=== PATIENT | female | born 1985 | race Caucasian/White ===

== ENCOUNTER 2019-12-07 08:32 | Inpatient (IN) | payer OTHER, SELFPAY ==
--- NOTE | ~2019-12-07 | CT_ITS ---
EXAMINATION: CT abdomen pelvis w con DATE: 12/07/2019 10:20 INDICATION: Low abdominal pain, blood in stool. Nausea, vomiting, diarrhea TECHNIQUE: Computed tomography (CT) of the abdomen and pelvis was performed with 100 cc Omnipaque 350 intravenous contrast. Automated exposure control and iterative reconstruction technique were employe d. Exam dose: 665.89 mGy-cm total exam DLP. COMPARISON: 07/23/2017 CT abdomen pelvis 12/04/2014 CT abdomen pelvis FINDINGS: Normal heart size. No pericardial or pleural effusion. The lung bases are clear of infiltra te or consolidation. Status post cholecystectomy. No bile duct or pancreatic duct dilatation. No hepatic, splenic, pancrea tic, adrenal or renal space-occupying mass lesion. No urinary tract calculus or hydroureteronephrosis . Normal caliber of the abdominal aorta. No intraperitoneal or retroperitoneal or pelvic mass lesion or adenopathy or ascites. There is extensive wall thickening of the colon, including cecum, ascending colon, distal transverse colon, splenic flexure and descending and sigmoid: As well as rectum. Findings suggest inflammatory b owel disease, particularly possibility of ulcerative colitis. Infectious colitis is another considera tion. There is no evidence of vascular stenosis to suggest ischemic colitis. Normal caliber of the abdominal aorta. There are shotty periaortic and aortocaval lymph nodes, likely reactive. The uterus, adnexal areas and urinary bladder are unremarkable. Included skeletal structures are unremarkable. No evidence of sacroiliitis. IMPRESSION: Extensive colitis; consider inflammatory bowel disease, particularly ulcerative colitis, as well as infectious colitis Reviewed, dictated and finalized at [facility]. Reviewed, dictated and finalized at location [facility]. ISH MELTER IMPRESSION: Extensive colitis; consider inflammatory bowel disease, particular ly ulcerative colitis, as well as infectious colitis
--- NOTE | ~2019-12-07 | XR_ITS ---
EXAMINATION: XR abdomen/kub 1V DATE: 12/08/2019 05:47 INDICATION: Blood in stool. TECHNIQUE: A supine view of the abdomen was obtained. COMPARISON: CT abdomen and pelvis 12/07/2019 FINDINGS: There are no dilated loops of bowel. There are phleboliths in the pelvis. Surgical clips in the right upper quadrant are likely from cholecystectomy. IMPRESSION: 1. Nonobstructive bowel gas pattern. Reviewed, dictated and finalized at location [facility]. R BUILDER
--- NOTE | ~2019-12-07 | XR_ITS ---
EXAMINATION: XR abdomen/kub 1V DATE: 12/10/2019 05:38 INDICATION: Ulcerative colitis. TECHNIQUE: A supine view of the abdomen was obtained. COMPARISON: Abdomen radiograph 12/08/2019, CT abdomen and pelvis 12/07/2019 FINDINGS: There are no dilated loops of bowel. There is a paucity of stool in the colon. There are ph leboliths in the pelvis. Surgical clips in the right upper quadrant are likely from cholecystectomy. IMPRESSION: 1. Normal bowel gas pattern. Reviewed, dictated and finalized at location [facility]. R COAT SPRAYER
[2019-12-07 08:42] VITALS: BP 126/81; PULSE 101; RESP 18; TEMP 36.9; O2SAT 99
[2019-12-07] MEDS: ONDANSETRON INJ 4 MG/2 ML VIAL IV PUSH (08:59)
[2019-12-07] MEDS: methylPREDNISolone SOD SUCC 125 MG VIAL IV PUSH (08:59)
[2019-12-07] MEDS: LACTATED RINGERS 1,000 ML 999 ML IV CONT ×3 (08:59→11:57)
[2019-12-07] MEDS: FAMOTIDINE 20 MG/2 ML VIAL IV PUSH ×2 (09:00→21:47)
[2019-12-07 09:10] LABS: Basophils Absolute Auto 0.1 K/mm3 (0.0-0.1); Basophils Percent Auto 0.4 % (0.2-1.2); Eosinophils Absolute Auto 0.1 K/mm3 (0-0.3); Eosinophils Percent Auto 0.4 % (0-4.4); Hematocrit 41.7 % (37.0-47.0); Hemoglobin 14.1 g/dL (12.0-15.0); Immature Granulocyte Absolute 0.09 K/mm3 (0.00-0.031); Immature Granulocyte Percent A 0.5 % (0-0.5); Lymphocytes Absolute Auto 2.03 K/mm3 (0.9-3.2); Lymphocytes Percent Auto 12.3 % (18.3-44.2); Mean Corpuscular HGB Conc 33.8 g/dl (32-36); Mean Corpuscular Hemoglobin 30.2 pg (26-34); Mean Corpuscular Volume 89.3 fl (80-100); Mean Platelet Volume 9.7 fl (7.4-10.4); Monocytes Absolute Auto 1.1 K/mm3 (0.1-0.6); Monocytes Percent Auto 6.7 % (2.6-8.5); Neutrophils Absolute Auto 13.2 K/mm3 (1.3-6.7); Neutrophils Percent Auto 79.7 % (45.5-73.1); Platelet Count Result 383 k/mm3 (150-375); Red Blood Count 4.67 M/mm3 (4.2-5.4); Red Cell Distribution Width 13.4 % (11.5-14.5); White Blood Count 16.5 K/mm3 (4.5-10.0)
--- NOTE | 2019-12-07 09:11 | ED.ABDPAIN ---
HPI - Abdominal Pain General Chief Complaint: Abdominal Pain <SHAYY Roberson Last Filed: 12/07/19 12:44> Stated Complaint: abd pain/vomiting <SHAYY Roberson Last Filed: 12/07/19 12:44> Time Seen by Provider: 12/07/19 08:40 <SHAYY Roberson Last Filed: 12/07/19 12:44> Source: patient and old records reviewed <SHAYY Roberson Last Filed: 12/07/19 12:44> Mode of arrival: ambulatory <SHAYY Roberson Last Filed: 12/07/19 12:44> Limitations: no limitations <SHAYY Roberson Last Filed: 12/07/19 12:44> History of Present Illness HPI narrative: Patient is a 34-year-old female who continues to have abdominal pain with rectal bleeding and diarrhea has been having a flare for the last 2 months of her ulcerative colitis followed by specialty services at [facility] (Dr. Mike) patient is currently on prednisone was on 40 mg daily and has been for 7 days they increase the dose to 60 mg in the last day patient notes she has now began to have nausea and vomiting with inability to tolerate p.o. intake or medications beginning last night patient notes diffuse pain throughout the abdomen that is moderate in nature this is the patient's third visit to the emergency department for this issue. Last visit was 11/29/2019 patient also notes decreased appetite secondary to abdominal discomfort patient notes numerous loose stools up to 12/day primarily consisting of blood. <SHAYY Roberson Last Filed: 12/07/19 12:44> Related Data Home Medications: Home Medications Medication Instructions Recorded Confirmed adalimumab [Humira(CF) Pen] mg SUBCUT 11/27/19 budesonide PO 11/27/19 fluoxetine mg 11/27/19 norethindrone-e.estradiol-iron tablet 11/27/19 [11/22 (28)] tizanidine mg 11/27/19 <SHAYY Roberson Last Filed: 12/07/19 12:44> Allergies/Adverse Reactions: Allergies Allergy/AdvReac Type Severity Reaction Status Date / Time infliximab Allergy Unknown Joint Pain Verified 11/29/19 10:06 mesalamine Allergy Unknown Joint Pain Verified 11/29/19 10:06 <Sven Gutiérrez PA-C - Last Filed: 12/07/19 12:44> Review of Systems Review of Systems: Narrative: CONSTITUTIONAL: Denies fever, positive for chills, fatigue and sweats. EYES: Denies redness, or discharge. ENT: Denies rhinorrhea, congestion, sore throat, or otalgia. CARDIOVASCULAR: Denies chest pain RESPIRATORY: Denies cough or dyspnea. GENITOURINARY: Denies dysuria or hematuria. SKIN: Denies rash or itching. MUSCULOSKELETAL: Denies back pain, joint pain, or myalgia. NEUROLOGIC: Denies headache. Positive for dizziness <Sven Gutiérrez PA-C - Last Filed: 12/07/19 12:44> [facility] Past Medical History Medical History: Medical History Anxiety Depression GI bleed IBS (irritable bowel syndrome) Shingles Ulcerative colitis <Sven Gutiérrez PA-C - Last Filed: 12/07/19 12:44> Surgical History Surgical History: Surgical History History of cholecystectomy History of dilation and curettage History of hernia repair <Sven Gutiérrez PA-C - Last Filed: 12/07/19 12:44> Family History Family History: Family History (Updated 03/04/19 @ 08:13 by DOCTOR UNKNOWN) Mother Family history of thyroid disease Grandparent Family history of lung cancer Family history of renal cell carcinoma Other Cerebrovascular accident Diabetes mellitus Family history of allergic disorder Family history of kidney disease Hypertension <Sven Gutiérrez PA-C - Last Filed: 12/07/19 12:44> Social History Social History: Social History Smoking status: Never smoker Alcohol intake: current Gender identity (if verbalized by the patient): Female <Sven Gutiérrez
[2019-12-07 09:22] LABS: Alanine Aminotransferase 22 U/L (4-35); Albumin Level 4.2 g/dL (3.5-5.1); Alkaline Phosphatase 75 U/L (38-126); Aspartate Amino Transferase 19 U/L (14-36); Bilirubin,Total 0.3 mg/dL (0.2-1.3); Blood Urea Nitrogen 10 mg/dL (7-17); CRP 7.2 mg/dL (<1.0); Calcium 9.1 mg/dL (8.4-10.2); Carbon Dioxide 26 mmol/L (22-30); Chloride 96 mmol/L (98-107); Estimated Glomerular Filt Rate > 60; Glucose 107 mg/dL (65-105); Potassium 3.1 mmol/L (3.4-5.0); Sodium 134 mmol/L (137-145)
[2019-12-07 09:24] LABS: Prothrombin Time 12.7 Seconds (11.1-14.7)
[2019-12-07 09:25] LABS: Partial Thromboplastin Time 24.1 SECONDS (22.3-36.8)
[2019-12-07 09:42] LABS: Lactic Acid Reflex 2.6 mmol/L (0.7-2.1)
[2019-12-07] MEDS: MORPHINE SULFATE 2 MG/ML INJ IV PUSH (10:05)
[2019-12-07 10:27] LABS: Add Urine Microscopic? YES; Appearance Urine Clear (Clear); Bacteria Urine Trace /hpf; Bilirubin Urine Negative (Negative); Blood Urine 2+ (Negative); Color Urine Yellow (Yellow); Glucose Urine UA Negative (Negative); Ketones Urine Negative (Negative); Leukocyte Esterase Ur Negative LEU/UL (Negative); Mucus Urine Few /lpf; Nitrate Urine Negative (Negative); Protein Urine Negative (Negative); RBC Urine 0-2 /hpf (0-2); Specific Grav Ur 1.012 (1.001-1.035); Squamous Epithelial Cell Urine Occasional /hpf (Few); Urobilinogen Urine Negative mg/dL (<2.0); WBC Urine 0-3 /hpf
[2019-12-07] MEDS: MORPHINE SULFATE 4 MG/ML INJ IV PUSH (11:56)
[2019-12-07 11:57] VITALS: BP 127/81; PULSE 88; RESP 16; TEMP 36.8; O2SAT 97
[2019-12-07 12:27] LABS: Reflex Lactic Acid Yes or No Add Lactic
[2019-12-07 12:56] LABS: Lactic Acid 2.7 mmol/L (0.7-2.1)
[2019-12-07 13:46] VITALS: BP 127/81; PULSE 83; RESP 16; O2SAT 95
[2019-12-07 14:10] VITALS: BP 127/70; PULSE 79; RESP 16; TEMP 36.3; O2SAT 96
[2019-12-07 14:23] VITALS: PULSE 88; RESP 16; O2SAT 97; BMI 29.0
--- NOTE | 2019-12-07 14:41 | ADMGEN ---
This patient, Elizabeth Tanner, was admitted to [facility] Surg Room 304-01. Patient/family oriented to hospital policies and general routines including ID bracelet, bed and alarms, visiting hours, pain management, procedures, bathroom and other care routines, personal items, smoking policy, room service/diet, and visiting hours. Valuables list has been completed. Information on how to activate the Rapid Response Team has been discussed. Patient/Family are encouraged to report perceived risks to care and to ask questions if they do not understand what they are told or what they should do.
[2019-12-07] MEDS: LACTATED RINGERS 1,000 ML 125 ML IV CONT ×2 (14:45→23:01)
--- NOTE | 2019-12-07 16:56 | PM.IMHP ---
H&P: HPI History of Present Illness Chief complaint: Ulcerative colitis with bleeding/sepsis Narrative: Elizabeth Tanner is a 34 year old female who has a history of having also to have colitis. The patient stated that she has been dealing with symptoms since September. She is having several watery blood tinged diarrhea stools. The patient was started on p.o. prednisone but has not been able to tolerate p.o. medications. She has been having nausea and vomiting aqnd inability to tolerate p.o. intake her medications being last night. She sees a GI specialist at [facility] and the ER provider did notify her GI specialist who is aware that she has an elevated white count and bloody stools. Her GI specialist recommended that the patient take 20 mg of IV Solu-Medrol every 8 hours. No antibiotics was recommended at this time. Patient was started on IV fluids and IV morphine. The patient was able to tolerated clear liquid diet tonight. She stated that she is feeling much better. Patient stated she was is having difficulty keeping up with her fluids at home due to the vomiting and diarrhea stools. She has had decreased appetite and increased abdominal discomfort. She has had up to 12 stools a day. She was started on IV Solu-Medrol here. Her potassium was noted to be 3.1 and she had supplemental potassium. Her lactic was 2.7 however most likely due to her dehydration. The CT of of the abdomen was read by radiologist as extensive colitis, consider inflammatory bowel disease, particularly also diff colitis, as well as infectious colitis. However her GI specialist did not feel that she is requiring antibiotics at this time. Date of service is 12/07/2019 Review of Systems Review of Systems: All systems reviewed & are unremarkable except as noted in HPI and below Constitutional: Constitutional: Reports as per HPI, Reports no additional constitutional complaints, Reports anorexia, Reports chills, Reports difficulty sleeping (Up during the night having loose stools), Reports fatigue, Reports lethargy, Reports malaise, Reports night sweats, Reports poor appetite and Reports weakness Eyes: Eyes: Reports as per HPI and Reports no additional eye complaints ENT: Reports system reviewed and no additional complaints, except as documented and Reports Normal hearing present Cardiovascular: Cardiovascular: Reports no additional cardiovascular complaints Respiratory: Respiratory: Reports no additional respiratory complaints and Reports no additional respiratory complaints Gastrointestinal: Gastrointestinal: Reports as per HPI, Reports no additional gastrointestinal complaints, Reports abdominal pain, Reports bloating, Reports hematochezia, Reports GI cramping, Reports loose stools and Reports nausea Musculoskeletal: Musculoskeletal: Reports no additional musculoskeletal complaints Integumentary/Breasts: Skin/Breast: Reports system reviewed and no additional complaints, except as docu and Reports as per HPI Neurologic: Reports system reviewed and no additional complaints, except as documented, Reports as per HPI and Reports Normal hearing present Psychiatric: Psychiatric: Reports no additional psychiatric complaints and Reports as per HPI Endocrine: Endocrine: Reports no additional endocrine complaints Hematologic/Lymphatic: Hematologic/Lymphatic: Reports no additional hematologic/lymphatic complaints Allergic/Immunologic: Allergic/Immunologic: Reports no additional allergic/immunologic complaints PMFSH Past Medical History Medical History (Updated 12/07/19 @ 17:09 by Marilyn Mchugh NP) Anxiety Depression GI bleed Shingles Ulcerative colitis Surgical History Surgical History History of cholecystectomy History of dilation and curettage History of hernia repair Family History Family History Mother Family history
[2019-12-07] MEDS: methylPREDNISolone SOD SUCC 125 MG VIAL 60 MG IV PUSH (18:41)
[2019-12-07 18:46] LABS: Hematocrit 37.6 % (37.0-47.0); Hemoglobin 12.3 g/dL (12.0-15.0); Mean Corpuscular HGB Conc 32.7 g/dl (32-36); Mean Corpuscular Hemoglobin 29.8 pg (26-34); Mean Platelet Volume 9.6 fl (7.4-10.4); Platelet Count Result 372 k/mm3 (150-375); Red Blood Count 4.13 M/mm3 (4.2-5.4); Red Cell Distribution Width 13.5 % (11.5-14.5); White Blood Count 15.5 K/mm3 (4.5-10.0)
[2019-12-07 18:57] LABS: INR 1.1; Prothrombin Time 13.4 Seconds (11.1-14.7)
[2019-12-07 18:58] LABS: Lactic Acid 2.8 mmol/L (0.7-2.1)
[2019-12-07 19:18] LABS: Alanine Aminotransferase 22 U/L (4-35); Albumin Level 3.6 g/dL (3.5-5.1); Alkaline Phosphatase 61 U/L (38-126); Aspartate Amino Transferase 18 U/L (14-36); Bilirubin,Total 0.2 mg/dL (0.2-1.3); CRP 7.3 mg/dL (<1.0); Magnesium 1.9 mg/dL (1.6-2.3); Phosphorus 3.7 mg/dL (2.5-4.5)
[2019-12-07 19:19] LABS: Iron 22 ug/dL (37-170)
[2019-12-07 19:34] LABS: Percent Iron Saturation 7 % (20-50)
[2019-12-07 19:48] LABS: Thyroid Stimulating Hormone 0.597 uIU/mL (0.465-4.680)
[2019-12-07 19:59] LABS: Hepatitis B Surface Anti Res Positive
[2019-12-07 20:23] LABS: Folic Acid 9.2 ng/mL (2.76->20)
[2019-12-07 22:00] VITALS: BP 113/64; PULSE 79; RESP 14; TEMP 36.3; O2SAT 98
[2019-12-07] MEDS: TIZANIDINE HCL 4 MG TABLET PO (22:49)
[2019-12-08] MEDS: methylPREDNISolone SOD SUCC 125 MG VIAL 60 MG IV PUSH ×4 (02:03→21:52)
[2019-12-08 04:00] VITALS: BP 120/68; PULSE 85; RESP 18; TEMP 36.5; O2SAT 98
[2019-12-08] MEDS: MORPHINE SULFATE 4 MG/ML INJ IV PUSH ×3 (05:05→21:11)
[2019-12-08] MEDS: LACTATED RINGERS 1,000 ML 125 ML IV CONT (05:06)
[2019-12-08 06:33] LABS: Basophils Absolute Auto 0.1 K/mm3 (0.0-0.1); Basophils Percent Auto 0.4 % (0.2-1.2); Hematocrit 38.4 % (37.0-47.0); Hemoglobin 12.6 g/dL (12.0-15.0); Immature Granulocyte Absolute 0.11 K/mm3 (0.00-0.031); Immature Granulocyte Percent A 0.8 % (0-0.5); Lymphocytes Absolute Auto 1.06 K/mm3 (0.9-3.2); Lymphocytes Percent Auto 7.3 % (18.3-44.2); Mean Corpuscular HGB Conc 32.8 g/dl (32-36); Mean Corpuscular Hemoglobin 29.8 pg (26-34); Mean Corpuscular Volume 90.8 fl (80-100); Mean Platelet Volume 10.1 fl (7.4-10.4); Monocytes Absolute Auto 0.6 K/mm3 (0.1-0.6); Monocytes Percent Auto 4.3 % (2.6-8.5); Neutrophils Absolute Auto 12.6 K/mm3 (1.3-6.7); Neutrophils Percent Auto 87.2 % (45.5-73.1); Platelet Count Result 351 k/mm3 (150-375); Red Blood Count 4.23 M/mm3 (4.2-5.4); Red Cell Distribution Width 13.3 % (11.5-14.5); White Blood Count 14.5 K/mm3 (4.5-10.0)
[2019-12-08 06:53] LABS: Blood Urea Nitrogen 7 mg/dL (7-17); Calcium 9.2 mg/dL (8.4-10.2); Carbon Dioxide 26 mmol/L (22-30); Chloride 97 mmol/L (98-107); Estimated CRCL calculation 139 ml/min; Estimated Glomerular Filt Rate > 60; Glucose 121 mg/dL (65-105); Potassium 3.9 mmol/L (3.4-5.0); Sodium 135 mmol/L (137-145)
[2019-12-08] MEDS: FAMOTIDINE 20 MG/2 ML VIAL IV PUSH ×2 (08:22→21:49)
[2019-12-08] MEDS: FLUOXETINE HCL 10 MG CAPSULE PO (08:22)
--- NOTE | 2019-12-08 09:59 | PM.IMPN ---
Progress Note: A&P Assessment and Plan (1) Ulcerative colitis with rectal bleeding: Code(s): K51.911 - Ulcerative colitis, unspecified with rectal bleeding Status: Acute Assessment and Plan: -----acute exacerbation now on IV steroids with some improvement so far. So far today she has had less diarrhea. The ER doctor talked to from [facility] who did not recommend antibiotics at this time. She did reportedly have stool cultures about a month ago which were negative. These have been reordered. She has not had any fevers. She has had a leukocytosis but could be due to steroids and inflammation. CRP is 7.3 and we will redraw this tomorrow. Her kidney function is normal and she is eating and drinking well so I will stop the IV fluids at this time. She was dehydrated at admission so we will watch closely to see if these need to be restarted. She has been having to utilize pain medications for the intense pain in these were adjusted since she is now able to take oral. Dr. Otero has been consulted and will wait for further recommendations. I spoke to the nurse about offering Bentyl as well to see if that might help with her cramping pain. I believe the patient plans to start Humira (2) Depression: Code(s): F32.9 - Major depressive disorder, single episode, unspecified Status: Chronic Assessment and Plan: -----mild and controlled. Continue fluoxetine (3) Anxiety: Code(s): F41.9 - Anxiety disorder, unspecified Status: Chronic Assessment and Plan: -----mild and controlled. Continue with fluoxetine. (4) Vitamin D deficiency: Code(s): E55.9 - Vitamin D deficiency, unspecified Status: Acute Assessment and Plan: -----will start vitamin-D replacement (5) Sepsis: Code(s): A41.9 - Sepsis, unspecified organism Status: Acute Assessment and Plan: -----seen on admission due to elevated lactic acid as well as leukocytosis. Source as stated above. Lactic acid is back to normal and the patient appears euvolemic. White blood cell count still elevated but she is also on steroids so I suspect this will remain elevated. Will monitor CRP and symptoms. Time Spent With Patient Time with patient: 25 - 35 minutes Subjective Date/time seen: 12/08/19 09:59 Interval history: Pt is a 34-year-old female here for UC exacerbation. Patient was seen today and states that she feels a little better and her pain is more controlled compared to yesterday before admission. She has had about 4 bowel movements since midnight which is a little less than her usual since her exacerbation started. She still has generalized cramping in her abdomen in most quadrants but worse in the right lower quadrant. This pain radiates to her back. She has been eating and drinking okay without issue there. She gets nauseated when she feels like she has diarrhea but overall is doing okay. She has been having to utilize pain medication due to the intense cramping. She has a past history of vitamin-D deficiency. She reports no chest pain or shortness of breath today. She thinks she has made improvement with the higher dose steroids. She sees a doctor at [facility] and was supposed to start Humira soon and I believe it is being delivered to her house. She said she had her stools tested about a month ago with no reported issue. Review of Systems Review of Systems: All systems reviewed & are unremarkable except as noted in HPI and below Exam Narrative: Exam Narrative: General: Well developed well nourished patient resting comfortably in bed in NAD HEENT: normocephalic Neck: supple Neuro: Alert and oriented x4 CV:RRR Resp:CTA Abd: Soft, non distended. Pain to palpation to all areas of the abdomen, worsened in the right lower quadrant. Positive bowel sounds Extremities: No swelling, erythema, or pain to palpation. Objective Data Vital
[2019-12-08] MEDS: DICYCLOMINE HCL 10 MG CAPSULE 20 MG PO (10:18)
[2019-12-08] MEDS: ONDANSETRON INJ 4 MG/2 ML VIAL IV PUSH ×3 (10:18→21:13)
--- NOTE | 2019-12-08 11:21 | WPDGICN ---
GI Consult Note Consult date/time: 12/08/19 11:21 HPI: Elizabeth Tanner is a 34 year old female seen in consultation at the request of the hospitalist in with the patient's permission. Impression: Ulcerative colitis with flare. GI bleeding secondary to above. Depression. Anxiety. History shingles. Increased T4 levels. History of drug-induced lupus. Recommendation: Will continue IV Solu-Medrol q.8 hours. Flexible sigmoidoscopy in a.m. to evaluate for underlying CMV colitis. Recheck laboratory studies. Humira when available. Check stool studies. Further recommendations will be forthcoming. This very pleasant lady has a long-term history of ulcerative colitis for 12 years. The patient has been treated with multiple medications. The patient's prior flare was approximately 6 years ago. At that time she was treated with steroids. She was subsequently switched to Asacol and Remicade. Unfortunately, she developed drug-induced lupus. The Remicade and the eschar discontinued. She was placed on 6 MP. 6- MP worked well for approximately 6 years of remission. Sometime last year the patient developed a flare. She was taking a fair amount of NSAIDs at the time. Since that time she has had a constant flare up. She was recently been on oral prednisone at home as well as budesonide. She began having increased rectal bleeding and diarrhea. She was also having episodes of nausea and vomiting. This persisted emergency room visit. CT imaging did reveal evidence of a thickened colon compatible with colitis. 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 Patient had a negative C diff 2 weeks ago as an outpatient. She has lost approximately 10 lb. She denies any fever or mouth sores, but has night sweats and chills. Patient's last colonoscopy was a year ago. Review of Systems Review of Systems: All systems reviewed & are unremarkable except as noted in HPI and below PMFSH Past Medical History Medical History (Updated 12/08/19 @ 11:32 by Ashok Otero DO) Anxiety Depression Drug-induced lupus erythematosus GI bleed Shingles Ulcerative colitis Vitamin D deficiency Surgical History Surgical History H/O colonoscopy History of cholecystectomy History of dilation and curettage History of hernia repair Family History Family History Mother Family history of thyroid disease Grandparent Family history of lung cancer Family history of renal cell carcinoma Other Cerebrovascular accident Diabetes mellitus Family history of allergic disorder Family history of kidney disease Hypertension Social History Social History Social History: The patient is to Brigitte who is her durable power ip technology transactions attorney for healthcare. She desires to be a full code. She has 2 children. 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 She is a lifelong nonsmoker and drinks socially. Smoking status: Never smoker Alcohol intake: current Substance use: never Living arrangements: with family Occupation/Education: occupation Gender identity (if verbalized by the patient): Female Meds Home Medications and Allergies Home Medications Medication Instructions Recorded Confirmed Type adalimumab [Humira(CF) Pen] mg SUBCUT 11/27/19 History budesonide 9 mg PO DAILY 11/27/19 12/07/19 History fluoxetine 10 mg PO DAILY 11/27/19 12/07/19 History norethindrone-e.estradiol-iron 1 tablet PO DAILY 11/27/19 12/07/19 History [June FE 11/22 (28)] tizanidine 4 mg PO PRN PRN 11/27/19 12/07/19 History dicyclomine 20 mg PO QID PRN #20 tablet 11/29/19 12/07/19 Rx ondansetron 4 mg PO Q6H PRN #20 tablet 11/29/19 12/07/19 Rx prednisone 60 mg PO DAILY 12/07/19 12/07/19 History Allergies Allergy/AdvReac Type Severity Reaction Status Date / Time infl
[2019-12-08] MEDS: ACETAMINOPHEN 325 MG TABLET 650 MG PO (12:02)
[2019-12-08] MEDS: ERGOCALCIFEROL 50,000 UNIT CAPSULE 50000 UNITS PO (12:02)
[2019-12-08 12:29] VITALS: BMI 29.0
[2019-12-08 14:11] VITALS: BP 127/66; PULSE 75; RESP 18; TEMP 36.4; O2SAT 98
[2019-12-08] MEDS: MELATONIN 5 MG TABLET PO (21:49)
[2019-12-08 22:00] VITALS: BP 125/73; PULSE 60; RESP 18; TEMP 37.1; O2SAT 97
[2019-12-09] VITALS (8 sets, daily range): BP systolic 97–126; BP diastolic 62–88; PULSE 62–76; RESP 16–18; TEMP 36.6–36.9; O2SAT 96–99
[2019-12-09] MEDS: methylPREDNISolone SOD SUCC 125 MG VIAL 60 MG IV PUSH ×3 (06:29→21:30)
[2019-12-09] MEDS: DICYCLOMINE HCL 10 MG CAPSULE 20 MG PO ×2 (06:51→19:23)
[2019-12-09 07:08] LABS: Hematocrit 40.3 % (37.0-47.0); Hemoglobin 13.3 g/dL (12.0-15.0); Mean Corpuscular Hemoglobin 29.6 pg (26-34); Mean Corpuscular Volume 89.6 fl (80-100); Mean Platelet Volume 10.1 fl (7.4-10.4); Platelet Count Result 417 k/mm3 (150-375); Red Cell Distribution Width 13.3 % (11.5-14.5); White Blood Count 11.3 K/mm3 (4.5-10.0)
[2019-12-09 07:18] LABS: Blood Urea Nitrogen 15 mg/dL (7-17); CRP 4.1 mg/dL (<1.0); Calcium 9.2 mg/dL (8.4-10.2); Carbon Dioxide 21 mmol/L (22-30); Chloride 97 mmol/L (98-107); Estimated CRCL calculation 118 ml/min; Estimated Glomerular Filt Rate > 60; Glucose 133 mg/dL (65-105); Magnesium 2.1 mg/dL (1.6-2.3); Potassium 3.4 mmol/L (3.4-5.0); Sodium 135 mmol/L (137-145)
[2019-12-09] MEDS: FAMOTIDINE 20 MG/2 ML VIAL IV PUSH ×2 (08:45→21:30)
[2019-12-09] MEDS: LACTATED RINGERS 1,000 ML 150 ML IV CONT (10:05)
--- NOTE | 2019-12-09 10:13 | WPDHPUPDATE1 ---
History and Physical Update Update Date/Time: 12/09/19 10:13 History and Physical has been reviewed, including an updated exam of the patient. There are NO changes in the patient's condition. Risks, benefits, and alternatives have been discussed and questions answered. Patient agrees to proceed with procedure. Plan: 1. Flex Sig today
--- NOTE | 2019-12-09 10:17 | WPDANESEPPF ---
Anes - Initial Pre Proc Eval Procedure: Operation Date: 12/09/19 10:00 Proposed Procedures p Flexible Sigmoidoscopy - Ashok Sullivan Branden Date/Time: 12/09/19 10:17 Surgeon: Caroline Posada PA-C Pre Op Diagnosis: Ulcerative colitis with bleeding/sepsis Patient Data Age: 34 Gender: F Height: 5 ft 5 in Weight: 79.3 kg Last Vital Signs Temp 36.9 C 12/09/19 10:06 Pulse 68 12/09/19 10:06 Resp 16 12/09/19 10:06 BP 103/88 12/09/19 10:06 Pulse Ox 97 12/09/19 10:06 Allergies Allergy/AdvReac Type Severity Reaction Status Date / Time infliximab Allergy Unknown Joint Pain Verified 12/09/19 09:50 mesalamine Allergy Unknown Joint Pain Verified 12/09/19 09:50 Home Medications Medication Instructions Recorded Confirmed Type adalimumab [Humira(CF) Pen] mg SUBCUT 11/27/19 History budesonide 9 mg PO DAILY 11/27/19 12/07/19 History fluoxetine 10 mg PO DAILY 11/27/19 12/07/19 History norethindrone-e.estradiol-iron 1 tablet PO DAILY 11/27/19 12/07/19 History [11/22 ()] tizanidine 4 mg PO PRN PRN 11/27/19 12/07/19 History dicyclomine 20 mg PO QID PRN #20 tablet 11/29/19 12/07/19 Rx ondansetron 4 mg PO Q6H PRN #20 tablet 11/29/19 12/07/19 Rx prednisone 60 mg PO DAILY 12/07/19 12/07/19 History Laboratory Tests 12/09/19 12/09/19 12/09/19 06:29 06:29 06:29 WBC 11.3 K/mm3 H K/mm3 (4.5-10.0) RBC 4.50 M/mm3 M/mm3 (4.2-5.4) Hgb 13.3 g/dL g/dL (12.0-15.0) Hct 40.3 % % (37.0-47.0) MCV 89.6 fl fl (80-100) MCH 29.6 pg pg (26-34) MCHC 33.0 g/dl g/dl (32-36) RDW 13.3 % % (11.5-14.5) Plt Count 417 k/mm3 H k/mm3 (150-375) MPV 10.1 fl fl (7.4-10.4) Sodium 135 mmol/L L mmol/L (137-145) Potassium 3.4 mmol/L mmol/L (3.4-5.0) Chloride 97 mmol/L L mmol/L (98-107) Carbon Dioxide 21 mmol/L L mmol/L (22-30) BUN 15 mg/dL D mg/dL (7-17) Creatinine 0.60 mg/dL L mg/dL (0.7-1.0) Estim Creat Clear Calc 118 ml/min ml/min Estimated GFR > 60 (59 - ) Glucose 133 mg/dL H mg/dL (65-105) Calcium 9.2 mg/dL mg/dL (8.4-10.2) Magnesium 2.1 mg/dL mg/dL (1.6-2.3) C-Reactive Protein 4.1 mg/dL H mg/dL (<1.0) Free T4 1.40 ng/mL ng/mL (0.78-2.19) Patient hx anesthesia problems: none Family hx anesthesia problems: none PMFSH Past Medical History Medical History (Updated 12/08/19 @ 11:32 by Ashok Otero DO) Anxiety Depression Drug-induced lupus erythematosus GI bleed Shingles Ulcerative colitis Vitamin D deficiency Surgical History Surgical History H/O colonoscopy History of cholecystectomy History of dilation and curettage History of hernia repair Family History Family History Mother Family history of thyroid disease Grandparent Family history of lung cancer Family history of renal cell carcinoma Other Cerebrovascular accident Diabetes mellitus Family history of allergic disorder Family history of kidney disease Hypertension Social History Social History Social History: The patient is to Brigitte who is her durable power family law attorney for healthcare. She desires to be a full code. She has 2 children. 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 Smoking status: Never smoker Alcohol intake: current Substance use: never Living arrangements: with family Occupation/Education: occupation Gender identity (if verbalized by the patient): Female Spiritual care concerns: No Anes - Eval Final PreProcedure Day of Procedure 12/09/19 10:17 Patient weight: overweight Heart:
[2019-12-09] MEDS: FLUOXETINE HCL 10 MG CAPSULE PO (12:58)
--- NOTE | 2019-12-09 13:02 | PM.IMPN ---
Progress Note: A&P Assessment and Plan (1) Ulcerative colitis with rectal bleeding: Code(s): K51.911 - Ulcerative colitis, unspecified with rectal bleeding Status: Acute Assessment and Plan: -----acute exacerbation now on IV steroids with some improvement so far. flex sig today showed significant irritation and ulcers. Will continue current treatment. CMV stain has been sent. Ecoli and ciff is negative and other stool studies still pending. WBC and CRP has improved. So far today she has had less diarrhea. The ER doctor talked to from [facility] who did not recommend antibiotics at this time. She did reportedly have stool cultures about a month ago which were negative. These have been reordered. She has not had any fevers. Her kidney function is normal and she is eating and drinking well. She has been having to utilize pain medications and doing well on the benytl. Plan discussed with Dr. Otero. I believe the patient plans to start Humira (2) Depression: Code(s): F32.9 - Major depressive disorder, single episode, unspecified Status: Chronic Assessment and Plan: -----mild and controlled. Continue fluoxetine (3) Anxiety: Code(s): F41.9 - Anxiety disorder, unspecified Status: Chronic Assessment and Plan: -----mild and controlled. Continue with fluoxetine. (4) Vitamin D deficiency: Code(s): E55.9 - Vitamin D deficiency, unspecified Status: Acute Assessment and Plan: -----continue vitamin-D replacement (5) Sepsis: Code(s): A41.9 - Sepsis, unspecified organism Status: Acute Assessment and Plan: -----seen on admission due to elevated lactic acid as well as leukocytosis. Source as stated above. Lactic acid is back to normal and the patient appears euvolemic. White blood cell count still elevated but she is also on steroids so I suspect this will remain elevated. Will monitor CRP and symptoms. Subjective Date/time seen: 12/09/19 13:02 Interval history: Pt is a 34-year-old female here for UC exacerbation. Patient was seen today and states that she feels better than she has the past few days. She now averages about 6-7 diarrhea episodes a day which is about half of what is has been. She slept better last night with the melatonin. She has been eating and drinking without issue. She denies SOB, fevers, CP, or leg swelling. She does still have significant cramping with her diarrhea. Exam Narrative: Exam Narrative: General: Well developed well nourished patient resting comfortably in bed in NAD HEENT: normocephalic Neck: supple Neuro: Alert and oriented x4 CV:RRR Resp:CTA Abd: Soft, non distended. Pain to palpation to the lower quadrants today. Positive bowel sounds Extremities: No swelling, erythema, or pain to palpation. Objective Data Vital Signs Vital Signs: Vital Signs - 24 hr 12/08/19 14:11 12/08/19 22:00 12/09/19 06:00 Temperature 97.5 F L 98.7 F 97.9 F Pulse Rate 75 60 76 Respiratory Rate 18 18 18 Blood Pressure 127/66 125/73 110/68 Pulse Oximetry 98 97 98 12/09/19 08:37 12/09/19 10:06 12/09/19 10:58 Temperature 98.5 F Pulse Rate 69 68 72 Respiratory Rate 18 16 18 Blood Pressure 115/75 103/88 97/63 L Pulse Oximetry 97 97 99 12/09/19 11:08 12/09/19 11:18 Temperature Pulse Rate 66 68 Respiratory Rate 18 18 Blood Pressure 107/69 112/68 Pulse Oximetry 99 99 Intake/Output Intake/Output: Intake & Output 12/06/19 12/07/19 12/08/19 12/09/19 23:59 23:59 23:59 23:59 Intake Total 4580 4130 250 Output Total 2700 700 Balance 4580 1430 -450 Meds/Results Medications: Active Medications Generic Name Dose Route Start Last Admin Trade Name Freq PRN Reason Stop Dose Admin Acetaminophen 650 mg 12/08/19 09:56 12/08/19 12:02 Tylenol Tablet PO 650 mg Q4H PRN Administration Mild Pain (1-3) or Fever Dicyclomine HCl 20 mg 02/0
[2019-12-09] MEDS: POTASSIUM CHLORIDE 20 MEQ TABLET 40 MEQ PO (13:04)
--- NOTE | 2019-12-09 14:24 | PCDIET ---
Nutrition Follow-Up Complete: Altered GI function as related to Ulcerative colitis as related to weight loss of 10 lbs in the past 3 months and poor po intake reported. Adequate Intake of at least 75% of meals. Goal:Goal met. Continue with current goal. Pt current nutrition is Regular/Gluten Free. Nutrition recommendation: Agree Last recorded weight is 79.3 kg. Bowel Motility: 6+ stools per day (improved) Labs Reviewed:Vit D of 20, T4 of 12.90. TSH .597, C Reactive 4.1 Meds Noted: Solumedrol, Ergocalciferol Additional Notes: Pt suffering from UC for 12 years. Can no longer take remicade. Plans for Humira. Pt found out she has celiac and tries to maintain gluten free diet. Iron and % Saturation low at 22 and 7, most likely due to bleeding. Vitamin D low at at 20 most likely due to gut inflammation and reduce nutrient absorption. Agree with ergocalciferol. Pt most likely has other nutrition deficiencies due to malabsorption. A good quality MTV would be appropriate at this time. Pt would benefit from an anti-inflammatory/gluten free elimination diet/oral challenge to pinpoint foods that exacerbate UC and to promote gut healing after d/c. We will continue to monitor BMs, labs, and PO intake every every 5 days.
[2019-12-09] MEDS: ONDANSETRON HCL ODT 4 MG TABLET PO (19:23)
[2019-12-09] MEDS: MELATONIN 5 MG TABLET PO (21:31)
[2019-12-10] MEDS: DICYCLOMINE HCL 10 MG CAPSULE 20 MG PO ×2 (03:30→09:36)
[2019-12-10] MEDS: ACETAMINOPHEN 325 MG TABLET 650 MG PO ×2 (03:31→09:36)
[2019-12-10] MEDS: methylPREDNISolone SOD SUCC 125 MG VIAL 60 MG IV PUSH (05:29)
[2019-12-10 06:00] VITALS: BP 118/68; PULSE 68; RESP 16; TEMP 36.6; O2SAT 94
[2019-12-10 06:32] LABS: Basophils Percent Auto 0.3 % (0.2-1.2); Hematocrit 41.3 % (37.0-47.0); Hemoglobin 13.7 g/dL (12.0-15.0); Immature Granulocyte Absolute 0.27 K/mm3 (0.00-0.031); Lymphocytes Absolute Auto 1.68 K/mm3 (0.9-3.2); Lymphocytes Percent Auto 12.6 % (18.3-44.2); Mean Corpuscular HGB Conc 33.2 g/dl (32-36); Mean Corpuscular Hemoglobin 29.5 pg (26-34); Mean Platelet Volume 9.7 fl (7.4-10.4); Monocytes Absolute Auto 1.3 K/mm3 (0.1-0.6); Monocytes Percent Auto 9.7 % (2.6-8.5); Neutrophils Percent Auto 75.4 % (45.5-73.1); Platelet Count Result 467 k/mm3 (150-375); Red Blood Count 4.64 M/mm3 (4.2-5.4); Red Cell Distribution Width 13.2 % (11.5-14.5); White Blood Count 13.3 K/mm3 (4.5-10.0)
[2019-12-10 06:45] LABS: Blood Urea Nitrogen 18 mg/dL (7-17); Calcium 9.1 mg/dL (8.4-10.2); Carbon Dioxide 26 mmol/L (22-30); Chloride 98 mmol/L (98-107); Estimated CRCL calculation 118 ml/min; Estimated Glomerular Filt Rate > 60; Glucose 120 mg/dL (65-105); Magnesium 2.4 mg/dL (1.6-2.3); Phosphorus 4.6 mg/dL (2.5-4.5); Sodium 137 mmol/L (137-145)
[2019-12-10] MEDS: FAMOTIDINE 20 MG/2 ML VIAL IV PUSH (09:35)
[2019-12-10] MEDS: ONDANSETRON HCL ODT 4 MG TABLET PO (09:35)
[2019-12-10] MEDS: FLUOXETINE HCL 10 MG CAPSULE PO (09:36)
--- NOTE | 2019-12-10 12:07 | WPDGIPROGNO ---
Subjective Date/time seen: 12/10/19 12:07 This very pleasant lady's feeling better. Bleeding has seemed to stop. No nausea, vomiting or pain. Heart rate rhythm regular. Lungs CTA. Abdomen is soft with active bowel sounds. Extremities without edema. Impression: Ulcerative colitis with flare. GI bleeding secondary to above. Depression. Anxiety. History shingles. Increased T4 levels. History of drug-induced lupus. Recommendation: Prednisone 40 mg q.a.m. on an taper. Follow-up with her primary top frame fitter for continuing tapering of prednisone. Continue with Humira as previously ordered. Pneumovax. Patient will need bone density. This is due to high risk medications. Await hepatitis a antibody total. If negative will require hepatitis a vaccine. Await CMV stains and histology. Objective Data Vital Signs Vital Signs: Vital Signs - 24 hr 12/09/19 14:00 12/09/19 22:00 12/10/19 06:00 Temperature 36.8 C 36.6 C 36.6 C Pulse Rate 71 62 68 Respiratory Rate 16 16 16 Blood Pressure 126/74 113/62 118/68 Pulse Oximetry 99 96 94 Intake/Output Intake/Output: Intake & Output 12/07/19 12/08/19 12/09/19 12/10/19 23:59 23:59 23:59 23:59 Intake Total 4580 4130 730 390 Output Total 2700 700 300 Balance 4580 1430 30 90 Meds/Results Medications: Active Medications Generic Name Dose Route Start Last Admin Trade Name Freq PRN Reason Stop Dose Admin Acetaminophen 650 mg 12/08/19 09:56 12/10/19 09:36 Tylenol Tablet PO 650 mg Q4H PRN Administration Mild Pain (1-3) or Fever Dicyclomine HCl 20 mg 12/07/19 17:15 12/10/19 09:36 Bentyl Capsule PO 20 mg QID PRN Administration Abdominal Discomfort Ergocalciferol 50,000 unit 12/08/19 10:00 12/08/19 12:02 Drisdol PO 50,000 unit We@[id number] LORENE Administration Famotidine 20 mg 12/07/19 21:00 12/10/19 09:35 Pepcid Iv IV PUSH 20 mg Q12HR LORENE Administration Fluoxetine HCl 10 mg 12/08/19 09:00 12/10/19 09:36 Prozac PO 10 mg DAILY LORENE Administration Melatonin 5 mg 12/08/19 21:00 12/09/19 21:31 Melatonin PO 5 mg HS LORENE Administration Methylprednisolone Sodium Succinate 60 mg 12/08/19 14:00 12/10/19 05:29 Solu-Medrol IV PUSH 60 mg Q8HR LORENE Administration Morphine Sulfate 4 mg 12/08/19 09:58 12/08/19 21:11 Morphine Sulfate Inj IV PUSH 4 mg Q2H PRN Administration Breakthrough Pain Non-Formulary Medication 40 mg 12/11/19 09:00 Predinisone BY MOUTH 01/10/20 09:01 DAILY LORENE Ondansetron HCl 4 mg 12/09/19 10:48 12/10/19 09:35 Zofran Odt PO 4 mg Q6H PRN Administration nausea and vomiting Tizanidine HCl 4 mg 12/07/19 17:15 Zanaflex PO HS PRN MUSCLE SPASMS Radiology Results: ITS Impressions Abdomen/Pelvis CT 12/07/19 10:25 IMPRESSION: Extensive colitis; consider inflammatory bowel disease, particularly ulcerative colitis, as well as infectious colitis Abdomen X-Ray 12/10/19 06:33 IMPRESSION: 1. Normal bowel gas pattern. Labs Labs: Laboratory Results - last 24 hr 12/10/19 12/10/19 05:55 05:55 WBC 13.3 H RBC 4.64 Hgb 13.7 Hct 41.3 MCV 89.0 MCH 29.5 MCHC 33.2 RDW 13.2 Plt Count 467 H MPV 9.7 Immature Gran % (Auto) 2.0 H Neut % (Auto) 75.4 H Lymph % (Auto) 12.6 L Calhoun % (Auto) 9.7 H Eos % (Auto) 0.0 Baso % (Auto) 0.3 Lymph # (Auto) 1.68 Calhoun # (Auto) 1.3 H Eos # (Auto) 0.0 Baso # (Auto) 0.0 Abs Immat Gran (auto) 0.27 H Absolute Neuts (auto) 10.0 H Absolute Nucleated RBC 0.0 Nucleated RBC % 0.0 Sodium 137 Potassium 4.0 Chloride 98 Carbon Dioxide 26 BUN 18 H Creatinine 0.60 L Estim Creat Clear Calc 118 Estimated GFR > 60 Glucose 120 H Calcium 9.1 Phosphorus 4.6 H Magnesium 2.4 H
--- NOTE | 2019-12-10 12:26 | PM.DS ---
DS: Diagnosis Admitting Diagnosis Admitting Diagnosis: Ulcerative colitis, unspecified with rectal bleeding Discharge Diagnosis (1) Ulcerative colitis with rectal bleeding: Code(s): K51.911 - Ulcerative colitis, unspecified with rectal bleeding Status: Acute Assessment and Plan: -----acute exacerbation improved with IV steroids. Flex sig showed significant irritation and ulcers. CMV stain has been sent. Stool cultures negative. WBC and CRP has improved. The ER doctor talked to from [facility] who did not recommend antibiotics at this time. She did reportedly have stool cultures about a month ago which were negative. Her kidney function is normal and she is eating and drinking well. She was started on Humira as this was being done outpatient before this exacerbation. She was also sent home on a long steroid taper and received the pneumonia vaccine. She is going to follow up with her GI doctor (2) Depression: Code(s): F32.9 - Major depressive disorder, single episode, unspecified Status: Chronic Assessment and Plan: -----mild and controlled. Continue fluoxetine (3) Anxiety: Code(s): F41.9 - Anxiety disorder, unspecified Status: Chronic Assessment and Plan: -----mild and controlled. Continue with fluoxetine. (4) Vitamin D deficiency: Code(s): E55.9 - Vitamin D deficiency, unspecified Status: Acute Assessment and Plan: -----continue vitamin-D replacement (5) Sepsis: Code(s): A41.9 - Sepsis, unspecified organism Status: Acute Assessment and Plan: -----seen on admission due to elevated lactic acid as well as leukocytosis. Source as stated above. Lactic acid is back to normal and the patient appears euvolemic. White blood cell count still elevated but she is also on steroids so I suspect this will remain elevated. DS: Summary Hospital Course Reason for hospitalization: Ulcerative colitis exacerbation Hospital Course: 34-year-old female who presented emergency room for abdominal pain and rectal bleeding that has been going on for the last 2 months. She usually sees Dr. Mike at [facility] for this and had been on oral prednisone but was having significant nausea and vomiting and worsening abdominal pain. Vitals in the ER were temperature 36.9?, pulse 101, respiratory rate 18, blood pressure 126/81, pulse ox 99 on room air. Initial white blood cell count 16.5, hemoglobin 14.1, hematocrit 41.7, platelets 383. Sodium 134, potassium 3.1, chloride 96, carbon dioxide 26, BUN 10, creatinine 0.6, glucose 107. CT of the abdomen and pelvis showed extensive colitis and the patient was admitted to the hospitalist service. Her GI doctor was contacted and did not recommend antibiotics. She saw Dr. Otero, our ingredient specialist, who started her on IV steroids and Bentyl. This improved the patient's condition significantly. She did underwent a flex-sig which showed crypt abscesses and ulcerations on pathology consistent with ulcerative colitis. The patient required IV steroids for a few days and gradually improved. The day of discharge she was having about half as much diarrhea than she was when she came in and did have some bowel movements without blood. Her pain was well controlled. She felt well enough to go home and was able to keep food and water down so she could take oral prednisone. She is going to follow up with her GI doctor outpatient. Patient was educated about the worrisome signs and symptoms come back to emergency room for was discharged stable condition. Status at Discharge Functional status at discharge: independent ambulation Overall status at discharge: patient is progressing back to baseline Time Spent with Patient Time attestation: Total time spent providing and/or coordinating discharge services:34 min Time spent: Greater than 30 minutes Exam Narrative: Exam Narrative: Genera
[2019-12-10] MEDS: predniSONE 20 MG TABLET 40 MG PO (13:13)
[2019-12-13 04:31] LABS: Hepatitis A Antibody Total Nonreactive (Nonreactive); Hepatitis B Core Ab Total Nonreactive (Nonreactive)
--- NOTE | 2019-12-17 14:10 | PC.NURSE ---
Stool WBC- many seen. Campylobacter is negative. Hep B core. Blood cx is negative
== END 2019-12-10 13:45 | disposition home or self-care (01) | DRG 872 ==
LOC: ANHED 12:56 → ANH3MEDSUR 13:35
PROVIDERS: Emergency Medicine Emergency Medical Services; Internal Medicine Gastroenterology; Nurse Practitioner; Physician Assistant; Admitting Provider Family Medicine; Emergency Provider Emergency Medicine; PCP Physician Assistant; Visit Provider Family Medicine
PROC: 0DJD8ZZ Inspection of Lower Intestinal Tract, Via Natural or Artificial Opening Endoscopic (ICD-10-PCS; CPT 45330; principal; 2019-12-09 10:00)
DX: A41.9 Sepsis, unspecified organism (principal); K51.311 Ulcerative (chronic) rectosigmoiditis with rectal bleeding; E55.9 Vitamin D deficiency, unspecified; F41.8 Other specified anxiety disorders; K58.9 Irritable bowel syndrome, unspecified; M32.0 Drug-induced systemic lupus erythematosus; Z90.49 Acquired absence of other specified parts of digestive tract; Z23 Encounter for immunization
CPT/HCPCS: 36415; 74018; 74177; 80048; 80053; 80076; 81001; 81025; 82306; 82607; 82728; 82746; 83540; 83550; 83605; 83735; 84100; 84436; 84439; 84443; 85025; 85027; 85610; 85730; 86140; 86480; 86704; 86706; 86708; 87040; 87045; 87046; 87324; 87427; 88305; 89055; 90732; 96361; 96374; 96375; 96376; 99285; A9270; G0378; J0131; J2270; J2405; J2704; J2930; J3480; J7120; J7512; Q9967

== ENCOUNTER 2020-06-25 14:43 | Inpatient (IN) | payer OTHER, SELFPAY ==
--- NOTE | ~2020-06-25 | CT_ITS ---
EXAMINATION: CT abdomen pelvis w con DATE: 06/25/2020 16:16 INDICATION: Upper abdominal pain TECHNIQUE: Computed tomography (CT) of the abdomen and pelvis was performed with 100 mL Omnipaque-350 intravenous contrast. Automated exposure control and iterative reconstruction technique were employe d. The dose-length product was 562.84 mGy-cm. COMPARISON: 12/07/2019 FINDINGS: Mild dependent atelectasis in the bilateral lower lobes. Heart size is normal. No pericardial or pleu ral effusion. Focal hepatic steatosis at the ligamentum teres. Cholecystectomy clips at the gallbladd er fossa. Pancreas, bilateral adrenal glands and kidneys are normal. There is a new 2.4 cm hypoenhanc ing lesion at the posterior periphery of the spleen with tubular hypoenhancing region extending centr ally towards the hilum of which are new since the prior study. The appearance suggests splenic infarc t with a thrombosed vessel with differential including infection or less likely neoplasm. There is di ffuse mild wall thickening of the colon which is decreased since the prior study consistent with impr oving colitis, reportedly ulcerative colitis. Small bowel and appendix are normal. Bladder, anteverte d uterus and left ovary are normal. 3.3 cm right adnexal cyst. Trace amount of free fluid in the pelv is. No free intraperitoneal gas. No pathologically enlarged abdominal or pelvic lymphadenopathy. Min imal scattered degenerative skeletal changes. IMPRESSION: 1. New 2.4 cm hypoenhancing lesion at the posterior periphery of the spleen suspicious for infarct in the presence of what appears to be a thrombosed vessel extending centrally towards the splenic hilum . Differential includes infection or less likely neoplasm. 2. Decrease in degree of now mild diffuse colonic wall thickening consistent with improving ulcerativ e colitis. Reviewed, dictated and finalized at location A. IMPRESSION: 1. New 2.4 cm hypoenhancing lesion at the posterior periphery of the spleen keaton picious for infarct in the presence of what appears to be a thrombosed vessel e xtending centrally towards the splenic hilum. Differential includes infection o r less likely neoplasm. 2. Decrease in degree of now mild diffuse colonic wall thickening consistent wi th improving ulcerative colitis.
[2020-06-25 14:52] VITALS: BP 90/60; PULSE 98; RESP 17; TEMP 36.6; O2SAT 100
[2020-06-25] MEDS: SODIUM CHLORIDE 0.9% IV 1,000 ML 999 ML IV CONT (15:02)
[2020-06-25] MEDS: FAMOTIDINE 20 MG/2 ML VIAL IV PUSH (15:15)
[2020-06-25] MEDS: ONDANSETRON INJ 4 MG/2 ML VIAL IV PUSH ×2 (15:15→19:58)
[2020-06-25] MEDS: MORPHINE SULFATE 4 MG/ML INJ IV PUSH ×3 (15:16→22:42)
[2020-06-25 15:17] LABS: Basophils Percent Auto 0.2 % (0.2-1.2); Eosinophils Absolute Auto 0.3 K/mm3 (0-0.3); Eosinophils Percent Auto 1.6 % (0-4.4); Hematocrit 37.8 % (37.0-47.0); Hemoglobin 12.1 g/dL (12.0-15.0); Immature Granulocyte Absolute 0.09 K/mm3 (0.00-0.031); Immature Granulocyte Percent A 0.5 % (0-0.5); Lymphocytes Absolute Auto 2.74 K/mm3 (0.9-3.2); Lymphocytes Percent Auto 16.1 % (18.3-44.2); Mean Corpuscular Hemoglobin 28.1 pg (26-34); Mean Corpuscular Volume 87.7 fl (80-100); Monocytes Percent Auto 5.9 % (2.6-8.5); Neutrophils Absolute Auto 12.9 K/mm3 (1.3-6.7); Neutrophils Percent Auto 75.7 % (45.5-73.1); Platelet Count Result 308 k/mm3 (150-375); Red Blood Count 4.31 M/mm3 (4.2-5.4); Red Cell Distribution Width 13.8 % (11.5-14.5); White Blood Count 17.1 K/mm3 (4.5-10.0)
[2020-06-25 15:20] LABS: Add Urine Microscopic? YES; Appearance Urine Clear (Clear); Bacteria Urine Trace /hpf; Bilirubin Urine Negative (Negative); Blood Urine 3+ (Negative); Color Urine Yellow (Yellow); Glucose Urine UA Negative (Negative); Ketones Urine Negative (Negative); Leukocyte Esterase Ur Negative LEU/UL (Negative); Mucus Urine Rare /lpf; Nitrate Urine Negative (Negative); Protein Urine Negative (Negative); Specific Grav Ur 1.027 (1.001-1.035); Squamous Epithelial Cell Urine Many /hpf (Few); Urobilinogen Urine Negative mg/dL (<2.0)
[2020-06-25 15:26] LABS: Lactic Acid Reflex 1.1 mmol/L (0.7-2.1)
--- NOTE | 2020-06-25 15:27 | ED.ABDPAIN ---
HPI - Abdominal Pain General Chief Complaint: Abdominal Pain Stated Complaint: abd pain Time Seen by Provider: 06/25/20 14:47 Source: patient and old records reviewed Mode of arrival: ambulatory Limitations: no limitations History of Present Illness HPI narrative: Patient is a 34-year-old female who presents to emergency department with history of Crohn's presents with acute onset of left upper flank pain and abdominal pain that began today as a sharp stabbing moderate to severe pain. Patient denies similar occurrence in the past but notes she has had multiple flares of her colitis which is followed by specialist at [facility]. Patient took ibuprofen and Tylenol with minimal improvement. Patient denies fever vomiting change in bowel habits urinary symptoms or vaginal complaints or any URI symptoms. Related Data Home Medications Medication Instructions Recorded Confirmed fluoxetine 10 mg PO DAILY 11/27/19 12/07/19 tizanidine 4 mg PO PRN PRN 11/27/19 12/07/19 melatonin [Melatin] 3 mg PO HS PRN 06/25/20 06/25/20 ondansetron 10 mg PO Q6H PRN 06/25/20 pantoprazole [Protonix] 40 mg PO QAM 06/25/20 prednisone 40 mg PO DAILY 06/25/20 Allergies Allergy/AdvReac Type Severity Reaction Status Date / Time infliximab Allergy Unknown Joint Pain Verified 06/25/20 15:09 mesalamine Allergy Unknown Joint Pain Verified 06/25/20 15:09 Review of Systems Review of Systems: All systems reviewed & are unremarkable except as noted in HPI and below PMFSH Past Medical History Medical History (Updated 06/25/20 @ 18:29 by Sven Gutiérrez PA-C) Anxiety Depression 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 Gastroesophageal reflux disease Shingles Ulcerative colitis Vitamin D deficiency Surgical History Surgical History (Updated 06/25/20 @ 18:05 by Yeni Kitchen PA-C) History of cholecystectomy History of colonoscopy History of dilation and curettage History of ventral hernia repair Family History Family History Mother Family history of thyroid disease Grandparent Family history of lung cancer Family history of renal cell carcinoma Other Cerebrovascular accident Diabetes mellitus Family history of allergic disorder Family history of kidney disease Hypertension Social History Social History Social History: The patient is to Brigitte who is her durable power senior attorney for healthcare. She desires to be a full code. She has 2 children. 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 She is a lifelong nonsmoker and drinks socially. Smoking status: Never smoker Alcohol intake: current Substance use: never Gender identity (if verbalized by the patient): Female Spiritual care concerns: No Exam Narrative: Exam Narrative: GENERAL: Illl-appearing, well-nourished, and in no acute distress. HEAD: Normocephalic, atraumatic. EYES: PERRLA and EOMI. ENT: Nares clear, no rhinorrhea or epistaxis. Mucous membranes moist. CHEST: Clear to auscultation. No respiratory distress. No wheezes rales or rhonchi HEART: Regular rate and rhythm. No murmur heard. Normal peripheral pulses. ABDOMEN: Soft, tenderness throughout the abdomen worse in the left upper quadrant, nondistended EXTREMITIES: Normal range of motion. No edema. SKIN: Warm, dry, no rash. NEURO: No focal deficits. Alert and oriented x3. PSYCH: Normal mood and affect. Course Course Emergency Course: Patient in the room at this time resting comfortably was initiated on heparin in the emergency department given the thrombus found patient will be placed in hospital to the hospitalist service with heme-onc involved patient aware of discussions with her UC . Consultations Consultation #1: Discussions were made with hospitalist patient's irritable bowel disease physician as well as
[2020-06-25 16:00] LABS: Alanine Aminotransferase 17 U/L (4-35); Albumin Level 3.1 g/dL (3.5-5.1); Alkaline Phosphatase 64 U/L (38-126); Anion Gap 5 mmol/L (8-16); Aspartate Amino Transferase 19 U/L (14-36); Bilirubin,Total < 0.1 mg/dL (0.2-1.3); Blood Urea Nitrogen 15 mg/dL (7-17); Calcium 7.3 mg/dL (8.4-10.2); Carbon Dioxide 25 mmol/L (22-30); Chloride 107 mmol/L (98-107); Estimated CRCL calculation 141 ml/min; Estimated Glomerular Filt Rate > 60; Glucose 131 mg/dL (65-105); Lipase 27 U/L (23-300); Potassium 3.3 mmol/L (3.4-5.0); Sodium 137 mmol/L (137-145)
--- NOTE | 2020-06-25 16:53 | PC.NURSE ---
Called lab to add pt inr ptt
[2020-06-25 16:57] VITALS: BP 117/79; PULSE 98; RESP 16; O2SAT 100
[2020-06-25 17:05] LABS: Prothrombin Time 12.6 Seconds (11.1-14.7)
[2020-06-25 17:06] LABS: Partial Thromboplastin Time 29.4 SECONDS (22.3-36.8)
--- NOTE | 2020-06-25 18:00 | PM.IMHP ---
H&P: HPI History of Present Illness Date/Time: 06/25/20 18:00. The patient was seen and evaluated in the emergency department. Chief complaint: Abdominal pain. Narrative: Elizabeth Tanner is a pleasant 34-year-old female with ulcerative colitis who presented to the emergency department earlier today from home for evaluation of abdominal pain. She is known to the hospitalist service from an admission in December 2019 in which she was treated for an ulcerative colitis flare. Since that time, she has had ongoing problems with her ulcerative colitis, and has been off and on steroids since discharge. More recently, she was started on prednisone and has been on that daily for approximately the last 6 weeks. Her symptoms have improved and she has maybe 4 to 5 loose stools a day without significant blood or mucus. She has mild symptoms with regards to the steroids including hot flashes and some anxiety but is tolerating it pretty well. In any event, she was wakened from sleep at 06:00 with a sharp stabbing pain in her left upper quadrant. She took 1 of her muscle relaxers, which allowed her to fall back asleep however when she woke again at 09:00 the pain was still there, although had eased up and was described more as an ache. Not long after eating lunch, she once again began having sharp, stabbing pain in the left upper quadrant and came to the emergency department for evaluation. 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 With her last she was treated with Lovenox and has had no issues since that time. Her pain has improved with morphine. She has not had fever, chills, vomiting, dysuria, or hematuria. Review of Systems Review of Systems: Narrative: Twelve systems were reviewed with pertinent positives and negatives as per HPI. No fever chills. She has some hot flashes that she attributes to the prednisone. No recent cold or flu symptoms. More recently she was diagnosed with right sided iritis and was placed on steroid drops. No chest pain, pleuritic pain, or shortness of breath however she did tell me that when the pain 1st started it took her breath away. No cough. No lower extremity edema or history of DVT. She suffers from GERD and takes Protonix daily. Except as documented, all other systems were reviewed and are negative. 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 Gastroesophageal reflux disease Iritis of right eye (~06/2020) Shingles Ulcerative colitis She has been on several different biologics without success, and is being referred to a GI specialist at [facility]. Vitamin D deficiency Surgical History Surgical History (Updated 06/25/20 @ 18:05 by Yeni Kitchen PA-C) History of cholecystectomy History of colonoscopy History of dilation and curettage History of ventral hernia repair Family History Family History Mother Family history of thyroid disease Grandparent Family history of lung cancer Family history of renal cell carcinoma Other Cerebrovascular accident Diabetes mellitus Family history of allergic disorder Family history of kidney disease Hypertension Social History Social History (Updated 06/25/20 @ 20:43 by Yeni Kitchen PA-C) Social History: Elizabeth lives in [place] with her and 2 children. 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 No illicit drug use. She designates her Brigitte as her surrogate decision maker and she wishes to be a full
[2020-06-25] MEDS: MORPHINE SULFATE 4 MG/ML INJ (18:10)
[2020-06-25 18:38] LABS: CRP 3.7 mg/dL (<1.0)
[2020-06-25 18:49] LABS: Basophils Percent Auto 0.2 % (0.2-1.2); Eosinophils Absolute Auto 0.1 K/mm3 (0-0.3); Eosinophils Percent Auto 0.8 % (0-4.4); Hematocrit 36.3 % (37.0-47.0); Hemoglobin 11.6 g/dL (12.0-15.0); Immature Granulocyte Absolute 0.07 K/mm3 (0.00-0.031); Immature Granulocyte Percent A 0.5 % (0-0.5); Lymphocytes Absolute Auto 0.96 K/mm3 (0.9-3.2); Lymphocytes Percent Auto 6.7 % (18.3-44.2); Mean Corpuscular Hemoglobin 27.9 pg (26-34); Mean Corpuscular Volume 87.3 fl (80-100); Mean Platelet Volume 9.7 fl (7.4-10.4); Monocytes Absolute Auto 0.3 K/mm3 (0.1-0.6); Monocytes Percent Auto 1.9 % (2.6-8.5); Neutrophils Absolute Auto 12.9 K/mm3 (1.3-6.7); Neutrophils Percent Auto 89.9 % (45.5-73.1); Platelet Count Result 281 k/mm3 (150-375); Red Blood Count 4.16 M/mm3 (4.2-5.4); Red Cell Distribution Width 13.9 % (11.5-14.5); White Blood Count 14.4 K/mm3 (4.5-10.0)
[2020-06-25 18:56] VITALS: BP 135/89; PULSE 89; RESP 14; O2SAT 98
[2020-06-25] MEDS: HEPARIN SOD/D5W 100 UNITS/ML 25,000 UNITS/250 ML BAG 12 UNITS IV CONT (18:58)
[2020-06-25 19:00] LABS: INR 1.2; Prothrombin Time 14.7 Seconds (11.1-14.7)
[2020-06-25 19:20] VITALS: BP 113/72; PULSE 80; RESP 18; TEMP 36.4; O2SAT 99; BMI 29.3
--- NOTE | 2020-06-25 19:23 | PC.NURSE ---
This patient, Elizabeth Tanner, was admitted to [address] [place] [address] Room 300-01. Patient/family oriented to hospital policies and general routines including ID bracelet, bed and alarms, visiting hours, pain management, procedures, bathroom and other care routines, personal items, smoking policy, room service/diet, and visiting hours. Valuables list has been completed. Information on how to activate the Rapid Response Team has been discussed. Patient/Family are encouraged to report perceived risks to care and to ask questions if they do not understand what they are told or what they should do.
[2020-06-25 19:24] LABS: Partial Thromboplastin Time > 200.0 SECONDS (22.3-36.8)
[2020-06-25] MEDS: LACTATED RINGERS 1,000 ML 125 ML IV CONT (19:46)
--- NOTE | 2020-06-25 20:07 | PC.NURSE ---
er called at 1940 stating they received a critical APTT, and they would notify . this rn called dg and confirmed she was aware of critical lab value. i will follow the heparin protocol and stop heparin for 1 hour and restart at 2ml/hr less than the original rate.
[2020-06-25] MEDS: MELATONIN 5 MG TABLET 10 MG PO (21:30)
[2020-06-25] MEDS: POTASSIUM CHLORIDE 20 MEQ TABLET PO (21:30)
[2020-06-25 22:00] VITALS: BP 112/67; PULSE 69; RESP 18; TEMP 36.2; O2SAT 98
[2020-06-26] MEDS: MORPHINE SULFATE 4 MG/ML INJ IV PUSH (00:59)
[2020-06-26] MEDS: ONDANSETRON INJ 4 MG/2 ML VIAL IV PUSH ×4 (01:00→17:18)
[2020-06-26 01:59] LABS: Partial Thromboplastin Time 48.5 SECONDS (22.3-36.8)
[2020-06-26 02:00] VITALS: BP 125/80; PULSE 94; RESP 18; TEMP 36.7; O2SAT 98
[2020-06-26] MEDS: HEPARIN SODIUM 5,000 UNITS/ML VIAL 5500 UNITS IV PUSH (02:40)
[2020-06-26 06:27] VITALS: BP 95/56; PULSE 69; RESP 18; TEMP 36.6; O2SAT 100
[2020-06-26 06:47] LABS: Basophils Percent Auto 0.1 % (0.2-1.2); Eosinophils Absolute Auto 0.1 K/mm3 (0-0.3); Eosinophils Percent Auto 0.8 % (0-4.4); Hematocrit 34.3 % (37.0-47.0); Immature Granulocyte Percent A 0.7 % (0-0.5); Lymphocytes Absolute Auto 2.25 K/mm3 (0.9-3.2); Lymphocytes Percent Auto 16.5 % (18.3-44.2); Mean Corpuscular HGB Conc 32.1 g/dl (32-36); Mean Corpuscular Hemoglobin 28.1 pg (26-34); Mean Corpuscular Volume 87.5 fl (80-100); Mean Platelet Volume 9.7 fl (7.4-10.4); Monocytes Absolute Auto 0.7 K/mm3 (0.1-0.6); Monocytes Percent Auto 5.2 % (2.6-8.5); Neutrophils Absolute Auto 10.5 K/mm3 (1.3-6.7); Neutrophils Percent Auto 76.7 % (45.5-73.1); Platelet Count Result 309 k/mm3 (150-375); Red Blood Count 3.92 M/mm3 (4.2-5.4); Red Cell Distribution Width 13.6 % (11.5-14.5); White Blood Count 13.6 K/mm3 (4.5-10.0)
[2020-06-26 07:00] LABS: Alanine Aminotransferase 18 U/L (4-35); Albumin Level 3.5 g/dL (3.5-5.1); Alkaline Phosphatase 85 U/L (38-126); Anion Gap 7 mmol/L (8-16); Aspartate Amino Transferase 21 U/L (14-36); Bilirubin,Total < 0.1 mg/dL (0.2-1.3); Blood Urea Nitrogen 10 mg/dL (7-17); Calcium 8.4 mg/dL (8.4-10.2); Carbon Dioxide 24 mmol/L (22-30); Chloride 104 mmol/L (98-107); Estimated CRCL calculation 139 ml/min; Estimated Glomerular Filt Rate > 60; Glucose 96 mg/dL (65-105); Magnesium 2.3 mg/dL (1.6-2.3); Sodium 135 mmol/L (137-145)
[2020-06-26 08:00] VITALS: PULSE 69; RESP 18; O2SAT 100
[2020-06-26 08:52] LABS: Partial Thromboplastin Time 108.3 SECONDS (22.3-36.8)
[2020-06-26] MEDS: DICYCLOMINE HCL 10 MG CAPSULE 20 MG PO (09:08)
[2020-06-26] MEDS: predniSONE 20 MG TABLET PO (10:30)
[2020-06-26] MEDS: PANTOPRAZOLE 40 MG TABLET PO (10:31)
[2020-06-26 13:40] VITALS: BP 111/78; PULSE 77; RESP 18; TEMP 36.3; O2SAT 100
[2020-06-26] MEDS: HEPARIN SOD/D5W 100 UNITS/ML 25,000 UNITS/250 ML BAG 12 UNITS IV CONT (14:56)
--- NOTE | 2020-06-26 15:32 | PM.IMPN ---
Progress Note: A&P Assessment and Plan (1) Splenic infarct: Code(s): D73.5 - Infarction of spleen Status: Acute Assessment and Plan: -----CT shows an area suspicious for infarct with what appears to be a thrombus in the vein. I went down and spoke with Dr. Cobos who states the infacrt could be causing the spot on the spleen or vise versa. Infx and neoplasm also in the differential but seems less likely. He does not recommend any additional imaging as this would not definitively make a diagnosis. I reviewed this with Elizabeth who is going to speak with her specialist in 3 weeks and get another CT scan. At that time, if the lesion is still present out to just getting a biopsy. Our interventional radiologist does not feel comfortable biopsying it here at this hospital. Although section is less likely, she is on immunosuppressants and I am going to start Zosyn ask Dr. gallardo for his input. She is on prednisone which could be causing her leukocytosis. She has been afebrile. I will continue heparin until discharge we will transition to Lovenox. Of note, the patient has history of MTHFR mutation. (2) Ulcerative colitis: Code(s): K51.90 - Ulcerative colitis, unspecified, without complications Status: Acute Assessment and Plan: -----She has been on daily prednisone for about the last 6 weeks, and has had intermittent flares since December 2019. Her GI specialist has referred her to [facility], as she continues to have exacerbations despite trying several immunomodulators and biologics. She plans to see them in 3 weeks (3) Hypokalemia: Code(s): E87.6 - Hypokalemia Status: Acute Assessment and Plan: -----resolved. (4) Gastroesophageal reflux disease: Code(s): K21.9 - Gastro-esophageal reflux disease without esophagitis Status: Acute Assessment and Plan: -----continue Protonix Time Spent With Patient Time with patient: 25 - 35 minutes Subjective Date/time seen: 06/26/20 15:32 Interval history: Pt is a 34-year-old female with a history of ulcerative colitis who presented emergency room for left abdominal/flank pain. Patient was seen today and states she is still having pain in the left upper quadrant. She was able to drink some coffee and ate some eggs today. We discussed the plan of care so far. She has an appointment at [facility] in 3 weeks to see a specalist. I have recommended she get a repeat CT at that time and if the lesion is still there, she may consider a biopsy that that time. She denies CP, SOB, fevers, chills, vomiting, leg swelling, or cough. Review of Systems Review of Systems: All systems reviewed & are unremarkable except as noted in HPI and below Exam Narrative: Exam Narrative: General: Well developed well nourished patient resting in bed in NAD HEENT: normocephalic Neck: supple Neuro: Alert and oriented x4 CV:RRR Resp:CTA Abd: Soft, non distended. pain to palpation to the LUQ and flank. Positive bowel sounds Extremities: No swelling, erythema, or pain to palpation. Objective Data Vital Signs Vital Signs: Vital Signs - 24 hr 06/25/20 16:57 06/25/20 18:56 06/25/20 19:20 Temperature 97.6 F Pulse Rate 98 89 80 Respiratory Rate 16 14 18 Blood Pressure 117/79 135/89 113/72 Pulse Oximetry 100 98 99 06/25/20 22:00 06/26/20 02:00 06/26/20 06:27 Temperature 97.1 F L 98.0 F 97.8 F Pulse Rate 69 94 69 Respiratory Rate 18 18 18 Blood Pressure 112/67 125/80 95/56 L Pulse Oximetry 98 98 100 06/26/20 08:00 06/26/20 13:40 Temperature 97.3 F L Pulse Rate 69 77 Respiratory Rate 18 18 Blood Pressure 111/78 Pulse Oximetry 100 100 Intake/Output Intake/Output: Intake & Output 06/23/20 06/24/20 06/25/20 06/26/20 23:59 23:59 23:59 23:59 Intake Total 1000 2540 Output Total 2100 Balance 1000 440 Meds/Results Medications: Active Medications Generic Name Dose Route Start La
[2020-06-26 16:41] LABS: Partial Thromboplastin Time 59.5 SECONDS (22.3-36.8)
--- NOTE | 2020-06-26 17:27 | PDONCCN ---
HPI - Date of Consult Date/Time: 06/26/20 17:27 Requesting Physician: Caroline Posada PA-C Primary Care Provider: Bennie Cabrales, SHAYY - Consult Narrative Reason for consult: Hypercoagulable state. Narrative: Elizabeth Tanner is a 34 year old female This is a pleasant 34-year-old female with history of ulcerative colitis and currently on Stelara with prednisone 40 mg daily. She dull of sudden onset of left lower quadrant pain. She denies any previous history of thromboembolic events. She has a history of miscarriages x2 and hypercoagulable testing was done that showed MTHFR mutation. She has been dealing with frequent flare-up of her ulcerative colitis. She has intermittent abdominal cramping associated with diarrhea and bleeding. CT scan of abdomen was performed in the ER that showed intraluminal filling defect in the branch of the splenic vein consistent with thrombosis. New was 2.4 cm hypoenhancing lesion in the periphery of the spleen suspicious for infarction. Differential diagnoses also include neoplasm and infection. She denies any night sweats hot flashes and significant weight loss. She is currently on heparin drip. Her pain has improved somewhat. 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 Gastroesophageal reflux disease Iritis of right eye Onset Date: ~06/2020 Shingles Ulcerative colitis She has been on several different biologics without success, and is being referred to a GI specialist at [facility]. Vitamin D deficiency Surgical History: Surgical History (Last Reviewed 06/26/20 @ 07:05 by Rosa Phillips RN) History of cholecystectomy History of colonoscopy History of dilation and curettage History of ventral hernia repair Family History: Family History (Last Reviewed 06/26/20 @ 07:05 by Rosa Phillips RN) Mother Family history of thyroid disease Grandparent Family history of lung cancer Family history of renal cell carcinoma Other Cerebrovascular accident Diabetes mellitus Family history of allergic disorder Family history of kidney disease Hypertension - Social History Social History: Social History (Last Updated 06/26/20 @ 07:06 by Rosa Phillips RN) Gender Identity: Gender identity (if verbalized by the patient): Female Alcohol Use: Alcohol intake: never Others: Spiritual care concerns: No Living Arrangements: Living arrangements: with family Oppucation/Education: Occupation/Education: occupation Smoking Status: Smoking status: Never smoker Meds Home Medications Medication Instructions Recorded Confirmed Type fluoxetine 10 mg PO DAILY 11/27/19 06/25/20 History tizanidine 4 mg PO PRN PRN 11/27/19 06/25/20 History dicyclomine 20 mg PO QID PRN #20 tablet 12/10/19 06/25/20 Rx melatonin 10 mg PO HS PRN 06/25/20 06/25/20 History ondansetron 10 mg PO Q6H PRN 06/25/20 06/25/20 History pantoprazole [Protonix] 40 mg PO QAM 06/25/20 06/25/20 History prednisone 20 mg PO DAILY 06/25/20 06/25/20 History Allergies Allergy/AdvReac Type Severity Reaction Status Date / Time infliximab Allergy Unknown Joint Pain Verified 06/25/20 15:09 mesalamine Allergy Unknown Joint Pain Verified 06/25/20 15:09 Results - Labs CBC & Chem 7: 06/26/20 05:54 06/26/20 05:54 Labs: Short CBC 06/25/20 06/26/20 Range/Units 18:42 05:54 WBC 14.4 H 13.6 H (4.5-10.0) K/mm3 Hgb 11.6 L 11.0 L (12.0-15.0) g/dL Hct 36.3 L 34.3 L (37.0-47.0) % Plt Count 281 309 (150-375) k/mm3 [facility] 06/26/20 05:54 Sodium 135 L Potassium 4.0 Chloride 104 Carbon Dioxide 24 BUN 10 D Creatinine 0.50 L Glucose 96 Calcium 8.4 Liver Function 06/26/20 Range/Unit
[2020-06-26] MEDS: HEPARIN SODIUM 5,000 UNITS/ML VIAL 2500 UNITS IV PUSH (19:35)
[2020-06-26 20:00] VITALS: BP 102/69; PULSE 61; RESP 18; TEMP 35.7; O2SAT 99
[2020-06-26] MEDS: FLUoxetine HCL 10 MG CAPSULE PO (20:59)
[2020-06-26] MEDS: TIZANIDINE HCL 4 MG TABLET PO (20:59)
[2020-06-26] MEDS: MELATONIN 5 MG TABLET 10 MG PO (20:59)
[2020-06-26] MEDS: ACETAMINOPHEN 325 MG TABLET 650 MG PO (21:02)
[2020-06-26 23:59] VITALS: BP 110/60; PULSE 57; RESP 18; TEMP 36.1; O2SAT 99
[2020-06-27] MEDS: ONDANSETRON INJ 4 MG/2 ML VIAL IV PUSH ×2 (01:41→07:01)
[2020-06-27 01:59] LABS: Partial Thromboplastin Time 90.7 SECONDS (22.3-36.8)
--- NOTE | 2020-06-27 02:18 | PC.NURSE ---
0130 PTT results back no bolus, no change in rate PTT = 90.7, redraw @ 6130.
[2020-06-27 04:00] VITALS: BP 104/55; PULSE 55; RESP 18; TEMP 36.6; O2SAT 99
[2020-06-27 08:00] VITALS: BP 127/84; PULSE 83; RESP 16; TEMP 36.6; O2SAT 99
[2020-06-27 08:03] LABS: Hematocrit 36.9 % (37.0-47.0); Hemoglobin 11.7 g/dL (12.0-15.0); Mean Corpuscular HGB Conc 31.7 g/dl (32-36); Mean Corpuscular Hemoglobin 28.5 pg (26-34); Mean Corpuscular Volume 89.8 fl (80-100); Platelet Count Result 209 k/mm3 (150-375); Red Blood Count 4.11 M/mm3 (4.2-5.4); Red Cell Distribution Width 13.7 % (11.5-14.5); White Blood Count 13.6 K/mm3 (4.5-10.0)
[2020-06-27 08:09] LABS: Partial Thromboplastin Time 69.9 SECONDS (22.3-36.8)
[2020-06-27 08:18] LABS: Alanine Aminotransferase 21 U/L (4-35); Albumin Level 3.8 g/dL (3.5-5.1); Alkaline Phosphatase 68 U/L (38-126); Anion Gap 8 mmol/L (8-16); Aspartate Amino Transferase 19 U/L (14-36); Bilirubin,Total 0.1 mg/dL (0.2-1.3); Blood Urea Nitrogen 12 mg/dL (7-17); Carbon Dioxide 27 mmol/L (22-30); Chloride 102 mmol/L (98-107); Estimated CRCL calculation 118 ml/min; Estimated Glomerular Filt Rate > 60; Glucose 88 mg/dL (65-105); Potassium 3.7 mmol/L (3.4-5.0); Sodium 137 mmol/L (137-145)
[2020-06-27] MEDS: HEPARIN SODIUM 5,000 UNITS/ML VIAL 2500 UNITS IV PUSH (08:21)
[2020-06-27] MEDS: PANTOPRAZOLE 40 MG TABLET PO (08:25)
[2020-06-27] MEDS: predniSONE 20 MG TABLET PO (08:25)
--- NOTE | 2020-06-27 10:15 | WPDINFPN2 ---
Progress Note: A&P Assessment and Plan (1) Infarction of spleen: Code(s): D73.5 - Infarction of spleen Status: Acute Assessment and Plan: Splenic infarct, not abscess. Leukocytosis due to # 1 and steroid REC No antibiotics, repeat spleen imaging in 4 weeks or so, if doubt arises about the diagnosis Subjective Date/time seen: 06/27/20 10:15 Objective Data Vital Signs Vital Signs: Vital Signs - 24 hr 06/26/20 13:40 06/26/20 20:00 06/26/20 23:59 Temperature 36.3 C L 35.7 C L 36.1 C L Pulse Rate 77 61 57 L Respiratory Rate 18 18 18 Blood Pressure 111/78 102/69 110/60 Pulse Oximetry 100 99 99 06/27/20 04:00 06/27/20 08:00 Temperature 36.6 C 36.6 C Pulse Rate 55 L 83 Respiratory Rate 18 16 Blood Pressure 104/55 L 127/84 Pulse Oximetry 99 99 Intake/Output Intake/Output: Intake & Output 06/24/20 06/25/20 06/26/20 06/27/20 23:59 23:59 23:59 23:59 Intake Total 1000 4170 340 Output Total 3600 400 Balance 1000 570 -60 Meds/Results Medications: Active Medications Generic Name Dose Route Start Last Admin Trade Name Freq PRN Reason Stop Dose Admin Acetaminophen 650 mg 06/26/20 10:16 06/26/20 21:02 Tylenol Tablet PO 650 mg Q4H PRN Administration Mild Pain (1-3) or Fever Hydrocodone Bitart/Acetaminophen 1 tab 06/26/20 10:16 06/27/20 06:58 Palmer 5-325 Mg PO 1 tab Q6H PRN Administration Pain Rated 4-6 Hydrocodone Bitart/Acetaminophen 1 tab 06/26/20 10:16 Palmer 10-325 Mg PO Q6H PRN Pain Rated 7-10 Dicyclomine HCl 20 mg 06/25/20 21:00 06/26/20 09:08 Bentyl Capsule PO 20 mg QID PRN Administration Abdominal Discomfort Fluoxetine HCl 10 mg 06/26/20 21:00 06/26/20 20:59 Prozac PO 10 mg HS LORENE Administration Heparin Sodium (Porcine) 5,500 units 06/25/20 18:02 06/26/20 02:40 Heparin Sodium IV PUSH 5,500 units PRN PRN Administration aPTT less than 55 seconds Heparin Sodium (Porcine) 2,500 units 06/25/20 18:02 06/27/20 08:21 Heparin Sodium IV PUSH 2,500 units PRN PRN Administration aPTT 55 - 70 seconds Hydromorphone HCl 0.5 mg 06/26/20 10:16 Dilaudid Inj IV PUSH Q3H PRN uncontrolled pain /w po meds Heparin Sodium/Dextrose 25,000 units in 250 mls @ 14 mls/hr 06/25/20 18:05 06/27/20 08:25 Heparin Sodium/D5w 100 Units/Ml IV CONT 1,400 units/hr .[id number] LORENE 14 mls/hr Titration Protocol 1,400 UNITS/HR Piperacillin/Tazobactam/Dextrose 3.375 gm in 50 mls @ 100 mls/hr 06/26/20 07:20 06/27/20 07:30 Zosyn 3.375 Gm/D5w 50ml Pm IVPB Infused Q6HR LORENE Infusion Melatonin 10 mg 06/25/20 20:33 06/26/20 20:59 Melatonin PO 10 mg HS PRN Administration Sleep Ondansetron HCl 4 mg 06/25/20 18:30 06/27/20 07:01 Zofran Inj IV PUSH 4 mg Q4H PRN Administration Nausea Pantoprazole Sodium 40 mg 06/26/20 09:00 06/27/20 08:25 Protonix PO 40 mg QAM LORENE Administration Prednisone 20 mg 06/26/20 09:00 06/27/20 08:25 Prednisone PO 20 mg DAILY LORENE Administration Tizanidine HCl 4 mg 06/25/20 21:00 06/26/20 20:59 Zanaflex PO 4 mg HS PRN Administration MUSCLE TENSION Radiology Results: ITS Impressions Abdomen/Pelvis CT 06/25/20 16:17 IMPRESSION: 1. New 2.4 cm hypoenhancing lesion at the posterior periphery of the spleen suspicious for infarct in the presence of what appears to be a thrombosed vessel extending centrally towards the splenic hilum. Differential includes infection or less likely neoplasm. 2. Decrease in degree of now mild diffuse colonic wall thickening consistent with improving ulcerative colitis. Labs Labs: Laboratory Results - last 24 hr 06/26/20 06/27/20 06/27/20 16:12 01:40 07:39 WBC 13.6 H RBC 4.11 L Hgb 11.7 L Hct 36.9 L MCV 89.8 MCH 28.5 MCHC 31.7 L RDW 13.7 Plt Count 209 MPV 11.0 H APTT 59.5 H 90.7 H Sodium
[2020-06-27] MEDS: HEPARIN SOD/D5W 100 UNITS/ML 25,000 UNITS/250 ML BAG 14 UNITS IV CONT (10:43)
--- NOTE | 2020-06-27 11:01 | PM.DS ---
DS: Admitting Diagnosis Admitting Diagnosis Admitting Diagnosis: Abdominal pain. DS: Discharge Diagnosis Discharge Diagnosis (1) Splenic infarct: Code(s): D73.5 - Infarction of spleen Status: Acute Assessment and Plan: -----CT shows an area suspicious for infarct with what appears to be a thrombus in the vein. I went down and spoke with Dr. Cobos who states the infacrt could be causing the spot on the spleen or vise versa. Infx and neoplasm also in the differential but seems less likely. Originally started on antibiotics but stop by infectious disease. She has an appointment with [facility] specialist in 3 weeks. I suggest she get a repeat image at that time to see if this abnormality has improved or worsened. She will be continued on anticoagulation. Of note, the patient has history of MTHFR mutation. (2) Ulcerative colitis: Code(s): K51.90 - Ulcerative colitis, unspecified, without complications Status: Acute Assessment and Plan: -----She has been on daily prednisone for about the last 6 weeks, and has had intermittent flares since December 2019. Her GI specialist has referred her to [facility], as she continues to have exacerbations despite trying several immunomodulators and biologics. She plans to see them in 3 weeks (3) Hypokalemia: Code(s): E87.6 - Hypokalemia Status: Acute Assessment and Plan: -----resolved. (4) Gastroesophageal reflux disease: Code(s): K21.9 - Gastro-esophageal reflux disease without esophagitis Status: Acute Assessment and Plan: -----continue Protonix DS: Summary Hospital Course Reason for hospitalization: Abdominal pain, splenic infarct Hospital Course: Patient is a 34-year-old female with known UC who presented emergency room with significant left upper abdominal and flank pain. Vitals in the ER were temperature 97.9?, pulse 98, respiratory rate 17, blood pressure 90/60, pulse ox 100 on room air. Initial white blood cell count 17.1. BMP relatively normal. Abdominal CT showed a new 2.5 cm hypoenhancing lesion at the posterior peripheral of the spleen suspicious for infarct the presence of what appears to be a thrombosed vein. Differential also includes infection or less likely neoplasm. It also shows improving ulcerative colitis. Patient was admitted to the hospitalist service and started on heparin. Her pain improved. She saw Infectious Disease and Hematology while she was here for additional recommendations. The plan is to continue anticoagulation and repeat the scan in 3 weeks when she sees her specialist to see it if it has improved or worsen. If it has worsened, she will need a biopsy since she is on immunosuppressive therapy. Although, I suspect this will improve. Overall the patient was feeling better and able to tolerated diet. She was educated about the worrisome signs and symptoms come back to emergency room for and was discharged in stable condition. Status at Discharge Functional status at discharge: independent ambulation Overall status at discharge: patient is back to baseline Time Spent with Patient Time attestation: Total time spent providing and/or coordinating discharge services:38 min Time spent: Greater than 30 minutes Exam Narrative: Exam Narrative: General: Well developed well nourished patient resting in bed in NAD HEENT: normocephalic Neck: supple Neuro: Alert and oriented x4 CV:RRR Resp:CTA Abd: Soft, non distended. pain to palpation to the LUQ and flank. Positive bowel sounds Extremities: No swelling, erythema, or pain to palpation. DS: Data Data Completed and Pending Labs on day of discharge: Labs from last 24 hours 06/27/20 06/27/20 06/27/20 07:52 07:39 07:39 WBC 13.6 H RBC 4.11 L Hgb 11.7 L Hct 36.9 L MCV 89.8 MCH 28.5 MCHC 31.7 L RDW 13.7 Plt Count 209 MPV 11.0 H APTT 69.9 H Sodium 137 Potass
--- NOTE | 2020-06-28 06:10 | CONS_ITS ---
DATE OF CONSULTATION: 06/27/2020 REASON FOR CONSULTATION: Splenic lesion. HISTORY OF PRESENT ILLNESS: The patient is a 34-year-old female with longstanding ulcerative colitis. She has been on several biologics, which has not been successful and was given her initial dose of Stelara 3 days before the present admission. On the day of admission, she had sudden onset of marked left subcostal pain, worse with movement or deep breath. She promptly presented to the emergency room, was admitted. She has undergone investigation as below and consultation requested. She was on Augmentin and doxycycline several weeks prior to admission for a sinus infection, symptomatically resolved. Otherwise, no recent antibiotics. She is on prednisone 40 mg daily, which controls her colitis fairly well. She has never had C. difficile infection and no fever, rigors, or night sweats. After CT was obtained, piperacillin was started yesterday. ALLERGIES: NONE PERTINENT. HABITS: No tobacco. Social alcohol. PRESENT MEDICATIONS: Prednisone is ongoing at 20 mg daily. No other immunosuppressants inpatient. PAST MEDICAL HISTORY: D and C, hernia repair, cholecystectomy, previous colonoscopy. She also has a history of drug-induced lupus, GERD, thyroiditis, and herpes zoster. REVIEW OF SYSTEMS: GI, respiratory, constitutional, allergic, immunologic, skin otherwise negative. Her colitis flare ups are manifested by 10-15 bloody bowel movements with marked abdominal pain. FAMILY HISTORY: Not pertinent to her present illness. SOCIAL HISTORY: She is , two children. 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 PHYSICAL EXAMINATION: GENERAL: This is a young female appears her actual age, in no distress. VITAL SIGNS: Afebrile since arrival, 127/84, 83, 16, 99% room air. SKIN: Warm and dry. No rashes. EENT: Pupils equal, round, and reactive to light. Gaze is conjugate. Oropharynx, oral mucosa normal. Teeth in excellent repair. LUNGS: Clear to auscultation and percussion. CHEST: Equal expansion. Normal AP diameter. CARDIAC: Regular rate and rhythm. Normal S1, S2. No murmurs, gallops, rubs. ABDOMEN: Tender in the left upper quadrant. Spleen is not enlarged by palpation. She has no skin lesions over the left chest or left abdomen. There is no hepatomegaly and also the abdomen is nontender and soft. She has normal bowel sounds. EXTREMITIES: No clubbing, cyanosis, edema. Well perfused. LABORATORY DATA: White blood cell count 13.6, hemoglobin 11.7, platelets are 209. Review of her white blood cell counts shows leukocytosis. Multiple occasions inpatient and outpatient. Chemistry panel was normal. RADIOLOGY: I personally reviewed her CT that shows an irregular-shaped 3-4 cm peripheral hyperdense splenic lesion. ASSESSMENT: 1. Splenic lesion, I suspect thrombotic in nature and not infectious. Considered bacterial, parasitic, mycobacterial and fungal disease. 2. Ulcerative colitis. 3. Multifactorial leukocytosis, because of her splenic lesion and because of her steroids and perhaps because of the ulcerative colitis as well. RECOMMENDATIONS: 1. No further antibiotics. 2. Blood cultures in process. No growth after short incubation. 3. Consider repeat imaging of the spleen, ultrasound or CT in 4 weeks, if clinical deterioration. 4. Treatment of her thrombosis already underway by Dr. Gomez. Thank you for asking me to see her. Please call if questions arise. DAVID BARBOUR M.D. EVENT PROMOTER EVENT PROMOTER D I MT: Joanie
--- NOTE | 2020-07-04 12:16 | PC.NURSE ---
Blood cx are negative. MARILYN positive. Results shown to ARI Cantor. Results faxed to [facility] Le.
== END 2020-06-27 12:10 | disposition home or self-care (01) | DRG 815 ==
LOC: ANHED 18:41 → ANH3MEDSUR 18:43
PROVIDERS: Emergency Medicine Emergency Medical Services; Physician Assistant; Admitting Provider Internal Medicine; Emergency Provider Emergency Medicine; PCP Physician Assistant; Visit Provider Internal Medicine
DX: D73.5 Infarction of spleen (principal); K51.90 Ulcerative colitis, unspecified, without complications; D68.59 Other primary thrombophilia; D72.829 Elevated white blood cell count, unspecified; T38.0X5A Adverse effect of glucocorticoids and synthetic analogues, initial encounter; F41.8 Other specified anxiety disorders; K21.9 Gastro-esophageal reflux disease without esophagitis; E55.9 Vitamin D deficiency, unspecified; Z90.49 Acquired absence of other specified parts of digestive tract; E87.6 Hypokalemia
CPT/HCPCS: 36415; 74177; 80048; 80053; 80076; 81001; 81025; 83605; 83690; 83735; 85025; 85027; 85610; 85730; 86038; 86039; 86140; 87040; 96361; 96365; 96366; 96374; 96375; 96376; 99285; A9270; G0378; J0131; J1644; J2270; J2405; J2543; J7030; J7120; J7512; Q9967

== ENCOUNTER 2020-10-09 06:50 | Outpatient (CLI) | payer OTHER, SELFPAY ==
--- NOTE | ~2020-10-09 | CT_ITS ---
EXAMINATION: CT abdomen pelvis w con DATE: 10/09/2020 07:15 INDICATION: Splenic vein thrombosis. TECHNIQUE: Computed tomography (CT) of the abdomen and pelvis was performed with 100 mL Omnipaque 350 intravenous contrast. Automated exposure control and iterative reconstruction technique were employe d. The dose-length product was 724.92 mGy-cm. COMPARISON: CT abdomen and pelvis 06/25/2020 FINDINGS: The visualized portions of the lung bases demonstrate mild atelectasis. No pleural effusion . The heart size is normal. No pericardial effusion. The liver is normal. There are changes of cholec ystectomy. The spleen, pancreas, adrenal glands, and kidneys are normal. There are no dilated loops o f bowel. The appendix is normal. The splenic vein is normal. There are no pathologically enlarged lym ph nodes. There is no free intraperitoneal fluid. There is mild lumbar spondylosis. IMPRESSION: 1. Normal spleen and splenic vein. Reviewed, dictated and finalized at location B. HOLOGICAL EXAMINER
== END 2020-10-09 06:51 | disposition home or self-care (01) ==
PROVIDERS: PCP Physician Assistant; Visit Provider Internal Medicine Hematology & Oncology
DX: I82.890 Acute embolism and thrombosis of other specified veins (principal); J98.11 Atelectasis
CPT/HCPCS: 74177; Q9967

== ENCOUNTER → 2021-04-27 11:36 | Outpatient (CLI) | payer OTHER, SELFPAY ==
--- NOTE | ~2021-04-27 | US_ITS ---
EXAMINATION: US thyroid DATE: 04/27/2021 11:54 INDICATION: Hypothyroidism. TECHNIQUE: Multiple ultrasound images of the thyroid were obtained. COMPARISON: None. FINDINGS: The right thyroid lobe measures 5.6 x 1.8 x 1.7 cm. The left thyroid lobe measures 5.3 x 1.2 x 1.3 c m. The thyroid demonstrates diffusely heterogeneous echogenicity with increased vascularity. In the right thyroid lobe, there is a 10 mm solid, isoechoic, [id number] nodule with ill-defined margin without echogenic foci (TI-RADS TR3). IMPRESSION: 1. Heterogeneous, hypervascular thyroid, consistent with chronic lymphocytic (Day) thyroiditis. 2. Small thyroid nodule, likely not clinically significant. No follow-up is needed. Reviewed, dictated and finalized at location A. IMPRESSION: 1. Heterogeneous, hypervascular thyroid, consistent with chronic lymphocytic (H ashimoto) thyroiditis. 2. Small thyroid nodule, likely not clinically significant. No follow-up is nee ded.
== END ==
PROVIDERS: PCP Physician Assistant; Visit Provider Physician Assistant
DX: R94.6 Abnormal results of thyroid function studies (principal); E04.1 Nontoxic single thyroid nodule
CPT/HCPCS: 76536

== ENCOUNTER 2021-05-20 00:28 | Emergency (ER) | payer OTHER, SELFPAY ==
[2021-05-20 00:22] VITALS: BP 103/75; PULSE 92; RESP 16; TEMP 36.1; O2SAT 98
[2021-05-20] MEDS: PROCHLORPERAZINE EDISYLATE 10 MG/2 ML VIAL IV PUSH (00:41)
[2021-05-20] MEDS: SODIUM CHLORIDE 0.9% IV 1,000 ML 999 ML IV CONT ×2 (00:42→01:55)
--- NOTE | 2021-05-20 00:47 | ED.GENADULT ---
HPI - General Adult General Chief complaint: Nausea/Vomiting/Diarrhea Stated complaint: n/v Time Seen by Provider: 05/20/21 00:34 History of Present Illness HPI narrative: Patient 35-year-old female presents emergency department with chief complaint of nausea and vomiting. Patient reports that she was recently diagnosed with Day's thyroiditis and recently started levothyroxine. The patient states that she is felt somewhat jittery this week and reports that she started vomiting this evening. The patient reports she did have a few white claws but states that she did not drink more than she has in the past when she has not gotten sick. Patient denies fever reports that she has been vaccinated for COVID-19. 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 Related Data Home Medications Medication Instructions Recorded Confirmed fluoxetine 10 mg PO DAILY 11/27/19 06/25/20 tizanidine 4 mg PO PRN PRN 11/27/19 06/25/20 melatonin 10 mg PO HS PRN 06/25/20 06/25/20 ondansetron 10 mg PO Q6H PRN 06/25/20 06/25/20 pantoprazole [Protonix] 40 mg PO QAM 06/25/20 06/25/20 prednisone 20 mg PO DAILY 06/25/20 06/25/20 Allergies Allergy/AdvReac Type Severity Reaction Status Date / Time infliximab Allergy Unknown Joint Pain Verified 06/25/20 15:09 mesalamine Allergy Unknown Joint Pain Verified 06/25/20 15:09 codeine Allergy Nausea and Verified 05/20/21 00:37 Vomiting Review of Systems Review of Systems: Narrative: A 10 system review of systems was completed on the patient and is negative except for what is stated in the HPI. Nursing and ancillary documentation was reviewed. 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 Gastroesophageal reflux disease Iritis of right eye (~06/2020) Shingles Ulcerative colitis She has been on several different biologics without success, and is being referred to a GI specialist at [facility]. Vitamin D deficiency Surgical History Surgical History History of cholecystectomy History of colonoscopy History of dilation and curettage History of ventral hernia repair Family History Family History Mother Family history of thyroid disease Grandparent Family history of lung cancer Family history of renal cell carcinoma Other Cerebrovascular accident Diabetes mellitus Family history of allergic disorder Family history of kidney disease Hypertension Social History Social History Social History: Elizabeth lives in [place] with her and 2 children. 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 No illicit drug use. She designates her Brigitte as her surrogate decision maker and she wishes to be a full code. Smoking status: Never smoker Alcohol intake: never Gender identity (if verbalized by the patient): Female Spiritual care concerns: No Exam Narrative: Exam Narrative: GENERAL: Well-appearing, well-nourished, and in no acute distress. HEAD: Normocephalic, atraumatic. EYES: PERRLA and EOMI. ENT: Nares clear, no rhinorrhea or epistaxis. Mucous membranes moist. NECK: Supple. CHEST: Clear to auscultation. No respiratory distress. HEART: Regular rate and rhythm. No murmur heard. Normal peripheral pulses. ABDOMEN: Soft, nontender, nondistended, normal active bowel sounds. EXTREMITIES: Normal range of motion. No edema. SKIN: Warm, dry, no rash. NEURO: No focal deficits. Alert and oriented x3. PSYCH: Normal mood and affect. Course Vital Signs Vital signs: Vital Signs Temperature 36.1 C L 05/20/21 00:22 Pulse Rate 92 05/20/21 00:22 Res
--- NOTE | 2021-05-20 00:58 | PC.NURSE ---
Pt unable to void at this time. Urine cup at bedside.
[2021-05-20 01:00] LABS: Basophils Percent Auto 0.3 % (0.2-1.2); Eosinophils Absolute Auto 0.1 K/mm3 (0-0.3); Eosinophils Percent Auto 1.1 % (0-4.4); Hematocrit 39.4 % (37.0-47.0); Hemoglobin 12.9 g/dL (12.0-15.0); Immature Granulocyte Absolute 0.01 K/mm3 (0.00-0.031); Immature Granulocyte Percent A 0.2 % (0-0.5); Lymphocytes Percent Auto 24.4 % (18.3-44.2); Mean Corpuscular HGB Conc 32.7 g/dl (32-36); Mean Corpuscular Hemoglobin 30.3 pg (26-34); Mean Corpuscular Volume 92.5 fl (80-100); Mean Platelet Volume 10.3 fl (7.4-10.4); Monocytes Absolute Auto 0.2 K/mm3 (0.1-0.6); Monocytes Percent Auto 3.1 % (2.6-8.5); Neutrophils Absolute Auto 4.4 K/mm3 (1.3-6.7); Neutrophils Percent Auto 70.9 % (45.5-73.1); Platelet Count Result 247 k/mm3 (150-375); Red Blood Count 4.26 M/mm3 (4.2-5.4); Red Cell Distribution Width 12.8 % (11.5-14.5); White Blood Count 6.2 K/mm3 (4.5-10.0)
[2021-05-20 01:15] VITALS: BP 107/72; O2SAT 97
[2021-05-20 01:16] LABS: Alanine Aminotransferase 43 U/L (4-35); Albumin Level 5.2 g/dL (3.5-5.1); Alkaline Phosphatase 70 U/L (38-126); Anion Gap 17 mmol/L (8-16); Aspartate Amino Transferase 38 U/L (14-36); Bilirubin,Total 0.4 mg/dL (0.2-1.3); Blood Urea Nitrogen 15 mg/dL (7-17); Calcium 9.5 mg/dL (8.4-10.2); Carbon Dioxide 21 mmol/L (22-30); Chloride 105 mmol/L (98-107); Estimated CRCL calculation 122 ml/min; Estimated Glomerular Filt Rate > 60; Glucose 111 mg/dL (65-110); Lipase 49 U/L (23-300); Potassium 3.4 mmol/L (3.4-5.0); Sodium 143 mmol/L (137-145)
[2021-05-20 01:27] LABS: Add Urine Microscopic? YES; Appearance Urine Clear (Clear); Bacteria Urine Trace /hpf; Bilirubin Urine Negative (Negative); Blood Urine 1+ (Negative); Color Urine Straw (Yellow); Glucose Urine UA Negative (Negative); Ketones Urine Negative (Negative); Leukocyte Esterase Ur Negative LEU/UL (Negative); Mucus Urine Rare /lpf; Nitrate Urine Negative (Negative); Protein Urine Negative (Negative); RBC Urine 0-2 /hpf (0-2); Specific Grav Ur 1.009 (1.001-1.035); Squamous Epithelial Cell Urine Occasional /hpf (Few); Urobilinogen Urine Negative mg/dL (<2.0); WBC Urine 0-3 /hpf
[2021-05-20 02:48] VITALS: BP 103/65; PULSE 95; RESP 16; O2SAT 100
--- NOTE | 2021-06-01 01:43 | PC.NURSE ---
IV fluids stopped prior to discharge, 1,000 ml infused.
== END 2021-05-20 02:57 | disposition home or self-care (01) ==
PROVIDERS: Emergency Provider Emergency Medicine; PCP Physician Assistant
DX: R11.2 Nausea with vomiting, unspecified (principal); E06.3 Autoimmune thyroiditis; K21.9 Gastro-esophageal reflux disease without esophagitis; E55.9 Vitamin D deficiency, unspecified; F41.9 Anxiety disorder, unspecified; Z79.01 Long term (current) use of anticoagulants; L93.0 Discoid lupus erythematosus; T47 Poisoning by, adverse effect of and underdosing of agents primarily affecting the gastrointestinal system; K51.90 Ulcerative colitis, unspecified, without complications
CPT/HCPCS: 36415; 80053; 81001; 81025; 83690; 85025; 96361; 96374; 99284; J0780; J7030

== ENCOUNTER → 2022-01-05 07:56 | Outpatient (CLI) | payer OTHER, SELFPAY ==
--- NOTE | ~2022-01-05 | US_ITS ---
US right upper quadrant INDICATION: Elevated liver function tests PROCEDURE: Realtime right upper abdominal ultrasound. COMPARISON: No prior studies for comparison. FINDINGS: The pancreas is normal without focal mass or pancreatic ductal dilation. Gallbladder echot exture is increased, consistent with fatty infiltration. There is normal directional flow in the por genesis vein. Gallbladder is surgically absent. Common bile duct measures 5 mm. No sonographic Fulton's sign. IMPRESSION: 1: Hepatic steatosis. Reviewed, dictated and finalized at location A. MACY GENERAL MANAGER IMPRESSION: 1: Hepatic steatosis.
== END ==
PROVIDERS: PCP Physician Assistant
DX: K51.519 Left sided colitis with unspecified complications (principal); K76.0 Fatty (change of) liver, not elsewhere classified
CPT/HCPCS: 76705

== ENCOUNTER → 2022-03-07 16:15 | Outpatient (CLI) | payer OTHER, SELFPAY ==
--- NOTE | ~2022-03-07 | XR_ITS ---
EXAMINATION: XR cervical spine 4-5V DATE: 03/07/2022 16:57 INDICATION: Neck pain. TECHNIQUE: 4 views of cervical spine were obtained. COMPARISON: None. FINDINGS: Bone alignment is normal. Vertebral body heights and intervertebral disc heights are normal . The uncovertebral joints and facet joints are normal. No central canal stenosis or prevertebral sof t tissue swelling. IMPRESSION: 1. Normal cervical spine. Reviewed, dictated and finalized at location A. IMPRESSION: 1. Normal cervical spine.
== END ==
PROVIDERS: PCP Physician Assistant; Visit Provider Physician Assistant
DX: M54.2 Cervicalgia (principal)
CPT/HCPCS: 72050

== ENCOUNTER → 2022-04-29 16:20 | Outpatient (CLI) | payer OTHER, SELFPAY ==
--- NOTE | ~2022-04-29 | US_ITS ---
US thyroid INDICATION: Follow-up thyroid nodules TECHNIQUE: Real-time sonographic images of the thyroid gland were obtained. COMPARISON: Ultrasound dated 04/27/2021 FINDINGS: The right thyroid lobe measures 5.6 x 1.8 x 1.7 cm. The left thyroid lobe measures 5.3 x 1 .2 x 1.3 cm. Thyroid gland is diffusely heterogeneous with multiple ill-defined masses, largest in th e right lobe measuring 8 mm. Findings are stable compared with prior examination. Normal vascularity. IMPRESSION: 1. Stable heterogeneous thyroid gland with multiple ill-defined nodules measuring 8 mm or less, like ly benign. Reviewed, dictated and finalized at location A. IMPRESSION: 1. Stable heterogeneous thyroid gland with multiple ill-defined nodules measur ing 8 mm or less, likely benign.
== END ==
PROVIDERS: PCP Physician Assistant; Visit Provider Physician Assistant
DX: E04.1 Nontoxic single thyroid nodule (principal)
CPT/HCPCS: 76536

== ENCOUNTER → 2023-11-07 13:12 | Outpatient (CLI) | payer OTHER, SELFPAY ==
--- NOTE | ~2023-11-07 | US_ITS ---
EXAMINATION: US thyroid DATE: 11/07/2023 13:40 INDICATION: Thyroid nodule. TECHNIQUE: Multiple ultrasound images of the thyroid were obtained. COMPARISON: Ultrasound 04/29/2022, 04/27/2021 FINDINGS: The right thyroid lobe measures 5.7 x 1.6 x 1.6 cm. The left thyroid lobe measures 5.2 x 1.4 x 1.5 c m. The thyroid is diffusely heterogeneous and hypoechoic. Vascularity is normal. In the right thyroi d lobe, there is a 0.9 cm solid, hypoechoic, wider than tall nodule with smooth margin without echoge cameron foci (TI-RADS TR4). IMPRESSION: 1. Heterogeneous thyroid, consistent with chronic lymphocytic (Day) thyroiditis. 2. Small thyroid nodule, likely not clinically significant. No follow-up is needed. Reviewed, dictated and finalized at location E. SERVICES MANAGER IMPRESSION: 1. Heterogeneous thyroid, consistent with chronic lymphocytic (Day) thyro iditis. 2. Small thyroid nodule, likely not clinically significant. No follow-up is nee ded.
== END ==
PROVIDERS: PCP Physician Assistant; Visit Provider Physician Assistant
DX: E04.1 Nontoxic single thyroid nodule (principal)
CPT/HCPCS: 76536

== ENCOUNTER 2023-11-28 12:58 | Outpatient (CLI) | payer OTHER, SELFPAY ==
--- NOTE | ~2023-11-28 | CT_ITS ---
EXAMINATION: CT abdomen pelvis wo con DATE: 11/28/2023 13:20 INDICATION: Left flank pain. TECHNIQUE: Computed tomography (CT) of the abdomen and pelvis was performed without intravenous contr ast. Automated exposure control and iterative reconstruction technique were employed. The dose-length product was 1081.72 mGy-cm. COMPARISON: CT abdomen and pelvis 10/09/20 FINDINGS: The visualized portions of the lung bases are clear without pneumonia or pleural effusion. The heart size is normal. No pericardial effusion. The liver and spleen are normal. There are changes of cholecystectomy. The pancreas, adrenal glands, and kidneys are normal. There is no urolithiasis. There is an intrauterine device in expected position. There are no dilated loops of bowel. The append ix is normal. There are no pathologically enlarged lymph nodes. There is no free intraperitoneal flui d. There is mild thoracic and lumbar spondylosis. IMPRESSION: 1. No urolithiasis. Reviewed, dictated and finalized at location E. FORM OPERATIONS DIRECTOR IMPRESSION: 1. No urolithiasis.
--- NOTE | ~2023-11-28 | XR_ITS ---
XR abdomen/kub 1V 11/28/2023 13:21 INDICATION: Left flank pain TECHNIQUE: KUB COMPARISON: 12/10/2019 FINDINGS: Bowel gas pattern is normal. There is an IUD present in the pelvis. Moderate colonic fecal loading. There is no evidence of free air, mass, organomegaly, ascites or obstruction. No abnormal c alculi are seen. The bones appear intact. There are cholecystectomy clips. IMPRESSION: 1: No acute abdominal abnormality identified. Reviewed, dictated and finalized at location B. NCE PROFESSOR
== END 2023-11-28 12:59 ==
LOC: GOSHIMG 12:59
PROVIDERS: PCP Physician Assistant; Visit Provider Nurse Practitioner Family
DX: R10.9 Unspecified abdominal pain (principal)
CPT/HCPCS: 74018; 74176

== ENCOUNTER 2024-02-03 13:53 | Outpatient (CLI) | payer OTHER, SELFPAY ==
[2024-02-03 15:45] LABS: Thyroid Stimulating Hormone 0.818 uIU/mL (0.465-4.680)
[2024-02-03 17:15] LABS: Iron 60 ug/dL (37-170)
[2024-02-03 17:31] LABS: Free T4 Free Thyroxine 0.94 ng/mL (0.78-2.19)
[2024-02-03 18:33] LABS: Folic Acid > 20.0 ng/mL (2.76->20)
[2024-02-03 19:07] LABS: Percent Iron Saturation 17 % (20-50)
[2024-02-07 09:16] LABS: Triiodothyronine T3 Free 2.9 pg/mL (2.3-4.2)
== END 2024-02-03 13:54 | disposition home or self-care (01) ==
LOC: ANHLAB 13:55
PROVIDERS: PCP Physician Assistant; Visit Provider Physician Assistant
DX: R53.83 Other fatigue (principal)
CPT/HCPCS: 36415; 82607; 82728; 82746; 83540; 83550; 84439; 84443; 84481

== ENCOUNTER 2024-03-05 18:42 | Emergency (ER) | payer OTHER, SELFPAY ==
--- NOTE | ~2024-03-05 | XR_ITS ---
EXAMINATION: XR chest 2V DATE: 03/05/2024 19:10 INDICATION: Chest pain. Shortness of breath. TECHNIQUE: Frontal and lateral views of the chest were obtained. COMPARISON: Chest single view 09/18/2023 FINDINGS: There is no pneumonia, pleural effusion, or pneumothorax. The heart size is normal. Surgica l clips in the right upper quadrant are likely from cholecystectomy. IMPRESSION: 1. No acute cardiopulmonary disease. Reviewed, dictated and finalized at location E.
--- NOTE | 2024-03-05 18:43 | ECG_ITS ---
SEE SCANNED COPY FOR CONFIRMED REPORT MTDD
[2024-03-05 18:49] VITALS: BP 123/74; PULSE 89; RESP 18; TEMP 36.6; O2SAT 100
[2024-03-05 19:39] LABS: Basophils Percent Auto 0.5 % (0.2-1.2); Eosinophils Absolute Auto 0.2 K/mm3 (0-0.3); Hematocrit 42.5 % (37.0-47.0); Hemoglobin 14.2 g/dL (12.0-15.0); Immature Granulocyte Absolute 0.03 K/mm3 (0.00-0.031); Immature Granulocyte Percent A 0.4 % (0-0.5); Lymphocytes Absolute Auto 2.68 K/mm3 (0.9-3.2); Lymphocytes Percent Auto 32.2 % (18.3-44.2); Mean Corpuscular HGB Conc 33.4 g/dl (32-36); Mean Corpuscular Hemoglobin 29.6 pg (26-34); Mean Corpuscular Volume 88.5 fl (80-100); Mean Platelet Volume 10.6 fl (7.4-10.4); Monocytes Absolute Auto 0.4 K/mm3 (0.1-0.6); Monocytes Percent Auto 4.3 % (2.6-8.5); Neutrophils Percent Auto 60.6 % (45.5-73.1); Platelet Count Result 260 k/mm3 (150-375); Red Cell Distribution Width 13.2 % (11.5-14.5); White Blood Count 8.3 K/mm3 (4.5-10.0)
[2024-03-05 19:49] LABS: INR 1.1; Prothrombin Time 14.4 Seconds (11.1-14.7)
[2024-03-05 19:50] LABS: Partial Thromboplastin Time 29.5 Seconds (22.3-36.8)
[2024-03-05 19:54] LABS: Alanine Aminotransferase 26 U/L (6-35); Albumin Level 5.3 g/dL (3.5-5.1); Alkaline Phosphatase 77 U/L (38-126); Anion Gap 13 mmol/L (4-12); Aspartate Amino Transferase 31 U/L (14-36); Bilirubin,Total 0.7 mg/dL (0.2-1.3); Blood Urea Nitrogen 18 mg/dL (7-17); Calcium 10.3 mg/dL (8.4-10.2); Carbon Dioxide 20 mmol/L (22-30); Chloride 108 mmol/L (98-107); Estimated CRCL calculation 93 ml/min; Estimated Glomerular Filt Rate > 60; Glucose 89 mg/dL (65-110); Lipase 54 U/L (23-300); Potassium 3.6 mmol/L (3.4-5.0); Sodium 141 mmol/L (137-145)
[2024-03-05 20:06] LABS: Troponin I < 0.012 ng/mL (0.000-0.034)
[2024-03-05] MEDS: ASPIRIN 81 MG CHEWABLE TABLET 324 MG PO (21:11)
[2024-03-05 21:12] VITALS: BP 119/78; PULSE 83; RESP 15; TEMP 37.1; O2SAT 100
[2024-03-05 21:16] VITALS: O2SAT 100
[2024-03-05 21:18] VITALS: PULSE 79
--- NOTE | 2024-03-05 21:36 | ED.CHESTPAIN ---
HPI - Chest Pain General Chief Complaint: Chest Pain Stated Complaint: chest pain/SOB Time Seen by Provider: 03/05/24 21:24 Source: patient Mode of arrival: ambulatory Limitations: no limitations History of Present Illness HPI narrative: This is a 38-year-old female who presents to the ED with chief complaint of chest pain onset this morning. Reports location is mid sternal. Worsened with deeper breathing. Which she states she when she breathes deeply she feels pain into the back near the scapula. Patient reports that she tried taking Tylenol, OTC pain meds, medications for GERD and none of the above helped today. The pain has been constant in the midsternal area. No specific exertional component. Denies associated dyspnea, sweats, syncope, vomiting or nausea. Concern for possible blood clot due to history of DVT and splenic emboli. Denies leg swelling, recent immobilization, hospitalization. Denies any recent illness Related Data Home Medications Medication Instructions Recorded Confirmed fluoxetine 10 mg capsule 10 mg PO DAILY 11/27/19 06/25/20 tizanidine 4 mg tablet 4 mg PO PRN PRN Sleep 11/27/19 06/25/20 melatonin 10 mg tablet 10 mg PO HS PRN Sleep 06/25/20 06/25/20 ondansetron 4 mg disintegrating 10 mg PO Q6H PRN nausea and 06/25/20 06/25/20 tablet vomiting pantoprazole 40 mg tablet,delayed 40 mg PO QAM 06/25/20 06/25/20 release (Protonix) prednisone 20 mg tablet 20 mg PO DAILY 06/25/20 06/25/20 Allergies Allergy/AdvReac Type Severity Reaction Status Date / Time infliximab Allergy Unknown Joint Pain Verified 03/05/24 18:53 mesalamine Allergy Unknown Joint Pain Verified 03/05/24 18:53 codeine Allergy Nausea and Verified 03/05/24 18:53 Vomiting Review of Systems Review of Systems: All systems as dictated in HPI [facility] Past Medical History Medical History Anxiety 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 Gastroesophageal reflux disease Iritis of right eye (~06/2020) Shingles Ulcerative colitis She has been on several different biologics without success, and is being referred to a GI specialist at [facility]. Vitamin D deficiency Surgical History Surgical History History of cholecystectomy History of colonoscopy History of dilation and curettage History of ventral hernia repair Family History Family History Mother Family history of thyroid disease Grandparent Family history of lung cancer Family history of renal cell carcinoma Other Cerebrovascular accident Diabetes mellitus Family history of allergic disorder Family history of kidney disease Hypertension Social History Social History Social History: Elizabeth lives in [place] with her and 2 children. 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 No illicit drug use. She designates her Brigitte as her surrogate decision maker and she wishes to be a full code. Smoking status: Never smoker Alcohol intake: never Living arrangements: with family Occupation/Education: occupation Gender identity (if verbalized by the patient): Female Spiritual care concerns: No Exam Narrative: GENERAL: Well-appearing, well-nourished, and in no acute distress. HEAD: Normocephalic, atraumatic. EYES: PERRLA and EOMI. ENT: Nares clear, no rhinorrhea or epistaxis. Mucous membranes moist. Oropharynx without tonsillar hypertrophy exudate or other lesions. NECK: Supple. No adenopathy or masses. CHEST: No respiratory distress. Clear to auscultation. No wheezes rales or rhonchi HEART: Regular rate and rhythm. No murmur heard. Normal peripheral pulses. ABDO
[2024-03-05 21:58] LABS: D Dimer < 0.27 ug/mL (<0.48)
[2024-03-05 22:26] LABS: Troponin I < 0.012 ng/mL (0.000-0.034)
[2024-03-05 22:50] VITALS: BP 125/80; PULSE 78; RESP 20; O2SAT 100
--- NOTE | 2024-03-06 07:58 | ECG_ITS ---
SEE SCANNED COPY FOR CONFIRMED REPORT MTDD
== END 2024-03-05 22:54 | disposition home or self-care (01) ==
PROVIDERS: Emergency Medicine; Emergency Provider Physician Assistant; PCP Physician Assistant
DX: R09.1 Pleurisy (principal); K21.9 Gastro-esophageal reflux disease without esophagitis; K51.90 Ulcerative colitis, unspecified, without complications; E55.9 Vitamin D deficiency, unspecified; F41.9 Anxiety disorder, unspecified; Z90.49 Acquired absence of other specified parts of digestive tract; Z79.01 Long term (current) use of anticoagulants; R94.31 Abnormal electrocardiogram [ECG] [EKG]
CPT/HCPCS: 36415; 71046; 80053; 83690; 84484; 85025; 85380; 85610; 85730; 93005; 99284; A9270

== ENCOUNTER 2024-05-31 08:27 | Outpatient (CLI) | payer OTHER, SELFPAY ==
[2024-05-31 10:16] LABS: Hematocrit 41.1 % (37.0-47.0); Hemoglobin 13.5 g/dL (12.0-15.0); Mean Corpuscular HGB Conc 32.8 g/dl (32-36); Mean Corpuscular Hemoglobin 30.1 pg (26-34); Mean Corpuscular Volume 91.7 fl (80-100); Mean Platelet Volume 10.9 fl (7.4-10.4); Platelet Count Result 242 k/mm3 (150-375); Red Blood Count 4.48 M/mm3 (4.2-5.4); Red Cell Distribution Width 13.2 % (11.5-14.5); White Blood Count 4.6 K/mm3 (4.5-10.0)
[2024-05-31 10:41] LABS: Alanine Aminotransferase 24 U/L (6-35); Albumin Level 4.5 g/dL (3.5-5.1); Alkaline Phosphatase 60 U/L (38-126); Anion Gap 11 mmol/L (4-12); Aspartate Amino Transferase 29 U/L (14-36); Bilirubin,Total 0.6 mg/dL (0.2-1.3); Blood Urea Nitrogen 11 mg/dL (7-17); CRP < 0.5 mg/dL (<1.0); Carbon Dioxide 24 mmol/L (22-30); Chloride 104 mmol/L (98-107); Estimated Glomerular Filt Rate > 60; Glucose 81 mg/dL (65-110); Potassium 3.6 mmol/L (3.4-5.0); Sodium 139 mmol/L (137-145)
== END 2024-05-31 08:28 | disposition home or self-care (01) ==
PROVIDERS: PCP Physician Assistant
DX: K51.20 Ulcerative (chronic) proctitis without complications (principal); Z79.899 Other long term (current) drug therapy
CPT/HCPCS: 36415; 80053; 85027; 86140

== ENCOUNTER 2024-12-04 08:12 | Outpatient (CLI) | payer OTHER, SELFPAY ==
--- OUTSIDE RECORDS SUMMARY | 2024-12-04 08:18 | XMS_ITS | Clinical Summary ---
Author Organization [facility] Address [address] [place] [address]. [place] [address] [place] [address] Care Team Providers Care Medical Cash Poster Name Role Phone Unavailable Primary Care Provider Unavailabl e Social History Tobacco Use Types Packs/Day Years Used Date Smoking Tobacco: Never Assessed Comments Unknown Sex and Gender Information Value Date Recorded Sex Assigned at Not on file Legal Sex Female 5:51 PM CDT Gender Identity Not on file Sexual Orientation Not on file Plan of Treatment Health Maintenance Due Date Last Done Comments Cervical Cancer Screening Pa p Smear (Age 30 to 64) Every 3 Years 1986 Annual Physical 1989 Hepatitis C 2004 DTaP, Tdap and Td Vaccines ( 1 - Tdap) 2005 Hepatitis B Vaccines (1 of 3 - 19+ 3-dose series) 2005 Cervical Cancer Screening Pa p with HPV Testing (Age 30 to 64) Every 5 Years 2016 Cervical Cancer Screening with HPV 2016 COVID-19 Vaccine (2023-2 5 season) 2024 Influenza Adult (#1) 2024 HPV Vaccines Aged Out No longer eligi ble based on patient's age to complete this topic Meningococcal B Vaccine Aged Out No l onger eligible based on patient's age to complete this topic Meningococcal Vaccine Aged Out No ann-marie jude eligible based on patient's age to complete this topic Pneumococcal Vaccine: Pediat rics (0 to 5 Years) and At-Risk Patients (6 to 64 Years) Aged Out No longer eligible b ased on patient's age to complete this topic RSV Immunizations Under 20 Months Aged Out No longer eligible based on patient's age to complete this topic
--- OUTSIDE RECORDS SUMMARY | 2024-12-04 08:18 | XMS_ITS | Encounter Summary ---
Author Organization [facility] Address [address] [place] [address] Care Team Providers Care Truck Driver Instructor Name Role Phone Mariposa Cabrales Primary Care Provider [phone] Encounter Details Date Type Department Care Team (Latest Contact Info) Description 09/12/2008 Outpatient Historical [facility]Y Conversion, History Pain in Joint, Site Unspecified; Other and Unspecified Noninfectious Gastroenteritis and Colitis Social History Tobacco Use Types Packs/Day Years Used Date Smoking Tobacco: Never Alcohol Use Standard Drinks/Week Comments Not Asked 0 (1 standard drink = 0.6 oz pur e alcohol) Comments No Sex and Gender Information Value Date Recorded Sex Assigned at Not on file Legal Sex Female 5:26 AM HOST/HOSTESS GROUND Gender Identity Not on file Sexual Orientation Not on file documented as of this encounter Plan of Treatment Not on file documented as of this encounter Procedures Procedure Name Priority Date/Time Associated Diagnosis Comments MISCELLANEOUS LAB TEST Routine 8 11:53 AM HOST/HOSTESS GROUND HEPATITIS B SURFACE ANTIGEN Routine 09/12/2008 11:53 AM HOST/HOSTESS GROUND THYROID PEROXIDASE ANTIBODY Routine 09/12/2008 11:53 AM HOST/HOSTESS GROUND PARVOVIRUS B19 AB IGG/IGM Routine 09/12/2008 11:53 AM HOST/HOSTESS GROUND HEPATITIS C ANTIBODY Routine 09/12/2008 11:53 AM HOST/HOSTESS GROUND ALDOLASE Routine 09/12/2008 11:53 AM HOST/HOSTESS GROUND MONONUCLEOSIS SCREEN Routine 09/12/2008 11:53 AM HOST/HOSTESS GROUND VITAMIN D 25 HYDROXY Routine 09/12/2008 11:53 AM HOST/HOSTESS GROUND THYROGLOBULIN, TUMOR MARKER Routine 09/12/2008 11:53 AM HOST/HOSTESS GROUND SEDIMENTATION RATE Routine 09/12/2008 11 :53 AM HOST/HOSTESS GROUND C-REACTIVE PROTEIN Routine 09/12/2008 11 :53 AM HOST/HOSTESS GROUND LACTATE DEHYDROGENASE Routine 09/12/2008 11:53 AM HOST/HOSTESS GROUND COMPREHENSIVE METABOLIC PANEL Routine 09/12/2008 11:53 AM HOST/HOSTESS GROUND documented in this encounter Results * MONONUCLEOSIS SCREEN (09/12/2008 11:53 AM HOST/HOSTESS GROUND) MONONUCLEOSIS SCREEN Negative Negative [facility] Blood specimen (specimen) 09/12/2008 11:53 AM HOST/HOSTESS GROUND 09/12/2008 6:46 PM HOST/HOSTESS GROUND us History Conversion HEMATOLOGY ORDERABLES Final R esult INTERFACE SYSTEM Refer to clinic/hospital department [facility] CLIA# [id number] [address] [facility] [place] [address] * MISCELLANEOUS LAB TEST (09/12/2008 11:53 AM HOST/HOSTESS GROUND) SPECIMEN TYPE Blood [facility] TEST NAME HISTONE ANTIBODIES [facility] MISCELLANEOUS LAB TEST Name of Test: HISTONE ANTIBODIES Test Result: Histone AB ??= 4.6 U Reference Range: ?<1.0 ? Negative ? 1.0 to 1.5 ?Weak Positive ? 1.6 to 2.5 ?Moderate Positive ? >2.5 ?Strong Positive Test Performed By: [employer] [facility]-. [facility] Specimen of unknown material (specimen) 09/12/2008 11:53 AM HOST/HOSTESS GROUND 09/12/2008 4:44 PM HOST/HOSTESS GROUND Narrative INTERFACE SYSTEM - 09/15/2008 10:32 AM HOST/HOSTESS GROUND Name of test:antihistone ab us History Conversion CHEMISTRY ORDERABLES Edited Performing Organization Address [facility] Co de Phone Number INTERFACE SYSTEM Refer to clinic/hospital department [facility] CLIA# [id number] [address] [place] [address] * VITAMIN D 25 HYDROXY (09/12/2008 11:53 AM HOST/HOSTESS GROUND) VITAMIN D, 25 OH, D2 <4 ng/mL [facility] Comment: 25-OHD3 indicates both endogenous production and supplementation. 25-OHD2 is an indicator of exogenous sources such as diet or supplementation. Therapy is based on measurement of Total 25-OHD, with levels <20 ng/mL indicative of Vitamin D deficiency while levels between 20 ng/mL and 30 ng/mL suggest insufficiency. Optimal levels are >30 ng/mL. ? Lab test performed by: [employer] [facility] [id number] [place], [place] MACEY GIVENS MD VITAMIN D, 25 OH, TOTAL 40 20 - 100 ng/mL [facility] VITAMIN D, 25 OH, D3 40 ng/mL [facility] Blood specimen (specimen) 09/12/2008 11:53 AM HOST/HOSTESS GROUND 09/12/2008 6:46 PM HOST/HOSTESS GROUND us History Conversion CHEMISTRY ORDERABLES Final Re sult Performing Organization Address City/[facility]/ZIP Co de Phone Number INTERFACE SYSTEM Refer to clinic/hospital department [facility] CLIA# [id number] [address] [place] [address] * (ABNORMAL) THYROID PEROXIDASE ANTIBODY (09/12/2008 11:53 AM HOST/HOSTESS GROUND) THYROID PEROXIDASE AB 188(H) <35 IU/mL [facility] Comment: ? Lab test performed by: [employer] [facility] [id number] [facility] [place] [address] AGUS PIRETO MD Blood specimen (specimen) 09/12/2008 11:53 AM HOST/HOSTESS GROUND 09/12/2008 6:46 PM HOST/HOSTESS GROUND us History Conversion CHEMISTRY ORDERABLES Final Re sult Performing Organization Address [facility] de Phone Number INTERFACE SYSTEM Refer to clinic/hospital department [facility] CLIA# [id number] [address] [place] [address] * THYROGLOBULIN (09/12/2008 11:53 AM HOST/HOSTESS GROUND) THYROGLOBULIN AB <20 <20 IU/mL [facility] THYROGLOBULIN 10.5 2.0 - 35.0 ng/mL [facility] Comment: This test was performed using the Siemens (DPC) chemiluminescent method. Values obtained from different assay methods cannot be used inter- changeably. Thyroglobulin levels, regardless of value, should not be interpreted as absolute evidence of the presence or absence of disease. ? Lab test performed by: [employer] [facility] [id number] [place] [address] MACEY GIVENS MD Blood specimen (specimen) 09/12/2008 11:53 AM HOST/HOSTESS GROUND 09/12/2008 6:46 PM HOST/HOSTESS GROUND us History Conversion CHEMISTRY ORDERABLES Final Re sult Performing Organization Address City/[facility]/ZIP Co de Phone Number INTERFACE SYSTEM Refer to clinic/hospital department [facility] CLIA# [id number] [address] [place] [address] * (ABNORMAL) SEDIMENTATION RATE (09/12/2008 11:53 AM HOST/HOSTESS GROUND) ESR (SEDIMENTATION RATE) 63(H) 0 - 20 mm/hr [facility] Blood specimen (specimen) 09/12/2008 11:53 AM HOST/HOSTESS GROUND 09/12/2008 4:44 PM HOST/HOSTESS GROUND us History Conversion HEMATOLOGY ORDERABLES Final R esult INTERFACE SYSTEM Refer to clinic/hospital department [facility] CLIA# [id number] [address] [place] [address] * (ABNORMAL) PARVOVIRUS B19 AB IGG/IGM (09/12/2008 11:53 AM HOST/HOSTESS GROUND) Pathologist [facility] PARVOVIRUS B19 IGM ABS 0.4 <0.9 Index [facility] Comment: ? Reference range: ??IgG and IgM Index ?<0.9 ?? Negative 0.9-1.1 ?? Equivocal ?>1.1 ?? Positive Interpretation: NEGATIVE: ??No antibody detected. ??This ? individual may be susceptible to ? parvovirus B-19 infection. POSITIVE: ??Indicative of exposure to ? parvovirus B-19. EQUIVOCAL results are those results too close to the cut-off values to interpret. ??A second sample should be drawn in two weeks, if clinically indicated. ? Specific IgG persists for years, and provides lifetime immunity. ??A majority of adults show evidence of past infection. ??If definitive diagnosis of acute parvovirus infection is desired, a parvovirus B-19 IgM should be obtained. Due to the poor humoral immune response in the immunocompromised, the chronically anemic, and the fetus, both antibody and DNA PCR tests are recommended for definitive diagnosis of parvovirus B-19 infection in these patients. ? Lab test performed by: [employer] [facility] [id number] [place] [address] MACEY GIVENS MD PARVOVIRUS B19 IGG ABS 6.2(H) <0.9 Index [facility] Blood specimen (specimen) 09/12/2008 11:53 AM HOST/HOSTESS GROUND 09/12/2008 4:44 PM HOST/HOSTESS GROUND us History Conversion CHEMISTRY ORDERABLES Final Re sult Performing Organization Address [facility] Phone Number INTERFACE SYSTEM Refer to clinic/hospital department [facility] CLIA# [id number] [address] [place] [address] * (ABNORMAL) LACTATE DEHYDROGENASE (09/12/2008 11:53 AM HOST/HOSTESS GROUND) Pathologist [facility] LD (LACTATE DEHYDROGENASE) 227(H) 135 - 214 U/L [facility] Blood specimen (specimen) 09/12/2008 11:53 AM HOST/HOSTESS GROUND 09/12/2008 4:44 PM HOST/HOSTESS GROUND us History Conversion CHEMISTRY ORDERABLES Final Re sult Performing Organization Address [facility] Phone Number INTERFACE SYSTEM Refer to clinic/hospital department [facility] CLIA# [id number] [address] [place] [address] * HEPATITIS C ANTIBODY (09/12/2008 11:53 AM HOST/HOSTESS GROUND) Pathologist [facility] HEPATITIS C AB NON-REACTI VE NON-REACT PILO [facility] SIGNAL TO CUT OFF 0.30 <1.00 [facility] Comment: ? Lab test performed by: [employer] [facility] [address] [place] [address] AGUS PRIETO MD Blood specimen (specimen) 09/12/2008 11:53 AM HOST/HOSTESS GROUND 09/12/2008 6:46 PM HOST/HOSTESS GROUND us History Conversion CHEMISTRY ORDERABLES Final Re sult INTERFACE SYSTEM Refer to clinic/hospital department [facility] CLIA# [id number] [address] [place] [address] * HEPATITIS B SURFACE ANTIGEN (09/12/2008 11:53 AM HOST/HOSTESS GROUND) HEPATITIS B SURFACE AG NON-REACTI VE NON-REACT PILO [facility] Comment: ? Lab test performed by: [facility] [employer] [address] [place] [address] AGUS PRIETO MD Blood specimen (specimen) 09/12/2008 11:53 AM HOST/HOSTESS GROUND 09/12/2008 6:46 PM HOST/HOSTESS GROUND us History Conversion CHEMISTRY ORDERABLES Final Re sult Performing Organization Address [facility] Phone Number INTERFACE SYSTEM Refer to clinic/hospital department [facility] CLIA# [id number] [address] [place] [address] * (ABNORMAL) C-REACTIVE PROTEIN (09/12/2008 11:53 AM HOST/HOSTESS GROUND) Pathologist [facility] CRP 3.0(H) 0.0 - 0.8 mg/dL [facility] Blood specimen (specimen) 09/12/2008 11:53 AM HOST/HOSTESS GROUND 09/12/2008 4:44 PM HOST/HOSTESS GROUND us History Conversion CHEMISTRY ORDERABLES Final Re sult Performing Organization Address [facility] Phone Number INTERFACE SYSTEM Refer to clinic/hospital department [facility] CLIA# [id number] [address] [place] [address] * (ABNORMAL) COMPREHENSIVE METABOLIC PANEL (09/12/2008 11:53 AM HOST/HOSTESS GROUND) POTASSIUM 3.6 3.5 - 4.9 mmol/L [facility] TOTAL PROTEIN 8.1 6.3 - 8.6 g/dL [facility] GLUCOSE 119(H) 65 - 99 mg/dL [facility] AST 65(H) 12 - 32 U/L [facility] BUN 8 6 - 20 mg/dL [facility] CALCIUM 9.0 8.6 - 10.2 mg/dL [facility] ALBUMIN 3.8 3.4 - 4.8 g/dL [facility] CHLORIDE 101 96 - 108 mmol/L [facility] CREATININE 0.54 0.51 - 0.95 mg/dL [facility] ALT 81(H) 0 - 31 U/L [facility] SODIUM 133(L) 135 - 145 mmol/L [facility] ALKALINE PHOSPHATASE 64 35 - 104 U/L [facility] CO2 23 22 - 30 mmol/L [facility] BILIRUBIN TOTAL 0.3 0.2 - 1.0 mg/dL [facility] GFR, >60 >=60 mL/min/1. 7 sq meter [facility] GFR >60 >=60 mL/min/1. 7 sq meter [facility] Comment: Modification of Diet in Renal Disease (MDRD) study formula. Estimated GFR rate interpretative information for both Americans and non- Americans is available on the [facility] Intranet at: [email or web address] Select: Lab Policies and Procedures Select: Reference Ranges - GFR Blood specimen (specimen) 09/12/2008 11:53 AM HOST/HOSTESS GROUND 09/12/2008 4:44 PM HOST/HOSTESS GROUND us History Conversion CHEMISTRY ORDERABLES Edited INTERFACE SYSTEM Refer to clinic/hospital department [facility] CLIA# [id number] [address] [place] [address] * ALDOLASE (09/12/2008 11:53 AM HOST/HOSTESS GROUND) ALDOLASE 6.1 < OR = 8.1 U/L [facility] Comment: ? Lab test performed by: [employer] [facility] [id number] [place] [address] AGUS PRIETO MD Blood specimen (specimen) 09/12/2008 11:53 AM HOST/HOSTESS GROUND 09/12/2008 4:44 PM HOST/HOSTESS GROUND us History Conversion CHEMISTRY ORDERABLES Final Re sult INTERFACE SYSTEM Refer to clinic/hospital department [facility] CLIA# [id number] [address] [place] [address] documented in this encounter Visit Diagnoses Diagnosis Pain in joint, site unspecified Other and unspecified noninfectious gastroenteritis and colitis(558.9) Other and unspecified noninfectious gastroenteritis and colitis documented in this encounter Care Teams Truck Driver Instructor Relationship Specialty Start Date End Date Mariposa Cabrales PA PCP - General Physician Hotel Receptionist 06/27/20 documented as of this encounter
--- OUTSIDE RECORDS SUMMARY | 2024-12-04 08:18 | XMS_ITS | Patient Health Summary ---
Author Organization [facility] Address [address] [place] [address] Care Team Providers Care Insurance Biller Name Role Phone Kenan Gallardo MD Primary Care Provider [phone] Note from [facility],non-owned Affiliates and Associated Physician Practices is amultiple site organization consisting of ambulatory clinics and hospital sitesin [place], [place], [place] and [place]. This disclosure is being madepursuant to the Care Everywhere program and may not contain all information available regarding this patient. Last updated 18.[facility] Allergies * Mesalamine * Infliximab Medications * Be aware that medications may not be up to date on this document. Alwaysverify current medications with the patient. * predniSONE (DELTASONE) 10 MG tablet prednisone 10 mg tablet * dicyclomine (BENTYL) 20 MG tablet dicyclomine 20 mg tablet TK 1 T PO Q 6 H PRN Social History Tobacco Use Types Packs/Day Years Used Date Smoking Tobacco: Never Smokeless Tobacco: Never Sex and Gender Information Value Date Recorded Sex Assigned at Not on file Gender Identity Not on file Sexual Orientation Not on file Last Filed Vital Signs Vital Sign Reading Time Taken Comments Blood Pressure 114/72 06/04/2020 12:27 PM CDT Pulse 71 06/04/2020 12:27 PM CDT Temperature 36.9 ??C (98.4 ??F) 06/04/2020 12:27 PM C DT Respiratory Rate 16 06/04/2020 12:27 PM CDT Oxygen Saturation 98% 06/04/2020 12:27 PM CDT Inhaled Oxygen Concentration - - Weight 79.4 kg (175 lb) 06/04/2020 12:27 PM CDT Height 166.4 cm (5' 5.5 ) 06/04/2020 12:27 PM CD T Body Mass Index 28.68 06/04/2020 12:27 PM CDT Procedures * COVID-19 SARS-COV-2 PCR QUAL ([facility])(Performed 06/04/2020) Performed for Acute maxillary sinusitis, recurrence not specified * STREP A SCREEN - POINT OF CARE (AMB) [facility](Performed 11/22/2016) Performed for Strep pharyngitis * DNA ANTIBODY DOUBLE STRANDED(Performed 05/08/2015) * DNA ANTIBODY DS CRITHIDIA IFA(Performed 05/08/2015) * MARILYN BLOOD SCREEN W/REFLEX TITER(Performed 05/08/2015) * URINALYSIS W/MICROSCOPIC REFLEX TO CULTURE(Performed 05/08/2015) * ERYTHROCYTE SEDIMENTATION RATE(Performed 05/08/2015) * C-REACTIVE PROTEIN(Performed 05/08/2015) * COMPREHENSIVE METABOLIC PANEL(Performed 05/08/2015) * CBC W AUTO DIFFERENTIAL(Performed 05/08/2015) * DNA ANTIBODY DS CRITHIDIA TITER(Performed 05/08/2015) * CULTURE URINE REFLEXED(Performed 05/08/2015) * HISTONE ANTIBODY(Performed 04/11/2015) * DNA ANTIBODY DS CRITHIDIA TITER(Performed 04/11/2015) * RHEUMATOID FACTOR BLOOD QUANTITATIVE(Performed 04/11/2015) * IN FLIGHT REFUELING OPERATOR ANTIBODY(Performed 04/11/2015) * GRAHAM (SM) ANTIBODY KAILASH(Performed 04/11/2015) * SS-B (SJOGREN'S) ANTIBODY(Performed 04/11/2015) * SS-A (SJOGREN'S) ANTIBODY(Performed 04/11/2015) * CYCLIC CITRULLINATED PEPTIDE(CCP) AB IGG(Performed 04/11/2015) * COMPLEMENT C4(Performed 04/11/2015) * COMPLEMENT C3(Performed 04/11/2015) * CHROMATIN ANTIBODY(Performed 04/11/2015) * DNA ANTIBODY DOUBLE STRANDED(Performed 04/11/2015) * DNA ANTIBODY DS CRITHIDIA IFA(Performed 04/11/2015) * MARILYN BLOOD SCREEN W/REFLEX TITER(Performed 04/11/2015) * URINALYSIS W/MICROSCOPIC REFLEX TO CULTURE(Performed 04/11/2015) * TSH(Performed 04/11/2015) * T4 FREE(Performed 04/11/2015) * LDH BLOOD(Performed 04/11/2015) * CK BLOOD(Performed 04/11/2015) * ERYTHROCYTE SEDIMENTATION RATE(Performed 04/11/2015) * C-REACTIVE PROTEIN(Performed 04/11/2015) * COMPREHENSIVE METABOLIC PANEL(Performed 04/11/2015) * CBC W AUTO DIFFERENTIAL(Performed 04/11/2015) * ALDOLASE(Performed 04/11/2015) * CULTURE URINE REFLEXED(Performed 04/11/2015) * VITAMIN D 25-HYDROXY D2+D3(Performed 04/11/2015) * CULTURE STOOL+ E COLI SHIGA-LIKE TOXIN(Performed 10/12/2014) * C DIFFICILE GDH AG + TOXIN A+B(Performed 10/12/2014) * CARDIOLIPIN ANTIBODY IGM(Performed 09/07/2013) * CARDIOLIPIN ANTIBODY IGG(Performed 09/07/2013) * CARDIOLIPIN ANTIBODY IGA(Performed 09/07/2013) * BETA-2 GLYCOPROTEIN 1 ANTIBODY IGG/IGM/IGA PANEL(Performed 09/07/2013) * DNA ANTIBODY DS CRITHIDIA IFA(Performed 09/07/2013) * LUPUS ANTICOAGULANT PANEL W RFLX(Performed 09/07/2013) * MARILYN BLOOD SCREEN W/REFLEX TITER(Performed 09/07/2013) * CYCLIC CITRULLINATED PEPTIDE(CCP) AB IGG(Performed 09/07/2013) * C-REACTIVE PROTEIN(Performed 09/07/2013) * RHEUMATOID FACTOR BLOOD QUANTITATIVE(Performed 09/07/2013) * SS-A/SS-B (SJOGREN'S) ANTIBODY PANEL(Performed 09/07/2013) * CHROMATIN ANTIBODY(Performed 09/07/2013) * IN FLIGHT REFUELING OPERATOR ANTIBODY(Performed 09/07/2013) * GRAHAM (SM)+IN FLIGHT REFUELING OPERATOR ANTIBODY PANEL(Performed 09/07/2013) * COMPLEMENT C4(Performed 09/07/2013) * COMPLEMENT C3(Performed 09/07/2013) * HEPATITIS SCREEN ACUTE(Performed 09/07/2013) * ERYTHROCYTE SEDIMENTATION RATE(Performed 09/07/2013) * COMPREHENSIVE METABOLIC PANEL(Performed 09/07/2013) * CBC W AUTO DIFFERENTIAL(Performed 09/07/2013) * URINALYSIS REFLEX TO MICROSCOPIC NO CULTURE(Performed 09/07/2013) Results * COVID-19 SARS-COV-2 PCR QUAL ([facility]) (06/04/2020 12:39 PM CDT) [facility] SARS-CoV-2 ARIAN Not Detected Not Detected [facility] INSURANCE BILL Comment: Testing was performed using the Aptima SARS-CoV-2 assay. This test was developed and its performance characteristics determined by [employer]. This test has not been FDA cleared or approved. This test has been authorized by FDA under an Emergency Use Authorization (EUA). This test is only authorized for the duration of time the declaration that circumstances exist justifying the authorization of the emergency use of in vitro diagnostic tests for detection of SARS-CoV-2 virus and/or diagnosis of COVID-19 infection under section 564(b)(1) of the Act, 21 U.S.C. 360bbb-3(b)(1), unless the authorization is terminated or revoked sooner. When diagnostic testing is negative, the possibility of a false negative result should be considered in the context of a patient's recent exposures and the presence of clinical signs and symptoms consistent with COVID-19. An individual without symptoms of COVID-19 and who is not shedding SARS-CoV-2 virus would expect to have a negative (not detected) result in this assay. Microbiology SPECIMEN FROM NASOPHARYNGEAL STRUCTURE / Unknown 06/04/2020 12:39 PM CDT 06/05/2020 Narrative Resulting Agency Comment Lab Testing performed at: [address] ??[facility] [id number] Krishna Lockhart WIRE INSULATOR-BRAKE OPERATOR [facility] LAB - MICROBIOLOG Y ORDERABLES [facility] INSURANCE BILL [address] [place] [address] * (ABNORMAL) STREP A SCREEN (11/22/2016) [facility] Strep A Rapid POCT Positive(A) Negative Strep A Internal Control Present Lot # [id number] Expiration Date [id number] Throat ENTIRE THROAT (SURFACE REGION OF NECK) / Unknown 11/22/2016 Willy Dumont WIRE INSULATOR-BRAKE OPERATOR [facility] LAB - POINT OF CARE ORDERABLES * (ABNORMAL) DNA ANTIBODY DS CRITHIDIA IFA (05/08/2015 8:06 AM CDT) Only the most recent of3 resultswithin the time period is included. dsDNA Antibody Crithidia IFA POSITIVE(A ) NEGATIVE [facility] Comment: Test Performed at: [facility] [place] [place] [address] [place], [place] ??[phone] BLAIR DEL CID MD PHD 05/08/2015 8:06 AM CDT 05/08/2015 8:05 AM CDT Hina Hughes MD LAB - SEROLOGY ORDER BILL Performing Organization Address City/[facility]/ZIP Co de Phone Number [facility] * (ABNORMAL) DNA ANTIBODY DS CRITHIDIA TITER (05/08/2015 8:06 AM CDT) Only the most recent of2 resultswithin the time period is included. dsDNA Antibody Crithidia Titer 1:40(H) <1:10 titer [facility] Comment: Test Performed at: [facility] [address] ??[phone] BLAIR DEL CID MD PHD 05/08/2015 8:06 AM CDT 05/08/2015 8:05 AM CDT Hina Hughes MD LAB - SEROLOGY ORDER BILL Performing Organization Address City/[facility]/ZIP Co de Phone Number [facility] * CULTURE URINE REFLEXED (05/08/2015 8:06 AM CDT) Only the most recent of2 resultswithin the time period is included. Culture Urine Comprehensive NO CULTURE INDICATED [facility]) Comment: REPORT COMMENT: SPECIMEN TYPE->URINE FASTING:NO Test Performed at: [facility] [place] [address] [place], [place] ??[phone] AGUS CHAMBERS DO,MPH 05/08/2015 8:06 AM CDT 05/08/2015 8:05 AM CDT Hina Hughes MD LAB - MICROBIOLOGY O RDERABLES [facility] * (ABNORMAL) URINALYSIS W/MICROSCOPIC REFLEX TO CULTURE (05/08/2015 8:06 AM CDT) Only the most recent of2 resultswithin the time period is included. Color UA DARK YELLOW YELLOW [facility]) Appearance CLEAR CLEAR [facility]) Specific [place] UA 1.035 1.001 - 1.035 [facility]) pH Urine 5.0 5.0 - 8.0 [facility]) Glucose UA NEGATIVE NEGATIVE [facility]) Bilirubin UA NEGATIVE NEGATIVE [facility]) Ketone UA NEGATIVE NEGATIVE [facility]) Occult Blood NEGATIVE NEGATIVE [facility]) Protein UA TRACE(A) NEGATIVE [facility]) Nitrite UA NEGATIVE NEGATIVE [facility]) Leukocyte Esterase NEGATIVE NEGATIVE [facility]) WBC Urine NONE SEEN < OR = 5 /HPF [facility]) RBC Urine 0-2 < OR = 2 /HPF [facility]) Squamous Epithelial Cells UA 0-5 < OR = 5 /HPF [facility]) Bacteria UA NONE SEEN NONE SEEN /HPF [facility]) Hyaline Casts UA NONE SEEN NONE SEEN /LPF [facility]) Comment: Test Performed at: [facility] [address] [place], [place] ??[phone] GAUS CHAMBERS DO,MPH Urine specimen (specimen) 05/08/2015 8:06 AM CDT 05/08/2015 8:05 AM CDT Narrative [facility] - 05/12/2015 2:00 AM CDT Specimen Type->Urine Hina Hughes MD LAB - URINALYSIS ORD ERABLES [facility] * C-REACTIVE PROTEIN (05/08/2015 8:06 AM CDT) Only the most recent of3 resultswithin the time period is included. C-Reactive Protein 0.10 <0.80 mg/dL [facility] Comment: Please be advised that patients taking Carboxypenicillins may exhibit falsely decreased C-Reactive Protein levels due to an analytical interference in this assay. Test Performed at: [facility] [address] [place], [place] ??[phone] AGUS CHAMBERS DO,MPH Blood specimen (specimen) BLOOD SPECIMEN / Unknown 05/08/2015 8:06 AM CDT 05/08/2015 8:05 AM CDT Hina Hughes MD LAB - CHEMISTRY JARRED OCAMPO Performing Organization Address [facility]/ZIP Co de Phone Number [facility] * (ABNORMAL) MARILYN BLOOD SCREEN W/REFLEX TITER (05/08/2015 8:06 AM CDT) Only the most recent of3 resultswithin the time period is included. [facility] MARILYN Screen POSITIVE( A) NEGATIVE [facility]) MARILYN Pattern #1 HOMOGENEO US(A) [facility] MARILYN Pattern #1 1:640(H) titer [facility] Comment: ?Reference Range ?<1:40 ?Negative ?1:40-1:80 ?Low Antibody Level ?>1:80 ?Elevated Antibody Level Test Performed at: [facility] [facility] [address] [place], [place] ??[phone] AGUS CHAMBERS DO,MPH Blood specimen (specimen) BLOOD SPECIMEN / Unknown 05/08/2015 8:06 AM CDT 05/08/2015 8:05 AM CDT Hina Hughes MD LAB - CHEMISTRY JARRED OCAMPO Performing Organization Address [facility] Co de Phone Number [facility] * DNA ANTIBODY DOUBLE STRANDED (05/08/2015 8:06 AM CDT) Only the most recent of2 resultswithin the time period is included. Pathologist [facility] dsDNA Antibody 3 IU/mL [facility] Comment: ? IU/mL ? Interpretation ? < or = 4 ?Negative ? 5-9 ? Indeterminate ? > or = 10 ?? Positive Test Performed at: [facility] [place] [address] [place], [place] ??[phone] AGUS CHAMBERS DO,MPH Blood specimen (specimen) BLOOD SPECIMEN / Unknown 05/08/2015 8:06 AM CDT 05/08/2015 8:05 AM CDT Hina Hughes MD LAB - HEMATOLOGY ORD ERABLES Performing Organization Address [facility] de Phone Number [facility] ([facility]) * (ABNORMAL) ERYTHROCYTE SEDIMENTATION RATE (05/08/2015 8:06 AM CDT) Only the most recent of3 resultswithin the time period is included. Pathologist [facility] Erythrocyte Sedimentation Rate Westergren 24(H) < OR = 20 mm/h [facility] ([facility]) Comment: Test Performed at: [facility] ??[phone] SHAYLA JOSEPH MD Blood specimen (specimen) BLOOD SPECIMEN / Unknown 05/08/2015 8:06 AM CDT 05/08/2015 8:05 AM CDT Hina Hughes MD LAB - HEMATOLOGY ORD ERABLES Performing Organization Address [facility] de Phone Number [facility] ([facility]) * CBC W AUTO DIFFERENTIAL (05/08/2015 8:06 AM CDT) Only the most recent of3 resultswithin the time period is included. WBC 4.4 3.8 - 10.8 Thousand/u L [facility]) RBC 4.92 3.80 - 5.10 Million/uL [facility]) Hemoglobin 13.7 11.7 - 15.5 g/dL [facility]) Hematocrit 41.7 35.0 - 45.0 % [facility]) MCV 84.7 80.0 - 100.0 fL [facility]) MCH 27.8 27.0 - 33.0 pg [facility]) MCHC 32.8 32.0 - 36.0 g/dL [facility]) RDW-CV 13.2 11.0 - 15.0 % [facility] Platelet 193 140 - 400 Thousand/u L [facility]) MPV 9.4 7.5 - 11.5 fL [facility]) Neutrophils Absolute 2,807 1,500 - 7,800 cells/uL [facility]) Lymphocyte Absolute Manual 1,157 850 - 3,900 cells/uL [facility]) Monocytes Absolute 255 200 - 950 cells/uL [facility]) Eosinophils Absolute 158 15 - 500 cells/uL [facility]) Basophil Absolute Manual 22 0 - 200 cells/uL [facility]) Neutrophils % 63.8 % [facility] Lymphocytes % 26.3 % [facility] Monocytes % 5.8 % [facility] Eosinophils % 3.6 % [facility] Basophil % 0.5 % [facility] Comment: Test Performed at: [facility] ??[phone] SHAYLA JOSEPH MD Blood specimen (specimen) BLOOD SPECIMEN / Unknown 05/08/2015 8:06 AM CDT 05/08/2015 8:05 AM CDT Hina Ellen BRADSHAW LAB - HEMATOLOGY ORD ERABLES [facility] ([facility]) * (ABNORMAL) COMPREHENSIVE METABOLIC PANEL (05/08/2015 8:06 AM CDT) Only the most recent of3 resultswithin the time period is included. Pathologist [facility] Glucose 89 65 - 99 mg/dL [facility]) Comment: ? Fasting reference interval BUN 13 7 - 25 mg/dL [facility]) Creatinine 0.65 0.50 - 1.10 mg/dL [facility]) eGFR non- 121 > OR = 60 mL/min/1. 73m2 [facility]) eGFR 140 > OR = 60 mL/min/1. 73m2 [facility]) BUN/Creatinine Ratio NOT APPLICABLE 6 - 22 (calc) [facility]) Sodium 138 135 - 146 mmol/L [facility]) Potassium 3.9 3.5 - 5.3 mmol/L [facility]) Chloride 106 98 - 110 mmol/L [facility]) CO2 23 19 - 30 mmol/L [facility]) Calcium 9.3 8.6 - 10.2 mg/dL [facility]) Protein Total 7.9 6.1 - 8.1 g/dL [facility]) Albumin 4.3 3.6 - 5.1 g/dL [facility]) Globulin 3.6 1.9 - 3.7 g/dL (calc) [facility]) Albumin/Globuli n Ratio 1.2 1.0 - 2.5 (calc) [facility]) Bilirubin Total 0.4 0.2 - 1.2 mg/dL [facility]) Alkaline Phosphatase 60 33 - 115 U/L [facility]) AST 35(H) 10 - 30 U/L [facility]) ALT 39(H) 6 - 29 U/L [facility]) Comment: Test Performed at: [facility] [address] [address] [place], [place] ??[phone] AGUS CHAMBERS DO,MPH Blood specimen (specimen) BLOOD SPECIMEN / Unknown 05/08/2015 8:06 AM CDT 05/08/2015 8:05 AM CDT Hina Hughes MD LAB - CHEMISTRY JARRED OCAMPO [facility] * CHROMATIN ANTIBODY (04/11/2015 12:11 PM CDT) Only the most recent of2 resultswithin the time period is included. Chromatin Nucleosomal <1.0 NEG <1.0 NEG AI [facility]) Comment: Test Performed at: [facility] [place] [address] [place], [place] ??[phone] AGUS CHAMBERS DO,MPH Blood specimen (specimen) BLOOD SPECIMEN / Unknown 04/11/2015 12:11 PM CDT 04/11/2015 12:13 PM CDT Hina Hughes MD LAB - SEROLOGY ORDER BILL Performing Organization Address [facility] Co de Phone Number [facility] * GRAHAM (SM) ANTIBODY KAILASH (04/11/2015 12:11 PM CDT) KAILASH Graham (SM) Antibody <1.0 NEG <1.0 NEG AI [facility] Comment: Test Performed at: [facility] [place] [address] [place], [place] ??[phone] AGUS CHAMBERS DO,MPH Blood specimen (specimen) BLOOD SPECIMEN / Unknown 04/11/2015 12:11 PM CDT 04/11/2015 12:13 PM CDT Hina Hughes MD LAB - CHEMISTRY JARRED OCAMPO Performing Organization Address [facility] de Phone Number [facility] * IN FLIGHT REFUELING OPERATOR ANTIBODY (04/11/2015 12:11 PM CDT) Only the most recent of2 resultswithin the time period is included. KAILASH IN FLIGHT REFUELING OPERATOR Antibody <1.0 NEG <1.0 NEG AI [facility] Comment: Test Performed at: [facility] [place] [address] [place], [place] ??[phone] AGUS CHAMBERS DO,MPH Blood specimen (specimen) BLOOD SPECIMEN / Unknown 04/11/2015 12:11 PM CDT 04/11/2015 12:13 PM CDT Hina Hughes MD LAB - CHEMISTRY JARRED OCAMPO Performing Organization Address [facility]/ZIP Co de Phone Number [facility] * RHEUMATOID FACTOR BLOOD QUANTITATIVE (04/11/2015 12:11 PM CDT) Only the most recent of2 resultswithin the time period is included. Rheumatoid Factor 3 <14 IU/mL [facility]) Comment: Test Performed at: [facility] [address] [place], [place] ??[phone] AGUS CHAMBERS DO,MPH Blood specimen (specimen) BLOOD SPECIMEN / Unknown 04/11/2015 12:11 PM CDT 04/11/2015 12:13 PM CDT Hina Hughes MD LAB - CHEMISTRY JARRED OCAMPO Performing Organization Address City/[facility]/ZIP Co de Phone Number [facility]) * HISTONE ANTIBODY (04/11/2015 12:11 PM CDT) Histone Antibody <1.0 U [facility]) Comment: Reference Ranges for Histone Antibodies: ?? <1.0 ? Negative ?? 1.0-1.5 ??Weak Positive ?? 1.6-2.5 ??Moderate Positive ?? >2.5 ? Strong Positive Test Performed at: [facility] [address] [place], [place] ??[phone] BLAIR DEL CID MD PHD 04/11/2015 12:1 1 PM CDT 04/11/2015 12:13 PM CDT Hina Hughes MD LAB - CHEMISTRY JARRED OCAMPO [facility] * SS-B (SJOGRENS'S) ANTIBODY (04/11/2015 12:11 PM CDT) Sjogren's Antibodies (SSB) <1.0 NEG <1.0 NEG AI [facility]) Comment: Test Performed at: [facility] [address] [place], [place] ??[phone] AGUS CHAMBERS DO,MPH Blood specimen (specimen) BLOOD SPECIMEN / Unknown 04/11/2015 12:11 PM CDT 04/11/2015 12:13 PM CDT Hina Hughes MD LAB - CHEMISTRY JARRED OCAMPO Performing Organization Address [facility] de Phone Number [facility] * SS-A (SJOGREN'S) ANTIBODY (04/11/2015 12:11 PM CDT) Sjogren's Antibodies (SSA) <1.0 NEG <1.0 NEG AI [facility]) Comment: Test Performed at: [employer] [address] [place], [place] ??[phone] AGUS CHAMBERS DO,MPH Blood specimen (specimen) BLOOD SPECIMEN / Unknown 04/11/2015 12:11 PM CDT 04/11/2015 12:13 PM CDT Hina Hughes MD LAB - CHEMISTRY JARRED OCAMPO Performing Organization Address [facility] Phone Number [facility] * ALDOLASE (04/11/2015 12:11 PM CDT) Pathologist [facility] Aldolase 6.1 < OR = 8.1 U/L [facility]) Comment: REPORT COMMENT: SPECIMEN TYPE->URINE ??2ND ORDER FASTING:NO Test Performed at: [employer] [address] [place] [address] ??[phone] AGUS CHAMBERS DO,MPH Blood specimen (specimen) BLOOD SPECIMEN / Unknown 04/11/2015 12:11 PM CDT 04/11/2015 12:13 PM CDT Hina Hughes MD LAB - CHEMISTRY JARRED OCAMPO Performing Organization Address [facility] de Phone Number [facility] * CYCLIC CITRUL PEPTIDE AB IGG ([facility]) (04/11/2015 12:11 PM CDT) Only the most recent of2 resultswithin the time period is included. Cyclic Citrullinated Peptide Antibody <16 UNITS [facility]) Comment: Reference Range Negative: ?<20 Weak Positive: ? 20-39 Moderate Positive: ?? 40-59 Strong Positive: ? >59 Test Performed at: [employer] [address] [place] ??[phone] AGUS CHAMBERS DO,MPH Blood specimen (specimen) BLOOD SPECIMEN / Unknown 04/11/2015 12:11 PM CDT 04/11/2015 12:13 PM CDT Hina Hughes MD LAB - CHEMISTRY JARRED OCAMPO Performing Organization Address City/[facility]/ZIP Co de Phone Number [facility]) * COMPLEMENT C4 (04/11/2015 12:11 PM CDT) Only the most recent of2 resultswithin the time period is included. Complement C4 19 16 - 47 mg/dL [facility]) Comment: Test Performed at: [facility] [place], [place] ??[address] AGUS CHAMBERS DO,MPH Blood specimen (specimen) BLOOD SPECIMEN / Unknown 04/11/2015 12:11 PM CDT 04/11/2015 12:13 PM CDT Hina Hughes MD LAB - SEROLOGY ORDER BILL Performing Organization Address [facility] Co de Phone Number [facility] * LDH BLOOD (04/11/2015 12:11 PM CDT) LDH Total 178 100 - 200 U/L [facility] Comment: Test Performed at: [facility] [address] [place], [place] ??[phone] AGUS CHAMBERS DO,MPH Blood specimen (specimen) BLOOD SPECIMEN / Unknown 04/11/2015 12:11 PM CDT 04/11/2015 12:13 PM CDT Hina Hughes MD LAB - CHEMISTRY JARRED OCAMPO [facility] * CK BLOOD (04/11/2015 12:11 PM CDT) [facility] CK Total 56 29 - 143 U/L [facility]) Comment: Test Performed at: [facility] ??[phone] AGUS CHAMBERS DO,MPH Blood specimen (specimen) BLOOD SPECIMEN / Unknown 04/11/2015 12:11 PM CDT 04/11/2015 12:13 PM CDT Hina Hughes MD LAB - CHEMISTRY JARRED OCAMPO Performing Organization Address [facility] de Phone Number [facility] * TSH (04/11/2015 12:11 PM CDT) [facility] TSH 2.38 mIU/L [facility]) Comment: ?Reference Range ?> or = 20 Years ??0.40-4.50 ? Ranges ?First trimester ?0.26-2.66 ?Second trimester ?? 0.55-2.73 ?Third trimester ?0.43-2.91 Test Performed at: [facility] ??[phone] AGUS CHAMBERS DO,MPH Blood specimen (specimen) BLOOD SPECIMEN / Unknown 04/11/2015 12:11 PM CDT 04/11/2015 12:13 PM CDT Hina Hughes MD LAB - CHEMISTRY JARRED OCAMPO Performing Organization Address [facility] de Phone Number [facility] ([facility]) * T4 FREE (04/11/2015 12:11 PM CDT) [facility] T4 Free 1.0 0.8 - 1.8 ng/dL [facility] ([facility]) Comment: Test Performed at: [facility] [place], [place] ??[phone] AGUS CHAMBERS DO,MPH Blood specimen (specimen) BLOOD SPECIMEN / Unknown 04/11/2015 12:11 PM CDT 04/11/2015 12:13 PM CDT Hina Hughes MD LAB - CHEMISTRY JARRED OCAMPO Performing Organization Address City/[facility]/ZIP Co de Phone Number [facility] ([facility]) * COMPLEMENT C3 (04/11/2015 12:11 PM CDT) Only the most recent of2 resultswithin the time period is included. Complement C3 164 90 - 180 mg/dL [facility]) Comment: Test Performed at: [facility] ??[phone] AGUS CHAMBERS DO,MPH Blood specimen (specimen) BLOOD SPECIMEN / Unknown 04/11/2015 12:11 PM CDT 04/11/2015 12:13 PM CDT Hina Hughes MD LAB - CHEMISTRY JARRED OCAMPO Performing Organization Address [facility] de Phone Number [facility]) * VITAMIN D 25-HYDROXY D2+D3 BY TANDEM MASS (04/11/2015 12:07 PM CDT) Vitamin D, 25 Hydroxy Total 32 30 - 100 ng/mL [facility]) Comment: Vitamin D Status ? 25-OH Vitamin D: Deficiency: ?<20 ng/mL Insufficiency: ? 20 - 29 ng/mL Optimal: ? > or = 30 ng/mL For 25-OH Vitamin D testing on patients on D2-supplementation and patients for whom quantitation of D2 and D3 fractions is required, the QuestAssureD(TM) 25-OH VIT D, (D2,D3), LC/MS/MS is recommended: order code 51957 (patients >2yrs). For more information on this test, go to: http://education.[employer]/faq/DKF254 REPORT COMMENT: 1 OF 2 ORDERS FASTING:NO Test Performed at: [facility] [address] [place], [place] ??[phone] AGUS CHAMBERS DO,MPH Blood specimen (specimen) BLOOD SPECIMEN / Unknown 04/11/2015 12:07 PM CDT 04/11/2015 12:08 PM CDT Hina Hughes MD LAB - CHEMISTRY JARRED OCAMPO [facility] ([facility]) * CULTURE STOOL+ E COLI SHIGA-LIKE TOXIN (10/12/2014 11:26 AM TREE TRIMMING LINE TECHNICIAN) Culture Feces No Salmonella, Shigella, Yersinia, Campylobacter or Escherichia Coli 0157:H7 isolated. Negative for Shiga Toxin by Immunoassay. [facility] Stool specimen (specimen) STOOL SPECIMEN / Unknown 10/12/2014 11:26 AM TREE TRIMMING LINE TECHNICIAN 10/12/2014 3:53 PM TREE TRIMMING LINE TECHNICIAN Narrative [facility] - 10/15/2014 1:30 PM TREE TRIMMING LINE TECHNICIAN MaritoSpecimen#[id number] Marito Loc/Rm/Bed: SURG CENTR// Historical Provider LAB - MICROBIOLOG Y ORDERABLES [address] [phone] * CLOSTRIDIUM DIFFICILE GDH AG + TOXIN A+B (10/12/2014 11:26 AM TREE TRIMMING LINE TECHNICIAN) C difficile Antigen Negative Negative [facility] C difficile Toxin Negative Negative [facility] Stool specimen (specimen) STOOL SPECIMEN / Unknown 10/12/2014 11:26 AM TREE TRIMMING LINE TECHNICIAN 10/12/2014 3:53 PM TREE TRIMMING LINE TECHNICIAN Narrative [facility] - 10/13/2014 1:00 PM TREE TRIMMING LINE TECHNICIAN MaritoSpecimen#[id number] Marito Loc/Rm/Bed: SURG CENTR// Historical Provider LAB - MICROBIOLOG Y ORDERABLES Performing Organization Address [facility]/ZIP Co de Phone Number [facility] [address] [phone] * GRAHAM (SM)+IN FLIGHT REFUELING OPERATOR ANTIBODY PANEL (09/07/2013 1:45 PM TREE TRIMMING LINE TECHNICIAN) KAILASH Graham (SM) Antibody <1.0 NEG <1.0 NEG AI [facility]) SM/IN FLIGHT REFUELING OPERATOR Antibody <1.0 NEG <1.0 NEG AI [facility]) Comment: Test Performed at: [facility] [address] ??[phone] AGUS CHAMBERS DO,MPH 09/07/2013 1:45 PM TREE TRIMMING LINE TECHNICIAN 09/07/2013 1:46 PM TREE TRIMMING LINE TECHNICIAN Laila Ramirez MD LAB - SERO LOGY ORDERABLES Performing Organization Address [facility] de Phone Number [facility] * CARDIOLIPIN ANTIBODY IGA (09/07/2013 1:45 PM TREE TRIMMING LINE TECHNICIAN) Pathologist [facility] Cardiolipin Antibody IgA <11 <=11 APL [facility]) Comment: Cardiolipin Ab (IgA) ? Reference range: ?? Value Units Interpretation ?? <=11 ?? APL ? Negative ??12-20 ?? APL ? Indeterminate ??21-80 ?? APL ? Low to Medium Positive ?>80 ?? APL ? High Positive Test Performed at: [facility]/[address] ??[phone] MACEY GIVENS MD 09/07/2013 1:45 PM TREE TRIMMING LINE TECHNICIAN 09/07/2013 1:46 PM TREE TRIMMING LINE TECHNICIAN Laila Ramirez MD LAB - SERO LOGY ORDERABLES Performing Organization Address [facility]/ZIP Co de Phone Number [facility]) * CARDIOLIPIN ANTIBODY IGM (09/07/2013 1:45 PM TREE TRIMMING LINE TECHNICIAN) Pathologist [facility] Cardiolipin Antibody IgM <12 <=12 MPL [facility]) Comment: Cardiolipin Ab (IgM) ? Reference range: ?? Value Units Interpretation ?? <=12 ?? MPL ? Negative ??13-20 ?? MPL ? Indeterminate ??21-80 ?? MPL ? Low to Medium Positive ?>80 ?? MPL ? High Positive Test Performed at: [facility] [address] [place] [address] ?? MACEY GIVENS MD 09/07/2013 1:45 PM TREE TRIMMING LINE TECHNICIAN 09/07/2013 1:46 PM TREE TRIMMING LINE TECHNICIAN Laila Ramirez MD LAB - SERO LOGY ORDERABLES Performing Organization Address [facility] de Phone Number [facility]) * CARDIOLIPIN ANTIBODY IGG (09/07/2013 1:45 PM TREE TRIMMING LINE TECHNICIAN) Pathologist [facility] Cardiolipin Antibody IgG <14 <=14 GPL [facility]) Comment: Cardiolipin Ab (IgG) ? Reference range: ?? Value Units Interpretation ?? <=14 ?? GPL ? Negative ??15-20 ?? GPL ? Indeterminate ??21-80 ?? GPL ? Low to Medium Positive ?>80 ?? GPL ? High Positive Test Performed at: [facility] [address] [place] [address] ?? MACEY GIVENS MD 09/07/2013 1:45 PM TREE TRIMMING LINE TECHNICIAN 09/07/2013 1:46 PM TREE TRIMMING LINE TECHNICIAN Laila Ramirez MD LAB - SERO LOGY ORDERABLES Performing Organization Address [facility] de Phone Number [facility]) * LUPUS ANTICOAGULANT PANEL W RFLX (09/07/2013 1:45 PM TREE TRIMMING LINE TECHNICIAN) Pathologist [facility] Lupus Anticoagulant see note [facility]) Comment: A Lupus Anticoagulant is not detected. Reference Range: ??Not Detected ? http://Fleck.[employer]oSpin.Mural.ly/faq/LupusAnticoag ? This interpretation is based on the following test results. PTT Lupus Anticoagulant 37 <=40 sec [facility]) Interpretation Not Indicated [facility]) dRVVT Screen 37 <=45 sec [facility]) Comment: Test Performed at: [facility]/[employer] [address] [place] [address] ?? MACEY GIVENS MD Plasma specimen (specimen) 09/07/2013 1:45 PM TREE TRIMMING LINE TECHNICIAN 09/07/2013 1:46 PM TREE TRIMMING LINE TECHNICIAN Laila Ramirez MD LAB - ARUNA TOLOGY ORDERABLES [facility]) * BETA-2 GLYCOPROTEIN 1 ANTIBODY IGG/IGM/IGA PANEL (09/07/2013 1:45 PM TREE TRIMMING LINE TECHNICIAN) Beta-2 Glycoprotein 1 Antibody 1 IgG <9 <=20 SGU [facility]) Comment: Test Performed at: [facility] ?? MACEY GIVENS MD Beta-2 Glycoprotein 1 Antibody IgM <9 <=20 SMU [facility]) Beta-2 Glycoprotein 1 Antibody IgA <9 <=20 SYL [facility]) Comment: The Antiphospholipid Antibody Syndrome (APS) is a clinical-pathologic correlation that includes a clinical event (e.g. thrombosis, loss, thrombocytopenia) and persistent positive Antiphospholipid Antibodies (IgM or IgG PER >40 MPL/GPL, IgM or IgG anti-B2GPI antibodies, or a Lupus Anticoagulant). The IgA isotype has been implicated in smaller studies, but have not yet been incorporated into the APS criteria. International consensus guidelines suggest waiting at least 12 weeks before retesting to confirm antibody persistence. Reference J Thromb Haemost 2006: 4; 295 Serum 09/07/2013 1:45 PM TREE TRIMMING LINE TECHNICIAN 09/07/2013 1:46 PM TREE TRIMMING LINE TECHNICIAN Laila Ramirez MD LAB - SERO LOGY ORDERABLES Performing Organization Address [facility] de Phone Number [facility]) * URINALYSIS REFLEX TO MICROSCOPIC NO CULTURE (09/07/2013 1:45 PM TREE TRIMMING LINE TECHNICIAN) Color UA YELLOW YELLOW [facility]) Appearance CLEAR CLEAR [facility]) Specific [place] Urine 1.012 1.001 - 1.035 [facility]) pH Urine 5.5 5.0 - 8.0 [facility]) Glucose UA NEGATIVE NEGATIVE [facility]) Bilirubin UA NEGATIVE NEGATIVE [facility]) Ketones NEGATIVE NEGATIVE [facility]) Blood UA NEGATIVE NEGATIVE [facility]) Protein UA NEGATIVE NEGATIVE [facility]) Nitrite UA NEGATIVE NEGATIVE [facility]) Leukocyte Esterase NEGATIVE NEGATIVE [facility]) Comment: Test Performed at: [employer] [address] [place], [place] ??[phone] AGUS CHAMBERS DO,MPH Urine specimen (specimen) URINE SPECIMEN OBTAINED BY CLEAN CATCH PROCEDURE / Unknown 09/07/2013 1:45 PM TREE TRIMMING LINE TECHNICIAN 09/07/2013 1:46 PM TREE TRIMMING LINE TECHNICIAN Laila Ramirez MD LAB - URIN ALYSIS ORDERABLES Performing Organization Address [facility] de Phone Number [facility]) * SS-A/SS-B (SJOGRENS) ANTIBODY PANEL (09/07/2013 1:45 PM TREE TRIMMING LINE TECHNICIAN) Sjogren's Antibodies (SSA) <1.0 NEG <1.0 NEG AI [facility]) Sjogren's Antibodies (SSB) <1.0 NEG <1.0 NEG AI [facility]) Comment: Test Performed at: [facility] [address] [place], [place] ??[phone] AGUS CHAMBERS DO,MPH 09/07/2013 1:45 PM TREE TRIMMING LINE TECHNICIAN 09/07/2013 1:46 PM TREE TRIMMING LINE TECHNICIAN Laila Ramirez MD LAB - CHEM ISTRY ORDERABLES Performing Organization Address [facility] de Phone Number [facility]) * HEPATITIS SCREEN ACUTE (09/07/2013 1:45 PM TREE TRIMMING LINE TECHNICIAN) Hepatitis A Virus Antibody IgM NON-REACTI VE NON-REACT PILO [facility]) Hepatitis B Virus Surface Antigen NON-REACTI VE NON-REACT PILO [facility]) Hepatitis B Core Virus Antibody IgM NON-REACTI VE NON-REACT PILO [facility]) Hepatitis C Antibody NON-REACTI VE NON-REACT PILO [facility]) Signal/Cutoff 0.03 <1.00 [facility]) Comment: Test Performed at: [facility] [id number] [place] [address] ??[phone] AGUS CHAMBERS DO,MPH 09/07/2013 1:45 PM TREE TRIMMING LINE TECHNICIAN 09/07/2013 1:46 PM TREE TRIMMING LINE TECHNICIAN Laila Ramirez MD LAB - CHEM ISTRY ORDERABLES Performing Organization Address [facility] de Phone Number [facility]) Care Teams Insurance Biller Relationship Specialty Start Date End Date Kenan Gallardo MD [address] [place] [address] PCP - General 12/10/19
--- OUTSIDE RECORDS SUMMARY | 2024-12-04 08:18 | XMS_ITS | Referral Summary ---
Author Organization [facility] Address [address] [place] [id number] Care Team Providers Care Manager Web Application Name Role Phone Yogi Fuentes MD Primary Care Provider [phone] Encounters Date Type Department Care Team Description 11/17/2024 Orders Only [facility] Gastroenterology [facility] 12th [place] [address] [place] [phone] MarchDanni RN 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); High risk medications (not anticoagulants) long-term use; Routine health maintenance 10/04/2024 Orders Only [facility] Gastroenterology [address] [place] [address] [place] [phone] MarchDanni RN 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); High risk medications (not anticoagulants) long-term use; Routine health maintenance from Last 3 Months Allergies Active Allergy Reactions Criticality Noted Date Comments Azithromycin Rash Medium 11/07/2022 Buspirone Nausea And Vomiting Low 07/05/2020 Codeine Nausea & Vomiting Low Infliximab Other (See comments),Unknown Low 11/21/2015 Drug induced lupus Mesalamine Other (See comments),Unknown Low 08/13/2013 LUPUS-LIKE SX Primidone Unknown Allergy unknown to Pt.-denies Medications levonorgestreL (Mirena) IUD Mirena 20 mcg/24 hours (5 yrs) 52 mg intrauterine device Active melatonin 10 mg capsule prn 019 Active tiZANidine (ZANAFLEX) 4 mg tablet TK 1 T PO Q 6 H PRN Active levothyroxine (SYNTHROID) 75 mcg tablet daily Active aspirin 81 mg enteric coated tablet Take 1 tablet (81 mg total) by mouth daily Active folic acid (FOLVITE) 800 mcg tablet Take 1 tablet (800 mcg total) by mouth daily Active multivitamin capsule Take 1 capsule by mouth daily Active varicella-zoster (SHINGRIX) 50 mcg/0.5 mL vaccineIndication s:Need for shingles vaccine,Left sided ulcerative colitis with complication (HCC),Immunocompr omised (HCC) Administer Shingrix vaccine series at your pharmacy. Second dose to be administered 2-3 months after the first dose. 0.5 mL 1 Active Additional Information Patient not taking.Reported on 11/07/2022 FLUoxetine (PROzac) 40 mg capsule Active dicyclomine (BENTYL) 10 mg capsule Take 1 capsule (10 mg total) by mouth 4 (four) times a day as needed (abdominal pain) 60 capsule 1 024 2024 Active semaglutide (Ozempic) 1 mg/dose (4 mg/3 mL) pen injector injection Inject 1 mg under the skin every 7 days Active topiramate (TOPAMAX) 25 mg tabletIndications :Migraine without aura and without status migrainosus, not intractable Take 2 tablets (50 mg total) by mouth nightly 180 tablet 3 Active rizatriptan (MAXALT) 10 mg tabletIndications :Migraine Take 1 tablet (10 mg total) by mouth once as needed for migraine May repeat in 2 hours if unresolved. Do not exceed 3 in 24 hours. 9 tablet 11 024 2024 Active bisacodyl EC (DULCOLAX EC) 5 mg EC tabletIndications :constipation Take 1 tablet (5 mg total) by mouth daily as needed for constipation 60 tablet Active ondansetron ODT (ZOFRAN-ODT) 4 mg disintegrating tabletIndications :Left sided ulcerative colitis with complication (HCC),Nauseated Take 1 tablet (4 mg total) by mouth every 8 (eight) hours as needed for nausea or vomiting 30 tablet 2 12/02/2 024 Active omeprazole (PriLOSEC) 40 mg capsule Take 1 capsule (40 mg total) by mouth daily 30 capsule 11 024 2024 Active ustekinumab (Stelara) injectionIndicati ons:Ulcerative Colitis Inject 1 mL (90 mg total) under the skin every 4 (four) weeks Safety labs are required every 3 months for refills. Next labs are due now. 1 mL 1 025 Active ustekinumab (Stelara) injectionIndicati ons:Ulcerative Colitis Inject 1 mL (90 mg total) under the skin every 4 (four) weeks 1 mL 2 024 2024 Discontinued Active Problems Problem Noted Date Diagnosed Date Atypical chest pain 02/07/2023 Family history of premature CAD 02/07/2023 Migraine without aura and wi thout status migrainosus, not intractable 04/23/2022 Chronic tension-type headache, not intractable 0 04/23/2022 Motion sickness 04/23/2022 Snoring 04/23/2022 Elevated ALT measurement 05/09/2021 Left sided ulcerative colitis with complication 07/19/2020 Overview (06/21/2024): Year of diagnosis: 2017. Year symptoms began: 2017. Distribution: colonic (L2) Pancolitis Extraintestinal manifestations: arthralgias. Complications: celiac disease. Prior treatments: Asacol, Remicade, 6MP, Humira, Entyvio. Current treatment: Stelara q4 weeks. Prior surgeries: none. Endoscopies: Colonoscopies in October 2020, 2020 and 2022 confirmed mucosal remission. Imaging: n/a. Family History: n/a. 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 Immunizations Name Administration Dates Next Due Hep B Vaccine 06/03/1997,01/01/1997,07/12/1996 Influenza, Quadrivalent, Spl it, Intramuscular 08/17/2019 Influenza, Trivalent, IM (MDV) 08/03/2013 Influenza, Trivalent, Preser vative Free, Intramuscular 08/04/2014 Influenza, Unspecified 11/03/2015,11/03/2014 Pneumococcal Conjugate PCV 13 11/07/2020 Pneumococcal Polysaccharide PPV23 12/10/2019,01/2015 Td, adsorbed 11/03/2001 Tdap 07/28/2014,04/01/2011 ZOSTER Recombinant 03/17/2024,12/17/2023 Social History Tobacco Use Types Packs/Day Years Used Date Smoking Tobacco: Never Smokeless Tobacco: Never Alcohol Use Standard Drinks/Week Comments Not Currently 0 (1 standard drink = 0.6 oz pur e alcohol) AUDIT-C Answer Date Recorded Q1: How often do you have a drink containing alc ohol? 2-3 times a week 03/24/2023 Average Number of Drinks Not on file 023 Frequency of Binge Drinking Not on file 03/04 Personal Safety Answer Date Recorded Have you ever been in or are you currently in a harmful physical or emotional relationship or is someone making you feel afraid or unsafe? 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 Not on file Not on file Not on file Last Filed Vital Signs Vital Sign Reading Time Taken Comments Blood Pressure 112/77 06/21/2024 10:32 AM CDT Pulse 74 06/21/2024 10:32 AM CDT Temperature 36.4 ??C (97.6 ??F) 06/21/2024 10:32 AM C DT Respiratory Rate 16 06/21/2024 10:32 AM CDT Oxygen Saturation 98% 06/21/2024 10:32 AM CDT Inhaled Oxygen Concentration - - Weight 86.2 kg (190 lb) 06/21/2024 10:32 AM CDT Height 165.1 cm (5' 5 ) 06/21/2024 10:32 AM CDT Body Mass Index 31.62 06/21/2024 10:32 AM CDT Plan of Treatment Not on file [place] [place] [address] [id number] Advance Directives For more information, please contact: [phone] * Full Code (Latest Code Status on File) Date Activated Date Inactivated Comments 03/24/2023 8:30 AM 03/24/2023 2:53 PM * Full Code Date Activated Date Inactivated Comments 10/05/2021 11:20 AM 10/05/2021 5:39 PM * Full Code Date Activated Date Inactivated Comments 10/13/2020 8:22 AM 10/13/2020 2:42 PM Care Teams Manager Web Application Relationship Specialty Start Date End Date Yogi Fuentes MD PCP - General Internal Medicine 07/18/20
--- OUTSIDE RECORDS SUMMARY | 2024-12-04 08:18 | XMS_ITS | Encounter Summary ---
Author Organization [facility] Address [address] [place] [address] Phone Care Team Providers Care Web Site Developer Name Role Phone Yogi Fuentes MD Primary Care Provider [phone] Encounter Details Date Type Department Care Team (Late st Contact Info) Description 03/10/2020 Orders Only [facility] Scanning, Provider Social History Tobacco Use Types Packs/Day Years Used Date Smoking Tobacco: Never Assessed Comments Unknown Sex and Gender Information Value Date Recorded Sex Assigned at Not on file Legal Sex Female 5:27 PM 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
--- OUTSIDE RECORDS SUMMARY | 2024-12-04 08:18 | XMS_ITS | Clinical Summary ---
Author Organization [facility] Address Formerly [facility] [place] [address] Care Team Providers Care Residential Mortgage Manager Name Role Phone Yogi Fuentes MD Primary Care Provider [phone] Allergies Active Allergy Reactions Criticality Noted Date [...] 1 T PO Q 6 H PRN 020 Active levothyroxine (SYNTHROID) 75 mcg tablet daily [...] after the first dose. 0.5 mL 1 022 Active Additional Information Patient not taking.Reported on 11/07/2022 FLUoxetine (PROzac) 40 mg capsule 023 Active dicyclomine (BENTYL) 10 mg capsule Take [...] for nausea or vomiting 30 tablet 2 Active omeprazole (PriLOSEC) 40 mg capsule Take [...] methicillin resis tant Staphylococcus aureus (MRSA) 06/14/2015 Encounters Date Type Department Care Team Description 11/17/2024 Orders Only [facility] Gastroenterology [address] [place] [address] Medicine 12th [place] [address] [place] [address] Danni Waggoner RN 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); High risk medications (not anticoagulants) long-term use; Routine health maintenance 10/04/2024 Orders Only [facility] Gastroenterology [address] [place] [address] Medicine 12th [place] [address] [place] [address] Danni Waggoner RN 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); High risk medications (not anticoagulants) long-term use; Routine health maintenance from Last 3 Months Immunizations Name Administration Dates Next Due Hep B Vaccine 06/03/1997,01/01/1997,07/12/1996 Influenza, Quadrivalent, Spl it, Intramuscular 08/17/2019 Influenza, Trivalent, IM (MDV) 08/03/2013 Influenza, Trivalent, Preser vative Free, Intramuscular 08/04/2014 Influenza, Unspecified 11/03/2015,11/03/2014 Pneumococcal Conjugate PCV 13 11/07/2020 Pneumococcal Polysaccharide PPV23 12/10/2019,01/2015 Td, adsorbed 11/03/2001 Tdap 07/28/2014,04/01/2011 ZOSTER Recombinant 03/17/2024,12/17/2023 Surgical History Surgery Date Site/Laterality Comments LAPAROSCOPIC CHOLECYSTECTOMY 11/03/2014 - 11/02/2015 DILATION AND CURETTAGE OF UTERUS UMBILICAL HERNIA REPAIR 11/03/2016 - 11/02/2017 Medical History Medical History Date Comments UC (ulcerative colitis) (CMS/HCC) (HCC) 2007 Celiac disease 2019 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 Anxiety Day's thyroiditis Family History Medical History Relation Name Comments Anxiety disorder Brother Gout Brother Anxiety disorder Father Depression Father COPD Maternal Grandfather Hypertension Maternal Grandfather COPD Maternal Grandmother Hypertension Maternal Grandmother Anxiety disorder Mother Migraines Mother Thyroid disease Mother Alcohol abuse Paternal Grandfather COPD Paternal Grandmother Diabetes Paternal Grandmother Lung cancer Paternal Grandmother Relation Name Status Comments Brother Father Maternal Grandfather Maternal Grandmother Mother Paternal Grandfather Paternal Grandmother Social History Tobacco Use Types Packs/Day Years [...] on file Legal Sex Female 5:27 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 Gender Identity Not on file Sexual Orientation Not on file Occupation Industry Job Start Date Job End Date [employer] Not on file Not on file Not on file Obstetrics History Last Filed Vital Signs Vital Sign Reading [...] 06/21/2024 10:32 AM CDT Plan of Treatment Health Maintenance Due Date Last Done Comments Cervical Cancer Screening 1986 Depression Screening 1986 Hepatitis C Screening 1986 Varicella Vaccines (1 of 2 - 13+ 2-dose series) 1999 Regular Well Visit/Exam 18-64 2004 Covid-19 Vaccine ( season) 2024 08/05/2021, 11/11/2020, 10/21/2020 Influenza Vaccine (#1) 2024 9, 11/03/2015, 11/03/2014, Additional history exists DTaP/Tdap/Td Vaccine (3 - Td or Tdap) 07/28/2024 07/28/2014, 04/01/2011, 11/03/2001 Pneumococcal vaccine <65 Aged Out 021, 12/10/2019, 12/06/2014 No longer eligible based on patient's age to complete this topic HPV Vaccines Aged Out No longer eligi ble based on patient's age to complete this topic Insurance [facility] Advance Directives For more information, please contact: [phone] * Full Code (Latest Code Status on File) Date Activated Date Inactivated Comments 03/24/2023 8:30 AM 03/24/2023 2:53 PM * Full Code Date Activated Date Inactivated Comments 10/05/2021 11:20 AM 10/05/2021 5:39 PM * Full Code Date Activated Date Inactivated Comments 10/13/2020 8:22 AM 10/13/2020 2:42 PM Care Teams Residential Mortgage Manager Relationship Specialty Start Date End Date Yogi Fuentes MD PCP - General Internal Medicine 07/18/20
--- OUTSIDE RECORDS SUMMARY | 2024-12-04 08:18 | XMS_ITS | Encounter Summary ---
Author Organization [facility] Address [address] [place] [address] Care Team Providers Care Electrician Underground Name Role Phone Mariposa Cabrales Primary Care Provider [phone] Encounter Details Date Type Department Care Team (Latest Contact Info) Description 02/09/2008 Outpatient Historical [facility] Ramandeep Bess MD [address] [place] [address] [place] Ulcerative (Chronic) Colitis (CMS/HCC) Social History Tobacco Use Types Packs/Day Years Used Date Smoking Tobacco: Never Assessed Comments Unknown Sex and Gender Information Value Date Recorded Sex Assigned at Not on file 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 Gender Identity Not on file Sexual Orientation Not on file documented as of this encounter Plan of Treatment Not on file documented as of this encounter Procedures Procedure Name Priority Date/Time Associated Diagnosis Comments CBC WITH DIFFERENTIAL Routine 02/09/2008 8:32 AM CDT BASIC METABOLIC PANEL Routine 02/09/2008 8:32 AM CDT documented in this encounter Results * (ABNORMAL) BASIC METABOLIC PANEL (02/09/2008 8:32 AM CDT) GLUCOSE 101(H) 65 - 99 mg/dL [facility] SODIUM 138 135 - 145 mmol/L [facility] CALCIUM 8.8 8.4 - 10.2 mg/dL [facility] CO2 24 22 - 30 mmol/L [facility] CREATININE 0.70 0.51 - 0.95 mg/dL [facility] POTASSIUM 4.0 3.5 - 4.9 mmol/L [facility] BUN 9 6 - 20 mg/dL [facility] CHLORIDE 104 96 - 108 mmol/L [facility] GFR, >60 >=60 mL/min/1. 7 sq meter [facility] GFR >60 >=60 mL/min/1. 7 sq meter [facility] Comment: Estimated GFR rate interpretative information for both Americans and non- Americans is available on the [facility] Intranet at: [email or web address] Select: Lab Policies and Procedures Select: Reference Ranges - GFR Blood specimen (specimen) 02/09/2008 8:32 AM CDT 02/09/2008 1:32 PM CDT Ramandeep Bess MD CHEMISTRY ORDERABLES Edited [facility] [address] [place] [address] * (ABNORMAL) CBC WITH DIFFERENTIAL (02/09/2008 8:32 AM CDT) HEMOGLOBIN 13.2 11.8 - 14.8 g/dL [facility] RDW 13.1 11.5 - 14.5 % [facility] WBC 3.5(L) 4.0 - 9.8 K/uL [facility] MCH 29.0 27.2 - 32.6 pg [facility] MPV 11.7 9.3 - 12.4 fL [facility] HEMATOCRIT 40.1 35.5 - 44.0 % [facility] RDW-STDEV 41.7 37.1 - 48.7 fL [facility] RBC 4.55 3.90 - 4.90 M/uL [facility] MCHC 32.9 31.5 - 35.5 % [facility] MCV 88.1 82.0 - 99.0 fL [facility] PLATELETS 246 140 - 350 K/uL [facility] EOSINOPHILS 5 0 - 7 % [facility] EOSINOPHIL ABSOLUTE 0.19 0.00 - 0.70 K/uL [facility] LYMPHOCYTES 27 16 - 45 % [facility] LYMPHOCYTE ABSOLUTE 0.97 0.70 - 4.50 K/uL [facility] BASOPHILS 1 0 - 2 % [facility] BASOPHILS ABSOLUTE 0.02 0.00 - 0.20 K/uL [facility] MONOCYTES 6 3 - 13 % [facility] MONOCYTE ABSOLUTE 0.22 0.10 - 1.30 K/uL [facility] NEUTROPHILS 60 45 - 70 % [facility] NEUTROPHIL ABSOLUTE 2.14 1.90 - 7.00 K/uL [facility] Blood specimen (specimen) 02/09/2008 8:32 AM CDT 02/09/2008 1:32 PM CDT us Ramandeep Bess MD HEMATOLOGY ORDERABLES Edited INTERFACE SYSTEM Refer to clinic/hospital department [facility] [address] [place] [address] documented in this encounter Visit Diagnoses Diagnosis [place] ulcerative (chronic) colitis(556.6) (CMS/HCC) [place] ulcerative (chronic) colitis documented in this encounter Care Teams Electrician Underground Relationship Specialty Start Date End Date Mariposa Cabrales PA PCP - General Physician Solar Business Developer 06/27/20 documented as of this encounter
--- OUTSIDE RECORDS SUMMARY | 2024-12-04 08:18 | XMS_ITS | Encounter Summary ---
Author Organization [facility] Address [address] [place] [address] Care Team Providers Care Medical Record Retrieval Specialist Name Role Phone Mariposa Cabrales Primary Care Provider [phone] Encounter Details Date Type Department Care Team (Late st Contact Info) Description 06/28/2008 Outpatient Historical [facility] Maddie Moise MD NO ADDRESS ON FILE Unspecified Ulcerative Colitis ([facility] Social History Tobacco Use Types Packs/Day Years Used Date Smoking Tobacco: Never Alcohol Use Standard Drinks/Week Comments Not Asked 0 (1 standard drink = 0.6 oz pur e alcohol) Comments No Sex and Gender Information Value Date Recorded Sex Assigned at Not on file Legal Sex Female 5: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
--- OUTSIDE RECORDS SUMMARY | 2024-12-04 08:18 | XMS_ITS | Encounter Summary ---
Author Organization [facility] Address [address] [place] [address] Care Team Providers Care Pocket Flap Creasing Machine Operator Name Role Phone Mariposa Cabrales Primary Care Provider [phone] Encounter Details Date Type Department Care Team (Late st Contact Info) Description 05/18/2004 Outpatient Historical [facility] Internal Medicine - [facility] [address] [address] [address] [address] [place] [address] Maddie Moise MD NO ADDRESS ON FILE Social History Tobacco Use Types Packs/Day Years Used Date Smoking Tobacco: Never Assessed Comments Unknown Sex and Gender Information Value Date Recorded Sex Assigned at Not on file 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
--- OUTSIDE RECORDS SUMMARY | 2024-12-04 08:18 | XMS_ITS | Encounter Summary ---
Author Organization [facility] Address [address] [place] [address] Care Team Providers Care Pivot End Polisher Name Role Phone Mariposa Cabrales Primary Care Provider [phone] Encounter Details Date Type Department Care Team (Latest Contact Info) Description 03/10/2008 Outpatient Historical [facility] Ramandeep Bess MD 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 Gender Identity Not on file Sexual Orientation Not on file documented as of this encounter Plan of Treatment Not on file documented as of this encounter Procedures Procedure Name Priority Date/Time Associated Diagnosis Comments CBC WITH DIFFERENTIAL Routine 03/10/2008 12:40 PM CDT documented in this encounter Results * CBC WITH DIFFERENTIAL (03/10/2008 12:40 PM CDT) RDW-STDEV 41.0 37.1 - 48.7 fL [facility] RBC 4.53 3.90 - 4.90 M/uL [facility] MCHC 33.4 31.5 - 35.5 % [facility] MCV 87.2 82.0 - 99.0 fL [facility] PLATELETS 234 140 - 350 K/uL [facility] HEMOGLOBIN 13.2 11.8 - 14.8 g/dL [facility] RDW 12.8 11.5 - 14.5 % [facility] WBC 4.0 4.0 - 9.8 K/uL [facility] MCH 29.1 27.2 - 32.6 pg [facility] MPV 11.3 9.3 - 12.4 fL [facility] HEMATOCRIT 39.5 35.5 - 44.0 % [facility] MONOCYTES 6 3 - 13 % [facility] MONOCYTE ABSOLUTE 0.24 0.10 - 1.30 K/uL [facility] NEUTROPHILS 59 45 - 70 % [facility] NEUTROPHIL ABSOLUTE 2.39 1.90 - 7.00 K/uL [facility] EOSINOPHILS 2 0 - 7 % [facility] EOSINOPHIL ABSOLUTE 0.08 0.00 - 0.70 K/uL [facility] LYMPHOCYTES 33 16 - 45 % [facility] LYMPHOCYTE ABSOLUTE 1.31 0.70 - 4.50 K/uL [facility] BASOPHILS 0 0 - 2 % [facility] BASOPHILS ABSOLUTE 0.01 0.00 - 0.20 K/uL [facility] Blood specimen (specimen) 03/10/2008 12:40 PM CDT 03/10/2008 4:44 PM CDT us Ramandeep Bess MD HEMATOLOGY ORDERABLES Edited INTERFACE SYSTEM Refer to clinic/hospital department [facility] [address] [place] [address] documented in this encounter Visit Diagnoses Diagnosis [place] ulcerative (chronic) colitis(556.6) (CMS/[facility]) [place] ulcerative (chronic) colitis documented in this encounter Care Teams Pivot End Polisher Relationship Specialty Start Date End Date Mariposa Cabrales PA PCP - General Physician Geriatric Nurse 06/27/20 documented as of this encounter
--- OUTSIDE RECORDS SUMMARY | 2024-12-04 08:18 | XMS_ITS | Data Portability ---
Author Organization [facility] [employer], Main Office Address [address] [place] [address] Assessment No assessment recorded. Plan of Treatment Reminders Order Date Submit Date Provider Last Modified By Organization Details Last Modified Time Details Appointments None recorded. Lab lipid panel, serum 023 [email or web address] [facility], [address], [place], [address], 3 14:46:17 CBC w/ auto diff 023 [email or web address] [facility], [address]22 [address], [address], [place], [address], 3 14:45:51 CMP, serum or plasma 023 [email or web address] [facility], 2022 [address], [address], [place], [address], 3 14:45:58 vitamin B12 + folate, serum or blood 023 [email or web address] [facility], [address], [address], [place], [address], 3 14:46:44 iron + TIBC + ferritin, serum 023 JOSE EDUARDO [facility], [address], [place], [address], 3 14:00:35 TSH + free T4, serum 023 [email or web address] [facility], 2022 [address], [address], [place], [address], 3 14:46:27 T3, free, serum or plasma [email or web address] [facility], 2022 [address], [address], [place], [address], 3 14:46:36 HbA1c (hemoglob in A1c), blood [email or web address] [facility], [address], [place], [address], 3 14:46:06 Referral None recorded. Procedures None recorded. Surgeries None recorded. Imaging None recorded. Medication Orders None recorded. Patient TargetsNo targets recorded. Patient InstructionsNo instructions recorded. Reason for Referral None Reported. Results Created Date Observation Date Name Description Value Unit Range Abnormal Flag Note LastModifiedBy Organization Detail LastModifiedTime 03/18/20 22 03/19/2022 ARMANDO TIN ferritin 105 NG/mL 15-150 Not Available [facility] ([facility]) [address] [facility], [place], [address], 03/19/2022 05:09:15 03/18/20 22 03/19/2022 VITAM IN D, 25-HY DROXY vitamin D, 25-hydroxy 29.0 NG/mL 30.0-1 00.0 below low normal Vitam in D defic iency has been defin ed by the Insti tute of Medic ine and an Endoc rine Socie ty pract ice guide line as a level of serum 25-OH vitam in D less than 20 ng/mL (1,2) . The Endoc rine Socie ty went on to furth er defin e vitam in D insuf ficie ncy as a level betwe en 21 and 29 ng/mL (2). 1. IOM (Inst itute of Medic ine). 2010. Dieta ry refer endere bhanu es for calci um and DCeline bridges [place]: [employer] . 2. Armen vazquez MF, Aubrey low [place], Yelena off-F errar i DYKES, et al. Evalu ation , treat ment, and preve ntion of vitam in D defic iency : an Endoc rine Socie ty clini salvador pract ice guide line. JCEM. 2010; 96(7) :1911 -30. Not Available [facility] ([facility]) [address] [place], [address], 03/19/2022 05:09:15 03/18/20 22 03/19/2022 TSH TSH 2.360 uIU/m L 0.450- 4.500 Not Available [facility] ([facility]) [address] [place], [address], 03/19/2022 05:09:14 03/18/20 22 03/19/2022 THYRO XINE (T4) FREE, DIREC T T4,free(dire ct) 1.16 NG/dL 0.82-1 .77 Not Available [facility] ([facility]) [address] [place], [address], 03/19/2022 05:09:14 03/18/20 22 03/19/2022 HEMOG LOBIN A1C hemoglobin A1C 4.9 % 4.8-5. 6 Predi abete s: 5.7 - 6.4 Diabe kemi: >6.4 Glyce emily contr ol for adult s with diabe kemi: <7.0 Not Available [facility] ([facility]) [address] [place], [address], 03/19/2022 05:09:13 03/18/2003/19/2022 IRON AND TIBC iron bind.cap.(TI BC) 345 ug/dL 250-45 0 Not Available [facility] ([facility]) [address] [place], [address], 03/19/2022 05:09:13 03/18/20 22 03/19/2022 IRON AND TIBC UIBC 247 ug/dL 131-42 5 Not Available [facility] ([facility]) [address] [place], [address], 03/19/2022 05:09:13 03/18/20 22 03/19/2022 IRON AND TIBC iron 98 ug/dL 27-159 Not Available [facility] ([facility]) [address] [place], [address], 03/19/2022 05:09:13 03/18/20 22 03/19/2022 IRON AND TIBC iron saturation 28 % 15-55 Not Available [facility] ([facility]) [address] [place], [address], 03/19/2022 05:09:13 03/18/20 22 03/19/2022 LIPID PANEL cholesterol, total 191 mg/dL 100-19 9 Not Available [facility] ([facility]) [address] [place], [address], 03/19/2022 05:09:12 03/18/20 22 03/19/2022 LIPID PANEL triglyceride s 170 mg/dL 0-149 above high normal Not Available [facility] ([facility]) [address] [place], [address], 03/19/2022 05:09:12 03/18/20 22 03/19/2022 LIPID PANEL HDL cholesterol 46 mg/dL >39 Not Available [facility] ([facility]) [address] [place], [address], 03/19/2022 05:09:12 03/18/20 22 03/19/2022 LIPID PANEL VLDL cholesterol salvador 30 mg/dL 5-40 Not Available [facility] ([facility]) [address] [place], [address], 03/19/2022 05:09:12 03/18/20 22 03/19/2022 LIPID PANEL LDL chol calc ([facility] 115 mg/dL 0-99 above high normal Not Available [facility] ([facility]) [address] [facility], [place], [address], 03/19/2022 05:09:12 03/18/20 22 03/19/2022 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 [id number] [facility] (Imaging) [address], [place], [address], 01/01/2023 17:15:39 04/30/20 22 04/29/2022 US, thyro id No observ ation record ed. [id number] [facility] [address], [place], [address], 01/01/2023 17:15:39 02/08/20 23 01/21/2023 home sleep study No observ ation record ed. [email or web address] Not Available 2022 11:44:14 03/24/20 23 03/24/2023 colon oscop y scree karen (PROC ) No observ ation record ed. [email or web address] [facility] [address] [place], [address], 10/18/2023 10:37:18 11/10/19 24 11/07/2023 US, thyro id No observ ation record ed. [email or web address] [facility] [address], [place], [address], 11/10/2023 15:37:54 Result Notes None recorded. Problems Name Problem SNOMED Code Status Onset Date Resolution Date Notes Provider Name and Address Organization Details Recorded Time Abscess of axilla 54046318 Active Not Available [facility] 03/01/202 3 17:14:11 Generalized anxiety disorder 22893187 Active Not Available [facility] 3 17:14:11 Thyroid nodule 827917497 Active 2021 Not Available [facility] 3 17:14:11 Hypothyroidis m due to Day's thyroiditis 211871982 Active 2021 Not Available [facility] 3 17:14:11 Methicillin resistant Staphylococcu s aureus infection 500037604 Active Not Available [facility] 3 17:14:11 Vitamin D deficiency 31810255 Active 2021 Not Available [facility] 3 17:14:11 Sleep disorder 85083362 Active 2022 Not Available [facility] 3 17:14:11 Nausea 029096754 Active Not Available [facility] 3 17:14:11 Postviral cough 214966901 Active 2021 Not Available [facility] 3 17:14:11 Viral syndrome 355701072 Active Not Available [facility] 3 17:14:12 Ulcerative colitis 49995757 Active 2021 Not Available [facility] 3 17:14:12 Candidiasis of vagina 21330554 Active Not Available [facility] 3 17:14:12 Stress 30917778 Active Not Available [facility] 3 17:14:12 Neck pain 57875602 Active 2021 Not Available [facility] 3 17:14:12 Weight gain 2074699 Active 2021 Not Available [facility] 3 17:14:12 Skin lesion 36623600 Active Not Available [facility] 3 17:14:12 Obstructive sleep apnea syndrome 65596188 Active 2022 [address] [place] [address], [place], [address] , [facility] 3 14:02:06 Hypothyroidis m 24958440 Active 2022 [facility] [address], [place], [address] , [place] [facility] 10:02:27 Migraine 05030751 Active 2022 [facility] [address], [place], [address] , [place] [facility] 16:42:15 Problem Notes None recorded. 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 Not Available [facility] 01/01/2023 17:13:09 Cholecystectomy completed Not Available [facility] 01/01/2023 17:13:09 Imaging Results Imaging Date Name Status LastModified by Organiz ation Details LastModified Time 03/07/2022 XR, cervical spine completed [id number] [facility] ([facility]) [address], [place], [address], 01/01/2023 17:15:39 04/29/2022 US, thyroid completed [id number] [facility] [address], [place], [address], 01/01/2023 17:15:39 01/21/2023 home sleep study completed [email or web address] Information not available 02/26/2023 11:44:14 03/24/2023 colonoscopy screening (PROC) completed [email or web address] [facility] [address] [facility], [place], [address], 10/18/2023 10:37:18 11/07/2023 US, thyroid completed [email or web address] [facility] [address], [place], [address], 11/10/2023 15:37:54 Procedure Notes None recorded. Medical Equipment None Reported. Allergies Allergen ID Allergen Name Allergen Category Reaction Reaction Severity Criticality Documentation Date Start Date Code Code System Note Provider Name and Address Organization Details Recorded Time 73305 Remicade medicatio n other Not available Not available 01/01/2023 02680 0 RxNorm joint pain Not Available [facility] 3 17:15:36 06255 buspirone medicatio n vomiting Not available Not available 01/01/2023 1827 RxNorm 10mg dose Not Available [facility] 3 17:15:36 46194 Asacol medicatio n other Not available Not available 01/01/2023 53110 6 RxNorm joint pain Not Available [facility] 3 17:15:36 Medications Name Sig Start Date Stop Date Status Note LastModified by Organization Details LastModified Time fluoxetine 40 mg capsule TAKE 1 CAPSULE BY MOUTH DAILY active Not Available Not Available No t Available amoxicillin 500 mg capsule TK ONE C PO BID TAT 08/19 completed Not Available Not Available Not Available Mirena 21 mcg/24 hr (up to 8 years) 52 mg intrauterin e device active Not Available Not Available Not Available buspirone 5 mg tablet Take 1 tablet twice a day by oral route. active Not Available Not Available No t Available prednisone 10 mg tablet Take 1 tablet every day by oral route. 02/22 completed Tier dose Not Available Not Available Not Available doxycycline hyclate 100 mg capsule active Not Available Not Available N ot Available azithromyci n 250 mg tablet TAKE 2 TABLETS (500 MG) BY ORAL ROUTE ONCE DAILY FOR 1 DAY THEN 1 TABLET (250 MG) BY ORAL ROUTE ONCE DAILY FOR 4 DAYS 09/17 completed Not Available Not Available Not Available tizanidine 4 mg tablet TK 1 T PO Q 6 H PRN active Not Available Not Available No t Available valacyclovi r 1 gram tablet TAKE 1 TABLET BY MOUTH THREE TIMES DAILY 08/17 completed Not Available Not Available Not Available hydrocodone 5 mg-acetamin ophen 325 mg tablet TAKE 1 TABLET BY MOUTH EVERY 6 HOURS NEEDED FOR PAIN NOT RELIEVED BY TYLENOL active Not Available Not Available No t Available ondansetron HCl 4 mg tablet Take 1 tablet every 4-6 hours by oral route as needed. active Not Available Not Available No t Available Medrol (Jordin) 4 mg tablets in a dose pack take as directed starting 08-13-2209/02 completed Not Available Not Available Not Available prednisone 20 mg tablet TK 2 TS PO QD active Not Available Not Available No t Available rizatriptan 10 mg tablet active Not Available Not Available Not Available prednisone 5 mg tablet 03/15 completed Not Available Not Available Not Available terconazole 0.8 % vaginal cream active Not Available Not Available Not Available phentermine 15 mg capsule Take 1 capsule every day by oral route in the morning for 90 days. active Not Available Not Available No t Available Levoxyl 75 mcg tablet TAKE 1 TABLET BY MOUTH DAILY IN THE MORNING active Not Available Not Available No t Available clindamycin HCl 150 mg capsule Take 1 capsule every 6 hours by oral route. active Not Available Not Available No t Available Diflucan 150 mg tablet Take 1 tablet po on day 2 and 5 of antibioti c 09/02 completed Not Available Not Available Not Available topiramate 25 mg tablet active Not Available Not Available Not Available metronidazo le 500 mg tablet 02/05 completed Not Available Not Available Not Available phentermine 37.5 mg tablet Take 1 tablet every day by oral route in the morning. active Not Available Not Available No t Available tramadol 50 mg tablet active Not Available Not Available No t Available Zantac 150 mg tablet Take 1 tablet every day by oral route as needed. 12/22 completed Not Available Not Available Not Available oxycodone-a cetaminophe n 5 mg-325 mg tablet active Not Available Not Available No t Available alprazolam 0.25 mg tablet TAKE 1 TO 2 TABLETS BY MOUTH PRIOR TO FLIGHT active Not Available Not Available No t Available prednisolon e acetate 1 % eye drops,suspe nsion INSTILL 1 DROP INTO OU Q 3 H. SHAKE WELL 09/02 completed Not Available Not Available Not Available dicyclomine 20 mg tablet TK 1 T PO Q 6 H PRN active Not Available Not Available No t Available Proctozone- HC 2.5 % topical cream perineal applicator TEODORO A THIN LAYER TO THE EXTERNAL RECTUM TOPCALLY 2 TO 4 TIMES PER DAY PRN 07/20 completed Not Available Not Available Not Available buspirone 10 mg tablet Take 1 tablet twice a day by oral route. active Not Available Not Available No t Available hyoscyamine 0.125 mg sublingual tablet active Not Available Not Available Not Available promethazin e 25 mg tablet Take 1 tablet every 4-6 hours by oral route as needed. active Not Available Not Available No t Available ferrous gluconate 240 mg (27 mg iron) tablet active Not Available Not Available Not Available fluoxetine 10 mg capsule TK 1 C PO QD active Not Available Not Available No t Available mercaptopur ine 50 mg tablet TAKE 1 TABLET BY MOUTH DAILY 06/25 completed Not Available Not Available Not Available buspirone 7.5 mg tablet Take 1 tablet twice a day by oral route. active Not Available Not Available No t Available mupirocin 2 % topical ointment active Not Available Not Available Not Available ergocalcife rol (vitamin D2) 1,250 mcg (50,000 unit) capsule TK ONE C PO Q WEEK AT 9AM 03/15 completed Not Available Not Available Not Available budesonide DR - ER 3 mg capsule,del ayed,extend ed release TK 3 CS PO QD 12/22 completed Not Available Not Available Not Available ibuprofen 600 mg tablet active Not Available Not Available Not Available levofloxaci n 500 mg tablet active Not Available Not Available Not Available Anusol-HC 25 mg rectal suppository Insert 1 supposito ry twice a day by rectal route. 03/15 completed Not Available Not Available Not Available levofloxaci n 750 mg tablet Take 1 tablet every day by oral route. active Not Available Not Available No t Available hydrocodone 10 mg-chlorphe niramine 8 mg/5 mL oral susp extend.rel 12hr Take 5 mL every 12 hours by oral route as directed. active Not Available Not Available No t Available Pepcid AC 10 mg tablet Take 1 tablet every day by oral route. 02/22 completed Not Available Not Available Not Available ondansetron 4 mg disintegrat ing tablet DIS 1 T ON THE TONGUE QD PRF NAUSEA active Not Available Not Available No t Available fluoxetine 20 mg capsule TAKE 1 CAPSULE BY MOUTH DAILY 04/23 completed Not Available Not Available Not Available doxycycline hyclate 100 mg tablet TK 1 T PO BID FOR 7 DAYS active Not Available Not Available No t Available folic acid 800 mcg tablet Take 1 tablet every day by oral route. 2021 active Not Available Not Available Not Avai lable amoxicillin 875 mg-potassiu m clavulanate 125 mg tablet TK 1 T PO BID active Not Available Not Available No t Available rizatriptan 5 mg tablet active Not Available Not Available Not Available Bactrim DS 800 mg-160 mg tablet Take 1 tablet every 12 hours by oral route. active Not Available Not Available No t Available enoxaparin 30 mg/0.3 mL subcutaneou s syringe active Not Available Not Available No t Available escitalopra m 10 mg tablet active Not Available Not Available Not Available apple cider vinegar 500 mg tablet Take 2 tablets every day by oral route. 2021 active Not Available Not Available Not Avai lable Junel FE 11/22 (28) 1 mg-20 mcg (21)/75 mg (7) tablet TK 1 T PO D 12/22 completed Not Available Not Available Not Available zonisamide 50 mg capsule TAKE 2 CAPSULES BY MOUTH EVERY NIGHT AT BEDTIME. MAY INCREASE BY 1 EVERY 2 WEEKS NEEDED / TOLERATED UP TO 4 EVERY NIGHT AT BEDTIME active Not Available Not Available No t Available Vandazole 0.75 % (37.5 mg/5 gram) vaginal gel 02/06 completed Not Available Not Available Not Available Bactrim every 12 hours. 2014 active Not Available Not Available Not Avai lable Vitamin D3 50 mcg (2,000 unit) tablet TAKE 1 TABLET BY MOUTH DAILY active Not Available Not Available No t Available Stelara 90 mg/mL subcutaneou s syringe active Not Available Not Available No t Available Suprep Bowel Prep Kit 17.5 gram-3.13 gram-1.6 gram oral solution 01/18 completed Not Available Not Available Not Available Eliquis 5 mg tablet TK 1 T PO BID active Not Available Not Available No t Available Uceris 9 mg tablet, extended release active Not Available Not Available Not Available Humira(CF) Pen 40 mg/0.4 mL subcutaneou s kit Inject 40 mg every 2 weeks by sub-q route in the morning for 28 days. 07/20 completed Not Available Not Available Not Available Humira(CF) Pen Crohn's-Ulc Colitis-Hid Sup Strt 80 mg/0.8 mL subcut kt 03/15 completed Not Available Not Available Not Available Vitals Date Recorded Body mass index (BMI) Body mass index (BMI) Body height Body height Body height Body height Oxygen saturation Oxygen saturation in Arterial blood by Pulse oximetry Oxygen saturation Oxygen saturation in Arterial blood by Pulse oximetry Oxygen saturation Oxygen saturation in Arterial blood by Pulse oximetry Heart rate Heart rate Heart rate Respiratory rate Respiratory rate Body temperature Body temperature Body weight Body weight Systolic blood pressure Diastolic blood pressure Systolic blood pressure Diastolic blood pressure Systolic blood pressure Diastolic blood pressure Provider Name and Address Organization Details Last Updated DateTime 3 32.7 kg/m2 31.8 kg/m2 167.64 cm 167.64 cm 167.64 cm 167.64 cm 98 % 98 % 98 % 98 % 98 % 98 % 60 /min 71 /min 75 /min 16 /min 16 /min 97.8 [degF] 97.8 [degF] 76760.8 1 g 34844.7 g 120 mm[Hg] 80 mm[Hg] 100 mm[Hg] 60 mm[Hg] 110 mm[Hg] 70 mm[Hg] Not Available [facility] 3 17:13:42 Date Recorded Body height Body mass index (BMI) Body weight Body temperature Heart rate Oxygen saturation Oxygen saturation in Arterial blood by Pulse oximetry Systolic blood pressure Diastolic blood pressure Provider Name and Address Organization Details Last Updated DateTime 3 167.64 cm 32.3 kg/m2 81648.4 7 g 97.6 [degF] 76 /min 97 % 97 % 116 mm[Hg] 70 mm[Hg] Marie Kaufman RN [facility] [employer] 3 09:31:16 Social History Question Answer Notes LastModified by Organizat ion Details LastModified Time Tobacco Smoking Status Never Smoker Marie Kaufman RN null, [facility] [employer] 09/02/2023 09:26:06 What Is Your Level Of Alcohol Consumption? Occasional [id number] Information not available 01/01/2023 What Is Your Level Of Caffeine Consumption? Moderate [id number] Information not available 01/01/2023 How Much Tobacco Do You Chew? None [id number] Information not available 01/01/2023 In The 14 Days Before Symptom Onset, Have You Had Close Contact With A Laboratory-confir med COVID-19 While That Case Was Ill? No [email or web address] Information not available 09/02/2023 In The 14 Days Before Symptom Onset, Have You Had Close Contact With A Person Who Is Under Investigation For COVID-19 While That Person Was Ill? No [email or web address] Information not available 09/02/2023 What Type Of Diet Are You Following? REGULAR [id number] Information not available 01/01/2023 Which Illicit Or Recreational Drugs Have You Used? None [email or web address] Information not available 09/02/2023 Do You Or Have You Ever Used E-cigarettes Or Vape? 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 No Information no t available 09/02/2023 Do You Use Insect Repellent Routinely? No [email or web address] Information not available 09/02/2023 What Was The Date Of Your Most Recent Tobacco Screening? 02/22/2021 [email or web address] Information not available 09/02/2023 What Is Your Relationship Status? [id number] Information not available 01/01/2023 Do You Use Your Seat Belt Or Car Seat Routinely? Yes [email or web address] Information not available 09/02/2023 Are You Passively Exposed To Smoke? No [email or web address] Information no t available 09/02/2023 Do You Or Have You Ever Used Smokeless Tobacco? Never Used Smokeless Tobacco [id number] Information not available 01/01/2023 How Much Tobacco Do You Smoke? No [id number] Information not available 01/01/2023 Do You Use Any Illicit Or Recreational Drugs? No [email or web address] Information not available 09/02/2023 Do You Use Sunscreen Routinely? Yes [email or web address] Information not available 09/02/2023 Have You Recently Traveled Abroad? No [email or web address] Information not available 09/02/2023 Do You Have Any Dietary Restrictions? No [email or web address] Information not available 09/02/2023 Do You Or Have You Ever Used Any Other Forms Of Tobacco Or Nicotine? No [email or web address] Information not available 09/02/2023 Sex: Female Functional Status Question Answer Note LastModified by Organizat ion Details LastModified Time What is your exercise level? Occasional [id number] Information not available 01/01/2023 Mental Status None recorded. Family History Relationship Description Onset Age of this Age Resolved Age Notes LastModified by Organization Details LastModified Time Mother Myocardial infarction [id number] Not available 01/01/2023 17:13:10 Mother Hypothyroidi sm Not available 09:26:06 Mother History of heart disorder had stents [email or web address] Not available 09/02/2023 09:26:06 Paternal Grandfather Alcoholism Not availabl e 09/02/2023 09:26:06 Brother Eczema [email or web address] Not availa ble 09/02/2023 09:26:06 Medical History Condition Response SKIN PROBLEMS Y ULCERS Y ANXIETY DISORDER Y DEPRESSION (INCLUDING POST ) Y BOWEL PROBLEMS Y HEARTBURN / REFLUX Y Gynecological History Statement/Question Response Abnormal Pap Y Date of Last Colonoscopy 10/13/2020 Date of LMP 09/10/2019 Sexually Active? Y Menses Monthly N Date of Last Pap 05/17/2020 Current Control Method IUD Obstetrics History GPAL:G 4 P 0 0 2 2 Type Value Spontaneous 2 Living 2 Total 4 Immunizations Vaccine Type Date Status Note Provider Nam e and Address Organization Details Recorded Time Influenza, split virus, quadrivalent, preservative 9 completed Not Available [facility] 01/01/2023 17:15:34 influenza, unspecified formulation 6 completed Not Available [facility] 01/01/2023 17:15:34 influenza, unspecified formulation 5 completed Not Available [facility] 01/01/2023 17:15:34 Past Encounters Encounter ID Performer Location Encounter Start Date Encounter Closed Date Diagnosis/Indication Diagnosis SNOMED-CT Code Diagnosis ICD10 Code Diagnosis Note [id number] [facility] [place] [address] [place] [address] 02/22/2021 00:00:00 03/02/2021 23:13:37 [id number] [facility] [address] [place] [address] 08/17/2021 00:00:00 09/02/2021 10:47:05 [id number] [facility] [place] [address] [place] [address] 02/19/2022 00:00:00 02/19/2022 09:26:13 [id number] [facility] [place] [address] [place] [address] 03/04/2022 00:00:00 04/02/2022 23:37:33 [id number] [facility] [place] [address] [place] [address] 06/25/2022 00:00:00 06/25/2022 14:44:42 [id number] [facility] [place] [address] [place] [address] 08/12/2022 00:00:00 09/01/2022 16:22:27 [id number] [facility] [place] [address] [place] [address] 09/17/2022 00:00:00 09/17/2022 20:31:14 [id number] ARI Coy [facility] [address] [place] [address] 09/02/2023 09:25:23 09/02/2023 10:06:07 Cholesterol screening 705419252 Z13.220 fasting lipids due Diabetes m ellitus screening 529513452 Z13.1 screening a1c due Hypothyroidism 82481110 E03.9 on supplement . Tfts due Long-term drug therapy 238206160 Z79.899 routine cbc, cmp, b12, folate and iron studies due Adult heal th examination 482627889 Z00.01 well exam completed. Generalize d anxiety disorder 26057763 F41.1 stable on fluoxetine 40mg daily. Obstructiv e sleep apnea syndrome 87214094 G47.33 on cpap stable. Ulcerative colitis 92566 004 K51.90 stable on Stelara with specialist . Migraine 99497236 G43.90 9 stable on topiramate and triptan Health Concerns Section Related Observation LastModified by Organization Detai ls LastModified Time None Recorded Concern Status LastModified by Organization Details LastModified Time None Recorded Advance Directives Directive None Recorded Payers Encounter Date Sequence Insurance Name Policy Number Policy Montero Covered Member ID Montero Member ID Guarantor Name 09/02/2023 1 [facility] [id number] Elizabeth Tanner [id number] Elizabeth Tanner Notes Date Note Type Note Provider Name and Address Organization Details Recorded Time 022 text/h tml Anxiety/DepressionReported bypatient.Quality:situational. Severity:denies suicidal ideations; able to maintain relationships; does not interfere with activities of daily living Duration:symptoms lasting over 2 weeks Onset/Timing:still present Context:no major life stressors Modifying Factors:medications as directed Associated Symptoms:denies homicidal ideations; no significant weight gain; no significant weight loss; no visual/auditory hallucinations; no delusions; no shortness of breath; mood good; no anxiety; no crying spells; no panic; no isolation; sleeping well; appetite good; energy good; no apathy; maintaining functionalityHypothyroidismReported bypatient.Quality:not changing Duration:constant Onset/Timing:still present Context/Risk:normal thyroid levels; no history of head or neck radiation during childhood; no history of thyroid disease; no history of hyperthyroidism; no excess iron exposure;history of hypothyroidism;female gender Modifying Factors:medication Exerciseno exercise Associated Symptoms:no cold intolerance; no heat intolerance; no weight loss; no weight gain; no double vision; no dry eyes; no hoarseness; no difficulty swallowing; no neck masses; no deepening of the voice; no fast heart rate; no increased blood pressure; no palpitations; no chest pain; no chest tightess or pressure; no constipation; no diarrhea; no vomiting; no decreased appetite; no loose stools; no irregular menstrual periods; no excessive sweating; no joint pain; no numbness; no tingling of the hands or feet; no dry skin; no tremor; no nervousness; no anxiety; no depression; no sleep difficulties; no skin changes; no hair changes;fatigue Not Available [facility] 04/02/2022 23:37:33 022 text/h tml CoughReported bypatient.Quality:loose; non productive;productive(clear) Severity:pain with cough; staying about the same Duration:intermittent; subacute (3-8 weeks) Onset/Timing:gradual; becomes better throughout the day Context:non-smoker; worse at night; history of bronchitis Modifying Factors:OTC medication (dayquil/nyquil and zyrtec) Associated Symptoms:no fever; no heartburn; no vomiting; no edema; no agitation; no wheezing; no chest wall tenderness; no dyspnea at rest or exertion;chills;chest pain;nausea;post nasal drip;sputum production;shortness of breath;throat clearing;nasal dischargeNotes:Last COVID test was 2 weeks ago and it was neg. Not Available [employer] [facility] 09/01/2022 16:22:27 023 text/h tml Anxiety, Generalized DisorderReported bypatient.Associated Symptoms:no difficulty concentrating; no difficulty controlling worry; no difficulty swallowing; no anxiety; no excessive sweating; no hot flashes; no palpitations; no shortness of breath; no nausea; no diarrhea; no fatigue; no irritability; no muscle tension; no muscle aches; no trembling; no twitching; no headaches; no restlessness; no sleep disturbancesHypothyroidismReported bypatient.Onset/Timing:better Context/Risk:normal thyroid levels; no history of head or neck radiation during childhood; no history of thyroid disease; no history of hypothyroidism; no history of hyperthyroidism; no excess iron exposure Exercisegets exercise Associated Symptoms:no cold intolerance; no heat intolerance; no weight loss; no weight gain; no double vision; no dry eyes; no hoarseness; no difficulty swallowing; no neck masses; no deepening of the voice; no fast heart rate; no increased blood pressure; no palpitations; no chest pain; no chest tightess or pressure; no constipation; no diarrhea; no vomiting; no decreased appetite; no loose stools; no irregular menstrual periods; no excessive sweating; no joint pain; no numbness; no tingling of the hands or feet; no dry skin; no tremor; no nervousness; no anxiety; no depression; no fatigue; no sleep difficulties; no skin changes; no hair changes wellness pt is stable on her ulcerative colitis with GI.Stable with migraines now with Neurology ARI Coy [address] [facility], [place] [address], [place], [address], [employer] [facility] 09/02/2023 16:42:52 OBGyn Episode No OBEpisode recorded.
--- OUTSIDE RECORDS SUMMARY | 2024-12-04 08:18 | XMS_ITS | Encounter Summary ---
Author Organization [facility] Address [address] [place] [address] Care Team Providers Care Staff Interpreter Name Role Phone Mariposa Cabrales Primary Care Provider [phone] Encounter Details Date Type Department Care Team (Late st Contact Info) Description 03/29/2004 Outpatient Historical [facility] Internal Medicine - [facility] [address] [address] [facility] [address] [place] [address] Maddie Moise MD NO ADDRESS ON FILE Social History Tobacco Use Types Packs/Day Years Used Date Smoking Tobacco: Never Assessed Comments Unknown Sex and Gender Information Value Date Recorded Sex Assigned at Not on file 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
--- OUTSIDE RECORDS SUMMARY | 2024-12-04 08:18 | XMS_ITS | Encounter Summary ---
Author Organization [facility] Address [address] [place] [address] Care Team Providers Care Bill Checker Name Role Phone Mariposa Cabrales Primary Care Provider Encounter Details Date Type Department Care Team (Late st Contact Info) Description 12/23/2007 Outpatient Historical [facility] Ramandeep Bess MD [address] 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
--- OUTSIDE RECORDS SUMMARY | 2024-12-04 08:18 | XMS_ITS | Encounter Summary ---
Author Organization [facility] Address [address] [place] [address] Care Team Providers Care Cook Tortilla Name Role Phone Mariposa Cabrales Primary Care Provider [phone] Encounter Details Date Type Department Care Team (Late st Contact Info) Description 07/07/2008 Outpatient Historical [facility] Maddie Moise MD NO ADDRESS ON FILE Screening for Lipoid Disorders; Dyspepsia and Other Specified Disorders of Function of Stomach; Unspecified Ulcerative Colitis (CMS/HCC); Other Abnormal Blood Chemistry Social History Tobacco Use Types Packs/Day Years Used Date Smoking Tobacco: Never Alcohol Use Standard Drinks/Week Comments Not Asked 0 (1 standard drink = 0.6 oz pur e alcohol) Comments No Sex and Gender Information Value Date Recorded Sex Assigned at Not on file 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
--- OUTSIDE RECORDS SUMMARY | 2024-12-04 08:18 | XMS_ITS | Encounter Summary ---
Author Organization [facility] Address [address] [place] [address] Care Team Providers Care Supervisor [employer] Name Role Phone Mariposa Cabrales Primary Care Provider [phone] Encounter Details Date Type Department Care Team (Latest Contact Info) Description 09/19/2008 Outpatient Historical [facility] Smita Ho MD [address] [facility] [address] [place] [address] Pain in Joint, Site Unspecified; Chronic Fatigue Syndrome Social History Tobacco Use Types Packs/Day Years Used Date Smoking Tobacco: Never Alcohol Use Standard Drinks/Week Comments Not Asked 0 (1 standard drink = 0.6 oz pur e alcohol) Comments No Sex and Gender Information Value Date Recorded Sex Assigned at Not on file Legal Sex Female 5:26 AM PROGRAM SUPPORT SPECIALIST Gender Identity Not on file Sexual Orientation Not on file documented as of this encounter Plan of Treatment Not on file documented as of this encounter Procedures Procedure Name Priority Date/Time Associated Diagnosis Comments MARILYN TITER Routine 09/19/2008 3:55 PM PROGRAM SUPPORT SPECIALIST SJOGREN'S ANTIBODIES Routine 09/19/2008 3:55 PM PROGRAM SUPPORT SPECIALIST SCLERODERMA ANTIBODY SCL 70 Routine 09/19/2008 3:55 PM PROGRAM SUPPORT SPECIALIST KAILASH ANTIBODIES (SM AND SM/TELE RN) Routine 09/19/2008 3:55 PM PROGRAM SUPPORT SPECIALIST DNA ANTIBODIES Routine 09/19/2008 3:55 PM PROGRAM SUPPORT SPECIALIST CBC WITH DIFFERENTIAL Routine 09/19/2008 3:55 PM PROGRAM SUPPORT SPECIALIST VITAMIN D 25 HYDROXY Routine 09/19/2008 3:55 PM PROGRAM SUPPORT SPECIALIST URINALYSIS W/REFLEX MICROSCOPIC Routine 09/19/2008 3:55 PM PROGRAM SUPPORT SPECIALIST MARILYN SCREEN W/REFLEX Routine 09/19/2008 3 :55 PM PROGRAM SUPPORT SPECIALIST TSH Routine 09/19/2008 3:55 PM PROGRAM SUPPORT SPECIALIST T4 FREE Routine 09/19/2008 3:55 PM PROGRAM SUPPORT SPECIALIST documented in this encounter Results * (ABNORMAL) MARILYN TITER (09/19/2008 3:55 PM PROGRAM SUPPORT SPECIALIST) MARILYN PATTERN HOMOGENEOU S(A) [facility] MARILYN TITER 1:1280(H) Titer [facility] Comment: ? REFERENCE RANGE: ? <1:40 ?NEGATIVE ? 1:40 - 1:80 ?LOW ANTIBODY LEVEL ? >1:80 ?ELEVATED ANTIBODY LEVEL ? Lab test performed by: [employer] [facility] [address] [place] [address] AGUS PRIETO MD Blood specimen (specimen) 09/19/2008 3:55 PM PROGRAM SUPPORT SPECIALIST 09/19/2008 7:14 PM PROGRAM SUPPORT SPECIALIST us Smita Ho MD CHEMISTRY ORDERABLES Final Result INTERFACE SYSTEM Refer to clinic/hospital department [facility] CLIA# [id number] [address] [place] [address] * SCLERODERMA ANTIBODY SCL 70 (09/19/2008 3:55 PM PROGRAM SUPPORT SPECIALIST) Pathologist [facility] SCLERODERMA AB SCL 70 <1.0 NEG <1.0 NEG Index [facility] Comment: ? Lab test performed by: [employer] [employer] [address] [address] AGUS PRIETO MD Blood specimen (specimen) 09/19/2008 3:55 PM PROGRAM SUPPORT SPECIALIST 09/19/2008 6:13 PM PROGRAM SUPPORT SPECIALIST Smita Ho MD CHEMISTRY ORDERABLES Final Result Performing Organization Address [facility] Phone Number INTERFACE SYSTEM Refer to clinic/hospital department [facility] CLIA# [id number] [address] [place] [address] * SJOGREN'S ANTIBODIES (09/19/2008 3:55 PM PROGRAM SUPPORT SPECIALIST) Pathologist [facility] SJOGRENS ABS (SSA) <1.0 NEG <1.0 NEG Index [facility] SJOGRENS ABS (SSB) <1.0 NEG <1.0 NEG Index [facility] Comment: ? Lab test performed by: [facility] [id number] [address] AGUS PRIETO MD Blood specimen (specimen) 09/19/2008 3:55 PM PROGRAM SUPPORT SPECIALIST 09/19/2008 6:13 PM PROGRAM SUPPORT SPECIALIST Smita Ho MD CHEMISTRY ORDERABLES Final Result Performing Organization Address [facility] de Phone Number INTERFACE SYSTEM Refer to clinic/hospital department [facility] CLIA# [id number] [address] [place] [address] * KAILASH ANTIBODIES (SM AND SM/TELE RN) (09/19/2008 3:55 PM PROGRAM SUPPORT SPECIALIST) Pathologist [facility] KAILASH ABS, SM AB <1.0 NEG <1.0 NEG Index [facility] KAILASH ABS, SM/TELE RN AB <1.0 NEG <1.0 NEG Index [facility] Comment: ? Lab test performed by: [facility] [address] [place] [address] AGUS PRIETO MD Blood specimen (specimen) 09/19/2008 3:55 PM PROGRAM SUPPORT SPECIALIST 09/19/2008 6:13 PM PROGRAM SUPPORT SPECIALIST Smita Ho MD CHEMISTRY ORDERABLES Final Result Performing Organization Address City/State/[facility] Co de Phone Number INTERFACE SYSTEM Refer to clinic/hospital department [facility] CLIA# [id number] [address] [place] [address] * DNA ANTIBODIES (09/19/2008 3:55 PM PROGRAM SUPPORT SPECIALIST) [facility] DNA AUTOABS DOUBLE STRANDED 2 IU/mL [facility] Comment: ? IU/mL ? INTERPRETATION ? ===== ? < OR = 4 ?NEGATIVE ? 5 - 9 ? INDETERMINATE ? > OR = 10 ?? POSITIVE ? Lab test performed by: [facility] [address] [address] AGUS PRIETO MD Blood specimen (specimen) 09/19/2008 3:55 PM PROGRAM SUPPORT SPECIALIST 09/19/2008 6:13 PM PROGRAM SUPPORT SPECIALIST us Smita Ho MD CHEMISTRY ORDERABLES Final Result INTERFACE SYSTEM Refer to clinic/hospital department [facility] CLIA# [id number] [address] [place] [address] * (ABNORMAL) CBC WITH DIFFERENTIAL (09/19/2008 3:55 PM PROGRAM SUPPORT SPECIALIST) HEMATOCRIT 36.1 35.5 - 44.0 % [facility] RDW-STDEV 39.3 37.1 - 48.7 fL [facility] RBC 4.26 3.90 - 4.90 M/uL [facility] MCHC 32.1 31.5 - 35.5 % [facility] MCV 84.7 82.0 - 99.0 fL [facility] PLATELETS 307 140 - 350 K/uL [facility] HEMOGLOBIN 11.6(L) 11.8 - 14.8 g/dL [facility] RDW 13.0 11.5 - 14.5 % [facility] WBC 3.8(L) 4.0 - 9.8 K/uL [facility] MCH 27.2 27.2 - 32.6 pg [facility] MPV 10.0 9.3 - 12.4 fL [facility] LYMPHOCYTE ABSOLUTE 0.81 0.70 - 4.50 K/uL [facility] BASOPHILS 0 0 - 2 % [facility] BASOPHILS ABSOLUTE 0.00 0.00 - 0.20 K/uL [facility] MONOCYTES 3 3 - 13 % [facility] MONOCYTE ABSOLUTE 0.11 0.10 - 1.30 K/uL [facility] NEUTROPHILS 70 45 - 70 % [facility] NEUTROPHIL ABSOLUTE 2.65 1.90 - 7.00 K/uL [facility] EOSINOPHILS 6 0 - 7 % [facility] EOSINOPHIL ABSOLUTE 0.21 0.00 - 0.70 K/uL [facility] LYMPHOCYTES 21 16 - 45 % [facility] Blood specimen (specimen) 09/19/2008 3:55 PM PROGRAM SUPPORT SPECIALIST 09/19/2008 6:13 PM PROGRAM SUPPORT SPECIALIST Result [facility] Smita Ho MD HEMATOLOGY ORDERABLES Edite d Performing Organization Address [facility] Phone Number INTERFACE SYSTEM Refer to clinic/hospital department [facility] CLIA# [id number] [address] [place] [address] * VITAMIN D 25 HYDROXY (09/19/2008 3:55 PM PROGRAM SUPPORT SPECIALIST) VITAMIN D, 25 OH, TOTAL 41 20 - 100 ng/mL [facility] VITAMIN D, 25 OH, D3 41 ng/mL [facility] VITAMIN D, 25 OH, D2 <4 ng/mL [facility] Comment: 25-OHD3 indicates both endogenous production and supplementation. 25-OHD2 is an indicator of exogenous sources such as diet or supplementation. Therapy is based on measurement of Total 25-OHD, with levels <20 ng/mL indicative of Vitamin D deficiency while levels between 20 ng/mL and 30 ng/mL suggest insufficiency. Optimal levels are >30 ng/mL. ? Lab test performed by: [employer] [address] [place] [address] MACEY GIVENS MD Blood specimen (specimen) 09/19/2008 3:55 PM PROGRAM SUPPORT SPECIALIST 09/19/2008 8:34 PM PROGRAM SUPPORT SPECIALIST Smita Ho MD CHEMISTRY ORDERABLES Final Result Performing Organization Address [facility] Phone Number INTERFACE SYSTEM Refer to clinic/hospital department [facility] CLIA# [id number] [address] [place] [address] * URINALYSIS (09/19/2008 3:55 PM PROGRAM SUPPORT SPECIALIST) COLOR UA Yellow [facility] NITRITE UA Negative Negative [facility] UROBILINOGEN UA <1 <=1 mg/dL [facility] PH UA 5.5 5.0 - 8.0 [facility] KETONES UA Negative Negative [facility] CLARITY UA Clear Clear [facility] BILIRUBIN UA Negative Negative [facility] PROTEIN UA Negative Negative [facility] LEUKOCYTE ESTERASE UA Negative Negative [facility] SPECIFIC GRAVITY UA 1.018 1.001 - 1.035 [facility] GLUCOSE UA Negative Negative [facility] BLOOD UA Negative Negative [facility] Urine specimen (specimen) 09/19/2008 3:55 PM PROGRAM SUPPORT SPECIALIST 09/19/2008 6:13 PM PROGRAM SUPPORT SPECIALIST Smita Ho MD URINE ORDERABLES Final Resu lt Performing Organization Address City/[facility] de Phone Number INTERFACE SYSTEM Refer to clinic/hospital department [facility] CLIA# [id number] [address] [place] [address] * T4 FREE (09/19/2008 3:55 PM PROGRAM SUPPORT SPECIALIST) T4 FREE 1.3 0.9 - 1.7 ng/dL [facility] Blood specimen (specimen) 09/19/2008 3:55 PM PROGRAM SUPPORT SPECIALIST 09/19/2008 6:13 PM PROGRAM SUPPORT SPECIALIST Smita Ho MD CHEMISTRY ORDERABLES Final Result Performing Organization Address City/[facility] de Phone Number INTERFACE SYSTEM Refer to clinic/hospital department [facility] CLIA# [id number] [address] [place] [address] * TSH (09/19/2008 3:55 PM PROGRAM SUPPORT SPECIALIST) Pathologist [facility] TSH 2.38 0.27 - 4.20 uU/mL [facility] Blood specimen (specimen) 09/19/2008 3:55 PM PROGRAM SUPPORT SPECIALIST 09/19/2008 6:13 PM PROGRAM SUPPORT SPECIALIST Smita Ho MD CHEMISTRY ORDERABLES Final Result Performing Organization Address [facility] de Phone Number INTERFACE SYSTEM Refer to clinic/hospital department [facility] CLIA# [id number] [address] [place] [address] * (ABNORMAL) MARILYN (09/19/2008 3:55 PM PROGRAM SUPPORT SPECIALIST) Pathologist [facility] MARILYN SCREEN POSITIVE( A) NEGATIVE [facility] Comment: ? Lab test performed by: [employer] [address] [address] AGUS PRIETO MD Blood specimen (specimen) 09/19/2008 3:55 PM PROGRAM SUPPORT SPECIALIST 09/19/2008 8:34 PM PROGRAM SUPPORT SPECIALIST Smita Ho MD CHEMISTRY ORDERABLES Final Result Performing Organization Address [facility] de Phone Number INTERFACE SYSTEM Refer to clinic/hospital department [facility] CLIA# [id number] [address] [place] [address] documented in this encounter Visit Diagnoses Diagnosis Pain in joint, site unspecified Chronic fatigue syndrome documented in this encounter Care Teams Supervisor [employer] Relationship Specialty Start Date End Date Mariposa Cabrales PA PCP - General Physician Certified Tumor Registrar 06/27/20 documented as of this encounter
--- OUTSIDE RECORDS SUMMARY | 2024-12-04 08:18 | XMS_ITS | Encounter Summary ---
Author Organization [facility] Address [address] [place] [address] Care Team Providers Care It Support Engineer Name Role Phone Mariposa Cabrales Primary Care Provider Encounter Details Date Type Department Care Team (Late st Contact Info) Description 09/14/2008 Outpatient Historical [facility] Maddie Moise MD NO ADDRESS ON FILE Pain in Joint, Site Unspecified Social History Tobacco Use Types Packs/Day Years Used Date Smoking Tobacco: Never Alcohol Use Standard Drinks/Week Comments Not Asked 0 (1 standard drink = 0.6 oz pur e alcohol) Comments No Sex and Gender Information Value Date Recorded Sex Assigned at Not on file 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
--- OUTSIDE RECORDS SUMMARY | 2024-12-04 08:18 | XMS_ITS | Encounter Summary ---
Author Organization [facility] [facility] Address [address] [place] [address] Phone Care Team Providers Care Optometry Assistant Name Role Phone Yogi Fuentes MD Primary Care Provider [phone] Encounter Details Date Type Department Care Team (Late st Contact Info) Description 10/25/2016 Orders Only [facility] Scanning, Provider Social History Tobacco Use Types Packs/Day Years Used Date Smoking Tobacco: Never Assessed Comments Unknown Sex and Gender Information Value Date Recorded Sex Assigned at Not on file 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 Gender Identity Not on file Sexual Orientation Not on file documented as of this encounter Plan of Treatment Not on file documented as of this encounter Procedures Procedure Name Priority Date/Time Associated Diagnosis Comments SCAN - PATHOLOGY 10/25/2016 documented in this encounter Results * SCAN - PATHOLOGY (10/25/2016) us Provider Scanning Final Result documented in this encounter Visit Diagnoses Not on filedocumented in this encounter Care Teams Optometry Assistant Relationship Specialty Start Date End Date Yogi Fuentes MD PCP - General Internal Medicine 07/18/20 documented as of this encounter
--- OUTSIDE RECORDS SUMMARY | 2024-12-04 08:18 | XMS_ITS | Encounter Summary ---
Author Organization [facility] Address [address] [place] [address] Phone Care Team Providers Care Scanning Tech Name Role Phone Yogi Fuentes MD Primary Care Provider [phone] Encounter Details Date Type Department Care Team (Late st Contact Info) Description 12/19/2018 Orders Only [facility] Scanning, Provider Social History Tobacco Use Types Packs/Day Years Used Date Smoking Tobacco: Never Assessed Comments Unknown Sex and Gender Information Value Date Recorded Sex Assigned at Not on file Legal Sex Female 5:27 PM DEVIL TENDER Gender Identity Not on file Sexual Orientation Not on file documented as of this encounter Plan of Treatment Not on file documented as of this encounter Procedures Procedure Name Priority Date/Time Associated Diagnosis Comments GI - RESULT 12/19/2018 documented in this encounter Results * GI - RESULT (12/19/2018) Anatomical Region Laterality Modality Other us Provider Scanning Edited Result - Final documented in this encounter Visit Diagnoses Not on filedocumented in this encounter Care Teams Scanning Tech Relationship Specialty Start Date End Date Yogi Fuentes MD PCP - General Internal Medicine 07/18/20 documented as of this encounter
--- OUTSIDE RECORDS SUMMARY | 2024-12-04 08:19 | XMS_ITS | Encounter Summary ---
Author Organization [facility] Address [address] [place] [address] Care Team Providers Care City Supervisor Name Role Phone Mariposa Cabrales Primary Care Provider [phone] Encounter Details Date Type Department Care Team (Late st Contact Info) Description 04/22/2006 Outpatient [facility] Internal Medicine - [facility] [address] [address] [facility] [address] [place] [address] Jennifer Mattson MD Social History Tobacco Use Types Packs/Day Years Used Date Smoking Tobacco: Never Assessed Comments Unknown Sex and Gender Information Value Date Recorded Sex Assigned at Not on file Legal 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 Female 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 Gender Identity Not on file Sexual Orientation Not on file documented as of this encounter Last Filed Vital Signs Vital Sign Reading Time Taken Comments Blood Pressure 108/62 04/22/2006 2:00 PM CDT Pulse 80 04/22/2006 2:00 PM CDT Temperature 36.3 ??C (97.3 ??F) 04/22/2006 2:00 PM CD T Respiratory Rate - - Oxygen Saturation - - Inhaled Oxygen Concentration - - Weight 57.2 kg (126 lb) 04/22/2006 2:00 PM CDT Height - - Body Mass Index - - documented in this encounter Plan of Treatment Not on file documented as of this encounter Visit Diagnoses Not on filedocumented in this encounter Care Teams City Supervisor Relationship Specialty Start Date End Date Mariposa Cabrales PA PCP - General Physician Food Safety Officer 06/27/20 documented as of this encounter
--- OUTSIDE RECORDS SUMMARY | 2024-12-04 08:19 | XMS_ITS | Encounter Summary ---
Author Organization [facility] Address [address] [place] [address] Care Team Providers Care Spiritual Minister Name Role Phone Mariposa Cabrales Primary Care Provider [phone] Encounter Details Date Type Department Care Team (Late st Contact Info) Description 04/13/2007 Outpatient Historical [facility] Internal Medicine - 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
--- OUTSIDE RECORDS SUMMARY | 2024-12-04 08:19 | XMS_ITS | Clinical Summary ---
Author Organization [facility] Address [address] [place] [address] Care Team Providers Care Linux System Admin Name Role Phone Kenan Gallardo MD Primary Care Provider [phone] Source Comments [facility],non-owned Affiliates and Associated Physician Practices is amultiple site organization consisting of ambulatory clinics and hospital sitesin [place], [place], [place] and [place]. This disclosure is being madepursuant to the Care Everywhere program and may not contain all information available regarding this patient. Last updated 18.[facility] Allergies Active Allergy Reactions Criticality Noted Date Comments Mesalamine 11/22/2016 Infliximab 11/22/2016 Medications * Be aware that medications may not be up to date on this document. Alwaysverify current medications with the patient. Medication Sig Dispensed Refills Start Date End Date Status predniSONE (DELTASONE) 10 MG tablet prednisone 10 mg tablet Active dicyclomine (BENTYL) 20 MG tablet dicyclomine 20 mg tablet TK 1 T PO Q 6 H PRN Active Social History Tobacco Use Types Packs/Day Years [...] Mass Index 28.68 06/04/2020 12:27 PM CDT Plan of Treatment Health Maintenance Due Date Last Done Comments PAP SMEAR 1986 HIV SCREENING 2001 DTAP/TDAP/TD VACCINES (1 - Tdap) 2005 HEPATITIS B VACCINE (1 of 3 - 19+ 3-dose series) 2005 COVID-19 VACCINE (1 - 2023- season) 2024 INFLUENZA VACCINE (#1) 2024 9, 11/03/2015, 11/03/2014, Additional history exists DEPRESSION SCREENING 11/03/2024 ZOSTER VACCINE (1 of 2) 2036 HEPATITIS C SCREENING Completed 09/07/2013 HIB VACCINE Aged Out No longer eligi ble based on patient's age to complete this topic HPV VACCINE Aged Out No longer eligi ble based on patient's age to complete this topic MENINGOCOCCAL (Group B) VACCINE Aged Out No longer eligible based on patient's age to complete this topic MENINGOCOCCAL VACCINE Aged Out No ann-marie jude eligible based on patient's age to complete this topic PNEUMOCOCCAL VACCINE Aged Out No long er eligible based on patient's age to complete this topic Procedures Procedure Name Priority Date/Time Associated Diagnosis Comments HEPATITIS SCREEN ACUTE Routine 09/07/2013 1:45 PM GRAPHITE MILL OPERATOR from Last 3 Months or Most Recently Relevant to Health Maintenance Results * HEPATITIS SCREEN ACUTE (09/07/2013 1:45 PM GRAPHITE MILL OPERATOR) Hepatitis A Virus Antibody IgM NON-REACTI VE NON-REACT PIL[facility] Hepatitis B Virus Surface Antigen NON-REACTI VE NON-REACT PIL[facility] Hepatitis B Core Virus Antibody IgM NON-REACTI VE NON-REACT PILO [facility] Hepatitis C Antibody NON-REACTI VE NON-REACT PIL[facility] Signal/Cutoff 0.03 <1.00 [facility] Comment: Test Performed at: [facility] [id number] [place], [place] ??[address] AGUS CHAMBERSDO,MPH 09/07/2013 1:45 PM GRAPHITE MILL OPERATOR 09/07/2013 1:46 PM GRAPHITE MILL OPERATOR Laila Ramirez MD LAB - CHEM ISTRY ORDERABLES [facility]) from Last 3 Months or Most Recently Relevant to Health Maintenance Care Teams Linux System Admin Relationship Specialty Start Date End Date Kenan Gallardo MD [address] [place] [address] PCP - General 12/10/19
--- OUTSIDE RECORDS SUMMARY | 2024-12-04 08:19 | XMS_ITS | Encounter Summary ---
Author Organization [facility] Address [address] [place] [address] Care Team Providers Care Hotel Baggage Handler Name Role Phone Mariposa Cabrales Primary Care Provider [phone] Encounter Details Date Type Department Care Team (Late st Contact Info) Description 08/29/2004 Outpatient Historical [facility] Internal Medicine - [place] [address] [address] [facility] [address] [place] [address] Maddie Moise MD NO ADDRESS ON FILE Social History Tobacco Use Types Packs/Day Years Used Date Smoking Tobacco: Never Assessed Comments Unknown Sex and Gender Information Value Date Recorded Sex Assigned at Not on file Legal Sex Female 5:26 AM SHARED SERVICES AND OUTSOURCING 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
--- OUTSIDE RECORDS SUMMARY | 2024-12-04 08:19 | XMS_ITS | Encounter Summary ---
Author Organization [facility] Address [address] [place] [address] Care Team Providers Care Desktop Operator Name Role Phone Mariposa Cabrales Primary Care Provider [phone] Encounter Details Date Type Department Care Team (Late st Contact Info) Description 08/30/2004 Outpatient Historical [facility] Internal Medicine - [facility] [address] [address] [facility] [address] [place] [address] Maddie Moise MD NO ADDRESS ON FILE Social History Tobacco Use Types Packs/Day Years Used Date Smoking Tobacco: Never Assessed Comments Unknown Sex and Gender Information Value Date Recorded Sex Assigned at Not on file Legal Sex Female 5:26 AM RELIEF MASTER Gender Identity Not on file Sexual Orientation Not on file documented as of this encounter Plan of Treatment Not on file documented as of this encounter Visit Diagnoses Not on filedocumented in this encounter Care Teams Desktop Operator Relationship Specialty Start Date End Date Mariposa Cabrales PA PCP - General Physician Medical Technologist Blood Bank 06/27/20 documented as of this encounter
--- OUTSIDE RECORDS SUMMARY | 2024-12-04 08:19 | XMS_ITS | Encounter Summary ---
Author Organization [facility] Address [address] [place] [address] Care Team Providers Care Nurse Anesthetist Name Role Phone Mariposa Cabrales Primary Care Provider [phone] Encounter Details Date Type Department Care Team (Latest Contact Info) Description 09/02/2004 Inpatient Historical [facility] IN A BED Suze Waldrop MD NO ADDRESS ON FILE Vicky Langston MD [address] [place] [id number] INFECTIOUS MONONUCLEOSIS (Primary Dx) Social History Tobacco Use Types Packs/Day Years Used Date Smoking Tobacco: Never Assessed Comments Unknown Sex and Gender Information Value Date Recorded Sex Assigned at Not on file Legal 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
--- OUTSIDE RECORDS SUMMARY | 2024-12-04 08:19 | XMS_ITS | Clinical Summary ---
Author Organization [facility] Address [address] [facility] [place] [address] Phone Care Team Providers Care Manager Rental Name Role Phone Mariposa Cabrales Primary Care Provider [phone] Allergies Active Allergy Reactions Criticality Noted Date Comments Buspirone Nausea and Vomiting Low 07/05/2020 Codeine Nausea and Vomiting Low 06/28/2008 Infliximab Other (See Comments) Low 11/21/2015 Drug induced lupus Drug induced lupus Mesalamine Other (See Comments) Low 08/13/2013 LUPUS-LIKE SX LUPUS-LIKE SX Medications oxyCODONE-acet aminophen (PERCOCET) 5-325 mg tablet oxycodone-acetamin ophen 5 mg-325 mg tablet Active ondansetron (ZOFRAN) 4 mg Tablet ondansetron HCl 4 mg tablet Active omeprazole (PriLOSEC) 20 mg Capsule, Delayed Release(E.C.) 9 Active melatonin 10 mg Capsule 9 Active levonorgestreL (Mirena) 20 mcg/24 hours (5 yrs) 52 mg IUD Mirena 20 mcg/24 hours (5 yrs) 52 mg intrauterine device Active FLUoxetine (PROzac) 10 mg tablet 0 Active dicyclomine (BENTYL) 20 mg tablet TK 1 T PO Q 6 H PRN 0 Active Eliquis 5 mg tablet 0 Active ALPRAZolam (XANAX) 0.25 mg tablet alprazolam 0.25 mg tablet Active acetaminophen (TylenoL) 325 mg Capsule 0 Active tiZANidine (ZANAFLEX) 4 mg Tablet tizanidine 4 mg tablet Active apixaban (ELIQUIS) 5 mg tabletIndicati ons:MTHFR mutation,Splen ic vein thrombosis Take 1 Tablet (5 mg) by mouth 2 times daily. 60 Tablet 3 0 Active cholecalcifero l, Vitamin D3, 50 mcg (2,000 unit) Tablet Vitamin D3 50 mcg (2,000 unit) tablet 0 Active ferrous gluconate 240 mg (27 mg iron) Tablet ferrous gluconate 240 mg (27 mg iron) tablet 0 Active ondansetron (ZOFRAN ODT) 4 mg Tablet, Rapid Dissolve ondansetron 4 mg disintegrating tablet DIS 1 T ON THE TONGUE QD PRF NAUSEA 0 Active FLUoxetine (PROzac) 20 mg capsule TK 1 C PO QD 0 Active tiZANidine (ZANAFLEX) 4 mg Tablet TK 1 T PO Q 6 H PRN 0 Active ustekinumab (Stelara) 90 mg/mL Syringe Stelara 90 mg/mL subcutaneous syringe 0 Active Active Problems Problem Noted Date Diagnosed Date 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 Recurrent loss with current 08/16/2013 Resolved Problems Problem Noted Date Diagnosed Date Resolved Date GBS carrier 02/10/2014 11/25/2014 Overview (02/10/2014): + GBS last Drug-induced lupus erythematosus 09/22/2008 05/04/2013 Overview (09/22/2008): Dr. Hughes ( shawn vs Rizwanalda) Ulcerative colitis 06/28/2008 3 Overview (06/28/2008): Dr. Bess Ulcerative (chronic) proctitis 12/25/2007 05/04/2013 Hemorrhage of rectum and anus 11/17/2007 06/28/2008 Dyspepsia and other specifie d disorders of function of stomach 11/17/2007 05/04/2013 Abdominal pain, generalized 11/17/2007 06/28/2008 Overview (03/05/2008): Perioumbilical and epigastric Abdominal pain, right lower quadrant 04/28/2007 06/28/2008 Urinary tract infection, site not specified 04/13/2007 06/28/2008 Acute maxillary sinusitis 10/30/2006 Otalgia, unspecified 04/22/2006 008 Diarrhea 11/11/2005 06/28/2008 Other specified episodic mood disorder 11/23/2004 06/28/2008 Infectious mononucleosis 09/10/2004 Epistaxis 08/29/2004 06/28/2008 Insomnia, unspecified 03/29/20042007 Unspecified acute reaction to stress 03/29/2004 06/28/2008 Immunizations Immunization Administration Dates Next Due (ADACEL/BOOSTRIX)(10 YR UP) TDAP VACCINE, 0.5ML, IM 07/28/2014,04/01/2011 (RECOMBIVAX HB/ENGERIX-B)(11 YR UP) HEPATITIS B VACCINE 10 MCG/1 ML OR 20 MCG/1 ML ADOL OR ADULT 2 - 3 DOSE PF, IM 06/03/1997,01/01/1997,07/12/1996 (TDVAX)(7 YRS UP) TETANUS AN D DIPHTHERIA TOXOIDS, ADSORBED (2 LF OF TETANUS TOXOID AND 2 LF OF DIPHTHERIA TOXOID), 0.5ML (PF), IM 11/03/2001 Influenza Seasonal Unspecifi ed Formulation IM 08/03/2013 Influenza Vaccine Split 3+ Yrs PF IM 08/04/2014 Family History Medical History Relation Name Comments Healthy Brother Other Brother psoriasis Healthy Father Thyroid Disease Mother Breast Cancer Neg Hx Colon Cancer Neg Hx Ovarian Cancer Neg Hx Relation Name Status Comments Brother Alive Father Alive Mother Alive Social History Tobacco Use Types Packs/Day Years Used Date Smoking Tobacco: Never Smokeless Tobacco: Never Alcohol Use Standard Drinks/Week Comments Yes 0 (1 standard drink = 0.6 oz pure alcohol) OCCAS, BUT NOT WHEN , 5/MONTH Comments No Sex and Gender Information Value Date Recorded Sex Assigned at Not on file Legal Sex Female 5:26 AM SLIVER HANDLER Gender Identity Not on file Sexual Orientation Not on file Occupation Industry Job Start Date Job End Date Not on file Not on file Not on file Not on file Last Filed Vital Signs Vital Sign Reading Time Taken Comments Blood Pressure 107/69 10/19/2020 4:00 PM SLIVER HANDLER Pulse 89 10/19/2020 4:00 PM SLIVER HANDLER Temperature 36.6 ??C (97.9 ??F) 10/19/2020 4:00 PM CS T Respiratory Rate 14 12/11/2017 4:29 PM SLIVER HANDLER Oxygen Saturation 98% 10/19/2020 4:00 PM SLIVER HANDLER Inhaled Oxygen Concentration - - Weight 86.5 kg (190 lb 11.2 oz) 10/19/2020 4:00 PM SLIVER HANDLER Height 165.1 cm (5' 5 ) 10/19/2020 4:00 PM SLIVER HANDLER Body Mass Index 31.73 10/19/2020 4:00 PM SLIVER HANDLER Plan of Treatment Health Maintenance Due Date Last Done Comments CERVICAL CANCER SCREENING 12/29/20212018, 12/12/2017, 11/22/2016, Additional history exists INFLUENZA VACCINE (#1) 2024 9, 08/04/2014, 08/03/2013 DTAP/TDAP/TD VACCINES (4 - Td or Tdap) 07/28/2024 07/28/2014, 04/01/2011, 11/03/2001 HEPATITIS B VACCINES Completed 06/03/1997, 01/01/1997, 07/12/1996 PNEUMOCOCCAL VACCINE 0-64 YEARS Aged Out 11/07/2020, 12/10/2019, 12/06/2014 No longer eligible based on patient's age to complete this topic HPV VACCINES Aged Out No longer eligi ble based on patient's age to complete this topic Medical Devices Implanted Type Area Employment Training Specialist Device Identifier Shelf Expiration Date Model / Serial / Lot Mirena Procedures Procedure Name Priority Date/Time Associated Diagnosis Comments CERV/VAG CYTO SCREEN PAP RLFX HPV Routine 12/29/2018 5:21 PM SLIVER HANDLER Encounter for routine gynecological examination with Papanicolaou smear of cervix from Last 3 Months or Most Recently Relevant to Health Maintenance Results * CERV/VAG CYTO SCREEN PAP RLFX HPV (12/29/2018 5:21 PM SLIVER HANDLER) CLINICAL INFORMATION Information not provided 01/05/2019 4:17 PM SLIVER HANDLER [facility] LAST MENSTRUAL PERIOD Information not provided 01/05/2019 4:17 PM SLIVER HANDLER [facility] PREV PAP: Information not provided 01/05/2019 4:17 PM SLIVER HANDLER [facility] PREV BX: Information not provided 01/05/2019 4:17 PM SLIVER HANDLER [facility] SOURCE Endocervix 01/05/2019 4:17 PM SLIVER HANDLER [facility] ADEQUACY: SEE COMMENT 01/05/2019 4:17 PM SLIVER HANDLER [facility] Comment: Satisfactory for evaluation. Endocervical/transformation zone component present. PAP INTERP Negative for intraepithelial lesion or malignancy. 01/05/2019 4:17 PM SLIVER HANDLER [facility] COMMENT This Pap test has been evaluated with computer assisted technology. 01/05/2019 4:17 PM SLIVER HANDLER [facility] GARBAGE TRUCK HELPER: SEE COMMENT 2018 4:17 PM SLIVER HANDLER [facility] Comment: LVA, CT(ASCP) CT screening location: [place] [address] [place] [address] EXPLANATORY NOTE SEE COMMENT 019 4:17 PM SLIVER HANDLER [facility] Comment: EXPLANATORY NOTE: The Pap is a screening test for cervical cancer. It is not a diagnostic test and is subject to false negative and false positive results. It is most reliable when a satisfactory sample, regularly obtained, is submitted with relevant clinical findings and history, and when the Pap result is evaluated along with historic and current clinical information. Genital SWAB OF ENDOCERVIX / Unknown Collection / Unknown 12/29/2018 5:21 PM SLIVER HANDLER 12/30/2018 3:19 PM SLIVER HANDLER Narrative [facility] - 01/05/2019 4:17 PM SLIVER HANDLER Performing Organization Information: ?Site ID: [id number] ?Name: [facility] ?Address: [facility] [place] [address] ?Director: Dwaine Simmons Prudencio Castro DO PATHOLOGY/CYTOLOGY ORDERABLES F inal Result [facility] [phone] from Last 3 Months or Most Recently Relevant to Health Maintenance Advance Directives For more information, please contact: [phone] * Full Code (Latest Code Status on File) Date Activated Date Inactivated Comments 02/03/2015 9:40 AM 02/03/2015 2:42 PM * Full Code Date Activated Date Inactivated Comments 02/03/2015 7:30 AM 02/03/2015 9:40 AM * Full Code Date Activated Date Inactivated Comments 08/19/2014 8:11 PM 08/21/2014 12:35 PM * Full Code Date Activated Date Inactivated Comments 08/19/2014 7:10 AM 08/19/2014 8:10 PM * Full Code Date Activated Date Inactivated Comments 05/18/2014 4:49 PM 05/18/2014 8:19 PM Care Teams Manager Rental Relationship Specialty Start Date End Date Mariposa Cabrales PA PCP - General Physician Nnps 06/27/20
--- OUTSIDE RECORDS SUMMARY | 2024-12-04 08:19 | XMS_ITS | Encounter Summary ---
Author Organization [facility] Address [address] [place] [address] Care Team Providers Care Tankage Grinder Name Role Phone Mariposa Cabrales Primary Care Provider Encounter Details Date Type Department Care Team (Late st Contact Info) Description 09/02/2004 Outpatient Historical [facility] Adult Hospitalists [address] [id number] Vicky Langston MD [address] [facility] [address] [facility] [place] [address] Social History Tobacco Use Types Packs/Day Years Used Date Smoking Tobacco: Never Assessed Comments Unknown Sex and Gender Information Value Date Recorded Sex Assigned at Not on file Legal Sex Female 5:26 AM EDUCATIONAL AIDE Gender Identity Not on file Sexual Orientation Not on file documented as of this encounter Plan of Treatment Not on file documented as of this encounter Visit Diagnoses Not on filedocumented in this encounter Care Teams Tankage Grinder Relationship Specialty Start Date End Date Mariposa Cabrales PA PCP - General Physician Trolley Worker 06/27/20 documented as of this encounter
--- OUTSIDE RECORDS SUMMARY | 2024-12-04 08:19 | XMS_ITS | Encounter Summary ---
Author Organization [facility] Address [address] [place] [address] Care Team Providers Care Loose Hand Packer Name Role Phone Mariposa Cabrales Primary Care Provider [phone] Encounter Details Date Type Department Care Team (Late st Contact Info) Description 11/17/2007 Orders Only [facility] Internal Medicine - [facility] [address] [address] [facility] [address] [place] [address] Maddie Moise MD NO ADDRESS ON FILE Social History Tobacco Use Types Packs/Day Years Used Date Smoking Tobacco: Never Assessed Comments Unknown Sex and Gender Information Value Date Recorded Sex Assigned at Not on file Legal Sex Female 5:26 AM DB2 DBA Gender Identity Not on file Sexual Orientation Not on file documented as of this encounter Plan of Treatment Not on file documented as of this encounter Visit Diagnoses Not on filedocumented in this encounter Care Teams Loose Hand Packer Relationship Specialty Start Date End Date Mariposa Cabrales PA PCP - General Physician Cotton Ball Machine Tender 06/27/20 documented as of this encounter
--- OUTSIDE RECORDS SUMMARY | 2024-12-04 08:19 | XMS_ITS | Encounter Summary ---
Author Organization [facility] Address [address] [place] [address] Care Team Providers Care Supervisor Grounds Name Role Phone Mariposa Cabrales Primary Care Provider [phone] Encounter Details Date Type Department Care Team (Late st Contact Info) Description 04/13/2007 Outpatient Historical [facility] Internal Medicine - [facility] [address] [address] [facility] [address] [place] [address] Maddie Moise MD NO ADDRESS ON FILE Social History Tobacco Use Types Packs/Day Years Used Date Smoking Tobacco: Never Assessed Comments Unknown Sex and Gender Information Value Date Recorded Sex Assigned at Not on file Legal Sex Female 5:26 AM NEON MOLDER Gender Identity Not on file Sexual Orientation Not on file documented as of this encounter Last Filed Vital Signs Vital Sign Reading Time Taken Comments Blood Pressure 104/72 04/13/2007 2:45 PM CDT Pulse 68 04/13/2007 2:45 PM CDT Temperature 36.3 ??C (97.3 ??F) 04/13/2007 2:45 PM CD T Respiratory Rate - - Oxygen Saturation - - Inhaled Oxygen Concentration - - Weight 56.2 kg (124 lb) 04/13/2007 2:45 PM CDT Height - - Body Mass Index - - documented in this encounter Plan of Treatment Not on file documented as of this encounter Visit Diagnoses Not on filedocumented in this encounter Care Teams Supervisor Grounds Relationship Specialty Start Date End Date Mariposa Cabrales PA PCP - General Physician Smearer 06/27/20 documented as of this encounter
--- OUTSIDE RECORDS SUMMARY | 2024-12-04 08:19 | XMS_ITS | Referral Summary ---
Author Organization [facility] Address [address] [place] [address] Care Team Providers Care Supervisor Statement Clerks Name Role Phone Kenan Gallardo MD Primary Care Provider [phone] Source Comments [facility],non-owned Affiliates and Associated Physician Practices is amultiple site organization consisting of ambulatory clinics and hospital sitesin [place], [place], [place] and [place]. This disclosure is being madepursuant to the Care Everywhere program and may not contain all information available regarding this patient. Last updated 18.[facility] Allergies Active Allergy Reactions Criticality Noted Date [...] 06/04/2020 12:27 PM CDT Plan of Treatment Not on file Procedures Procedure Name Priority Date/Time Associated Diagnosis Comments HEPATITIS SCREEN ACUTE Routine 09/07/2013 1:45 PM DAIRY DEPARTMENT MANAGER from Last 3 Months or Most Recently Relevant to Health Maintenance Results * HEPATITIS SCREEN ACUTE (09/07/2013 1:45 PM DAIRY DEPARTMENT MANAGER) Hepatitis A Virus Antibody IgM NON-REACTI VE NON-REACT [facility] Hepatitis B Virus Surface Antigen NON-REACTI VE NON-REACT [facility]) Hepatitis B Core Virus Antibody IgM NON-REACTI VE NON-REACT [facility]) Hepatitis C Antibody NON-REACTI VE NON-REACT [facility]) Signal/Cutoff 0.03 <1.00 [facility] Comment: Test Performed at: [facility] [address] [place], [place] ??[address] AGUS CHAMBERS DO,MPH 09/07/2013 1:45 PM DAIRY DEPARTMENT MANAGER 09/07/2013 1:46 PM DAIRY DEPARTMENT MANAGER Laila Ramirez MD LAB - CHEM ISTRY ORDERABLES [facility]) from Last 3 Months or Most Recently Relevant to Health Maintenance Care Teams Supervisor Statement Clerks Relationship Specialty Start Date End Date Kenan Gallardo MD [address] [place], [place] [id number] PCP - General 12/10/19
--- OUTSIDE RECORDS SUMMARY | 2024-12-04 08:19 | XMS_ITS | Encounter Summary ---
Author Organization [facility] Address [address] [place] [address] Care Team Providers Care Shuttlecock Feather Trimmer Name Role Phone Mariposa Cabrales Primary Care Provider Encounter Details Date Type Department Care Team (Late st Contact Info) Description 04/28/2007 Outpatient Historical [facility] Internal Medicine - [facility] [address] [address] [facility] [address] [place] [address] Maddie Moise MD NO ADDRESS ON FILE Abdominal Pain, Right Lower Quadrant (Primary Dx) Social History Tobacco Use Types Packs/Day Years Used Date Smoking Tobacco: Never Assessed Comments Unknown Sex and Gender Information Value Date Recorded Sex Assigned at Not on file Legal Sex Female 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 Gender Identity Not on file Sexual Orientation Not on file documented as of this encounter Plan of Treatment Not on file documented as of this encounter Procedures Procedure Name Priority Date/Time Associated Diagnosis Comments CBC WITH DIFFERENTIAL Routine 04/28/2007 12:02 PM CDT CBC WITH DIFFERENTIAL Routine 04/28/2007 12:02 PM CDT C-REACTIVE PROTEIN Routine 04/28/2007 12 :02 PM CDT documented in this encounter Results * CBC WITH DIFFERENTIAL (04/28/2007 12:02 PM CDT) NEUTROPHILS 64 45 - 70 % INTERFAC E SYSTEM LYMPHOCYTES 29 16 - 45 % INTERFAC E SYSTEM MONOCYTES 5 3 - 13 % INTERFACE SYSTEM EOSINOPHILS 3 0 - 7 % INTERFAC E SYSTEM BASOPHILS 0 0 - 2 % INTERFACE SYSTEM NEUTROPHIL ABSOLUTE 2.97 1.90 - 7.00 K/uL INTERFACE SYSTEM LYMPHOCYTE ABSOLUTE 1.33 0.70 - 4.50 K/uL INTERFACE SYSTEM MONOCYTE ABSOLUTE 0.22 0.10 - 1.30 K/uL INTERFACE SYSTEM EOSINOPHIL ABSOLUTE 0.13 0.00 - 0.70 K/uL INTERFACE SYSTEM BASOPHILS ABSOLUTE 0.02 0.00 - 0.20 K/uL INTERFACE SYSTEM 04/28/2007 12:0 2 PM CDT us Maddie Moise MD HEMATOLOGY ORDERABLES Edite d Performing Organization Address [facility] Phone Number INTERFACE SYSTEM Refer to clinic/hospital department * CBC WITH DIFFERENTIAL (04/28/2007 12:02 PM CDT) WBC 4.7 4.0 - 9.8 K/uL INTERFACE SYSTEM RBC 4.36 3.90 - 4.90 M/uL INTERFACE SYSTEM HEMOGLOBIN 13.0 11.8 - 14.8 g/dL INTERFACE SYSTEM HEMATOCRIT 37.9 35.5 - 44.0 % INTERFACE SYSTEM MCV 86.9 82.0 - 99.0 fL INTERFACE SYSTEM MCH 29.8 27.2 - 32.6 pg INTERFACE SYSTEM MCHC 34.3 31.5 - 35.5 % INTERFACE SYSTEM RDW 12.7 11.5 - 14.5 % INTERFACE SYSTEM RDW-STDEV 40.5 37.1 - 48.7 fL INTERFACE SYSTEM PLATELETS 214 140 - 350 K/uL INTERFACE SYSTEM MPV 11.9 9.3 - 12.4 fL INTERFACE SYSTEM 04/28/2007 12:0 2 PM CDT us Maddie Moise MD HEMATOLOGY ORDERABLES Edite d Performing Organization Address [facility] Phone Number INTERFACE SYSTEM Refer to clinic/hospital department * C-REACTIVE PROTEIN (04/28/2007 12:02 PM CDT) CRP 0.2 0.0 - 0.8 mg/dL INTERFACE SYSTEM 04/28/2007 12:0 2 PM CDT us Maddie Moise MD CHEMISTRY ORDERABLES Edited INTERFACE SYSTEM Refer to clinic/hospital department documented in this encounter Visit Diagnoses Diagnosis Abdominal pain, right lower quadrant- Primary documented in this encounter Care Teams Shuttlecock Feather Trimmer Relationship Specialty Start Date End Date Mariposa Cabrales PA PCP - General Physician Sanitation Truck Cleaner 06/27/20 documented as of this encounter
--- OUTSIDE RECORDS SUMMARY | 2024-12-04 08:19 | XMS_ITS | Encounter Summary ---
Author Organization [facility] Address [address] [place] [address] Care Team Providers Care Armature Winder Repair Name Role Phone Mariposa Cabrales Primary Care Provider [phone] Encounter Details Date Type Department Care Team (Late st Contact Info) Description 11/17/2007 Outpatient Historical [facility] Internal Medicine - [facility] [address] [address] [facility] [address] [place] [address] Alise Bolton, ANP [address] [facility] [address] [place] [address] Social History Tobacco Use Types Packs/Day Years Used Date Smoking Tobacco: Never Assessed Comments Unknown Sex and Gender Information Value Date Recorded Sex Assigned at Not on file Legal Sex Female 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 Gender Identity Not on file Sexual Orientation Not on file documented as of this encounter Last Filed Vital Signs Vital Sign Reading Time Taken Comments Blood Pressure 110/84 11/17/2007 11:30 AM SENIOR SOLUTIONS CONSULTANT Pulse 74 11/17/2007 11:30 AM SENIOR SOLUTIONS CONSULTANT Temperature 35.9 ??C (96.6 ??F) 11/17/2007 11:[address] Respiratory Rate - - Oxygen Saturation - - Inhaled Oxygen Concentration - - Weight 59.4 kg (131 lb) 11/17/2007 11:30 AM SENIOR SOLUTIONS CONSULTANT Height - - Body Mass Index - - documented in this encounter Plan of Treatment Not on file documented as of this encounter Visit Diagnoses Not on filedocumented in this encounter Care Teams Armature Winder Repair Relationship Specialty Start Date End Date Mariposa Cabrales PA PCP - General Physician Meat Counter Clerk 06/27/20 documented as of this encounter
--- OUTSIDE RECORDS SUMMARY | 2024-12-04 08:19 | XMS_ITS | Encounter Summary ---
Author Organization [facility] Address [address] [place] [address] Care Team Providers Care Automotive Tire Testing Supervisor Name Role Phone Mariposa Cabrales Primary Care Provider [phone] Encounter Details Date Type Department Care Team (Late st Contact Info) Description 11/17/2007 Outpatient Historical [facility] Internal Medicine - [facility] [address] [address] [facility] [address] [place] [address] Maddie Moise MD NO ADDRESS ON FILE Hemorrhage of Rectum and Anus Social History Tobacco Use Types Packs/Day Years Used Date Smoking Tobacco: Never Assessed Comments Unknown Sex and Gender Information Value Date Recorded Sex Assigned at Not on file Legal Sex Female 5:26 AM SCRAP IRON LOADER Gender Identity Not on file Sexual Orientation Not on file documented as of this encounter Plan of Treatment Not on file documented as of this encounter Procedures Procedure Name Priority Date/Time Associated Diagnosis Comments CBC WITH DIFFERENTIAL Routine 11/17/2007 12:25 PM SCRAP IRON LOADER CBC WITH DIFFERENTIAL Routine 11/17/2007 12:25 PM SCRAP IRON LOADER C-REACTIVE PROTEIN Routine 11/17/2007 12 :25 PM SCRAP IRON LOADER BASIC METABOLIC PANEL Routine 11/17/2007 12:25 PM SCRAP IRON LOADER documented in this encounter Results * CBC WITH DIFFERENTIAL (11/17/2007 12:25 PM SCRAP IRON LOADER) NEUTROPHILS 59 45 - 70 % INTERFAC E SYSTEM LYMPHOCYTES 31 16 - 45 % INTERFAC E SYSTEM MONOCYTES 6 3 - 13 % INTERFACE SYSTEM EOSINOPHILS 4 0 - 7 % INTERFAC E SYSTEM BASOPHILS 1 0 - 2 % INTERFACE SYSTEM NEUTROPHIL ABSOLUTE 2.67 1.90 - 7.00 K/uL INTERFACE SYSTEM LYMPHOCYTE ABSOLUTE 1.41 0.70 - 4.50 K/uL INTERFACE SYSTEM MONOCYTE ABSOLUTE 0.25 0.10 - 1.30 K/uL INTERFACE SYSTEM EOSINOPHIL ABSOLUTE 0.18 0.00 - 0.70 K/uL INTERFACE SYSTEM BASOPHILS ABSOLUTE 0.03 0.00 - 0.20 K/uL INTERFACE SYSTEM 11/17/2007 12:2 5 PM SCRAP IRON LOADER us Maddie Moise MD HEMATOLOGY ORDERABLES Edite d Performing Organization Address [facility] de Phone Number INTERFACE SYSTEM Refer to clinic/hospital department * CBC WITH DIFFERENTIAL (11/17/2007 12:25 PM SCRAP IRON LOADER) WBC 4.5 4.0 - 9.8 K/uL INTERFACE SYSTEM RBC 4.50 3.90 - 4.90 M/uL INTERFACE SYSTEM HEMOGLOBIN 12.8 11.8 - 14.8 g/dL INTERFACE SYSTEM HEMATOCRIT 39.4 35.5 - 44.0 % INTERFACE SYSTEM MCV 87.6 82.0 - 99.0 fL INTERFACE SYSTEM MCH 28.4 27.2 - 32.6 pg INTERFACE SYSTEM MCHC 32.5 31.5 - 35.5 % INTERFACE SYSTEM RDW 13.1 11.5 - 14.5 % INTERFACE SYSTEM RDW-STDEV 41.9 37.1 - 48.7 fL INTERFACE SYSTEM PLATELETS 247 140 - 350 K/uL INTERFACE SYSTEM MPV 11.6 9.3 - 12.4 fL INTERFACE SYSTEM 11/17/2007 12:2 5 PM SCRAP IRON LOADER us Maddie Moise MD HEMATOLOGY ORDERABLES Edite d Performing Organization Address [facility] Phone Number INTERFACE SYSTEM Refer to clinic/hospital department * C-REACTIVE PROTEIN (11/17/2007 12:25 PM SCRAP IRON LOADER) CRP 0.2 0.0 - 0.8 mg/dL INTERFACE SYSTEM 11/17/2007 12:2 5 PM SCRAP IRON LOADER Maddie Moise MD CHEMISTRY ORDERABLES Edited Performing Organization Address [facility] Co de Phone Number INTERFACE SYSTEM Refer to clinic/hospital department * BASIC METABOLIC PANEL (11/17/2007 12:25 PM SCRAP IRON LOADER) GLUCOSE 75 65 - 99 mg/dL INTERFACE SYSTEM CREATININE 0.65 0.51 - 0.95 mg/dL INTERFACE SYSTEM CALCIUM 8.9 8.4 - 10.2 mg/dL INTERFACE SYSTEM BUN 10 6 - 20 mg/dL INTERFACE SYSTEM SODIUM 138 135 - 145 mmol/L INTERFACE SYSTEM POTASSIUM 3.7 3.5 - 4.9 mmol/L INTERFACE SYSTEM CHLORIDE 103 96 - 108 mmol/L INTERFACE SYSTEM CO2 24 22 - 30 mmol/L INTERFACE SYSTEM GFR, >60 >=60 mL/min/1.7 sq meter INTERFACE SYSTEM GFR >60 >=60 mL/min/1.7 sq meter INTERFACE SYSTEM Comment: Estimated GFR rate interpretative information for both Americans and non- Americans is available on the [facility] Intranet at: [email or web address] Select: Lab Policies and Procedures Select: Reference Ranges - GFR 11/17/2007 12:2 5 PM SCRAP IRON LOADER Maddie Moise MD CHEMISTRY ORDERABLES Edited Performing Organization Address [facility] Phone Number INTERFACE SYSTEM Refer to clinic/hospital department documented in this encounter Visit Diagnoses Diagnosis Hemorrhage of rectum and anus documented in this encounter Care Teams Automotive Tire Testing Supervisor Relationship Specialty Start Date End Date Mariposa Cabrales PA PCP - General Physician Account Support Manager 06/27/20 documented as of this encounter
--- OUTSIDE RECORDS SUMMARY | 2024-12-04 08:19 | XMS_ITS | Encounter Summary ---
Author Organization [facility] Address 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
--- OUTSIDE RECORDS SUMMARY | 2024-12-04 08:19 | XMS_ITS | Encounter Summary ---
Author Organization [facility] Address [address] [place] [address] Care Team Providers Care Real Estate Associate Name Role Phone Mariposa Cabrales Primary Care Provider [phone] Encounter Details Date Type Department Care Team (Late st Contact Info) Description 10/30/2006 Outpatient [facility] Internal Medicine - [facility] [address] [address] [facility] [address] [place] [address] Maddie Moise MD NO ADDRESS ON FILE Social History Tobacco Use Types Packs/Day Years Used Date Smoking Tobacco: Never Assessed Comments Unknown Sex and Gender Information Value Date Recorded Sex Assigned at Not on file Legal Sex Female 5:26 AM HOME HOSPICE RN Gender Identity Not on file Sexual Orientation Not on file documented as of this encounter Last Filed Vital Signs Vital Sign Reading Time Taken Comments Blood Pressure 114/62 10/30/2006 2:10 PM HOME HOSPICE RN Pulse 80 10/30/2006 2:10 PM HOME HOSPICE RN Temperature 36.3 ??C (97.3 ??F) 10/30/2006 2:10 PM CS T Respiratory Rate - - Oxygen Saturation - - Inhaled Oxygen Concentration - - Weight 56.7 kg (125 lb) 10/30/2006 2:10 PM HOME HOSPICE RN Height - - Body Mass Index - - documented in this encounter Plan of Treatment Not on file documented as of this encounter Visit Diagnoses Not on filedocumented in this encounter Care Teams Real Estate Associate Relationship Specialty Start Date End Date Mariposa Cabrales PA PCP - General Physician Data Warehouse Specialist 06/27/20 documented as of this encounter
--- OUTSIDE RECORDS SUMMARY | 2024-12-04 08:20 | XMS_ITS | Encounter Summary ---
Author Organization [facility] Address [address] [place] [address] Care Team Providers Care Furnace Unloader Name Role Phone Mariposa Cabrales Primary Care Provider [phone] Encounter Details Date Type Department Care Team (Late st Contact Info) Description 09/03/2004 Outpatient Historical [facility] [address] [phone] Suze Waldrop MD NO ADDRESS ON FILE Social History Tobacco Use Types Packs/Day Years Used Date Smoking Tobacco: Never Assessed Comments Unknown Sex and Gender Information Value Date Recorded Sex Assigned at Not on file Legal Sex Female 5:26 AM DATA OPERATIONS MANAGER Gender Identity Not on file Sexual Orientation Not on file documented as of this encounter Plan of Treatment Not on file documented as of this encounter Visit Diagnoses Not on filedocumented in this encounter Care Teams Furnace Unloader Relationship Specialty Start Date End Date Mariposa Cabrales PA PCP - General Physician Tenterer 06/27/20 documented as of this encounter
--- OUTSIDE RECORDS SUMMARY | 2024-12-04 08:20 | XMS_ITS | Encounter Summary ---
Author Organization [facility] Address [address] [place] [address] Care Team Providers Care Dimmer Board Operator Name Role Phone Mariposa Cabrales Primary Care Provider [phone] Encounter Details Date Type Department Care Team (Late st Contact Info) Description 09/10/2004 Outpatient Historical [facility] Internal Medicine - [facility] [address] [address] [facility] [address] [place] [address] Maddie Moise MD NO ADDRESS ON FILE Social History Tobacco Use Types Packs/Day Years Used Date Smoking Tobacco: Never Assessed Comments Unknown Sex and Gender Information Value Date Recorded Sex Assigned at Not on file Legal Sex Female 5: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
--- OUTSIDE RECORDS SUMMARY | 2024-12-04 08:20 | XMS_ITS | Encounter Summary ---
Author Organization [facility] Address [address] [place] [address] Care Team Providers Care Fuel Cell Repairer Name Role Phone Mariposa Cabrales Primary Care Provider [phone] Encounter Details Date Type Department Care Team (Late st Contact Info) Description 11/23/2004 Outpatient Historical [facility] Internal Medicine - [facility] [address] [address] [facility] [address] [place] [address] Maddie Moise MD NO ADDRESS ON FILE Social History Tobacco Use Types Packs/Day Years Used Date Smoking Tobacco: Never Assessed Comments Unknown Sex and Gender Information Value Date Recorded Sex Assigned at Not on file Legal Sex Female 5:26 AM CAR JOCKEY Gender Identity Not on file Sexual Orientation Not on file documented as of this encounter Plan of Treatment Not on file documented as of this encounter Visit Diagnoses Not on filedocumented in this encounter Care Teams Fuel Cell Repairer Relationship Specialty Start Date End Date Mariposa Cabrales PA PCP - General Physician Complaint Operator 06/27/20 documented as of this encounter
--- OUTSIDE RECORDS SUMMARY | 2024-12-04 08:21 | XMS_ITS | Encounter Summary ---
Author Organization [facility] Address [address] [place] [address] Care Team Providers Care Water Softener Servicer And Installer Name Role Phone Mariposa Cabrales Primary Care Provider [phone] Encounter Details Date Type Department Care Team (Late st Contact Info) Description 11/11/2005 Outpatient Historical [facility] Internal Medicine - [facility] [address] [address] [facility] [address] [place] [address] Maddie Moise MD NO ADDRESS ON FILE Social History Tobacco Use Types Packs/Day Years Used Date Smoking Tobacco: Never Assessed Comments Unknown Sex and Gender Information Value Date Recorded Sex Assigned at Not on file Legal Sex Female 5:26 AM MANUFACTURING MANAGER Gender Identity Not on file Sexual Orientation Not on file documented as of this encounter Last Filed Vital Signs Vital Sign Reading Time Taken Comments Blood Pressure 120/60 11/11/2005 10:30 AM MANUFACTURING MANAGER Pulse 64 11/11/2005 10:30 AM MANUFACTURING MANAGER Temperature 37 ??C (98.6 ??F) 11/11/2005 10:30 AM MANUFACTURING MANAGER Respiratory Rate - - Oxygen Saturation - - Inhaled Oxygen Concentration - - Weight 57.6 kg (127 lb) 11/11/2005 10:30 AM MANUFACTURING MANAGER Height - - Body Mass Index - - documented in this encounter Plan of Treatment Not on file documented as of this encounter Visit Diagnoses Not on filedocumented in this encounter Care Teams Water Softener Servicer And Installer Relationship Specialty Start Date End Date Mariposa Cabrales PA PCP - General Physician Freight Manager 06/27/20 documented as of this encounter
--- OUTSIDE RECORDS SUMMARY | 2024-12-04 08:21 | XMS_ITS | Encounter Summary ---
Author Organization [facility] Address [address] [place] [address] Care Team Providers Care Assistant Shift Supervisor Name Role Phone Mariposa Cabrales Primary Care Provider [phone] Encounter Details Date Type Department Care Team (Late st Contact Info) Description 01/13/2006 Outpatient Historical [facility] Internal Medicine - [facility] [address] [id number] [facility] [address] [place] [address] Maddie Moise MD NO ADDRESS ON FILE Social History Tobacco Use Types Packs/Day Years Used Date Smoking Tobacco: Never Assessed Comments Unknown Sex and Gender Information Value Date Recorded Sex Assigned at Not on file Legal Sex Female 5:26 AM BAT PERSON Gender Identity Not on file Sexual Orientation Not on file documented as of this encounter Last Filed Vital Signs Vital Sign Reading Time Taken Comments Blood Pressure 110/64 01/13/2006 10:10 AM BAT PERSON Pulse 76 01/13/2006 10:10 AM BAT PERSON Temperature 36.6 ??C (97.8 ??F) 01/13/2006 10:[address] Respiratory Rate - - Oxygen Saturation - - Inhaled Oxygen Concentration - - Weight 57.6 kg (127 lb) 01/13/2006 10:10 AM BAT PERSON Height - - Body Mass Index - - documented in this encounter Plan of Treatment Not on file documented as of this encounter Visit Diagnoses Not on filedocumented in this encounter Care Teams Assistant Shift Supervisor Relationship Specialty Start Date End Date Mariposa Cabrales PA PCP - General Physician Rivet Tapping Machine Operator 06/27/20 documented as of this encounter
--- OUTSIDE RECORDS SUMMARY | 2024-12-04 08:21 | XMS_ITS | Encounter Summary ---
Author Organization [facility] Address [address] [place] [address] Care Team Providers Care Anchor Operator Name Role Phone Mariposa Cabrales Primary Care Provider [phone] Encounter Details Date Type Department Care Team (Late st Contact Info) Description 12/12/2004 Outpatient [facility] - [facility] [address] [id number] [facility] [address] [place] [address] Maddie Moise MD NO ADDRESS ON FILE Social History Tobacco Use Types Packs/Day Years Used Date Smoking Tobacco: Never Assessed Comments Unknown Sex and Gender Information Value Date Recorded Sex Assigned at Not on file Legal Sex Female 5:26 AM SUPERINTENDENT OIL FIELD DRILLING Gender Identity Not on file Sexual Orientation Not on file documented as of this encounter Plan of Treatment Not on file documented as of this encounter Visit Diagnoses Not on filedocumented in this encounter Care Teams Anchor Operator Relationship Specialty Start Date End Date Mariposa Cabrales PA PCP - General Physician Crew Scheduler 06/27/20 documented as of this encounter
--- OUTSIDE RECORDS SUMMARY | 2024-12-04 08:21 | XMS_ITS | Encounter Summary ---
Author Organization [facility] Address [address] [place] [address] Care Team Providers Care Stapler Machine Name Role Phone Mariposa Cabrales Primary Care Provider [phone] Encounter Details Date Type Department Care Team (Late st Contact Info) Description 12/19/2005 Outpatient Historical [facility] Ramandeep Bess MD [address] [place] [address] RECTAL & ANAL HEMORRHAGE (Primary Dx) Social History Tobacco Use Types Packs/Day Years Used Date Smoking Tobacco: Never Assessed Comments Unknown Sex and Gender Information Value Date Recorded Sex Assigned at Not on file Legal Sex Female 5:26 AM AIRPORT SKILLED MAINTENANCE SUPERVISOR Gender Identity Not on file Sexual Orientation Not on file documented as of this encounter Plan of Treatment Not on file documented as of this encounter Visit Diagnoses Diagnosis Hemorrhage of rectum and anus- Primary documented in this encounter Care Teams Stapler Machine Relationship Specialty Start Date End Date Mariposa Cabrales PA PCP - General Physician Director Recreation 06/27/20 documented as of this encounter
--- OUTSIDE RECORDS SUMMARY | 2024-12-04 08:21 | XMS_ITS | Encounter Summary ---
Author Organization [facility] Address [address] [place] [address] Care Team Providers Care Lithograph Designer Name Role Phone Mariposa Cabrales Primary Care Provider [phone] Encounter Details Date Type Department Care Team (Late st Contact Info) Description 05/21/2005 Outpatient Historical [facility] Internal Medicine - [facility] [address] [address] [facility] [address] [place] [address] Maddie Moise MD NO ADDRESS ON FILE Social History Tobacco Use Types Packs/Day Years Used Date Smoking Tobacco: Never Assessed Comments Unknown Sex and Gender Information Value Date Recorded Sex Assigned at Not on file Legal Sex Female 5:26 AM MILIEU COUNSELOR Gender Identity Not on file Sexual Orientation Not on file documented as of this encounter Last Filed Vital Signs Vital Sign Reading Time Taken Comments Blood Pressure 108/80 05/21/2005 2:10 PM CDT Pulse 72 05/21/2005 2:10 PM CDT Temperature 36.7 ??C (98 ??F) 05/21/2005 2:10 PM CDT Respiratory Rate - - Oxygen Saturation - - Inhaled Oxygen Concentration - - Weight 56.7 kg (125 lb) 05/21/2005 2:10 PM CDT Height - - Body Mass Index - - documented in this encounter Plan of Treatment Not on file documented as of this encounter Visit Diagnoses Not on filedocumented in this encounter Care Teams Lithograph Designer Relationship Specialty Start Date End Date Mariposa Cabrales PA PCP - General Physician Circuit Breaker Supervisor 06/27/20 documented as of this encounter
[2024-12-04 09:21] LABS: Cholesterol 194 mg/dL (0-200); HDL Direct 53 mg/dL; Triglycerides 95 mg/dL (<150)
[2024-12-04 09:32] LABS: LDL Cholesterol Direct 130 mg/dL
[2024-12-04 09:42] LABS: Total Triiodothyronine (T3) 1.22 NG/ML (0.97-1.69)
[2024-12-04 09:50] LABS: Free T4 Free Thyroxine 0.93 ng/dL (0.78-2.19); Vitamin D 25 Hydroxy 49.3 ng/mL
== END 2024-12-04 08:13 | disposition home or self-care (01) ==
PROVIDERS: PCP Nurse Practitioner; Referring Provider Nurse Practitioner
DX: E55.9 Vitamin D deficiency, unspecified (principal); Z13.220 Encounter for screening for lipoid disorders; R53.83 Other fatigue; K51.20 Ulcerative (chronic) proctitis without complications
CPT/HCPCS: 36415; 80061; 82306; 84439; 84443; 84480

== ENCOUNTER 2025-04-04 13:36 | Outpatient (CLI) | payer OTHER, SELFPAY ==
--- NOTE | ~2025-04-04 | CT_ITS ---
EXAMINATION: CT pelvis w con DATE: 04/04/2025 14:05 INDICATION: Pelvic pain TECHNIQUE: Computed tomography (CT) of the pelvis was performed with 100 cc Omnipaque 350 intravenous contrast. The dose-length product was 713.74 mGy-cm. Automated exposure control and iterative recons truction technique were employed. COMPARISON: CT abdomen/pelvis dated 11/28/2023 FINDINGS: Nonobstructive bowel gas pattern. Normal appendix. There is an IUD in the endometrium. Ther e are follicular changes in the left ovary. No significant pelvic mass or fluid collection. No eviden ce for hernia. No significant vascular abnormality. No lymphadenopathy. No free air or free fluid. No acute bone or joint abnormality. There is trace physiologic fluid in the pelvis. IMPRESSION: 1. No acute abnormality. No findings to account for patient's symptoms. Reviewed, dictated and finalized at location A.
--- OUTSIDE RECORDS SUMMARY | 2025-04-04 13:54 | XMS_ITS | Encounter Summary ---
Author Organization [facility] Address [address] [place] [address] Care Team Providers Care General Contractor Name Role Phone Mariposa Cabrales Primary Care Provider [phone] Encounter Details Date Type Department Care Team (Late st Contact Info) Description 04/13/2007 Outpatient Historical [facility] Internal Medicine - [facility] [address] [address] [facility] [address] [place] [address] Maddie Moise MD NO ADDRESS ON FILE Social History Tobacco Use Types Packs/Day Years Used Date Smoking Tobacco: Never Assessed Comments Unknown Sex and Gender Information Value Date Recorded Sex Assigned at Not on file Legal Sex Female 5:26 AM DIRECTOR OF GLOBAL SALES Gender Identity Not on file Sexual Orientation Not on file documented as of this encounter Last Filed Vital Signs Vital Sign Reading Time Taken Comments Blood Pressure 104/72 04/13/2007 2:45 PM CDT Pulse 68 04/13/2007 2:45 PM CDT Temperature 36.3 C (97.3 F) 04/13/2007 2:45 PM CDT Respiratory Rate - - Oxygen Saturation - - Inhaled Oxygen Concentration - - Weight 56.2 kg (124 lb) 04/13/2007 2:45 PM CDT Height - - Body Mass Index - - documented in this encounter Plan of Treatment Not on file documented as of this encounter Visit Diagnoses Not on filedocumented in this encounter Care Teams General Contractor Relationship Specialty Start Date End Date Mariposa Cabrales PA PCP - General Physician Dough Panner 06/27/20 documented as of this encounter
--- OUTSIDE RECORDS SUMMARY | 2025-04-04 13:54 | XMS_ITS | Encounter Summary ---
Author Organization [facility] Address [address] [place] [address] Care Team Providers Care Licensed Prosthetist Name Role Phone Mariposa Cabrales Primary Care Provider [phone] Encounter Details Date Type Department Care Team (Late st Contact Info) Description 04/28/2007 Outpatient Historical [facility] Internal Medicine - [facility] [address] [address] [facility] [address] [place] [address] Maddie Moise MD NO ADDRESS ON FILE Abdominal Pain, Right Lower Quadrant (Primary Dx) Social History Tobacco Use Types Packs/Day Years Used Date Smoking Tobacco: Never Assessed Comments Unknown Sex and Gender Information Value Date Recorded Sex Assigned at Not on file Legal Sex Female 5:26 AM BINGO USHER Gender Identity Not on file Sexual Orientation [...] SYSTEM 04/28/2007 12:0 2 PM CDT us Madide Moise MD HEMATOLOGY ORDERABLES Edite d Performing Organization Address [facility] Phone Number INTERFACE SYSTEM Refer [...] HEMATOLOGY ORDERABLES Edite d Performing Organization Address [facility] Phone Number INTERFACE SYSTEM Refer to clinic/hospital department * C-REACTIVE PROTEIN (04/28/2007 12:02 PM CDT) CRP 0.2 0.0 - 0.8 mg/dL INTERFACE SYSTEM 04/28/2007 12:0 2 PM CDT us Maddie Moise MD CHEMISTRY ORDERABLES Edited INTERFACE SYSTEM Refer to clinic/hospital department documented in this encounter Visit Diagnoses Diagnosis Abdominal pain, right lower quadrant- Primary documented in this encounter Care Teams Licensed Prosthetist Relationship Specialty Start Date End Date Mariposa Cabrales PA PCP - General Physician Supervisor Rework 06/27/20 documented as of this encounter
--- OUTSIDE RECORDS SUMMARY | 2025-04-04 13:54 | XMS_ITS | Encounter Summary ---
Author Organization [facility] Address [address] [place] [address] Phone Care Team Providers Care Director Of Field Coordination Name Role Phone Yogi Fuentes MD Primary Care Provider [phone] Prudencio Feliciano DO Primary Care Provider [phone] Encounter Details Date Type Department Care Team (Late st Contact Info) Description 03/10/2020 Orders Only [facility] Scanning, Provider Social History Tobacco Use Types Packs/Day Years Used Date Smoking Tobacco: Never Assessed Comments Unknown Sex and Gender Information Value Date Recorded Sex Assigned at Not on file Legal Sex Female 5:27 PM FLOOR 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 Gender Identity Not on file Sexual Orientation Not on file documented as of this encounter Plan of Treatment Upcoming Encounters Date Type Department Care Team (Latest Contact Info) Description 04/21/2025 10:00 AM CDT Hospital Encounter [facility] [address] [facility] [address] [place] [address] Josh Michael MD [address] [facility] [address] [place] [address] 04/21/2025 10:00 AM CDT - 04/21/2025 11:00 AM CDT Surgery [facility] [address] [facility] [address] [place] [address] Josh Michael MD [address] [facility] [address] [place] [address] ESOPHAGOGASTRODUODENOSCOPY Scheduled Procedures Name Priority Associated Diagnoses Date/Ti me ESOPHAGOGASTRODUODENOSCOPY 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) Heartburn Celiac disease 04/21/2025 10:00 AM CDT COLONOSCOPY 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) Heartburn Celiac disease 04/21/2025 10:00 AM CDT documented as of this encounter Procedures Procedure Name Priority Date/Time Associated Diagnosis Comments SCAN - LABS 03/10/2020 documented in this encounter Results * SCAN - LABS (03/10/2020) us Provider Scanning Final Result documented in this encounter Visit Diagnoses Not on filedocumented in this encounter Care Teams Director Of Field Coordination Relationship Specialty Start Date End Date Yogi Fuentes MD PCP - General Internal Medicine 07/18/20 02/28/25 Prudencio Feliciano DO [facility] [address] [address] PCP - General Internal Medicine 03/01/25 documented as of this encounter
--- OUTSIDE RECORDS SUMMARY | 2025-04-04 13:54 | XMS_ITS | Encounter Summary ---
Author Organization [facility] Address [address] [place] [address] Care Team Providers Care Trust [employer] Estates Paralegal Name Role Phone Mariposa Cabrales Primary Care [...] on file Legal Sex Female 5:26 AM AUDIT MANAGER Gender Identity Not on file Sexual Orientation Not on file documented as of this encounter Plan of Treatment Not on file documented as of this encounter Visit Diagnoses Diagnosis Other and unspecified ovarian cyst- Primary documented in this encounter Care Teams Trust And Estates Paralegal Relationship Specialty Start Date End Date Mariposa Cabrales PA PCP - General Physician Emt Dispatcher 06/27/20 documented as of this encounter
--- OUTSIDE RECORDS SUMMARY | 2025-04-04 13:54 | XMS_ITS | Encounter Summary ---
Author Organization [facility] Address [address] [place] [address] Care Team Providers Care Flitch Hanger Name Role Phone Mariposa Cabrales Primary Care Provider [phone] Encounter Details Date Type Department Care Team (Late st Contact Info) Description 05/18/2004 Outpatient Historical [facility] Internal Medicine - [facility] [address] [address] [facility] [address] [place] [address] Maddie Moise MD NO ADDRESS ON FILE Social History Tobacco Use Types Packs/Day Years Used Date Smoking Tobacco: Never Assessed Comments Unknown Sex and Gender Information Value Date Recorded Sex Assigned at Not on file Legal Sex Female 5:26 AM E COMMERCE SPECIALIST Gender Identity Not on file Sexual Orientation Not on file documented as of this encounter Plan of Treatment Not on file documented as of this encounter Visit Diagnoses Not on filedocumented in this encounter Care Teams Flitch Hanger Relationship Specialty Start Date End Date Mariposa Cabrales PA PCP - General Physician Seo Expert 06/27/20 documented as of this encounter
--- OUTSIDE RECORDS SUMMARY | 2025-04-04 13:54 | XMS_ITS | Encounter Summary ---
Author Organization [facility] Address [address] [place] [address] Care Team Providers Care Hospice Clinical Manager Name Role Phone Mariposa Cabrales Primary Care Provider [phone] Encounter Details Date Type Department Care Team (Late st Contact Info) Description 03/29/2004 Outpatient Historical [facility] Internal Medicine - [facility] [address] [address] [facility] [address] [place] [address] Maddie Moise MD NO ADDRESS ON FILE Social History Tobacco Use Types Packs/Day Years Used Date Smoking Tobacco: Never Assessed Comments Unknown Sex and Gender Information Value Date Recorded Sex Assigned at Not on file Legal Sex Female 5:26 AM 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
--- OUTSIDE RECORDS SUMMARY | 2025-04-04 13:54 | XMS_ITS | Clinical Summary ---
Author Organization [facility] Address [address] [place] [address] Care Team Providers Care Cost Recorder Name Role Phone Kenan Gallardo MD Primary Care Provider [phone] Source Comments [facility],non-owned Affiliates and Associated Physician Practices is amultiple site organization consisting of ambulatory clinics and hospital sitesin [place], [place], [place] and [place]. This disclosure is being madepursuant to the Care Everywhere program and may not contain all information available regarding this patient. Last updated 18.[facility] Allergies Active Allergy Reactions Criticality Noted Date Comments Mesalamine 11/22/2016 Infliximab 11/22/2016 Medications * Be aware that medications may not be up to date on this document. Alwaysverify current medications with the patient. predniSONE (DELTASONE) 10 MG tablet prednisone 10 mg tablet Active dicyclomine (BENTYL) 20 MG tablet dicyclomine 20 mg tablet TK 1 T PO Q 6 H PRN Active Social History Tobacco Use Types Packs/Day Years Used Date Smoking Tobacco: Never Smokeless Tobacco: Never Comments No Sex and Gender Information Value Date Recorded Sex Assigned at Not on file Legal Sex Female 5:25 AM PARKING GARAGE MANAGER Gender Identity Not on file Sexual Orientation Not on file Last Filed Vital Signs Vital Sign Reading Time Taken Comments Blood Pressure 114/72 06/04/2020 12:27 PM CDT Pulse 71 06/04/2020 12:27 PM CDT Temperature 36.9 C (98.4 F) 06/04/2020 12:27 PM CDT Respiratory Rate 16 06/04/2020 12:27 PM CDT Oxygen Saturation 98% 06/04/2020 12:27 PM CDT Inhaled Oxygen Concentration - - Weight 79.4 kg (175 lb) 06/04/2020 12:27 PM CDT Height 166.4 cm (5' 5.5) 06/04/2020 12:27 PM CD T Body Mass Index 28.68 06/04/2020 12:27 PM CDT Plan of Treatment Health Maintenance Due Date Last Done Comments HIV SCREENING 2001 DTAP/TDAP/TD VACCINES (1 - Tdap) 2005 HEPATITIS B VACCINE (1 of 3 - 19+ 3-dose series) 2005 COVID-19 VACCINE (1 - 2023- season) 2024 DEPRESSION SCREENING 11/03/2024 INFLUENZA VACCINE (Season Ended) 2025 08/17/2019, 11/03/2015, 11/03/2014, Additional history exists ZOSTER VACCINE (1 of 2) 2036 HEPATITIS C SCREENING Completed 09/07/2013 HIB VACCINE Aged Out No longer eligi ble based on patient's age to complete this topic HPV VACCINE Aged Out No longer eligi ble based on patient's age to complete this topic MENINGOCOCCAL (Group B) VACCINE SHARED DECISION-MAKING Aged Out No longer eligible based on patient's age to complete this topic MENINGOCOCCAL GROUPS A/C/Y/W VACCINE Aged Out No longer eligible based on patient's age to complete this topic PNEUMOCOCCAL VACCINE Aged Out No long er eligible based on patient's age to complete this topic Procedures Procedure Name Priority Date/Time Associated Diagnosis Comments HEPATITIS SCREEN ACUTE Routine 09/07/2013 1:45 PM PARKING GARAGE MANAGER from Last 3 Months or Most Recently Relevant to Health Maintenance Results * HEPATITIS SCREEN ACUTE (09/07/2013 1:45 PM PARKING GARAGE MANAGER) Hepatitis A Virus Antibody IgM NON-REACTI VE NON-REACT [facility] ([facility]) Hepatitis B Virus Surface Antigen NON-REACTI VE NON-REACT [facility] ([facility]) Hepatitis B Core Virus Antibody IgM NON-REACTI VE NON-REACT [facility] ([facility]) Hepatitis C Antibody NON-REACTI VE NON-REACT [facility] ([facility]) Signal/Cutoff 0.03 <1.00 [facility] ([facility]) Comment: Test Performed at: [facility] [id number] [address] [id number] AGUS CHAMBERS DO,MPH 09/07/2013 1:45 PM PARKING GARAGE MANAGER 09/07/2013 1:46 PM PARKING GARAGE MANAGER us Laila Ramirez MD LAB - CHEMISTRY OR DERABLES Final Result [facility] ([facility]) [phone] from Last 3 Months or Most Recently Relevant to Health Maintenance Insurance [facility] Care Teams Cost Recorder Relationship Specialty Start Date End Date Kenan Gallardo MD [address] [place] [address] [facility] - General 12/10/19
--- OUTSIDE RECORDS SUMMARY | 2025-04-04 13:54 | XMS_ITS | Encounter Summary ---
Author Organization [facility] Address [address] [place] [address] Care Team Providers Care Editor Name Role Phone Mariposa Cabrales Primary Care Provider [phone] Encounter Details Date Type Department Care Team (Late st Contact Info) Description 04/22/2006 Outpatient [facility] Internal Medicine - [facility] [address] [address] [facility] [address] [place] [address] Jennifer Mattson MD Social History Tobacco Use Types Packs/Day Years Used Date Smoking Tobacco: Never Assessed Comments Unknown Sex and Gender Information Value Date Recorded Sex Assigned at Not on file Legal Sex Female 5:26 AM LOAN ANALYST Gender Identity Not on file Sexual Orientation Not on file documented as of this encounter Last Filed Vital Signs Vital Sign Reading Time Taken Comments Blood Pressure 108/62 04/22/2006 2:00 PM CDT Pulse 80 04/22/2006 2:00 PM CDT Temperature 36.3 C (97.3 F) 04/22/2006 2:00 PM CDT Respiratory Rate - - Oxygen Saturation - - Inhaled Oxygen Concentration - - Weight 57.2 kg (126 lb) 04/22/2006 2:00 PM CDT Height - - Body Mass Index - - documented in this encounter Plan of Treatment Not on file documented as of this encounter Visit Diagnoses Not on filedocumented in this encounter Care Teams Editor Relationship Specialty Start Date End Date Mariposa Cabrales PA PCP - General Physician Drop Wire Builder 06/27/20 documented as of this encounter
--- OUTSIDE RECORDS SUMMARY | 2025-04-04 13:54 | XMS_ITS | Encounter Summary ---
Author Organization [facility] Address [address] [place] [address] Care Team Providers Care Spray Gun Operator Name Role Phone Mariposa Cabrales Primary Care Provider [phone] Encounter Details Date Type Department Care Team (Latest Contact Info) Description 09/19/2008 Outpatient Historical [facility] Smita Ho MD [address] [place] [address] Pain in Joint, Site Unspecified; Chronic Fatigue Syndrome Social History Tobacco Use Types Packs/Day Years Used Date Smoking Tobacco: Never Alcohol Use Standard Drinks/Week Comments Not Asked 0 (1 standard drink = 0.6 oz pur e alcohol) Comments No Sex and Gender Information Value Date Recorded Sex Assigned at Not on file Legal Sex Female 5:26 AM WIRE COATING MACHINE OPERATOR Gender Identity Not on file Sexual Orientation Not on file documented as of this encounter Plan of Treatment Not on file documented as of this encounter Procedures Procedure Name Priority Date/Time Associated Diagnosis Comments MARILYN TITER Routine 09/19/2008 3:55 PM WIRE COATING MACHINE OPERATOR SJOGREN'S ANTIBODIES Routine 09/19/2008 3:55 PM WIRE COATING MACHINE OPERATOR SCLERODERMA ANTIBODY SCL 70 Routine 09/19/2008 3:55 PM WIRE COATING MACHINE OPERATOR KAILASH ANTIBODIES (SM AND SM/NET TRAINER) Routine 09/19/2008 3:55 PM WIRE COATING MACHINE OPERATOR DNA ANTIBODIES Routine 09/19/2008 3:55 PM WIRE COATING MACHINE OPERATOR CBC WITH DIFFERENTIAL Routine 09/19/2008 3:55 PM WIRE COATING MACHINE OPERATOR VITAMIN D 25 HYDROXY Routine 09/19/2008 3:55 PM WIRE COATING MACHINE OPERATOR URINALYSIS W/REFLEX MICROSCOPIC Routine 09/19/2008 3:55 PM WIRE COATING MACHINE OPERATOR MARILYN SCREEN W/REFLEX Routine 09/19/2008 3 :55 PM WIRE COATING MACHINE OPERATOR TSH Routine 09/19/2008 3:55 PM WIRE COATING MACHINE OPERATOR T4 FREE Routine 09/19/2008 3:55 PM WIRE COATING MACHINE OPERATOR documented in this encounter Results * (ABNORMAL) MARILYN TITER (09/19/2008 3:55 PM WIRE COATING MACHINE OPERATOR) MARILYN PATTERN HOMOGENEOU S(A) [facility] MARILYN TITER 1:1280(H) Titer [facility] Comment: REFERENCE RANGE: <1:40 NEGATIVE 1:40 - 1:80 LOW ANTIBODY LEVEL >1:80 ELEVATED ANTIBODY LEVEL Lab test performed by: [facility] JON STEWART [id number] AGUS PRIETO MD Blood specimen (specimen) 09/19/2008 3:55 PM WIRE COATING MACHINE OPERATOR 09/19/2008 7:14 PM WIRE COATING MACHINE OPERATOR us Smita Ho MD CHEMISTRY ORDERABLES Final Result INTERFACE SYSTEM Refer to clinic/hospital department [facility] CLIA# [id number] [address] [place] [address] * SCLERODERMA ANTIBODY SCL 70 (09/19/2008 3:55 PM WIRE COATING MACHINE OPERATOR) SCLERODERMA AB SCL 70 <1.0 NEG <1.0 NEG Index [facility] Comment: Lab test performed by: [facility] [place] [address] [place] [address] AGUS PRIETO MD Blood specimen (specimen) 09/19/2008 3:55 PM WIRE COATING MACHINE OPERATOR 09/19/2008 6:13 PM WIRE COATING MACHINE OPERATOR Smita Ho MD CHEMISTRY ORDERABLES Final Result Performing Organization Address [facility] Phone Number INTERFACE SYSTEM Refer to clinic/hospital department [facility] CLIA# [id number] [address] [place] [address] [place] [address] * SJOGREN'S ANTIBODIES (09/19/2008 3:55 PM WIRE COATING MACHINE OPERATOR) SJOGRENS ABS (SSA) <1.0 NEG <1.0 NEG Index [facility] SJOGRENS ABS (SSB) <1.0 NEG <1.0 NEG Index [facility] Comment: Lab test performed by: [employer] [address] [employer] [place] [address] AGUS PRIETO MD Blood specimen (specimen) 09/19/2008 3:55 PM WIRE COATING MACHINE OPERATOR 09/19/2008 6:13 PM WIRE COATING MACHINE OPERATOR Smita Ho MD CHEMISTRY ORDERABLES Final Result Performing Organization Address [facility] de Phone Number INTERFACE SYSTEM Refer to clinic/hospital department [facility] CLIA# [id number] [address] [place], [place] [address] [address] * KAILASH ANTIBODIES (SM AND SM/NET TRAINER) (09/19/2008 3:55 PM WIRE COATING MACHINE OPERATOR) KAILASH ABS, SM AB <1.0 NEG <1.0 NEG Index [facility] KAILASH ABS, SM/NET TRAINER AB <1.0 NEG <1.0 NEG Index [facility] Comment: Lab test performed by: [employer]ATAF[employer] CompanyValentina [address] [address] [employer] CompanyValentina [employer] [phone] AGUS PRIETO MD Blood specimen (specimen) 09/19/2008 3:55 PM WIRE COATING MACHINE OPERATOR 09/19/2008 6:13 PM WIRE COATING MACHINE OPERATOR Smita Ho MD CHEMISTRY ORDERABLES Final Result Performing Organization Address [facility] Phone Number INTERFACE SYSTEM Refer to clinic/hospital department [facility] CLIA# [id number] [address] [place] [address] * DNA ANTIBODIES (09/19/2008 3:55 PM WIRE COATING MACHINE OPERATOR) [facility] DNA AUTOABS DOUBLE STRANDED 2 IU/mL [facility] Comment: IU/mL INTERPRETATION ===== < OR = 4 NEGATIVE 5 - 9 INDETERMINATE > OR = 10 POSITIVE Lab test performed by: [employer] [address] [place] [address] AGUS PRIETO MD Blood specimen (specimen) 09/19/2008 3:55 PM WIRE COATING MACHINE OPERATOR 09/19/2008 6:13 PM WIRE COATING MACHINE OPERATOR Smita Ho MD CHEMISTRY ORDERABLES Final Result Performing Organization Address [facility] Phone Number INTERFACE SYSTEM Refer to clinic/hospital department [facility] CLIA# [id number] [address] [place] [address] * (ABNORMAL) CBC WITH DIFFERENTIAL (09/19/2008 3:55 PM WIRE COATING MACHINE OPERATOR) [facility] HEMATOCRIT 36.1 35.5 - 44.0 % [facility] RDW-STDEV 39.3 37.1 - 48.7 fL [facility] RBC 4.26 3.90 - 4.90 M/uL [facility] MCHC 32.1 31.5 - 35.5 % [facility] MCV 84.7 82.0 - 99.0 fL [facility] PLATELETS 307 140 - 350 K/uL [facility] HEMOGLOBIN 11.6(L) 11.8 - 14.8 g/dL [facility] RDW 13.0 11.5 - 14.5 % [facility] WBC 3.8(L) 4.0 - 9.8 K/uL [facility] MCH 27.2 27.2 - 32.6 pg [facility] MPV 10.0 9.3 - 12.4 fL [facility] LYMPHOCYTE ABSOLUTE 0.81 0.70 - 4.50 K/uL [facility] BASOPHILS 0 0 - 2 % [facility] BASOPHILS ABSOLUTE 0.00 0.00 - 0.20 K/uL [facility] MONOCYTES 3 3 - 13 % [facility] MONOCYTE ABSOLUTE 0.11 0.10 - 1.30 K/uL [facility] NEUTROPHILS 70 45 - 70 % [facility] NEUTROPHIL ABSOLUTE 2.65 1.90 - 7.00 K/uL [facility] EOSINOPHILS 6 0 - 7 % [facility] EOSINOPHIL ABSOLUTE 0.21 0.00 - 0.70 K/uL [facility] LYMPHOCYTES 21 16 - 45 % [facility] Blood specimen (specimen) 09/19/2008 3:55 PM WIRE COATING MACHINE OPERATOR 09/19/2008 6:13 PM WIRE COATING MACHINE OPERATOR us Smita Ho MD HEMATOLOGY ORDERABLES Edite d INTERFACE SYSTEM Refer to clinic/hospital department [facility] CLIA# [id number] [address] [place] [address] * VITAMIN D 25 HYDROXY (09/19/2008 3:55 PM WIRE COATING MACHINE OPERATOR) VITAMIN D, 25 OH, TOTAL 41 20 - 100 ng/mL [facility] VITAMIN D, 25 OH, D3 41 ng/mL [facility] VITAMIN D, 25 OH, D2 <4 ng/mL [facility] Comment: 25-OHD3 indicates both endogenous production and supplementation. 25-OHD2 is an indicator of exogenous sources such as diet or supplementation. Therapy is based on measurement of Total 25-OHD, with levels <20 ng/mL indicative of Vitamin D deficiency while levels between 20 ng/mL and 30 ng/mL suggest insufficiency. Optimal levels are >30 ng/mL. Lab test performed by: [employer] [address] [place] [address] MACEY GIVENS MD Blood specimen (specimen) 09/19/2008 3:55 PM WIRE COATING MACHINE OPERATOR 09/19/2008 8:34 PM WIRE COATING MACHINE OPERATOR us Smita Ho MD CHEMISTRY ORDERABLES Final Result Performing Organization Address City/State/[facility] Co de Phone Number INTERFACE SYSTEM Refer to clinic/hospital department [facility] CLIA# [id number] [address] [facility] [place] [address] * URINALYSIS (09/19/2008 3:55 PM WIRE COATING MACHINE OPERATOR) COLOR UA Yellow [facility] NITRITE UA Negative Negative [facility] UROBILINOGEN UA <1 <=1 mg/dL [facility] PH UA 5.5 5.0 - 8.0 [facility] KETONES UA Negative Negative [facility] CLARITY UA Clear Clear [facility] BILIRUBIN UA Negative Negative [facility] PROTEIN UA Negative Negative [facility] LEUKOCYTE ESTERASE UA Negative Negative [facility] SPECIFIC GRAVITY UA 1.018 1.001 - 1.035 [facility] GLUCOSE UA Negative Negative [facility] BLOOD UA Negative Negative [facility] Urine specimen (specimen) 09/19/2008 3:55 PM WIRE COATING MACHINE OPERATOR 09/19/2008 6:13 PM WIRE COATING MACHINE OPERATOR Smita Ho MD URINE ORDERABLES Final Resu lt Performing Organization Address [facility] de Phone Number INTERFACE SYSTEM Refer to clinic/hospital department [facility] CLIA# [id number] [address] [place] [address] * T4 FREE (09/19/2008 3:55 PM WIRE COATING MACHINE OPERATOR) [facility] T4 FREE 1.3 0.9 - 1.7 ng/dL [facility] Blood specimen (specimen) 09/19/2008 3:55 PM WIRE COATING MACHINE OPERATOR 09/19/2008 6:13 PM WIRE COATING MACHINE OPERATOR Smita Ho MD CHEMISTRY ORDERABLES Final Result Performing Organization Address [facility] Phone Number INTERFACE SYSTEM Refer to clinic/hospital department [facility] CLIA# [id number] [address] [place] [address] * TSH (09/19/2008 3:55 PM WIRE COATING MACHINE OPERATOR) [facility] TSH 2.38 0.27 - 4.20 uU/mL [facility] Blood specimen (specimen) 09/19/2008 3:55 PM WIRE COATING MACHINE OPERATOR 09/19/2008 6:13 PM WIRE COATING MACHINE OPERATOR Smita Ho MD CHEMISTRY ORDERABLES Final Result Performing Organization Address [facility] de Phone Number INTERFACE SYSTEM Refer to clinic/hospital department [facility] CLIA# [id number] [address] [place] [address] * (ABNORMAL) MARILYN (09/19/2008 3:55 PM WIRE COATING MACHINE OPERATOR) [facility] MARILYN SCREEN POSITIVE( A) NEGATIVE [facility] Comment: Lab test performed by: [employer] JABARI [address] [place] [address] AGUS PRIETO MD Blood specimen (specimen) 09/19/2008 3:55 PM WIRE COATING MACHINE OPERATOR 09/19/2008 8:34 PM WIRE COATING MACHINE OPERATOR us Smita Ho MD CHEMISTRY ORDERABLES Final Result INTERFACE SYSTEM Refer to clinic/hospital department [facility] CLIA# [id number] [address] [place] [address] documented in this encounter Visit Diagnoses Diagnosis Pain in joint, site unspecified Chronic fatigue syndrome documented in this encounter Care Teams Spray Gun Operator Relationship Specialty Start Date End Date Mariposa Cabrales PA PCP - General Physician Broomcorn Grader 06/27/20 documented as of this encounter
--- OUTSIDE RECORDS SUMMARY | 2025-04-04 13:54 | XMS_ITS | Referral Summary ---
Author Organization [facility] Address [address] [place] [address] Care Team Providers Care Assembler Billiard Table Name Role Phone Prudencio Feliciano DO Primary Care Provider [phone] Encounters Date Type Department Care Team Description 03/30/2025 Telephone [facility] [address] [place] [address] [place] [address] Danni Waggoner RN Lab reminder 02/28/2025 Telephone [facility] [address] [place] [address] [place] [address] Jennifer Romano RN GI pre procedure assessment 02/28/2025 3:45 PM CDT Office Visit [facility] [address] [place] [address] [place] [address] Josh Michael MD 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); Nauseated; Heartburn; Celiac disease 01/18/2025 Documentation [facility] [address] [facility] [address] [place] [address] Charlene Perez [facility] from Last 3 Months Allergies Active Allergy Reactions Criticality Noted Date Comments Azithromycin Rash Medium 11/07/2022 Buspirone Nausea And Vomiting,Vomiting Low 07/05/2020 Codeine Nausea & Vomiting Low Infliximab Other (See comments),Unknown Low 11/21/2015 Drug induced lupus Mesalamine Other (See comments),Unknown Low 08/13/2013 LUPUS-LIKE SX Primidone Unknown Allergy unknown to Pt.-denies Medications levonorgestreL (Mirena) IUD Mirena 20 mcg/24 hours (5 yrs) 52 mg intrauterine device Active melatonin 10 mg capsule prn 10/05/20 19 Active tiZANidine (ZANAFLEX) 4 mg tablet TK 1 T PO Q 6 H PRN 09/13/20 20 Active levothyroxine (SYNTHROID) 75 mcg tablet daily Active aspirin 81 mg enteric coated tablet Take 1 tablet (81 mg total) by mouth daily Active folic acid (FOLVITE) 800 mcg tablet Take 1 tablet (800 mcg total) by mouth daily Active multivitamin capsule Take 1 capsule by mouth daily Active varicella-zoster (SHINGRIX) 50 mcg/0.5 mL vaccineIndications :Need for shingles vaccine,Left sided ulcerative colitis with complication (HCC),Immunocompro mised Administer Shingrix vaccine series at your pharmacy. Second dose to be administered 2-3 months after the first dose. 0.5 mL 1 06/10/20 22 Active Additional Information Patient not taking.Reported on 11/07/2022 FLUoxetine (PROzac) 40 mg capsule 03/19/20 23 Active dicyclomine (BENTYL) 10 mg capsule Take 1 capsule (10 mg total) by mouth 4 (four) times a day as needed (abdominal pain) 60 capsule 1 03/11/20 24 Active semaglutide (Ozempic) 1 mg/dose (4 mg/3 mL) pen injector injection Inject 1 mg under the skin every 7 days Active topiramate (TOPAMAX) 25 mg tabletIndications: Migraine without aura and without status migrainosus, not intractable Take 2 tablets (50 mg total) by mouth nightly 180 tablet 3 05/17/20 24 Active rizatriptan (MAXALT) 10 mg tabletIndications: Migraine Take 1 tablet (10 mg total) by mouth once as needed for migraine May repeat in 2 hours if unresolved. Do not exceed 3 in 24 hours. 9 tablet 11 05/17/20 24 025 Active bisacodyl EC (DULCOLAX EC) 5 mg EC tabletIndications: constipation Take 1 tablet (5 mg total) by mouth daily as needed for constipation 60 tablet 06/21/20 24 Active omeprazole (PriLOSEC) 40 mg capsule Take 1 capsule (40 mg total) by mouth daily 30 capsule 2 12/31/19 25 Active ondansetron ODT (ZOFRAN-ODT) 4 mg disintegrating tabletIndications: Left sided ulcerative colitis with complication (HCC),Nauseated Take 1 tablet (4 mg total) by mouth every 8 (eight) hours as needed for nausea or vomiting 30 tablet 2 12/31/19 25 Active ustekinumab (Stelara) injectionIndicatio ns:Ulcerative Colitis Inject 1 mL (90 mg total) under the skin every 4 (four) weeks Safety labs are required every 3 months for refills. Next labs are due now. 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 Not on file Not on file Not on file Last Filed Vital Signs Vital Sign Reading Time Taken Comments Blood Pressure 109/74 02/28/2025 4:19 PM CDT Pulse 91 02/28/2025 4:19 PM CDT Temperature 36.7 C (98 F) 02/28/2025 4:19 PM CDT Respiratory Rate 16 06/21/2024 10:32 AM CDT Oxygen Saturation 98% 06/21/2024 10:32 AM CDT Inhaled Oxygen Concentration - - Weight 83.9 kg (185 lb) 02/28/2025 4:19 PM CDT Height 165.1 cm (5' 5) 02/28/2025 4:19 PM CDT Body Mass Index 30.79 02/28/2025 4:19 PM CDT Plan of Treatment Upcoming Encounters Date Type Department Care Team (Latest Contact Info) Description 04/21/2025 10:00 AM CDT Hospital Encounter [facility] [address] [facility] [address] [place] [address] Josh Michael MD [address] [facility] [address] [place] [address] 04/21/2025 10:00 AM CDT - 04/21/2025 11:00 AM CDT Surgery [facility] [address] [facility] [address] [place] [address] Josh Michael MD [address] [facility] [address] [place] [address] ESOPHAGOGASTRODUODENOSCOPY Scheduled Procedures Name Priority Associated Diagnoses Date/Ti me ESOPHAGOGASTRODUODENOSCOPY 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) Heartburn Celiac disease 04/21/2025 10:00 AM CDT COLONOSCOPY 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) Heartburn Celiac disease 04/21/2025 10:00 AM CDT Insurance [facility]PPO Address: [address] [address] [facility]/PPO Address: [facility] [address] [place] [address] Advance Directives For more information, please contact: [phone] * Full Code (Latest Code Status on File) Date Activated Date Inactivated Comments 03/24/2023 8:30 AM 03/24/2023 2:53 PM * Full Code Date Activated Date Inactivated Comments 10/05/2021 11:20 AM 10/05/2021 5:39 PM * Full Code Date Activated Date Inactivated Comments 10/13/2020 8:22 AM 10/13/2020 2:42 PM Care Teams Assembler Billiard Table Relationship Specialty Start Date End Date Prudencio Feliciano DO [facility] [facility] [address] [address] PCP - General Internal Medicine 03/01/25
--- OUTSIDE RECORDS SUMMARY | 2025-04-04 13:54 | XMS_ITS | Encounter Summary ---
Author Organization [facility] Address [address] [place] [address] Care Team Providers Care Cook Boat Name Role Phone Mariposa Cabrales Primary Care Provider [phone] Encounter Details Date Type Department Care Team (Late st Contact Info) Description 04/28/2007 Outpatient Historical 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 Gender Identity Not on file Sexual Orientation Not on file documented as of this encounter Last Filed Vital Signs Vital Sign Reading Time Taken Comments Blood Pressure 92/70 04/28/2007 11:15 AM CDT Pulse 68 04/28/2007 11:15 AM CDT Temperature 36.9 C (98.5 F) 04/28/2007 11:15 AM CDT Respiratory Rate - - Oxygen Saturation - - Inhaled Oxygen Concentration - - Weight 56.2 kg (124 lb) 04/28/2007 11:15 AM CDT Height - - Body Mass Index - - documented in this encounter Plan of Treatment Not on file documented as of this encounter Visit Diagnoses Not on filedocumented in this encounter Care Teams Cook Boat Relationship Specialty Start Date End Date Mariposa Cabrales PA PCP - General Physician Chemical Economist 06/27/20 documented as of this encounter
--- OUTSIDE RECORDS SUMMARY | 2025-04-04 13:54 | XMS_ITS | Encounter Summary ---
Author Organization [facility] Address [address] [place] [address] Care Team Providers Care Warehouse Selector Name Role Phone Mariposa Cabrales Primary Care Provider [phone] Encounter Details Date Type Department Care Team (Late st Contact Info) Description 10/30/2006 Outpatient [facility] Internal Medicine - [facility] [address] [address] [facility] [address] [place] [address] Maddie Moise MD NO ADDRESS ON FILE Social History Tobacco Use Types Packs/Day Years Used Date Smoking Tobacco: Never Assessed Comments Unknown Sex and Gender Information Value Date Recorded Sex Assigned at Not on file 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 Gender Identity Not on file Sexual Orientation Not on file documented as of this encounter Last Filed Vital Signs Vital Sign Reading Time Taken Comments Blood Pressure 114/62 10/30/2006 2:10 PM INTERLOCKING TOWER OPERATOR Pulse 80 10/30/2006 2:10 PM INTERLOCKING TOWER OPERATOR Temperature 36.3 C (97.3 F) 10/30/2006 2:10 PM INTERLOCKING TOWER OPERATOR Respiratory Rate - - Oxygen Saturation - - Inhaled Oxygen Concentration - - Weight 56.7 kg (125 lb) 10/30/2006 2:10 PM INTERLOCKING TOWER OPERATOR Height - - Body Mass Index - - documented in this encounter Plan of Treatment Not on file documented as of this encounter Visit Diagnoses Not on filedocumented in this encounter Care Teams Warehouse Selector Relationship Specialty Start Date End Date Mariposa Cabrales PA PCP - General Physician Assistant Professor In Family Studies 06/27/20 documented as of this encounter
--- OUTSIDE RECORDS SUMMARY | 2025-04-04 13:54 | XMS_ITS | Encounter Summary ---
Author Organization [facility] Address [address] [place] [address] Care Team Providers Care Head Nurse Name Role Phone Mariposa Cabrales Primary Care Provider [phone] Encounter Details Date Type Department Care Team (Late st Contact Info) Description 11/17/2007 Outpatient Historical [facility] Internal Medicine - [facility] [address] [address] [facility] [address] [place] [address] Alise Bolton, ANP [address] [facility] [address] [place] [address] Social History Tobacco Use Types Packs/Day Years Used Date Smoking Tobacco: Never Assessed Comments Unknown Sex and Gender Information Value Date Recorded Sex Assigned at Not on file Legal Sex Female 5:26 AM DESIGNATED 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 Gender Identity Not on file Sexual Orientation Not on file documented as of this encounter Last Filed Vital Signs Vital Sign Reading Time Taken Comments Blood Pressure 110/84 11/17/2007 11:30 AM DESIGNATED BROKER Pulse 74 11/17/2007 11:30 AM DESIGNATED BROKER Temperature 35.9 C (96.6 F) 11/17/2007 11:30 AM DESIGNATED BROKER Respiratory Rate - - Oxygen Saturation - - Inhaled Oxygen Concentration - - Weight 59.4 kg (131 lb) 11/17/2007 11:30 AM DESIGNATED BROKER Height - - Body Mass Index - - documented in this encounter Plan of Treatment Not on file documented as of this encounter Visit Diagnoses Not on filedocumented in this encounter Care Teams Head Nurse Relationship Specialty Start Date End Date Mariposa Cabrales PA PCP - General Physician Self Contained Behavior Unit Teacher 06/27/20 documented as of this encounter
--- OUTSIDE RECORDS SUMMARY | 2025-04-04 13:54 | XMS_ITS | Encounter Summary ---
Author Organization [facility] Address 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 Gender Identity Not on file Sexual Orientation Not on file documented as of this encounter Plan of Treatment Not on file documented as of this encounter Procedures Procedure Name Priority Date/Time Associated Diagnosis Comments MISCELLANEOUS LAB TEST Routine 8 11:53 AM BOX SPRING FRAME BUILDER HEPATITIS B SURFACE ANTIGEN Routine 09/12/2008 11:53 AM BOX SPRING FRAME BUILDER THYROID PEROXIDASE ANTIBODY Routine 09/12/2008 11:53 AM BOX SPRING FRAME BUILDER PARVOVIRUS B19 AB IGG/IGM Routine 09/12/2008 11:53 AM BOX SPRING FRAME BUILDER HEPATITIS C ANTIBODY Routine 09/12/2008 11:53 AM BOX SPRING FRAME BUILDER ALDOLASE Routine 09/12/2008 11:53 AM BOX SPRING FRAME BUILDER MONONUCLEOSIS SCREEN Routine 09/12/2008 11:53 AM BOX SPRING FRAME BUILDER VITAMIN D 25 HYDROXY Routine 09/12/2008 11:53 AM BOX SPRING FRAME BUILDER THYROGLOBULIN, TUMOR MARKER Routine 09/12/2008 11:53 AM BOX SPRING FRAME BUILDER SEDIMENTATION RATE Routine 09/12/2008 11 :53 AM BOX SPRING FRAME BUILDER C-REACTIVE PROTEIN Routine 09/12/2008 11 :53 AM BOX SPRING FRAME BUILDER LACTATE DEHYDROGENASE Routine 09/12/2008 11:53 AM BOX SPRING FRAME BUILDER COMPREHENSIVE METABOLIC PANEL Routine 09/12/2008 11:53 AM BOX SPRING FRAME BUILDER documented in this encounter Results * MONONUCLEOSIS SCREEN (09/12/2008 11:53 AM BOX SPRING FRAME BUILDER) MONONUCLEOSIS SCREEN Negative Negative [facility] Blood specimen (specimen) 09/12/2008 11:53 AM BOX SPRING FRAME BUILDER 09/12/2008 6:46 PM BOX SPRING FRAME BUILDER us History Conversion HEMATOLOGY ORDERABLES Final R esult INTERFACE SYSTEM Refer to clinic/hospital department [facility] CLIA# [id number] [address] [place] [address] * MISCELLANEOUS LAB TEST (09/12/2008 11:53 AM BOX SPRING FRAME BUILDER) SPECIMEN TYPE Blood [facility] TEST NAME HISTONE ANTIBODIES [facility] MISCELLANEOUS LAB TEST Name of Test: HISTONE ANTIBODIES Test Result: Histone AB = 4.6 U Reference Range: <1.0 Negative 1.0 to 1.5 Weak Positive 1.6 to 2.5 Moderate Positive >2.5 Strong Positive Test Performed By: [facility] [id number]. [facility] Specimen of unknown material (specimen) 09/12/2008 11:53 AM BOX SPRING FRAME BUILDER 09/12/2008 4:44 PM BOX SPRING FRAME BUILDER Narrative INTERFACE SYSTEM - 09/15/2008 10:32 AM BOX SPRING FRAME BUILDER Name of test:antihistone ab us History Conversion CHEMISTRY ORDERABLES Edited Performing Organization Address [facility] Phone Number INTERFACE SYSTEM Refer to clinic/hospital department [facility] CLIA# [id number] [address] [place] [address] * VITAMIN D 25 HYDROXY (09/12/2008 11:53 AM BOX SPRING FRAME BUILDER) VITAMIN D, 25 OH, D2 <4 ng/mL [...] are >30 ng/mL. Lab test performed by: [facility] [address] [place] [address] MACEY GIVENS MD VITAMIN D, 25 OH, TOTAL 40 20 - 100 ng/mL [facility] VITAMIN D, 25 OH, D3 40 ng/mL [facility] Blood specimen (specimen) 09/12/2008 11:53 AM BOX SPRING FRAME BUILDER 09/12/2008 6:46 PM BOX SPRING FRAME BUILDER us History Conversion CHEMISTRY ORDERABLES Final Re sult Performing Organization Address [facility] Co de Phone Number INTERFACE SYSTEM Refer to clinic/hospital department [facility] CLIA# [id number] [address] [place] [address] * (ABNORMAL) THYROID PEROXIDASE ANTIBODY (09/12/2008 11:53 AM BOX SPRING FRAME BUILDER) THYROID PEROXIDASE AB 188(H) <35 IU/mL [facility] Comment: Lab test performed by: [facility] [place] [address] [place] [address] AGUS PRIETO MD Blood specimen (specimen) 09/12/2008 11:53 AM BOX SPRING FRAME BUILDER 09/12/2008 6:46 PM BOX SPRING FRAME BUILDER us History Conversion CHEMISTRY ORDERABLES Final Re sult Performing Organization Address [facility] Phone Number INTERFACE SYSTEM Refer to clinic/hospital department [facility] CLIA# [id number] [address] [place] [address] * THYROGLOBULIN (09/12/2008 11:53 AM BOX SPRING FRAME BUILDER) Pathologist [facility] THYROGLOBULIN AB <20 <20 IU/mL [facility] THYROGLOBULIN 10.5 2.0 - 35.0 ng/mL [facility] Comment: This test was performed using the Siemens (DPC) chemiluminescent method. Values obtained from different assay methods cannot be used inter- changeably. Thyroglobulin levels, regardless of value, should not be interpreted as absolute evidence of the presence or absence of disease. Lab test performed by: [facility] [address] [place] [address] MACEY GIVENS MD Blood specimen (specimen) 09/12/2008 11:53 AM BOX SPRING FRAME BUILDER 09/12/2008 6:46 PM BOX SPRING FRAME BUILDER us History Conversion CHEMISTRY ORDERABLES Final Re sult Performing Organization Address [facility] de Phone Number INTERFACE SYSTEM Refer to clinic/hospital department [facility] CLIA# [id number] [address] [place] [address] * (ABNORMAL) SEDIMENTATION RATE (09/12/2008 11:53 AM BOX SPRING FRAME BUILDER) Pathologist [facility] ESR (SEDIMENTATION RATE) 63(H) 0 - 20 mm/hr [facility] Blood specimen (specimen) 09/12/2008 11:53 AM BOX SPRING FRAME BUILDER 09/12/2008 4:44 PM BOX SPRING FRAME BUILDER us History Conversion HEMATOLOGY ORDERABLES Final R esult Performing Organization Address City/[facility]/ZIP Co de Phone Number INTERFACE SYSTEM Refer to clinic/hospital department [facility] CLIA# [id number] [address] [place] [address] * (ABNORMAL) PARVOVIRUS B19 AB IGG/IGM (09/12/2008 11:53 AM BOX SPRING FRAME BUILDER) PARVOVIRUS B19 IGM ABS 0.4 <0.9 Index [facility] Comment: Reference range: IgG and IgM Index <0.9 Negative 0.9-1.1 Equivocal >1.1 Positive Interpretation: NEGATIVE: No antibody detected. This individual may be susceptible to parvovirus B-19 infection. POSITIVE: Indicative of exposure to parvovirus B-19. EQUIVOCAL results are those results too close to the cut-off values to interpret. A second sample should be drawn in two weeks, if clinically indicated. Specific IgG persists for years, and provides lifetime immunity. A majority of adults show evidence of past infection. If definitive diagnosis of acute parvovirus infection is desired, a parvovirus B-19 IgM should be obtained. Due to the poor humoral immune response in the immunocompromised, the chronically anemic, and the fetus, both antibody and DNA PCR tests are recommended for definitive diagnosis of parvovirus B-19 infection in these patients. Lab test performed by: [facility] [address] [place] [address] MACEY GIVENS MD PARVOVIRUS B19 IGG ABS 6.2(H) <0.9 Index [facility] Blood specimen (specimen) 09/12/2008 11:53 AM BOX SPRING FRAME BUILDER 09/12/2008 4:44 PM BOX SPRING FRAME BUILDER us History Conversion CHEMISTRY ORDERABLES Final Re sult Performing Organization Address City/[facility]/ZIP Co de Phone Number INTERFACE SYSTEM Refer to clinic/hospital department [facility] CLIA# [id number] [address] [place] [address] * (ABNORMAL) LACTATE DEHYDROGENASE (09/12/2008 11:53 AM BOX SPRING FRAME BUILDER) LD (LACTATE DEHYDROGENASE) 227(H) 135 - 214 U/L [facility] Blood specimen (specimen) 09/12/2008 11:53 AM BOX SPRING FRAME BUILDER 09/12/2008 4:44 PM BOX SPRING FRAME BUILDER us History Conversion CHEMISTRY ORDERABLES Final Re sult Performing Organization Address [facility] Phone Number INTERFACE SYSTEM Refer to clinic/hospital department [facility] CLIA# [id number] [address] [place] [address] * HEPATITIS C ANTIBODY (09/12/2008 11:53 AM BOX SPRING FRAME BUILDER) Pathologist [facility] HEPATITIS C AB NON-REACTI VE NON-REACT PILO [facility] SIGNAL TO CUT OFF 0.30 <1.00 [facility] Comment: Lab test performed by: [facility] [place] [address] [place] [address] AGUS PRIETO MD Blood specimen (specimen) 09/12/2008 11:53 AM BOX SPRING FRAME BUILDER 09/12/2008 6:46 PM BOX SPRING FRAME BUILDER us History Conversion CHEMISTRY ORDERABLES Final Re sult Performing Organization Address [facility] Phone Number INTERFACE SYSTEM Refer to clinic/hospital department [facility] CLIA# [id number] [address] [place] [address] * HEPATITIS B SURFACE ANTIGEN (09/12/2008 11:53 AM BOX SPRING FRAME BUILDER) Pathologist [facility] HEPATITIS B SURFACE AG NON-REACTI VE NON-REACT PILO [facility] Comment: Lab test performed by: [facility] [place] [address] AGUS PRIETO MD Blood specimen (specimen) 09/12/2008 11:53 AM BOX SPRING FRAME BUILDER 09/12/2008 6:46 PM BOX SPRING FRAME BUILDER us History Conversion CHEMISTRY ORDERABLES Final Re sult Performing Organization Address [facility] de Phone Number INTERFACE SYSTEM Refer to clinic/hospital department [facility] CLIA# [id number] [address] [place] [address] * (ABNORMAL) C-REACTIVE PROTEIN (09/12/2008 11:53 AM BOX SPRING FRAME BUILDER) Pathologist [facility] CRP 3.0(H) 0.0 - 0.8 mg/dL [facility] Blood specimen (specimen) 09/12/2008 11:53 AM BOX SPRING FRAME BUILDER 09/12/2008 4:44 PM BOX SPRING FRAME BUILDER us History Conversion CHEMISTRY ORDERABLES Final Re sult Performing Organization Address [facility] Phone Number INTERFACE SYSTEM Refer to clinic/hospital department [facility] CLIA# [id number] [address] [place] [address] * (ABNORMAL) COMPREHENSIVE METABOLIC PANEL (09/12/2008 11:53 AM BOX SPRING FRAME BUILDER) [facility] POTASSIUM 3.6 3.5 - 4.9 mmol/L VA [...] and non- Americans is available on the [facility] Intranet at: [email or web address] Select: Lab Policies and Procedures Select: Reference Ranges - GFR Blood specimen (specimen) 09/12/2008 11:53 AM BOX SPRING FRAME BUILDER 09/12/2008 4:44 PM BOX SPRING FRAME BUILDER us History Conversion CHEMISTRY ORDERABLES Edited Performing Organization Address [facility] de Phone Number INTERFACE SYSTEM Refer to clinic/hospital department [facility] CLIA# [id number] [address] [place] [address] * ALDOLASE (09/12/2008 11:53 AM BOX SPRING FRAME BUILDER) ALDOLASE 6.1 < OR = 8.1 U/L [facility] Comment: Lab test performed by: [facility] [place] [address] [address] [facility] [place] [address] AGUS PRIETO MD Blood specimen (specimen) 09/12/2008 11:53 AM BOX SPRING FRAME BUILDER 09/12/2008 4:44 PM BOX SPRING FRAME BUILDER us History Conversion CHEMISTRY ORDERABLES Final Re sult Performing Organization Address [facility] de Phone Number INTERFACE SYSTEM Refer to clinic/hospital department [facility] CLIA# [id number] [address] [place] [address] documented in this encounter Visit Diagnoses Diagnosis Pain in joint, site unspecified Other and unspecified noninfectious gastroenteritis and colitis(558.9) Other and unspecified noninfectious gastroenteritis and colitis documented in this encounter Care Teams Curtain Fitter Relationship Specialty Start Date End Date Mariposa Cabrales PA PCP - General Physician Binding Dyer 06/27/20 documented as of this encounter
--- OUTSIDE RECORDS SUMMARY | 2025-04-04 13:54 | XMS_ITS | Clinical Summary ---
Author Organization [facility] Address [facility] [place] [address] Care Team Providers Care Balloon Maker Name Role Phone Prudencio Feliciano DO Primary Care Provider [phone] Allergies Active Allergy Reactions Criticality Noted Date [...] Department Care Team Description 03/30/2025 Telephone [facility] [address] [facility] [place] [address] [place] [address] Danni Waggoner RN Lab reminder 02/28/2025 3:45 PM CDT Office Visit [facility] [address] [place] [address] [place] [address] Josh Michael MD 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 Not on file Not [...] Description 04/21/2025 10:00 AM CDT Hospital Encounter [facility] [place] [address] [facility] [address] [place] [address] Josh Michael MD [address] [place] [address] 04/21/2025 10:00 AM CDT - 04/21/2025 11:00 AM CDT Surgery [facility] [place] [address] [address] Josh Michael MD [address] [place] [address] ESOPHAGOGASTRODUODENOSCOPY Scheduled Procedures Name Priority Associated Diagnoses Date/Ti ga ESOPHAGOGASTRODUODENOSCOPY 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) Heartburn Celiac disease 04/21/2025 10:00 AM CDT COLONOSCOPY 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) Heartburn Celiac disease 04/21/2025 10:00 AM CDT Health Maintenance Due Date Last Done Comments Cervical Cancer Screening 1986 Depression Screening 1986 Hepatitis C Screening 1986 Varicella Vaccines (1 of 2 - 13+ 2-dose series) 1999 Regular Well Visit/Exam 18-64 2004 Covid-19 Vaccine ( season) 2024 08/05/2021, 11/11/2020, 10/21/2020 DTaP/Tdap/Td Vaccine (3 - Td or Tdap) 07/28/2024 07/28/2014, 04/01/2011, 11/03/2001 Influenza Vaccine (Season Ended) 2025 08/17/2019, 11/03/2015, 11/03/2014, Additional history exists Pneumococcal vaccine <65 Aged Out 021, 12/10/2019, 12/06/2014 No longer eligible based on patient's age to complete this topic Hepatitis B Screening Completed 12/17/2023 , 06/03/1997, 01/01/1997, Additional history exists HPV Vaccines Aged Out No longer eligi ble based on patient's age to complete this topic Insurance Advance Directives For more information, please contact: [phone] * Full Code (Latest Code Status on File) Date Activated Date Inactivated Comments 03/24/2023 8:30 AM 03/24/2023 2:53 PM * Full Code Date Activated Date Inactivated Comments 10/05/2021 11:20 AM 10/05/2021 5:39 PM * Full Code Date Activated Date Inactivated Comments 10/13/2020 8:22 AM 10/13/2020 2:42 PM Care Teams Balloon Maker Relationship Specialty Start Date End Date Prudencio Feliciano DO [facility] [facility] [address] [place] [address] PCP - General Internal Medicine 03/01/25
--- OUTSIDE RECORDS SUMMARY | 2025-04-04 13:54 | XMS_ITS | Encounter Summary ---
Author Organization [facility] Address 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
--- OUTSIDE RECORDS SUMMARY | 2025-04-04 13:54 | XMS_ITS | Encounter Summary ---
Author Organization [facility] Address [address] [place] [address] Care Team Providers Care Unstacker Name Role Phone Mariposa Cabrales Primary Care Provider [phone] Encounter Details Date Type Department Care Team (Late st Contact Info) Description 11/17/2007 Orders Only [facility] Internal Medicine - [facility] [address] [address] [facility] [address] [place] [address] Maddie Moise MD NO ADDRESS ON FILE Social History Tobacco Use Types Packs/Day Years Used Date Smoking Tobacco: Never Assessed Comments Unknown Sex and Gender Information Value Date Recorded Sex Assigned at Not on file Legal Sex Female 5:26 AM COMPOSITION MOLDER Gender Identity Not on file Sexual Orientation Not on file documented as of this encounter Plan of Treatment Not on file documented as of this encounter Visit Diagnoses Not on filedocumented in this encounter Care Teams Unstacker Relationship Specialty Start Date End Date Mariposa Cabrales PA PCP - General Physician Tacking Machine Operator 06/27/20 documented as of this encounter
--- OUTSIDE RECORDS SUMMARY | 2025-04-04 13:54 | XMS_ITS | Encounter Summary ---
Author Organization [facility] Address [address] [place] [address] Phone Care Team Providers Care Kitchen Cleaner Name Role Phone Yogi Fuentes MD Primary Care Provider [phone] Prudencio Feliciano DO Primary Care Provider [phone] Encounter Details Date Type Department Care Team (Late st Contact Info) Description 12/19/2018 Orders Only [facility] Scanning, Provider Social History Tobacco Use Types Packs/Day Years Used Date Smoking Tobacco: Never Assessed Comments Unknown Sex and Gender Information Value Date Recorded Sex Assigned at Not on file Legal Sex Female 5:27 PM ENTERPRISE SOLUTIONS 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 Gender Identity Not on file Sexual Orientation Not on file documented as of this encounter Plan of Treatment Upcoming Encounters Date Type Department Care Team (Latest Contact Info) Description 04/21/2025 10:00 AM CDT Hospital Encounter [facility] [address] [facility] [address] [place] [address] Josh Michael MD [address] [facility] [address] [place] [address] 04/21/2025 10:00 AM CDT - 04/21/2025 11:00 AM CDT Surgery [facility] [address] [facility] [address] [place] [address] Josh Michael MD [address] [facility] [address] [place] [address] ESOPHAGOGASTRODUODENOSCOPY Scheduled Procedures Name Priority Associated Diagnoses [...] on filedocumented in this encounter Care Teams Kitchen Cleaner Relationship Specialty Start Date End Date Yogi Fuentes MD PCP - General Internal Medicine 07/18/20 02/28/25 Prudencio Feliciano DO [facility] [facility] [address] [place] [address] PCP - General Internal Medicine 03/01/25 documented as of this encounter
--- OUTSIDE RECORDS SUMMARY | 2025-04-04 13:54 | XMS_ITS | Encounter Summary ---
Author Organization [facility] Address [address] [place] [address] Phone Care Team Providers Care Project Management It Specialist Name Role Phone Yogi Fuentes MD Primary Care Provider [phone] Prudencio Feliciano DO Primary Care Provider [phone] Encounter Details Date Type Department Care Team (Late st Contact Info) Description 10/25/2016 Orders Only [facility] Scanning, Provider Social History Tobacco Use Types Packs/Day Years Used Date Smoking Tobacco: Never Assessed Comments Unknown Sex and Gender Information Value Date Recorded Sex Assigned at Not on file Legal Sex Female 5:27 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 Gender Identity Not on file Sexual Orientation Not on file documented as of this encounter Plan of Treatment Upcoming Encounters Date Type Department Care Team (Latest Contact Info) Description 04/21/2025 10:00 AM CDT Hospital Encounter [facility] [address] [facility] [address] [place] [address] Josh Michael MD [address] [facility] [address] [place] [address] 04/21/2025 10:00 AM CDT - 04/21/2025 11:00 AM CDT Surgery [facility] [address] [facility] [address] [place] [address] Josh Michael MD [address] [facility] [address] [place] [address] ESOPHAGOGASTRODUODENOSCOPY Scheduled Procedures Name Priority Associated Diagnoses [...] on filedocumented in this encounter Care Teams Project Management It Specialist Relationship Specialty Start Date End Date Yogi Fuentes MD PCP - General Internal Medicine 07/18/20 02/28/25 Prudencio Feliciano DO [facility] [address] [address] PCP - General Internal Medicine 03/01/25 documented as of this encounter
--- OUTSIDE RECORDS SUMMARY | 2025-04-04 13:54 | XMS_ITS | Encounter Summary ---
Author Organization [facility] Address [address] [place] [address] Care Team Providers Care Shower Maid Name Role Phone Mariposa Cabrales Primary Care Provider [phone] Encounter Details Date Type Department Care Team (Late st Contact Info) Description 04/13/2007 Outpatient Historical [facility] Internal Medicine - [facility] [address] [address] [facility] [address] [place] [address] Maddie Moise MD NO ADDRESS ON FILE Hematuria (Primary Dx) Social History Tobacco Use Types Packs/Day Years Used Date Smoking Tobacco: Never Assessed Comments Unknown Sex and Gender Information Value Date Recorded Sex Assigned at Not on file Legal Sex Female 5:26 AM BLADDER CHANGER Gender Identity Not on file Sexual Orientation Not on file documented as of this encounter Plan of Treatment Not on file documented as of this encounter Visit Diagnoses Diagnosis Hematuria- Primary documented in this encounter Care Teams Shower Maid Relationship Specialty Start Date End Date Mariposa Cabrales PA PCP - General Physician Last Cleaner 06/27/20 documented as of this encounter
--- OUTSIDE RECORDS SUMMARY | 2025-04-04 13:55 | XMS_ITS | Encounter Summary ---
Author Organization [facility] Address [address] [place] [address] Care Team Providers Care Professor Of Business Administration Name Role Phone Mariposa Cabrales Primary Care Provider [phone] Encounter Details Date Type Department Care Team (Latest Contact Info) Description 09/02/2004 Inpatient Historical [facility] Suze Waldrop MD NO ADDRESS ON FILE Vicky Langston MD [address] [place] [address] INFECTIOUS MONONUCLEOSIS (Primary Dx) Social History Tobacco Use Types Packs/Day Years Used Date Smoking Tobacco: Never Assessed Comments Unknown Sex and Gender Information Value Date Recorded Sex Assigned at Not on file Legal Sex Female 5:26 AM PRACTICE LEAD Gender Identity Not on file Sexual Orientation Not on file documented as of this encounter Plan of Treatment Not on file documented as of this encounter Visit Diagnoses Diagnosis Infectious mononucleosis- Primary documented in this encounter Care Teams Professor Of Business Administration Relationship Specialty Start Date End Date Mariposa Cabrales PA PCP - General Physician Plate Shear Operator 06/27/20 documented as of this encounter
--- OUTSIDE RECORDS SUMMARY | 2025-04-04 13:55 | XMS_ITS | Encounter Summary ---
Author Organization [facility] Address [address] [place] [address] Care Team Providers Care Senior Category Manager Name Role Phone Mariposa Cabrales Primary Care Provider [phone] Encounter Details Date Type Department Care Team (Late st Contact Info) Description 12/19/2005 Outpatient Historical [facility] Ramandeep Bess MD [address] [place] [address] RECTAL & ANAL HEMORRHAGE (Primary Dx) Social History Tobacco Use Types Packs/Day Years Used Date Smoking Tobacco: Never Assessed Comments Unknown Sex and Gender Information Value Date Recorded Sex Assigned at Not on file Legal Sex Female 5:26 AM BLACKTOP SPREADER Gender Identity Not on file Sexual Orientation Not on file documented as of this encounter Plan of Treatment Not on file documented as of this encounter Visit Diagnoses Diagnosis Hemorrhage of rectum and anus- Primary documented in this encounter Care Teams Senior Category Manager Relationship Specialty Start Date End Date Mariposa Cabrales PA PCP - General Physician Chief Sales Officer 06/27/20 documented as of this encounter
--- OUTSIDE RECORDS SUMMARY | 2025-04-04 13:55 | XMS_ITS | Encounter Summary ---
Author Organization [facility] Address [address] [place] [address] Care Team Providers Care Program Management Specialist Name Role Phone Mariposa Cabrales Primary Care Provider [phone] Encounter Details Date Type Department Care Team (Late st Contact Info) Description 01/13/2006 Outpatient [facility] Internal Medicine - [facility] [address] [address] [facility] [address] [place] [address] Maddie Moise MD NO ADDRESS ON FILE Social History Tobacco Use Types Packs/Day Years Used Date Smoking Tobacco: Never Assessed Comments Unknown Sex and Gender Information Value Date Recorded Sex Assigned at Not on file Legal Sex Female 5:26 AM REGULATOR INSPECTOR Gender Identity Not on file Sexual Orientation Not on file documented as of this encounter Last Filed Vital Signs Vital Sign Reading Time Taken Comments Blood Pressure 110/64 01/13/2006 10:10 AM REGULATOR INSPECTOR Pulse 76 01/13/2006 10:10 AM REGULATOR INSPECTOR Temperature 36.6 C (97.8 F) 01/13/2006 10:10 AM REGULATOR INSPECTOR Respiratory Rate - - Oxygen Saturation - - Inhaled Oxygen Concentration - - Weight 57.6 kg (127 lb) 01/13/2006 10:10 AM REGULATOR INSPECTOR Height - - Body Mass Index - - documented in this encounter Plan of Treatment Not on file documented as of this encounter Visit Diagnoses Not on filedocumented in this encounter Care Teams Program Management Specialist Relationship Specialty Start Date End Date Mariposa Cabrales PA PCP - General Physician Manager Aviation 06/27/20 documented as of this encounter
--- OUTSIDE RECORDS SUMMARY | 2025-04-04 13:55 | XMS_ITS | Encounter Summary ---
Author Organization [facility] Address [address] [place] [address] Care Team Providers Care Pot Tender Name Role Phone Mariposa Cabrales Primary Care Provider [phone] Encounter Details Date Type Department Care Team (Late st Contact Info) Description 11/11/2005 Outpatient Historical [facility] Internal Medicine - [facility] [address] [address] [facility] [address] [place] [address] Maddie Moise MD NO ADDRESS ON FILE Social History Tobacco Use Types Packs/Day Years Used Date Smoking Tobacco: Never Assessed Comments Unknown Sex and Gender Information Value Date Recorded Sex Assigned at Not on file Legal Sex Female 5:26 AM NIGHT STOCKER Gender Identity Not on file Sexual Orientation Not on file documented as of this encounter Last Filed Vital Signs Vital Sign Reading Time Taken Comments Blood Pressure 120/60 11/11/2005 10:30 AM NIGHT STOCKER Pulse 64 11/11/2005 10:30 AM NIGHT STOCKER Temperature 37 C (98.6 F) 11/11/2005 10:30 AM NIGHT STOCKER Respiratory Rate - - Oxygen Saturation - - Inhaled Oxygen Concentration - - Weight 57.6 kg (127 lb) 11/11/2005 10:30 AM NIGHT STOCKER Height - - Body Mass Index - - documented in this encounter Plan of Treatment Not on file documented as of this encounter Visit Diagnoses Not on filedocumented in this encounter Care Teams Pot Tender Relationship Specialty Start Date End Date Mariposa Cabrales PA PCP - General Physician News Specialist 06/27/20 documented as of this encounter
--- OUTSIDE RECORDS SUMMARY | 2025-04-04 13:55 | XMS_ITS | Encounter Summary ---
Author Organization [facility] Address [address] [place] [address] Care Team Providers Care Sap Trainer Name Role Phone Mariposa Cabrlaes Primary Care Provider [phone] Encounter Details Date Type Department Care Team (Late st Contact Info) Description 05/21/2005 Outpatient Historical [facility] Internal Medicine - [facility] [address] [address] [facility] [address] [place] [address] Maddie Moise MD NO ADDRESS ON FILE Social History Tobacco Use Types Packs/Day Years Used Date Smoking Tobacco: Never Assessed Comments Unknown Sex and Gender Information Value Date Recorded Sex Assigned at Not on file Legal Sex Female 5:26 AM OCCUPATIONAL THERAPY CO DIRECTOR Gender Identity Not on file Sexual Orientation Not on file documented as of this encounter Last Filed Vital Signs Vital Sign Reading Time Taken Comments Blood Pressure 108/80 05/21/2005 2:10 PM CDT Pulse 72 05/21/2005 2:10 PM CDT Temperature 36.7 C (98 F) 05/21/2005 2:10 PM CDT Respiratory Rate - - Oxygen Saturation - - Inhaled Oxygen Concentration - - Weight 56.7 kg (125 lb) 05/21/2005 2:10 PM CDT Height - - Body Mass Index - - documented in this encounter Plan of Treatment Not on file documented as of this encounter Visit Diagnoses Not on filedocumented in this encounter Care Teams Sap Trainer Relationship Specialty Start Date End Date Mariposa Cabrales PA PCP - General Physician Accountant Assistant 06/27/20 documented as of this encounter
--- OUTSIDE RECORDS SUMMARY | 2025-04-04 13:55 | XMS_ITS | Encounter Summary ---
Author Organization [facility] Address [address] [place] [address] Care Team Providers Care Stereotype Molder Name Role Phone Mariposa Cabrales Primary Care Provider [phone] Encounter Details Date Type Department Care Team (Late st Contact Info) Description 08/30/2004 Outpatient Historical [facility] Internal Medicine - [facility] [address] [address] [facility] [address] [place] [address] Maddie Moise MD NO ADDRESS ON FILE Social History Tobacco Use Types Packs/Day Years Used Date Smoking Tobacco: Never Assessed Comments Unknown Sex and Gender Information Value Date Recorded Sex Assigned at Not on file Legal Sex Female 5:26 AM PROCESS CHEMIST Gender Identity Not on file Sexual Orientation Not on file documented as of this encounter Plan of Treatment Not on file documented as of this encounter Visit Diagnoses Not on filedocumented in this encounter Care Teams Stereotype Molder Relationship Specialty Start Date End Date Mariposa Cabrales PA PCP - General Physician Certified [employer] Administrator 06/27/20 documented as of this encounter
--- OUTSIDE RECORDS SUMMARY | 2025-04-04 13:55 | XMS_ITS | Encounter Summary ---
Author Organization [facility] Address [address] [place] [address] Care Team Providers Care Automatic Buffer Name Role Phone Mariposa Cabrales Primary Care Provider [phone] Encounter Details Date Type Department Care Team [...] on file Legal Sex Female 5:26 AM MEDICAL OFFICE REPRESENTATIVE Gender Identity Not on file Sexual Orientation Not on file documented as of this encounter Plan of Treatment Not on file documented as of this encounter Visit Diagnoses Diagnosis Screening for lipoid disorders Dyspepsia and other specified disorders of function of stomach Ulcerative colitis, unspecified Other abnormal blood chemistry documented in this encounter Care Teams Automatic Buffer Relationship Specialty Start Date End Date Mariposa Cabrales PA PCP - General Physician Stunner 06/27/20 documented as of this encounter
--- OUTSIDE RECORDS SUMMARY | 2025-04-04 13:55 | XMS_ITS | Encounter Summary ---
Author Organization [facility] Address [address] [place] [address] Care Team Providers Care Homicide Investigator Name Role Phone Mariposa Cabrales Primary Care Provider [phone] Encounter Details Date Type Department Care Team (Late st Contact Info) Description 09/10/2004 Outpatient Historical [facility] Internal Medicine - [facility] [address] [address] [facility] [address] [place] [address] Maddie Moise MD NO ADDRESS ON FILE Social History Tobacco Use Types Packs/Day Years Used Date Smoking Tobacco: Never Assessed Comments Unknown Sex and Gender Information Value Date Recorded Sex Assigned at Not on file Legal Sex Female 5:26 AM CERTIFIED NOVELL ENGINEER Gender Identity Not on file Sexual Orientation Not on file documented as of this encounter Plan of Treatment Not on file documented as of this encounter Visit Diagnoses Not on filedocumented in this encounter Care Teams Homicide Investigator Relationship Specialty Start Date End Date Mariposa Cabrales PA PCP - General Physician Presto Log Operator 06/27/20 documented as of this encounter
--- OUTSIDE RECORDS SUMMARY | 2025-04-04 13:55 | XMS_ITS | Patient Health Record ---
Author Organization [facility] Address [address] [place] [address] Care Team Providers Care Heavy Equipment Service Technician Name Role Phone Yogi Fuentes MD Primary Care Provider Unavaila ble Allergies Allergen (clinical drug ingredient) Drug/Non Drug Allergy documented on EMR Reaction Allergy Type Onset Date Status Asacol Unknown Drug Allergy Active infliximab Remicade Unknown Drug Allergy Active Reason For Referral No Information Medications Medication SIG (Take, Route, Frequency, Duration) Notes Start Date End Date Status predniSONE 20 MG 2 tablets Orally Onc e a day for 30 day(s) 05/24/2020 Active Stelara 06/22/2020 Active Ondansetron 4 MG 1 tablet on the tong ue and allow to dissolve Orally Once a day PRN nausea for 30 day(s) 05/13/2020 Active Dicyclomine HCl 20 MG 1 tablet Orally Th ree times a day for 30 day(s) PRN 12/06/2019 Active Probiotic Active Pepcid Active Stelara 90 MG/ML as directed Subcutaneous inject 1 syringe Every 8 weeks for 60 days 11/29/2020 Active predniSONE 10 MG take 20 mg daily for 2 weeks, 10 mg daily for 2 weeks, 5 mg daily for 2 weeks Orally Once a day for 42 day(s) 04/24/2020 Active Stelara 130 MG/26ML 3 vials Intravenous one time dose for 1 days 05/26/2020 Active tiZANidine HCl Activ e OTC/Vitamins Melatonin, Multivitamin, Biotin QD Active Fluoxetine Active Immunizations Vaccine Route Administration Date Status Comme nts Influenza, seasonal, injecta ble, preservative free, 3 yrs and above Unknown 11/05/2019 Administered Social History Tobacco Use: Social History Observation Description Date Details (start date - stop date) Never Smoker NA - NA Tobacco Use/Smoking Question Answer Notes Are you a nonsmoker Section Notes: Alcohol and tobacco use unkn own Alcohol and tobacco use unkn own Problems Problem Type SNOMED Code ICD Code Onset Dates Problem Status W/U Status Risk Notes Problem 602246810 Other specified abnormal immunological findings in serum (R76.8) Active confirmed Problem 53512980 Diarrhea (R19.7) Active confirmed Presuming this is a flare of her UC ,she will stay on budesonide 9mg daily. I am trying to avoid prednisone but will have to start this if she does not improve soon. I have ordered a stool CDiiff and lactoferrin today. Problem 609949094 Ulcerative chronic pancolitis without complications (K51.00) Active confirmed Patient here for 3rd infusion and having joint pain. Patient on 10 mg Prednisone. Problem 224680166 Ulcerative pancolitis (K51.00) Active confirmed She was hospitalized in November for an ulcerative colitis flare and was treated with IV steroids. When she was discharged, she was started on Humira, but unfortunately after only a few injections was still having bowel urgency and her blood tests revealed that she had antibodies. She was subsequently switched to Entyvio. She has had 2 infusions. She was also taking 6-MP, but stopped this due to myalgia. She took a short course of prednisone. She is happy to report that her bowel habits have really improved, but she worries that the joint pain is a side effect of the Entyvio. We'll have her get drug and antibody levels drawn. Problem 380878492 Malabsorption (K90.9) Active confirmed Problem 45150569 Myalgia (M79.10) Active confirmed Plan Of Treatment Pending Test Test Name Order Date CMP: COMPLETE METABOLIC PANEL 01/21/2017 CBC With Differential/Platelet 7 Future Test Test Name Order Date CMP: COMPLETE METABOLIC PANEL 04/25/2017 CBC With Differential/Platelet 7 CMP: COMPLETE METABOLIC PANEL 07/25/2017 CBC With Differential/Platelet 7 Insurance Providers Payer Name Payer Address Payer Phone Subscriber Number Group Number Insured Name Patient Relationship to Insured Coverage Start Date Coverage End Date [employer] [address] [place] [phone] [id number] Elizabeth Tanner Self - patient is the insured [place] [phone] [id number] Elizabeth Tanner Self - patient is the insured Medications Administered Medication Instructions Date of Administration Dosage Notes Entyvio 03/30/2020 Entyvio 04/12/2020 300 mg Entyvio 05/11/2020 300 mg Stelara 06/22/2020 390 mg Medical (General) History Medical History History ICD Code Ulcerative pancolitis GERD Celiac Spruce Surgical History Surgery Date(Month/Year) Colonoscopy 12/2018 EGD 12/2018 Hernia repair D&C Cholecystectomy Hospitalization History Reason Date(Month/Year) UC Exacerbation 2019 Ulcerative colitis flare 12/2014 [place] 2004
--- OUTSIDE RECORDS SUMMARY | 2025-04-04 13:55 | XMS_ITS | Encounter Summary ---
Author Organization [facility] Address [address] [place] [address] Care Team Providers Care Director Clinical Operations Name Role Phone Mariposa Cabrales Primary Care Provider [phone] Encounter Details Date Type Department Care Team (Late st Contact Info) Description 08/29/[address] 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
--- OUTSIDE RECORDS SUMMARY | 2025-04-04 13:55 | XMS_ITS | Data Portability ---
Author Organization [facility] [employer], Main Office Address [address] [place] [address] Assessment No assessment recorded. Plan of Treatment Reminders Order Date Submit Date Provider Last Modified By Organization Details Last Modified Time Details Appointments None recorded. Lab lipid panel, serum 023 [email or web address] [facility], [address], [address], [place], [address], 3 14:46:17 CBC w/ auto diff 023 [email or web address] [facility], 2022 T[address] Amin, [address], [place], [address], 3 14:45:51 CMP, serum or plasma 023 [email or web address] [facility], 2022 T[address] Amin, [address], [place], [address], 3 14:45:58 vitamin B12 + folate, serum or blood 023 [email or web address] [facility], 2022 [address] Amin, [address], [place], [address], 3 14:46:44 iron + TIBC + ferritin, serum 023 JOSE EDUARDO [facility], 2022 [address], [address], [place], [address], 3 14:00:35 TSH + free T4, serum 023 [email or web address] [facility], 2022 T[address] Amin, [address], [place], [address], 3 14:46:27 T3, free, serum or plasma [email or web address] [facility], 2022 [address], [address], [place], [address], 3 14:46:36 HbA1c (hemoglob in A1c), blood [email or web address] [facility], 2022 [address] Amin, [address], [place], [address], 3 14:46:06 Referral None recorded. Procedures None [...] [facility] ([facility]) [address] [facility], [place], [address], 03/19/2022 05:09:15 03/18/20 22 03/19/2022 VITAM IN [...] [facility] ([facility]) [address] [place], [address], 03/19/2022 05:09:15 03/18/20 22 03/19/2022 TSH TSH 2.360 uIU/m L 0.450- 4.500 Not Available [facility] ([facility]) [address] [place], [address], 03/19/2022 05:09:14 03/18/20 22 03/19/2022 THYRO XINE (T4) FREE, DIREC T T4,free(dire ct) 1.16 NG/dL 0.82-1 .77 Not Available [facility] ([facility]) [address] [place], [address], 03/19/2022 05:09:14 03/18/20 22 03/19/2022 HEMOG LOBIN A1C hemoglobin A1C 4.9 % 4.8-5. 6 Predi abete s: 5.7 - 6.4 Diabe kemi: >6.4 Glyce emily contr ol for adult s with diabe kemi: <7.0 Not Available [facility] ([facility]) [address] [place], [address], 03/19/2022 05:09:13 03/18/2003/19/2022 IRON AND TIBC iron bind.cap.(TI BC) 345 ug/dL 250-45 0 Not Available [facility] ([facility]) [address] [place], [address], 03/19/2022 05:09:13 03/18/20 22 03/19/2022 IRON AND TIBC UIBC 247 ug/dL 131-42 5 Not Available [facility] ([facility]) [address] [place], [address], 03/19/2022 05:09:13 03/18/20 22 03/19/2022 IRON AND TIBC iron 98 ug/dL 27-159 Not Available [facility] ([facility]) [address] [place], [address], 03/19/2022 05:09:13 03/18/20 22 03/19/2022 IRON AND TIBC iron saturation 28 % 15-55 Not Available [facility] ([facility]) [address] [place], [address], 03/19/2022 05:09:13 03/18/20 22 03/19/2022 LIPID PANEL cholesterol, total 191 mg/dL 100-19 9 Not Available [facility] ([facility]) [address] [place], [address], 03/19/2022 05:09:12 03/18/20 22 03/19/2022 LIPID PANEL triglyceride s 170 mg/dL 0-149 above high normal Not Available [facility] ([facility]) [address] [place], [address], 03/19/2022 05:09:12 03/18/20 22 03/19/2022 LIPID PANEL HDL cholesterol 46 mg/dL >39 Not Available [facility] ([facility]) [address] [place], [address], 03/19/2022 05:09:12 03/18/20 22 03/19/2022 LIPID PANEL VLDL cholesterol salvador 30 mg/dL 5-40 Not Available [facility] ([facility]) [address] [place], [address], 03/19/2022 05:09:12 03/18/20 22 03/19/2022 LIPID PANEL LDL chol calc ([facility]) 115 mg/dL 0-99 above high normal Not Available [facility] ([facility]) [address] [facility], [place], [address], 03/19/2022 05:09:12 03/18/20 22 03/19/2022 LIPID PANEL comment: photo colorer Not Available [facility] ([facility]) [address] [facility], [place], [address], 03/19/2022 05:09:12 03/08/20 22 03/07/2022 XR, cervi salvador spine No observ ation record ed. [id number] [facility] (Imaging) [address], [place], [address], 01/01/2023 17:15:39 04/30/20 22 04/29/2022 US, thyro id No observ ation record ed. [id number] [facility] [address], [place], [address], 01/01/2023 17:15:39 02/08/20 23 01/21/2023 home sleep study No observ ation record ed. [email or web address] Not Available 2022 11:44:14 03/24/20 23 03/24/2023 colon oscop y scree karen (PROC ) No observ ation record ed. [email or web address] [facility] [address] [place], [address], 10/18/2023 10:37:18 11/10/19 24 11/07/2023 US, thyro id No observ ation record ed. [email or web address] [facility] [address], [place], [address], 11/10/2023 15:37:54 Result Notes None recorded. 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 091403181 Active 2021 Not Available [facility] 3 17:14:11 Methicillin resistant Staphylococcu s aureus infection 427360147 Active Not Available [facility] 3 17:14:11 Vitamin D deficiency 22600757 Active 2021 Not Available [facility] 3 17:14:11 Sleep disorder 11865299 Active 2022 Not Available [facility] 3 17:14:11 Nausea 161370377 Active Not Available [facility] 3 17:14:11 Postviral cough 699335229 Active 2021 Not Available [facility] 3 17:14:11 Viral syndrome 608361763 Active Not Available [facility] 3 17:14:12 Ulcerative colitis 97260711 Active 2021 Not Available [facility] 3 17:14:12 Candidiasis of vagina 03921809 Active Not Available [facility] 3 17:14:12 Stress 67079978 Active Not Available [facility] 3 17:14:12 Neck pain 55162572 Active 2021 Not Available [facility] 3 17:14:12 Weight gain 6750264 Active 2021 Not Available [facility] 3 17:14:12 Skin lesion 97353240 Active Not Available [facility] 3 17:14:12 Obstructive sleep apnea syndrome 39001171 Active 2022 ARI Coy [address], [place] [address], [place], [address] , [facility] 3 14:02:06 Hypothyroidis m 36034467 Active 2022 ARI Coy [address], [address], [place], [address] , [facility] [employer] [facility] 3 10:02:27 Migraine 85055285 Active 2022 ARI Coy [address], [address], [place], [address] , [facility] [employer] [facility] 3 16:42:15 Problem Notes None recorded. Procedures Surgical History Date Name Laterality Status Provider Name and Address Organization Details Recorded Time 10/13/20 20 Date of Last Colonoscopy completed Not Available [facility] 01/01/2023 17:13:09 10/13/20 20 colonoscopy completed Not Available [facility] 01/01/2023 17:13:09 Hernia Repair completed Not Available [facility] 01/01/2023 17:13:09 CARE TECH Surgery completed Not Available [facility] 01/01/2023 17:13:09 Cholecystectomy completed Not Available [facility] 01/01/2023 17:13:09 Imaging Results None recorded. Procedure Notes None recorded. Medical Equipment None Reported. Allergies Allergen ID Allergen Name Allergen Category Reaction Reaction Severity Criticality Documentation Date Start Date Code Code System Note Provider Name and Address Organization Details Recorded Time 91748 Remicade medicatio n other Not available Not available 01/01/2023 43470 0 RxNorm joint pain Not Available [facility] 3 17:15:36 28987 buspirone medicatio n vomiting Not available Not available 01/01/2023 1827 RxNorm 10mg dose Not Available [facility] 3 17:15:36 10577 Asacol medicatio n other Not available Not available 01/01/2023 71627 6 RxNorm joint pain Not Available [facility] 3 17:15:36 Medications Name Sig Start Date [...] Date Recorded Body mass index (BMI) Body height Oxygen saturation Oxygen saturation in Arterial blood by Pulse oximetry Heart rate Respiratory rate Body weight Systolic blood pressure Diastolic blood pressure Provider Name and Address Organization Details Last Updated DateTime 2 32.7 kg/m2 167.64 cm 98 % 98 % 60 /min 16 /min 50716.8 1 g 120 mm[Hg] 80 mm[Hg] Not Available [facility] 3 17:13:41 Date Recorded Body mass index (BMI) Body height Oxygen saturation Oxygen saturation in Arterial blood by Pulse oximetry Heart rate Body temperature Body weight Systolic blood pressure Diastolic blood pressure Provider Name and Address Organization Details Last Updated DateTime 2 31.8 kg/m2 167.64 cm 98 % 98 % 71 /min 97.8 [degF] 82908.7 g 100 mm[Hg] 60 mm[Hg] Not Available [facility] 3 17:13:42 Date Recorded Body height Oxygen saturation Oxygen saturation in Arterial blood by Pulse oximetry Heart rate Respiratory rate Body temperature Systolic blood pressure Diastolic blood pressure Provider Name and Address Organization Details Last Updated DateTime 2 167.64 cm 98 % 98 % 75 /min 16 /min 97.8 [degF] 110 mm[Hg] 70 mm[Hg] Not Available [facility] 3 17:13:42 Date Recorded Body height Body mass index (BMI) Body weight Body temperature Heart rate Oxygen saturation Oxygen saturation in Arterial blood by Pulse oximetry Systolic blood pressure Diastolic blood pressure Provider Name and Address Organization Details Last Updated DateTime 167.64 cm 32.3 kg/m2 32790.4 7 g 97.6 [degF] 76 /min 97 % 97 % 116 mm[Hg] 70 mm[Hg] Marie Kaufman RN [facility] [employer] 3 09:31:16 Date Recorded Body height Provider Name an d Address Organization Details Last Updated DateTime 09/17/2022 167.64 cm Not Available [facility] 17:13:43 Social History Question Answer Notes LastModified by Organizat ion Details LastModified Time Tobacco Smoking Status Never Smoker Marie Kaufman RN [facility], [facility] [employer] 09/02/2023 09:26:06 What Is Your Level Of Caffeine Consumption? Moderate [id number] Information not available 01/01/2023 How Much Tobacco Do You Chew? None [id number] Information not available 01/01/2023 In The 14 Days Before Symptom Onset, Have You Had Close Contact With A Laboratory-confirm ed COVID-19 While That Case Was Ill? No [email or web address] Information n ot available 09/02/2023 In The 14 Days Before Symptom Onset, Have You Had Close Contact With A Person Who Is Under Investigation For COVID-19 While That Person Was Ill? No [email or web address] Information not available 09/02/2023 What Type Of Diet Are You Following? REGULAR [id number] Information not available 01/01/2023 Which Illicit Or Recreational Drugs Have You Used? None [email or web address] Information not available 09/02/2023 Have There Been Any Changes To Your Family Or Social Situation? No [email or web address] Information no t available 09/02/2023 Do You Use Insect Repellent Routinely? No [email or web address] Information not available 09/02/2023 What Was The Date Of Your Most Recent Tobacco Screening? 02/22/2021 Information not available 09/02/2023 What Is Your Relationship Status? [id number] Information not available 01/01/2023 Do You Use Your Seat Belt Or Car Seat Routinely? Yes [email or web address] Information not available 09/02/2023 Are You Passively Exposed To Smoke? No [email or web address] Information no t available 09/02/2023 How Much Tobacco Do You Smoke? No [id number] Information not available 01/01/2023 Do You Use Sunscreen Routinely? Yes [email or web address] Information not available 09/02/2023 Have You Recently Traveled Abroad? No [email or web address] Information not available 09/02/2023 Do You Have Any Dietary Restrictions? No [email or web address] Information not available 09/02/2023 Sex: Female Functional Status Question Answer Note LastModified by Organizat ion Details LastModified Time Do you use any illicit or recreational drugs? No [email or web address] Information not available 09/02/2023 Do you or have you ever used any other forms of tobacco or nicotine? No [email or web address] Information not available 09/02/2023 What is your level of alcohol consumption? Occasional [id number] Information not available 01/01/2023 Do you or have you ever used smokeless tobacco? 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 Never used electronic cigarettes [email or web address] Information not available 09/02/2023 What is your exercise level? Occasional [id number] Information not available 01/01/2023 Mental Status None recorded. Family History Relationship Description Onset Age of this Age Resolved Age Notes LastModified by Organization Details LastModified Time Mother Myocardial infarction [id number] Not available 01/01/2023 17:13:10 Mother Hypothyroidi sm [email or web address] Not available 09:26:06 Mother History of heart disorder had stents [email or web address] Not available 09/02/2023 09:26:06 Paternal Grandfather Alcoholism [email or web address] Not availabl e 09/02/2023 09:26:06 Brother Eczema [email or web address] Not availa ble 09/02/2023 09:26:06 Medical History Condition Response SKIN PROBLEMS Y ULCERS Y ANXIETY DISORDER Y BOWEL PROBLEMS Y DEPRESSION (INCLUDING POST ) Y HEARTBURN / REFLUX Y Gynecological History [...] virus, quadrivalent, preservative 9 completed Not Available [facility] 01/01/2023 17:15:34 influenza, unspecified formulation 6 completed Not Available [facility] 01/01/2023 17:15:34 influenza, unspecified formulation 5 completed Not Available [facility] 01/01/2023 17:15:34 Past Encounters Encounter ID Performer Location Encounter Start Date Encounter Closed Date Diagnosis/Indication Diagnosis SNOMED-CT Code Diagnosis ICD10 Code Diagnosis Note [id number] ARI Coy [facility] [address] [place] [address] 02/22/2021 00:00:00 03/02/2021 23:13:37 [id number] ARI Coy [facility] [place] [address] [place] [address] 08/17/2021 00:00:00 09/02/2021 10:47:05 [id number] Yogi Fuentes MD [facility] [place] [address] [place] [address] 02/19/2022 00:00:00 02/19/2022 09:26:13 [id number] Yogi Fuentes MD [facility] Internal Med [place] [address] [place] [address] 03/04/2022 00:00:00 04/02/2022 23:37:33 [id number] Venecia Anderson MD [facility] [place] [address] [place] [address] 06/25/2022 00:00:00 06/25/2022 14:44:42 [id number] ARI Coy [facility] Internal [facility] [place] [address] [place] [address] 08/12/2022 00:00:00 09/01/2022 16:22:27 [id number] Venecia Anderson MD [facility] End[facility] [place] [address] [place] [address] 09/17/2022 00:00:00 09/17/2022 20:31:14 [id number] ARI Coy [facility] Internal [facility] [place] [address] [place] [address] 09/02/2023 09:25:23 09/02/2023 10:06:07 Cholesterol screening 619546038 Z13.220 fasting lipids due Diabetes m ellitus screening 650755715 Z13.1 screening a1c due Hypothyroidism 32316895 E03.9 on supplement . Tfts due Long-term drug therapy 365805119 Z79.899 routine cbc, cmp, b12, folate and iron studies due Adult heal th examination 423214355 Z00.01 well exam completed. Generalize d anxiety disorder 73763607 F41.1 stable on fluoxetine 40mg daily. Obstructiv e sleep apnea syndrome 12527936 G47.33 on cpap stable. Ulcerative colitis 39835 004 K51.90 stable on Stelara with specialist . Migraine 03819714 G43.90 9 stable on topiramate and triptan Health Concerns Section Related Observation LastModified by Organization Detai ls LastModified Time None Recorded Concern Status LastModified by Organization Details LastModified Time None Recorded Advance Directives Directive None Recorded Payers Encounter Date Sequence Insurance Name Policy Number Policy Montero Covered Member ID Montero Member ID Guarantor Name 09/02/2023 1 [facility] [id number] Elizabeth Tanner [id number] Elizabeth Tanner Notes Date Note Type Note Provider Name and Address Organization Details Recorded Time 2 text/html Anxiety/DepressionReported bypatient.Quality:situatio nal. Severity:denies suicidal ideations; able to maintain relationships; [...] appetite good; energy good; no apathy; maintaining functionality HypothyroidismReported bypatient.Quality:not changing Duration:constant Onset/Timing:still present Context/Risk:normal thyroid [...] skin changes; no hair changes;fatigue Not Available [employer] 04/02/2022 23:37:33 2 text/html CoughReported bypatient.Quality:loose; non productive;productive(colleen r) Severity:pain with cough; staying about the same [...] ago and it was neg. Not Available [employer] 09/01/2022 16:22:27 3 text/html Anxiety, Generalized DisorderReported bypatient.Associated Symptoms:no difficulty concentrating; no difficulty controlling worry; no difficulty swallowing; no anxiety; no excessive sweating; no hot flashes; no palpitations; no shortness of breath; no nausea; no diarrhea; no fatigue; no irritability; no muscle tension; no muscle aches; no trembling; no twitching; no headaches; no restlessness; no sleep disturbancesHypothyroidism Reported bypatient.Onset/Timing:bet ter Context/Risk:normal thyroid levels; no history of head [...] migraines now with Neurology ARI Coy [address] [facility] [facility] [address], [place], [address], [place] [facility] [place] [employer] [facility] 09/02/2023 16:42:52 OBGyn Episode No OBEpisode recorded.
--- OUTSIDE RECORDS SUMMARY | 2025-04-04 13:55 | XMS_ITS | Encounter Summary ---
Author Organization [facility] Address [address] [place] [address] Care Team Providers Care District Manager Postal Service Name Role Phone Mariposa Cabrales Primary Care Provider [phone] Encounter Details Date Type Department Care Team (Late st Contact Info) Description 11/23/2004 Outpatient Historical [facility] Internal Medicine - [facility] [address] [address] [facility] [address] [place] [address] Maddie Moise MD NO ADDRESS ON FILE Social History Tobacco Use Types Packs/Day Years Used Date Smoking Tobacco: Never Assessed Comments Unknown Sex and Gender Information Value Date Recorded Sex Assigned at Not on file Legal Sex Female 5:26 AM REDYE HAND Gender Identity Not on file Sexual Orientation Not on file documented as of this encounter Plan of Treatment Not on file documented as of this encounter Visit Diagnoses Not on filedocumented in this encounter Care Teams District Manager Postal Service Relationship Specialty Start Date End Date Mariposa Cabrales PA PCP - General Physician Rotor Casting Machine Setup Operator 06/27/20 documented as of this encounter
--- OUTSIDE RECORDS SUMMARY | 2025-04-04 13:55 | XMS_ITS | Clinical Summary ---
Author Organization [facility] [place] Address [address] [facility] [place] [address] Phone Care Team Providers Care Design Assistant Name Role Phone Mariposa Cabrales Primary Care Provider [phone] Allergies Active Allergy Reactions Criticality Noted Date [...] on file Legal Sex Female 5:26 AM CAREER SERVICES DIRECTOR Gender Identity Not on file Sexual Orientation Not on file Occupation Industry Job Start Date Job End Date Not on file Not on file Not on file Not on file Last Filed Vital Signs Vital Sign Reading Time Taken Comments Blood Pressure 107/69 10/19/2020 4:00 PM CAREER SERVICES DIRECTOR Pulse 89 10/19/2020 4:00 PM CAREER SERVICES DIRECTOR Temperature 36.6 C (97.9 F) 10/19/2020 4:00 PM CAREER SERVICES DIRECTOR Respiratory Rate 14 12/11/2017 4:29 PM CAREER SERVICES DIRECTOR Oxygen Saturation 98% 10/19/2020 4:00 PM CAREER SERVICES DIRECTOR Inhaled Oxygen Concentration - - Weight 86.5 kg (190 lb 11.2 oz) 10/19/2020 4:00 PM CAREER SERVICES DIRECTOR Height 165.1 cm (5' 5) 10/19/2020 4:00 PM CAREER SERVICES DIRECTOR Body Mass Index 31.73 10/19/2020 4:00 PM CAREER SERVICES DIRECTOR Plan of Treatment Health Maintenance Due Date Last Done Comments PAP SMEAR 12/29/2021 12/29/2018, 07/2018, 11/22/2016, Additional history exists CERVICAL CANCER SCREENING 12/29/2023 HPV/Cotest (21-29) 12/29/2023 12/29/2018, 0 12/12/2017, 11/22/2016, Additional history exists HPV/Cotest (30-65) 12/29/2023 12/29/2018, 0 12/12/2017, 11/22/2016, Additional history exists INFLUENZA VACCINE (#1) 2024 9, 08/04/2014, 08/03/2013 DTAP/TDAP/TD VACCINES (4 - Td or Tdap) 07/28/2024 07/28/2014, 04/01/2011, 11/03/2001 HEPATITIS B VACCINES Completed 06/03/1997, 01/01/1997, 07/12/1996 HPV VACCINES Aged Out No longer eligi ble based on patient's age to complete this topic Medical Devices Implanted Type Area Operations Section Manager Device Identifier Shelf Expiration Date Model / Serial / Lot Mirena Procedures Procedure Name Priority Date/Time Associated Diagnosis Comments CERV/VAG CYTO SCREEN PAP RLFX HPV Routine 12/29/2018 5:21 PM CAREER SERVICES DIRECTOR Encounter for routine gynecological examination with Papanicolaou smear of cervix from Last 3 Months or Most Recently Relevant to Health Maintenance Results * CERV/VAG CYTO SCREEN PAP RLFX HPV (12/29/2018 5:21 PM CAREER SERVICES DIRECTOR) CLINICAL INFORMATION Information not provided 01/05/2019 4:17 PM CAREER SERVICES DIRECTOR [facility] LAST MENSTRUAL PERIOD Information not provided 01/05/2019 4:17 PM CAREER SERVICES DIRECTOR [facility] PREV PAP: Information not provided 01/05/2019 4:17 PM CAREER SERVICES DIRECTOR [facility] PREV BX: Information not provided 01/05/2019 4:17 PM CAREER SERVICES DIRECTOR [facility] SOURCE Endocervix 01/05/2019 4:17 PM CAREER SERVICES DIRECTOR [facility] ADEQUACY: SEE COMMENT 01/05/2019 4:17 PM CAREER SERVICES DIRECTOR [facility] Comment: Satisfactory for evaluation. Endocervical/transformation zone component present. PAP INTERP Negative for intraepithelial lesion or malignancy. 01/05/2019 4:17 PM CAREER SERVICES DIRECTOR [facility] COMMENT This Pap test has been evaluated with computer assisted technology. 01/05/2019 4:17 PM CAREER SERVICES DIRECTOR [employer] [facility] OPERATIONS AND MAINTENANCE TECHNICIAN: SEE COMMENT 2018 4:17 PM CAREER SERVICES DIRECTOR [facility] Comment: LVA, CT(ASCP) CT screening location: [place] [address] [place] [address] EXPLANATORY NOTE SEE COMMENT 019 4:17 PM CAREER SERVICES DIRECTOR [employer] [facility] Comment: EXPLANATORY NOTE: The Pap [...] Unknown Collection / Unknown 12/29/2018 5:21 PM CAREER SERVICES DIRECTOR 12/30/2018 3:19 PM CAREER SERVICES DIRECTOR Narrative [facility] - 01/05/2019 4:17 PM CAREER SERVICES DIRECTOR Performing Organization Information: Site ID: [place] Name: [facility] Address: [address] [place] [address] Director: Dwaine Simmons Prudencio Castro DO PATHOLOGY/CYTOLOGY ORDERABLES F inal Result [facility] [phone] from Last 3 Months or Most Recently Relevant to Health Maintenance Advance Directives For more information, please contact: [phone] * Full Code (Latest Code Status on [...] 4:49 PM 05/18/2014 8:19 PM Care Teams Design Assistant Relationship Specialty Start Date End Date Mariposa Cabrales PA PCP - General Physician Wood Die Maker 06/27/20
--- OUTSIDE RECORDS SUMMARY | 2025-04-04 13:55 | XMS_ITS | Encounter Summary ---
Author Organization [facility] Address [address] [place] [address] Care Team Providers Care Rand Tacker Name Role Phone Mariposa Cabrales Primary Care Provider [phone] Encounter Details Date Type Department Care Team (Late st Contact Info) Description 12/12/[address] [facility] Internal Medicine - [place] [address] [address] [facility] [address] [place] [address] Maddie Moise MD NO ADDRESS ON FILE Social History Tobacco Use Types Packs/Day Years Used Date Smoking Tobacco: Never Assessed Comments Unknown Sex and Gender Information Value Date Recorded Sex Assigned at Not on file Legal Sex Female 5:26 AM WORKSHOP MANAGER Gender Identity Not on file Sexual Orientation Not on file documented as of this encounter Plan of Treatment Not on file documented as of this encounter Visit Diagnoses Not on filedocumented in this encounter Care Teams Rand Tacker Relationship Specialty Start Date End Date Mariposa Cabrales PA PCP - General Physician Water Purification Chemist 06/27/20 documented as of this encounter
--- OUTSIDE RECORDS SUMMARY | 2025-04-04 13:55 | XMS_ITS | Encounter Summary ---
Author Organization [facility] Address [address] [place] [address] Care Team Providers Care Auto Damage Appraiser Name Role Phone Mariposa Cabrales Primary Care Provider [phone] Encounter Details Date Type Department Care Team (Late st Contact Info) Description 12/23/2007 Outpatient Historical [facility] Ramandeep Bess MD [address] [facility] [address] [place] [address] Social History Tobacco Use Types Packs/Day Years Used Date Smoking Tobacco: Never Assessed Comments Unknown Sex and Gender Information Value Date Recorded Sex Assigned at Not on file Legal Sex Female 5:26 AM OBIEE CONSULTANT Gender Identity Not on file Sexual Orientation Not on file documented as of this encounter Plan of Treatment Not on file documented as of this encounter Visit Diagnoses Not on filedocumented in this encounter Care Teams Auto Damage Appraiser Relationship Specialty Start Date End Date Mariposa Cabrales PA PCP - General Physician Divisional Human Resources Director 06/27/20 documented as of this encounter
--- OUTSIDE RECORDS SUMMARY | 2025-04-04 13:55 | XMS_ITS | Encounter Summary ---
Author Organization [facility] Address [address] [place] [address] Care Team Providers Care Furniture Reproducer Name Role Phone Mariposa Cabrales Primary Care Provider [phone] Encounter Details Date Type Department Care Team (Late st Contact Info) Description 09/03/2004 Outpatient Historical [facility] Adult Hospitalists [address] [phone] Suze Waldrop MD NO ADDRESS ON FILE Social History Tobacco Use Types Packs/Day Years Used Date Smoking Tobacco: Never Assessed Comments Unknown Sex and Gender Information Value Date Recorded Sex Assigned at Not on file Legal Sex Female 5:26 AM WELD ENGINEER Gender Identity Not on file Sexual Orientation Not on file documented as of this encounter Plan of Treatment Not on file documented as of this encounter Visit Diagnoses Not on filedocumented in this encounter Care Teams Furniture Reproducer Relationship Specialty Start Date End Date Mariposa Cabrales PA PCP - General Physician Guillotine Trimmer 06/27/20 documented as of this encounter
--- OUTSIDE RECORDS SUMMARY | 2025-04-04 13:55 | XMS_ITS | Encounter Summary ---
Author Organization [facility] Address [address] [place] [address] Care Team Providers Care Airplane Cleaner Name Role Phone Mariposa Cabrales Primary Care Provider [phone] Encounter Details Date Type Department Care Team (Late st Contact Info) Description 09/02/2004 Outpatient Historical [facility] Adult Hospitalists [address] [phone] Vicky Langston MD [address] [facility] [address] [facility] [place] [address] Social History Tobacco Use Types Packs/Day Years Used Date Smoking Tobacco: Never Assessed Comments Unknown Sex and Gender Information Value Date Recorded Sex Assigned at Not on file Legal Sex Female 5:26 AM SAS DEVELOPER ANALYST Gender Identity Not on file Sexual Orientation Not on file documented as of this encounter Plan of Treatment Not on file documented as of this encounter Visit Diagnoses Not on filedocumented in this encounter Care Teams Airplane Cleaner Relationship Specialty Start Date End Date Mariposa Cabrales PA PCP - General Physician Paper Products Printer 06/27/20 documented as of this encounter
--- OUTSIDE RECORDS SUMMARY | 2025-04-04 13:55 | XMS_ITS | Encounter Summary ---
Author Organization [employer] [facility] Address [address] [place] [address] Care Team Providers Care Parts Technician Name Role Phone Mariposa Cabrales Primary Care Provider [phone] Encounter Details Date Type Department Care Team (Latest Contact Info) Description 02/09/2008 Outpatient Historical [facility] Ramandeep Bess MD [address] [place] [address] [place] Ulcerative (Chronic) Colitis (CMS/HCC) Social History Tobacco Use Types Packs/Day Years Used Date Smoking Tobacco: Never Assessed Comments Unknown Sex and Gender Information Value Date Recorded Sex Assigned at Not on file Legal Sex Female 5:26 AM CO FOUNDER Gender Identity Not on file Sexual Orientation [...] GLUCOSE 101(H) 65 - 99 mg/dL [facility] SODIUM 138 135 - 145 mmol/L [facility] CALCIUM 8.8 8.4 - 10.2 mg/dL [facility] CO2 24 22 - 30 mmol/L [facility] CREATININE 0.70 0.51 - 0.95 mg/dL [facility] POTASSIUM 4.0 3.5 - 4.9 mmol/L [facility] BUN 9 6 - 20 mg/dL [facility] CHLORIDE 104 96 - 108 mmol/L [facility] GFR, >60 >=60 mL/min/1. 7 sq meter [facility] GFR >60 >=60 mL/min/1. 7 sq meter [facility] Comment: Estimated GFR rate interpretative information for both Americans and non- Americans is available on the [facility] Intranet at: [email or web address] Select: Lab Policies and Procedures Select: Reference Ranges - GFR Blood specimen (specimen) 02/09/2008 8:32 AM CDT 02/09/2008 1:32 PM CDT Ramandeep Bess MD CHEMISTRY ORDERABLES Edited [facility] [address] [place] [address] * (ABNORMAL) CBC WITH DIFFERENTIAL (02/09/2008 8:32 AM CDT) HEMOGLOBIN 13.2 11.8 - 14.8 g/dL [facility] RDW 13.1 11.5 - 14.5 % [facility] WBC 3.5(L) 4.0 - 9.8 K/uL [facility] MCH 29.0 27.2 - 32.6 pg [facility] MPV 11.7 9.3 - 12.4 fL [facility] HEMATOCRIT 40.1 35.5 - 44.0 % [facility] RDW-STDEV 41.7 37.1 - 48.7 fL [facility] RBC 4.55 3.90 - 4.90 M/uL [facility] MCHC 32.9 31.5 - 35.5 % [facility] MCV 88.1 82.0 - 99.0 fL [facility] PLATELETS 246 140 - 350 K/uL [facility] EOSINOPHILS 5 0 - 7 % [facility] EOSINOPHIL ABSOLUTE 0.19 0.00 - 0.70 K/uL [facility] LYMPHOCYTES 27 16 - 45 % [facility] LYMPHOCYTE ABSOLUTE 0.97 0.70 - 4.50 K/uL [facility] BASOPHILS 1 0 - 2 % [facility] BASOPHILS ABSOLUTE 0.02 0.00 - 0.20 K/uL [facility] MONOCYTES 6 3 - 13 % [facility] MONOCYTE ABSOLUTE 0.22 0.10 - 1.30 K/uL [facility] NEUTROPHILS 60 45 - 70 % [facility] NEUTROPHIL ABSOLUTE 2.14 1.90 - 7.00 K/uL [facility] Blood specimen (specimen) 02/09/2008 8:32 AM CDT 02/09/2008 1:32 PM CDT us Ramandeep Bess MD HEMATOLOGY ORDERABLES Edited INTERFACE SYSTEM Refer to clinic/hospital department [facility] [address] [place] [place] [address] documented in this encounter Visit Diagnoses Diagnosis [place] ulcerative (chronic) colitis(556.6) (CMS/HCC) [place] ulcerative (chronic) colitis documented in this encounter Care Teams Parts Technician Relationship Specialty Start Date End Date Mariposa Cabrales PA PCP - General Physician Manager E Commerce 06/27/20 documented as of this encounter
--- OUTSIDE RECORDS SUMMARY | 2025-04-04 13:55 | XMS_ITS | Encounter Summary ---
Author Organization [facility] Address [address] [place] [address] Care Team Providers Care Chopping Machine Operator Name Role Phone Mariposa Cabrales Primary Care Provider [phone] Encounter Details Date Type Department Care Team (Latest Contact Info) Description 03/10/2008 Outpatient Historical [facility] Ramandeep Bess MD [address] [place] [address] [place] Ulcerative (Chronic) Colitis (CMS/HCC) Social History Tobacco Use Types Packs/Day Years Used Date Smoking Tobacco: Never Assessed Comments Unknown Sex and Gender Information Value Date Recorded Sex Assigned at Not on file Legal Sex Female 5:26 AM ALMOND BLANCHER Gender Identity Not on file Sexual Orientation Not on file documented as of this encounter Plan of Treatment Not on file documented as of this encounter Procedures Procedure Name Priority Date/Time Associated Diagnosis Comments CBC WITH DIFFERENTIAL Routine 03/10/2008 12:40 PM CDT documented in this encounter Results * CBC WITH DIFFERENTIAL (03/10/2008 12:40 PM CDT) RDW-STDEV 41.0 37.1 - 48.7 fL [facility] RBC 4.53 3.90 - 4.90 M/uL [facility] MCHC 33.4 31.5 - 35.5 % [facility] MCV 87.2 82.0 - 99.0 fL [facility] PLATELETS 234 140 - 350 K/uL [facility] HEMOGLOBIN 13.2 11.8 - 14.8 g/dL [facility] RDW 12.8 11.5 - 14.5 % [facility] WBC 4.0 4.0 - 9.8 K/uL [facility] MCH 29.1 27.2 - 32.6 pg [facility] MPV 11.3 9.3 - 12.4 fL [facility] HEMATOCRIT 39.5 35.5 - 44.0 % [facility] MONOCYTES 6 3 - 13 % [facility] MONOCYTE ABSOLUTE 0.24 0.10 - 1.30 K/uL [facility] NEUTROPHILS 59 45 - 70 % [facility] [place] [facility] NEUTROPHIL ABSOLUTE 2.39 1.90 - 7.00 K/uL [facility] EOSINOPHILS 2 0 - 7 % [facility] [place] [facility] EOSINOPHIL ABSOLUTE 0.08 0.00 - 0.70 K/uL [facility] LYMPHOCYTES 33 16 - 45 % [facility] [place] [facility] LYMPHOCYTE ABSOLUTE 1.31 0.70 - 4.50 K/uL [facility] BASOPHILS 0 0 - 2 % [facility] BASOPHILS ABSOLUTE 0.01 0.00 - 0.20 K/uL [facility] Blood specimen (specimen) 03/10/2008 12:40 PM CDT 03/10/2008 4:44 PM CDT us Ramandeep Bess MD HEMATOLOGY ORDERABLES Edited INTERFACE SYSTEM Refer to clinic/hospital department [facility] [address] [place] [address] documented in this encounter Visit Diagnoses Diagnosis [place] ulcerative (chronic) colitis(556.6) (CMS/[facility]) [place] ulcerative (chronic) colitis documented in this encounter Care Teams Chopping Machine Operator Relationship Specialty Start Date End Date Mariposa Cabrales PA PCP - General Physician Caustic Pump Operator 06/27/20 documented as of this encounter
--- OUTSIDE RECORDS SUMMARY | 2025-04-04 13:55 | XMS_ITS | Encounter Summary ---
Author Organization [facility] Address [address] [place] [address] Care Team Providers Care Police Worker Name Role Phone Mariposa Cabrales Primary Care Provider [phone] Encounter Details Date Type Department Care Team (Late st Contact Info) Description 11/17/2007 Outpatient Historical [facility] Internal Medicine - [facility] [address] [address] [facility] [address] [place] [address] Maddie Moise MD NO ADDRESS ON FILE Hemorrhage of Rectum and Anus Social History Tobacco Use Types Packs/Day Years Used Date Smoking Tobacco: Never Assessed Comments Unknown Sex and Gender Information Value Date Recorded Sex Assigned at Not on file Legal Sex Female 5:26 AM DIESEL TRUCK MECHANIC Gender Identity Not on file Sexual Orientation Not on file documented as of this encounter Plan of Treatment Not on file documented as of this encounter Procedures Procedure Name Priority Date/Time Associated Diagnosis Comments CBC WITH DIFFERENTIAL Routine 11/17/2007 12:25 PM DIESEL TRUCK MECHANIC CBC WITH DIFFERENTIAL Routine 11/17/2007 12:25 PM DIESEL TRUCK MECHANIC C-REACTIVE PROTEIN Routine 11/17/2007 12 :25 PM DIESEL TRUCK MECHANIC BASIC METABOLIC PANEL Routine 11/17/2007 12:25 PM DIESEL TRUCK MECHANIC documented in this encounter Results * CBC WITH DIFFERENTIAL (11/17/2007 12:25 PM DIESEL TRUCK MECHANIC) NEUTROPHILS 59 45 - 70 % INTERFAC [...] K/uL INTERFACE SYSTEM 11/17/2007 12:2 5 PM DIESEL TRUCK MECHANIC us Maddie Moise MD HEMATOLOGY ORDERABLES Edite d Performing Organization Address City/[facility] de Phone Number INTERFACE SYSTEM Refer to clinic/hospital department * CBC WITH DIFFERENTIAL (11/17/2007 12:25 PM DIESEL TRUCK MECHANIC) WBC 4.5 4.0 - 9.8 K/uL INTERFACE [...] fL INTERFACE SYSTEM 11/17/2007 12:2 5 PM DIESEL TRUCK MECHANIC us Maddie Moise MD HEMATOLOGY ORDERABLES Edite d Performing Organization Address [facility] Phone Number INTERFACE SYSTEM Refer to clinic/hospital department * C-REACTIVE PROTEIN (11/17/2007 12:25 PM DIESEL TRUCK MECHANIC) CRP 0.2 0.0 - 0.8 mg/dL INTERFACE SYSTEM 11/17/2007 12:2 5 PM DIESEL TRUCK MECHANIC Maddie Moise MD CHEMISTRY ORDERABLES Edited Performing Organization Address City/[facility] Co de Phone Number INTERFACE SYSTEM Refer to clinic/hospital department * BASIC METABOLIC PANEL (11/17/2007 12:25 PM DIESEL TRUCK MECHANIC) GLUCOSE 75 65 - 99 mg/dL INTERFACE [...] and non- Americans is available on the [facility] Intranet at: [email or web address] Select: Lab Policies and Procedures Select: Reference Ranges - GFR 11/17/2007 12:2 5 PM DIESEL TRUCK MECHANIC Maddie Moise MD CHEMISTRY ORDERABLES Edited Performing Organization Address [facility] Phone Number INTERFACE SYSTEM Refer to clinic/hospital department documented in this encounter Visit Diagnoses Diagnosis Hemorrhage of rectum and anus documented in this encounter Care Teams Police Worker Relationship Specialty Start Date End Date Mariposa Cabrales PA PCP - General Physician Phonograph Mechanic 06/27/20 documented as of this encounter
--- OUTSIDE RECORDS SUMMARY | 2025-04-04 13:55 | XMS_ITS | Encounter Summary ---
Author Organization [facility] Address [address] [place] [address] Care Team Providers Care Framing Inspector Name Role Phone Mariposa Cabrales Primary Care Provider [phone] Encounter Details Date Type Department Care Team (Late st Contact Info) Description 06/28/2008 Outpatient Historical [facility] Maddie Moise MD NO ADDRESS ON FILE Unspecified Ulcerative Colitis ([facility]) Social History Tobacco Use Types Packs/Day Years Used Date Smoking Tobacco: Never Alcohol Use Standard Drinks/Week Comments Not Asked 0 (1 standard drink = 0.6 oz pur e alcohol) Comments No Sex and Gender Information Value Date Recorded Sex Assigned at Not on file Legal Sex Female 5:26 AM ACCOUNTS RECEIVABLE SUPERVISOR Gender Identity Not on file Sexual Orientation Not on file documented as of this encounter Plan of Treatment Not on file documented as of this encounter Visit Diagnoses Diagnosis Ulcerative colitis, unspecified documented in this encounter Care Teams Framing Inspector Relationship Specialty Start Date End Date Mariposa Cabrales PA PCP - General Physician Sewer Contractor 06/27/20 documented as of this encounter
--- OUTSIDE RECORDS SUMMARY | 2025-04-04 13:56 | XMS_ITS | Data Portability ---
Author Organization [facility] JOYCEAlayna Address [address] [place] [address] Care Team Providers Care Rural Carrier Associate Name Role Phone JARRETT SNOWDEN Primary Care Provider Unavailab le Assessment No assessment recorded. Plan of Treatment Reminders Order Date Submit Date Provider Last Modified By Organization Details Last Modified Time Details Appointments None recorded. Lab vitamin B12 + folate, serum or blood [address] [facility], [address] [place] [address], [address], 4 16:51:06 iron + TIBC + ferritin, serum [address] [facility], [address] [place] [address], [address], 4 16:51:06 TSH + free T4, serum [address] [facility], [address] [place] [address], [address], 4 15:30:02 T3, free, serum or plasma [address] [facility], [facility] [address], [address], 4 16:51:06 Referral None recorded. Procedures None recorded. Surgeries None recorded. Imaging None recorded. Medication Orders cholecalcif anita (vitamin D3) 1,250 mcg (50,000 unit) capsule 2023 024 [id number], [address], [id number], 4 15:44:54 Zepbound 2.5 mg/0.5 mL subcutaneou s pen injector 2023 024 JOSE EDUARDO [id number], [address], [place], [place], [id number], 15:37:36 Patient TargetsNo targets recorded. Patient InstructionsNo instructions recorded. Reason for Referral None Reported. Results Created Date Observation Date Name Description Value Unit Range Abnormal Flag Note LastModifiedBy Organization Detail LastModifiedTime Result Notes None recorded. Problems Name Problem SNOMED Code Status Onset Date Resolution Date Notes Provider Name and Address Organization Details Recorded Time Hypothyroidism 60498502 Active 2023 ARI Coy Attn: Accountin g,[address] [place], [address], [place] - [facility] 4 18:22:45 Obstructive sleep apnea syndrome 13792991 Active 2023 ARI Coy Attn: Accountin [facility],[address] [place], [address], [place] [facility] 4 18:22:49 Hyperlipidemia 54499740 Active 2023 ARI Coy Attn: Accountin [facility],[address] [place], [address], [place] [facility] 4 18:22:54 Obesity 342685793 Active 2023 ARI Coy Attn: Accountin g,[address] [place], [address], [place] [facility] 4 18:23:00 Body mass index 30+ - obesity 688280232 Active 2023 ARI Coy Attn: Accountin [facility],[address] [place], [address], [place] [facility] 4 18:23:10 Problem Notes None recorded. Medical Equipment None Reported. Allergies Allergen ID Allergen Name Allergen Category Reaction Reaction Severity Criticality Documentation Date Start Date Code Code System Note Provider Name and Address Organization Details Recorded Time 472226 codeine medicatio n Not available Not available Not available 01/23/2024 2670 [facility] C[facility] [place], [place] - [facility] 4 15:16:49 334498 azithromy gilberto medicatio n Not available Not available Not available 01/23/2024 34237 [facility] [place] [place], [place] - [facility] 4 15:16:59 152011 Remicade medicatio n Not available Not available Not available 01/23/2024 61484 0 [facility] C[facility] [place], [place] - [facility] 4 15:17:55 Medications Name Sig Start Date Stop Date Status Note LastModified by Organization Details LastModified Time fluoxetine 40 mg capsule TAKE 1 CAPSULE BY MOUTH DAILY active Not Available Not Available No t Available tizanidine 4 mg tablet TAKE 1 TABLET BY MOUTH EVERY 6 HOURS NEEDED 2023 active Not Available Not Available Not Avai lable rizatriptan 10 mg tablet active Not Available Not Available Not Available Levoxyl 75 mcg tablet active Not Available Not Available N ot Available topiramate 25 mg tablet active Not Available Not Available Not Available levothyroxi ne 150 mcg tablet Take 1 tablet every day by oral route. 01/22 completed Not Available Not Available Not Available ondansetron 4 mg disintegrat ing tablet active Not Available Not Available N ot Available dicyclomine 10 mg capsule active Not Available Not Available Not Available rizatriptan 5 mg tablet 01/22 completed Not Available Not Available Not Available cholecalcif anita (vitamin D3) 1,250 mcg (50,000 unit) capsule TAKE 1 CAPSULE BY MOUTH ONCE WEEKLY active Not Available Not Available No t Available Stelara 90 mg/mL subcutaneou s syringe active Not Available Not Available No t Available Mounjaro 2.5 mg/0.5 mL subcutaneou s pen injector ADMINISTE R 2.5 MG UNDER THE SKIN EVERY WEEK active Not Available Not Available No t Available Zepbound 2.5 mg/0.5 mL subcutaneou s pen injector Inject 2.5 mg every week by subcutane ous route. 2023 active Not Available Not Available Not Avai lable Vitals Date Recorded Systolic blood pressure Diastolic blood pressure Provider Name and Address Organization Details Last Updated DateTime 01/23/2024 122 mm[Hg] 80 mm[Hg] ARI Coy Attn: Accounting,[address] [facility], [place], [address], [facility] 01/23/2024 15:44:22 Date Recorded Body weight Body mass index (BMI) Body height Heart rate Respiratory rate Oxygen saturation Oxygen saturation in Arterial blood by Pulse oximetry Systolic blood pressure Diastolic blood pressure Provider Name and Address Organization Details Last Updated DateTime 38082.4 g 34.9 kg/m2 165.1 cm 87 /min 20 /min 96 % 96 % 117 mm[Hg] 78 mm[Hg] Fallon Brown MA [facility] 15:21:29 Social History Question Answer Notes LastModified by Organizat ion Details LastModified Time Tobacco Smoking Status Never Smoker Fallon Brown MA null, [facility] 01/23/2024 15:20:07 Are You Blind Or Do You Have Difficulty Seeing? No Information not available 01/23/2024 What Is Your Level Of Caffeine Consumption? Occasional Coffee Information not available 01/23/2024 In The 14 Days Before Symptom Onset, Have You Had Close Contact With A Laboratory-confir med COVID-19 While That Case Was Ill? No Information not available 01/23/2024 In The 14 Days Before Symptom Onset, Have You Had Close Contact With A Person Who Is Under Investigation For COVID-19 While That Person Was Ill? No Information not available 01/23/2024 Have You Been To An Area Known To Be High Risk For COVID-19? No Information not available 01/23/2024 Are You Deaf Or Do You Have Serious Difficulty Hearing? No Information not available 01/23/2024 What Type Of Diet Are You Following? GLUTENFREE Information not available 01/23/2024 Are There Any Guns Present In Your Home? No Information not available 01/23/2024 What Was The Date Of Your Most Recent Tobacco Screening? 01/23/2024 Information not available 01/23/2024 Do You Use Your Seat Belt Or Car Seat Routinely? Yes Information not available 01/23/2024 Do You Have Smoke And Carbon Monoxide Detectors In Your Home? Yes Information not available 01/23/2024 Do You Use Sunscreen Routinely? Yes Information not available 01/23/2024 Has Tobacco Cessation Counseling Been Provided? No Information not available 01/23/2024 Sex: Female Functional Status Question Answer Note LastModified by Organizat ion Details LastModified Time Do you use any illicit or recreational drugs? No Information not available 01/23/2024 Do you or have you ever used any other forms of tobacco or nicotine? No Information not available 01/23/2024 What is your level of alcohol consumption? Occasional Information not available 01/23/2024 Are you able to care for yourself? Yes Information not available 01/23/2024 What is your exercise level? Occasional walking, Information not available 01/23/2024 Mental Status Question Answer Note LastModified by Organization D etails LastModified Time Do you feel stressed (tense, restless, nervous, or anxious, or unable to sleep at night)? [id number] Information not available 01/23/2024 Family History Nothing Reported. Medical History No medical history recorded. Gynecological History Statement/Question Response Flow Moderate Date of LMP 01/19/2024 Menses Monthly Y Duration of Flow (days) 3 Current Control Method IUD LMP Definite Obstetrics History GPAL:G 2 P 2 0 0 2 Type Value Multiple Births 0 Full Term 2 Induced 0 Spontaneous 0 Premature 0 Living 2 Ectopics 0 Total 2 Past Encounters Encounter ID Performer Location Encounter Start Date Encounter Closed Date Diagnosis/Indication Diagnosis SNOMED-CT Code Diagnosis ICD10 Code Diagnosis Note [id number] Yogi Fuentes MD [facility] [address] [place] [address] 01/23/2024 15:01:42 01/28/2024 19:50:23 Body mass index 30+ - obesity 272174827 Z68.34 start zepbound therapy for bmi 34 Fatigue 50377195 R53.83 screening B12, folate, iron studies and full TFt panel to evaluate thyroid labs after she has doubled dose to 150mcg on her own. she should resume 75mcg daily. Vitamin D deficiency 347 74114 E55.9 start vit D high dose weekly Rx. Hypothyroidism 38154647 E03.9 resume levothyrox ine 75mcg dose and stop 150mcg dosing. wait a few weeks and repeat labs ordered above. Health Concerns Section Related Observation LastModified by Organization Detai ls LastModified Time None Recorded Concern Status LastModified by Organization Details LastModified Time None Recorded Advance Directives Directive None Recorded Payers Encounter Date Sequence Insurance Name Policy Number Policy Montero Covered Member ID Montero Member ID Guarantor Name 01/23/2024 1 [facility] [id number] Elizabeth Tanner [id number] Elizabeth Tanner Notes Date Note Type Note Provider Name and Address Organization Details Recorded Time 01/23/2024 text/html Anxiety/Depressi onR eported bypatient.Notes:sta ble on fluoxetine 40mg daily.Obstructive Sleep Apnea F/UReported bypatient.Notes:pt is on cpap therapy and remains extremely fatigued. she is using as directed. mask fit and seal are proper.ThyroidRepor damien bypatient.Notes:pt has been on levothyroxine 75mcg daily and doubled dose to 150mcg daily on her own to try and help her fatigue. there are no labs to warrant this dose increase and none in f/u completed yet. ARI Coy Attn: Accounting[address] [facility], [place], [address], [facility] 01/27/2024 22:30:04 OBGyn Episode No OBEpisode recorded.
== END 2025-04-04 13:37 | disposition home or self-care (01) ==
PROVIDERS: PCP Internal Medicine; Visit Provider Obstetrics & Gynecology
DX: R10.2 Pelvic and perineal pain (principal)
CPT/HCPCS: 72193; Q9967

== ENCOUNTER 2025-06-30 00:32 | Day surgery (SDC) | payer OTHER, SELFPAY ==
[2025-06-24 11:35] VITALS: BMI 31.1
--- NOTE | 2025-06-24 11:45 | PC.NURSE ---
Report to the Outpatient Waiting Room, entrance under the green pavilion located off [facility], at time 0600am__ on date ___06/30/25____. Planned Procedure Time: _0730am .? Time changes happen often and if your time is changed the preop area will call you the afternoon before. - You and your visitor will be asked to self-screen and do not enter if you have any COVID symptoms. Please call surgeon if you need to reschedule. - A mask is optional within the hospital at this time. Patients may have clear liquids (water, carbonated beverages, clear teas, apple juice) until 3 hours prior to surgery with a maximum of 20 ounces. - No food from midnight until time of surgery and no smoking, or chewing tobacco (or any form of nicotine). No chewing gum, candy or mints (0430am). Take only the following medications with a SIP of water on the morning of surgery: Levoxyl DO NOT STOP ANY OF YOUR OTHER PRESCRIPTION MEDICATIONS PRIOR TO SURGERY EXCEPT THE FOLLOWING Hold all vitamins and supplements for 3 days per anesthesiologist. Medications to discontinue per physician Pt was told to check with Dr.Dalla King, but she is just going to stop it on her own today. Date to take last dose Per Dr Sarah King Pt also requesting Dr to take out her IUD and will call their office to remind them to add to consent/procedure. Please no make-up, nail estonian, hairspray, perfume, deodorant, or body powder the day of surgery.? No jewelry (including any body piercings) or valuables the day of surgery, leave them at home.? Please take a shower or bath the night before, or the morning of, surgery with an antibacterial soap.? Wear comfortable, loose fitting clothing.? - Jewelry must be removed prior to entering the operating room.? Rings and piercings that are not removed may be cut off. - The hospital will not accept responsibility for valuables.? - Please leave all valuables, including medications, at home the day of surgery. If you are going home after surgery, a licensed freight delivery driver must drive you home.? - NO public transportation without another adult if you receive anesthesia. - We recommend that an adult stay with you for 24 hours following discharge. - We also recommend that you do not drive, make important decision, drink alcoholic beverages, or take any drugs that were not prescribed by your health care provider for at least 24 hours after your discharge time. Follow any additional instructions given to you from your surgeon. Telephone instructions given to __Patient and asked if any additional questions and then verbalized understanding. Patient advised to call surgeon office or pre surgery nurse liaison [phone] if any additional questions.
--- NOTE | 2025-06-28 12:47 | PM.IMHP ---
H&P: HPI History of Present Illness Date/Time: 06/28/25 12:47 Chief Complaint: Sterilization and excessive heavy bleeding Narrative: This is a 39-year-old 4 para 2 for desires permanent sterilization. She has excessive heavy is which will surgery. She has a negative she would like to proceed with the permanent sterilization ablation risks and benefits reviewed including not exclusive of , aspiration pneumonia, bleeding transfusion, perforation injury to bowel, bladder, ureters, or other internal organs with the need for open. She received the ACOG handout entitled laparoscopy as well as dilatation curettage as well as the Reina handout. 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 Vitamin D deficiency Shingles Anxiety Ulcerative colitis She has been on several different biologics without success, and is being referred to a GI specialist at [facility]. Surgical History Surgical History History of colonoscopy History of ventral hernia repair History of dilation and curettage History of cholecystectomy Family History Family History Mother Family history of thyroid disease Grandparent Family history of lung cancer Family history of renal cell carcinoma Other Cerebrovascular accident Diabetes mellitus Family history of allergic disorder Family history of kidney disease Hypertension Social History Social History Social History: Elizabeth lives in [place] with her and 2 children. 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 No illicit drug use. She designates her Brigitte as her surrogate decision maker and she wishes to be a full code. Smoking status: Never smoker Second hand tobacco smoke exposure: No Alcohol intake: current Drinks per week: 2 Substance use: never Living arrangements: with family Occupation/Education: occupation Gender identity (if verbalized by the patient): Female Spiritual care concerns: No Meds Home Medications and Allergies Home Medications ?Medication ?Instructions ?Recorded ?Confirmed ?Type tizanidine 4 mg tablet 4 mg PO PRN PRN Sleep 11/27/19 06/24/25 History melatonin 10 mg tablet 10 mg PO HS PRN Sleep 06/25/20 06/24/25 History ondansetron 4 mg disintegrating 10 mg PO Q6H PRN nausea and 06/25/20 06/24/25 History tablet vomiting aspirin 81 mg tablet,delayed 81 mg PO DAILY 11/19/24 06/24/25 History release omeprazole 40 mg capsule,delayed 40 mg PO DAILY 11/19/24 06/24/25 History release ustekinumab 90 mg/mL subcutaneous 90 mg subcut ONCE 11/19/24 06/24/25 History syringe (Stelara) rimegepant 75 mg disintegrating 75 mg PO .QOD migraine headache 12/21/24 06/24/25 Rx tablet (Nurtec ODT) #45 tabs fluoxetine 20 mg capsule 20 mg PO DAILY #90 caps 01/21/25 06/24/25 Rx fluoxetine 40 mg capsule 40 mg PO DAILY #90 caps 01/21/25 06/24/25 Rx levothyroxine 75 mcg tablet 75 mcg PO DAILY 06/24/25 06/24/25 History (Euthyrox) lisdexamfetamine 50 mg capsule 50 mg PO .am 06/24/25 06/24/25 History topiramate 25 mg tablet 50 mg PO HS 06/24/25 06/24/25 History Allergies Allergy/AdvReac Type Severity Reaction Status Date / Time erythromycin base Allergy Intermediate rash Verified 06/24/25 11:31 infliximab Allergy Unknown Joint Pain Verified 06/24/25 11:31 mesalamine Allergy Unknown Joint Pain Verified 06/24/25 11:31 codeine Allergy Nausea and Verified 06/24/25 11:31 Vomiting Exam Narrative: GENERAL: Well-appearing, well-nourished, and in no acute distress. HEAD: Normocephalic, atraumatic. EYES: PERRLA and EOMI. ENT: Nares clear, no rhinorrhea or epistaxis. Mucous membranes moist. Oropharynx without tonsillar hypertrophy exudate or other lesions. NECK: Supple. No adenopathy or masses. CHEST: No respiratory distress. Clear to auscultation. No wheezes rales or rhonchi HEART: Regular rate and rhythm. No murmur heard. Normal peripheral pulses. ABDOMEN: Soft, nontender, nondistended, normal active bowel sounds. MSK: Normal range of motion. No edema. SKIN: Warm, dry, no rash. NEURO: Alert and oriented x3. No focal deficits. PSYCH: Normal mood and affect. Assessment and Plan Assessment and plan (1) Sterilization: Code(s): Z30.2 - Encounter for sterilization Status: Acute (2) Excessive bleeding: Code(s): R58 - Hemorrhage, not elsewhere classified Status: Acute Plan Will proceed with laparoscopic bilateral salpingectomy/removal of IUD/hysteroscopy/dilatation curettage/Reina ablation
[2025-06-30] VITALS (9 sets, daily range): BP systolic 101–119; BP diastolic 58–73; PULSE 75–101; RESP 13–18; TEMP 36.6–36.8; O2SAT 94–100
--- OUTSIDE RECORDS SUMMARY | 2025-06-30 00:34 | XMS_ITS | Encounter Summary ---
Author Organization [facility] Address [address] [place] [address] Care Team Providers Care [employer] Name Role Phone Mariposa Cabrales Primary Care Provider [phone] Encounter Details Date Type Department Care Team (Latest Contact Info) Description 09/19/2008 Outpatient Historical [facility] Smita Ho MD [address] [place] [address] Pain in Joint, Site Unspecified; Chronic Fatigue Syndrome Social History Tobacco Use Types Packs/Day Years Used Date Smoking Tobacco: Never Alcohol Use Standard Drinks/Week Comments Not Asked 0 (1 standard drink = 0.6 oz pur e alcohol) Comments No Sex and Gender Information Value Date Recorded Sex Assigned at Not on file Legal Sex Female 5:26 AM ENTRY LEVEL RECEPTIONIST Gender Identity Not on file Sexual Orientation Not on file documented as of this encounter Plan of Treatment Not on file documented as of this encounter Procedures Procedure Name Priority Date/Time Associated Diagnosis Comments MARILYN TITER Routine 09/19/2008 3:55 PM ENTRY LEVEL RECEPTIONIST SJOGREN'S ANTIBODIES Routine 09/19/2008 3:55 PM ENTRY LEVEL RECEPTIONIST SCLERODERMA ANTIBODY SCL 70 Routine 09/19/2008 3:55 PM ENTRY LEVEL RECEPTIONIST KAILASH ANTIBODIES (SM AND SM/CASH APPLICATION CLERK) Routine 09/19/2008 3:55 PM ENTRY LEVEL RECEPTIONIST DNA ANTIBODIES Routine 09/19/2008 3:55 PM ENTRY LEVEL RECEPTIONIST CBC WITH DIFFERENTIAL Routine 09/19/2008 3:55 PM ENTRY LEVEL RECEPTIONIST VITAMIN D 25 HYDROXY Routine 09/19/2008 3:55 PM ENTRY LEVEL RECEPTIONIST URINALYSIS W/REFLEX MICROSCOPIC Routine 09/19/2008 3:55 PM ENTRY LEVEL RECEPTIONIST MARILYN SCREEN W/REFLEX Routine 09/19/2008 3 :55 PM ENTRY LEVEL RECEPTIONIST TSH Routine 09/19/2008 3:55 PM ENTRY LEVEL RECEPTIONIST T4 FREE Routine 09/19/2008 3:55 PM ENTRY LEVEL RECEPTIONIST documented in this encounter Results * (ABNORMAL) MARILYN TITER (09/19/2008 3:55 PM ENTRY LEVEL RECEPTIONIST) MARILYN PATTERN HOMOGENEOU S(A) [facility] MARILYN TITER 1:1280(H) Titer [facility] Comment: REFERENCE RANGE: <1:40 NEGATIVE 1:40 - 1:80 LOW ANTIBODY LEVEL >1:80 ELEVATED ANTIBODY LEVEL Lab test performed by: [facility] JON STEWART [id number] AGUS PRIETO MD Blood specimen (specimen) 09/19/2008 3:55 PM ENTRY LEVEL RECEPTIONIST 09/19/2008 7:14 PM ENTRY LEVEL RECEPTIONIST us Smita Ho MD CHEMISTRY ORDERABLES Final Result INTERFACE SYSTEM Refer to clinic/hospital department [facility] CLIA# [id number] [address] [place] [address] * SCLERODERMA ANTIBODY SCL 70 (09/19/2008 3:55 PM ENTRY LEVEL RECEPTIONIST) SCLERODERMA AB SCL 70 <1.0 NEG <1.0 NEG Index [facility] Comment: Lab test performed by: [facility] [address]ABARI [id number] [place] [address] AGUS PRIETO MD Blood specimen (specimen) 09/19/2008 3:55 PM ENTRY LEVEL RECEPTIONIST 09/19/2008 6:13 PM ENTRY LEVEL RECEPTIONIST Smita Ho MD CHEMISTRY ORDERABLES Final Result Performing Organization Address [facility] Phone Number INTERFACE SYSTEM Refer to clinic/hospital department [facility] CLIA# [id number] [address] [place] [address] [place] [address] * SJOGREN'S ANTIBODIES (09/19/2008 3:55 PM ENTRY LEVEL RECEPTIONIST) SJOGRENS ABS (SSA) <1.0 NEG <1.0 NEG Index [facility] SJOGRENS ABS (SSB) <1.0 NEG <1.0 NEG Index [facility] Comment: Lab test performed by: [employer] [employer] [place] [address] AGUS PRIETO MD Blood specimen (specimen) 09/19/2008 3:55 PM ENTRY LEVEL RECEPTIONIST 09/19/2008 6:13 PM ENTRY LEVEL RECEPTIONIST Smita Ho MD CHEMISTRY ORDERABLES Final Result Performing Organization Address [facility] de Phone Number INTERFACE SYSTEM Refer to clinic/hospital department [facility] CLIA# [id number] [address] [place], [place] [address] [address] * KAILASH ANTIBODIES (SM AND SM/CASH APPLICATION CLERK) (09/19/2008 3:55 PM ENTRY LEVEL RECEPTIONIST) KAILASH ABS, SM AB <1.0 NEG <1.0 NEG Index [facility] KAILASH ABS, SM/CASH APPLICATION CLERK AB <1.0 NEG <1.0 NEG Index [facility] Comment: Lab test performed by: [employer] [employer]INATAM[employer]ilimei[employer]ent[employer] [id number] [address]ent[address] [email or web address] [address] AGUS PRIETO MD Blood specimen (specimen) 09/19/2008 3:55 PM ENTRY LEVEL RECEPTIONIST 09/19/2008 6:13 PM ENTRY LEVEL RECEPTIONIST Smita Ho MD CHEMISTRY ORDERABLES Final Result Performing Organization Address [facility] Phone Number INTERFACE SYSTEM Refer to clinic/hospital department [facility] CLIA# [id number] [address] [place] [address] * DNA ANTIBODIES (09/19/2008 3:55 PM ENTRY LEVEL RECEPTIONIST) [facility] DNA AUTOABS DOUBLE STRANDED 2 IU/mL [facility] Comment: IU/mL INTERPRETATION ===== < OR = 4 NEGATIVE 5 - 9 INDETERMINATE > OR = 10 POSITIVE Lab test performed by: [employer] [address] [id number] [place] [address] AGUS PRIETO MD Blood specimen (specimen) 09/19/2008 3:55 PM ENTRY LEVEL RECEPTIONIST 09/19/2008 6:13 PM ENTRY LEVEL RECEPTIONIST Smita Ho MD CHEMISTRY ORDERABLES Final Result Performing Organization Address [facility] Phone Number INTERFACE SYSTEM Refer to clinic/hospital department [facility] CLIA# [id number] [address] [place] [address] * (ABNORMAL) CBC WITH DIFFERENTIAL (09/19/2008 3:55 PM ENTRY LEVEL RECEPTIONIST) [facility] HEMATOCRIT 36.1 35.5 - 44.0 % [facility] [...] LAB NEUTROPHILS 70 45 - 70 % [facility] NEUTROPHIL ABSOLUTE 2.65 1.90 - 7.00 K/uL [facility] EOSINOPHILS 6 0 - 7 % [facility] EOSINOPHIL ABSOLUTE 0.21 0.00 - 0.70 K/uL [facility] LYMPHOCYTES 21 16 - 45 % [facility] Blood specimen (specimen) 09/19/2008 3:55 PM ENTRY LEVEL RECEPTIONIST 09/19/2008 6:13 PM ENTRY LEVEL RECEPTIONIST us Smita Ho MD HEMATOLOGY ORDERABLES Edite d INTERFACE SYSTEM Refer to clinic/hospital department [facility] CLIA# [id number] [address] [place] [address] * VITAMIN D 25 HYDROXY (09/19/2008 3:55 PM ENTRY LEVEL RECEPTIONIST) VITAMIN D, 25 OH, TOTAL 41 20 [...] are >30 ng/mL. Lab test performed by: [facility] [address] [place] [address] MACEY GIVENS MD Blood specimen (specimen) 09/19/2008 3:55 PM ENTRY LEVEL RECEPTIONIST 09/19/2008 8:34 PM ENTRY LEVEL RECEPTIONIST us Smita Ho MD CHEMISTRY ORDERABLES Final Result Performing Organization Address City/State/[facility] Co de Phone Number INTERFACE SYSTEM Refer to clinic/hospital department [facility] CLIA# [id number] [address] [facility] [place] [address] * URINALYSIS (09/19/2008 3:55 PM ENTRY LEVEL RECEPTIONIST) COLOR UA Yellow [facility] NITRITE UA Negative Negative [facility] UROBILINOGEN UA <1 <=1 mg/dL [facility] PH UA 5.5 5.0 - 8.0 [facility] KETONES UA Negative Negative [facility] CLARITY UA Clear Clear [facility] BILIRUBIN UA Negative Negative [facility] PROTEIN UA Negative Negative [facility] LEUKOCYTE ESTERASE UA Negative Negative [facility] SPECIFIC GRAVITY UA 1.018 1.001 - 1.035 [facility] GLUCOSE UA Negative Negative [facility] BLOOD UA Negative Negative [facility] Urine specimen (specimen) 09/19/2008 3:55 PM ENTRY LEVEL RECEPTIONIST 09/19/2008 6:13 PM ENTRY LEVEL RECEPTIONIST Smita Ho MD URINE ORDERABLES Final Resu lt Performing Organization Address [facility] de Phone Number INTERFACE SYSTEM Refer to clinic/hospital department [facility] CLIA# [id number] [address] [place] [address] * T4 FREE (09/19/2008 3:55 PM ENTRY LEVEL RECEPTIONIST) [facility] T4 FREE 1.3 0.9 - 1.7 ng/dL [facility] Blood specimen (specimen) 09/19/2008 3:55 PM ENTRY LEVEL RECEPTIONIST 09/19/2008 6:13 PM ENTRY LEVEL RECEPTIONIST Smita Ho MD CHEMISTRY ORDERABLES Final Result Performing Organization Address [facility] Phone Number INTERFACE SYSTEM Refer to clinic/hospital department [facility] CLIA# [id number] [address] [place] [address] * TSH (09/19/2008 3:55 PM ENTRY LEVEL RECEPTIONIST) [facility] TSH 2.38 0.27 - 4.20 uU/mL [facility] Blood specimen (specimen) 09/19/2008 3:55 PM ENTRY LEVEL RECEPTIONIST 09/19/2008 6:13 PM ENTRY LEVEL RECEPTIONIST Smita Ho MD CHEMISTRY ORDERABLES Final Result Performing Organization Address [facility] de Phone Number INTERFACE SYSTEM Refer to clinic/hospital department [facility] CLIA# [id number] [address] [place] [address] * (ABNORMAL) MARILYN (09/19/2008 3:55 PM ENTRY LEVEL RECEPTIONIST) [facility] MARILYN SCREEN POSITIVE( A) NEGATIVE [facility] Comment: Lab test performed by: [facility] JABARI [id number] [place] [place] [phone] AGUS PRIETO MD Blood specimen (specimen) 09/19/2008 3:55 PM ENTRY LEVEL RECEPTIONIST 09/19/2008 8:34 PM ENTRY LEVEL RECEPTIONIST us Smita Ho MD CHEMISTRY ORDERABLES Final Result INTERFACE SYSTEM Refer to clinic/hospital department [facility] CLIA# [id number] [address] [place] [address] documented in this encounter Visit Diagnoses Diagnosis Pain in joint, site unspecified Chronic fatigue syndrome documented in this encounter Care Teams [employer] Relationship Specialty Start Date End Date Mariposa Cabrales PA PCP - General Physician Corporate Strategy Analyst 06/27/20 documented as of this encounter
--- OUTSIDE RECORDS SUMMARY | 2025-06-30 00:34 | XMS_ITS | Encounter Summary ---
Author Organization [facility] Address [address] [place] [address] Care Team Providers Care Side Door Worker Name Role Phone Mariposa Cabrales Primary Care Provider [phone] Encounter Details Date Type Department Care Team [...] on file Legal Sex Female 5:26 AM WATCH BAND ASSEMBLER Gender Identity Not on file Sexual Orientation Not on file documented as of this encounter Plan of Treatment Not on file documented as of this encounter Visit Diagnoses Diagnosis Pain in joint, site unspecified documented in this encounter Care Teams Side Door Worker Relationship Specialty Start Date End Date Mariposa Cabrales PA PCP - General Physician Psychological Operations Officer 06/27/20 documented as of this encounter
--- OUTSIDE RECORDS SUMMARY | 2025-06-30 00:34 | XMS_ITS | Encounter Summary ---
Author Organization [facility] Address [address] [place] [address] Care Team Providers Care Nurse Advisor Name Role Phone Mariposa Cabrales Primary Care Provider [phone] Encounter Details Date Type Department Care Team [...] on file Legal Sex Female 5:26 AM GUARD SUPERVISOR Gender Identity Not on file Sexual Orientation Not on file documented as of this encounter Plan of Treatment Not on file documented as of this encounter Procedures Procedure Name Priority Date/Time Associated Diagnosis Comments MISCELLANEOUS LAB TEST Routine 8 11:53 AM GUARD SUPERVISOR HEPATITIS B SURFACE ANTIGEN Routine 09/12/2008 11:53 AM GUARD SUPERVISOR THYROID PEROXIDASE ANTIBODY Routine 09/12/2008 11:53 AM GUARD SUPERVISOR PARVOVIRUS B19 AB IGG/IGM Routine 09/12/2008 11:53 AM GUARD SUPERVISOR HEPATITIS C ANTIBODY Routine 09/12/2008 11:53 AM GUARD SUPERVISOR ALDOLASE Routine 09/12/2008 11:53 AM GUARD SUPERVISOR MONONUCLEOSIS SCREEN Routine 09/12/2008 11:53 AM GUARD SUPERVISOR VITAMIN D 25 HYDROXY Routine 09/12/2008 11:53 AM GUARD SUPERVISOR THYROGLOBULIN, TUMOR MARKER Routine 09/12/2008 11:53 AM GUARD SUPERVISOR SEDIMENTATION RATE Routine 09/12/2008 11 :53 AM GUARD SUPERVISOR C-REACTIVE PROTEIN Routine 09/12/2008 11 :53 AM GUARD SUPERVISOR LACTATE DEHYDROGENASE Routine 09/12/2008 11:53 AM GUARD SUPERVISOR COMPREHENSIVE METABOLIC PANEL Routine 09/12/2008 11:53 AM GUARD SUPERVISOR documented in this encounter Results * MONONUCLEOSIS SCREEN (09/12/2008 11:53 AM GUARD SUPERVISOR) MONONUCLEOSIS SCREEN Negative Negative [facility] Blood specimen (specimen) 09/12/2008 11:53 AM GUARD SUPERVISOR 09/12/2008 6:46 PM GUARD SUPERVISOR us History Conversion HEMATOLOGY ORDERABLES Final R esult INTERFACE SYSTEM Refer to clinic/hospital department [facility] CLIA# [id number] [address] [place] [address] * MISCELLANEOUS LAB TEST (09/12/2008 11:53 AM GUARD SUPERVISOR) SPECIMEN TYPE Blood [facility] LAB TEST NAME HISTONE ANTIBODIES [facility] MISCELLANEOUS LAB TEST Name of Test: HISTONE ANTIBODIES Test Result: Histone AB = 4.6 U Reference Range: <1.0 Negative 1.0 to 1.5 Weak Positive 1.6 to 2.5 Moderate Positive >2.5 Strong Positive Test Performed By: [employer] [facility] [id number]. [facility] Specimen of unknown material (specimen) 09/12/2008 11:53 AM GUARD SUPERVISOR 09/12/2008 4:44 PM GUARD SUPERVISOR Narrative INTERFACE SYSTEM - 09/15/2008 10:32 AM GUARD SUPERVISOR Name of test:antihistone ab us History Conversion CHEMISTRY ORDERABLES Edited Performing Organization Address [facility] Phone Number INTERFACE SYSTEM Refer to clinic/hospital department [facility] CLIA# [id number] [address] [place] [address] * VITAMIN D 25 HYDROXY (09/12/2008 11:53 AM GUARD SUPERVISOR) VITAMIN D, 25 OH, D2 <4 ng/mL [facility] Comment: 25-OHD3 indicates both endogenous production and supplementation. 25-OHD2 is an indicator of exogenous sources such as diet or supplementation. Therapy is based on measurement of Total 25-OHD, with levels <20 ng/mL indicative of Vitamin D deficiency while levels between 20 ng/mL and 30 ng/mL suggest insufficiency. Optimal levels are >30 ng/mL. Lab test performed by: [facility] [employer] [facility] [id number] [place] [address] MACEY GIVENS MD VITAMIN D, 25 OH, TOTAL 40 20 - 100 ng/mL [facility] VITAMIN D, 25 OH, D3 40 ng/mL [facility] Blood specimen (specimen) 09/12/2008 11:53 AM GUARD SUPERVISOR 09/12/2008 6:46 PM GUARD SUPERVISOR us History Conversion CHEMISTRY ORDERABLES Final Re sult Performing Organization Address [facility] Co de Phone Number INTERFACE SYSTEM Refer to clinic/hospital department [facility] CLIA# [id number] [address] [place] [address] * (ABNORMAL) THYROID PEROXIDASE ANTIBODY (09/12/2008 11:53 AM GUARD SUPERVISOR) THYROID PEROXIDASE AB 188(H) <35 IU/mL [facility] Comment: Lab test performed by: [facility] [place] [address] [place] [address] AGUS PRIETO MD Blood specimen (specimen) 09/12/2008 11:53 AM GUARD SUPERVISOR 09/12/2008 6:46 PM GUARD SUPERVISOR us History Conversion CHEMISTRY ORDERABLES Final Re sult Performing Organization Address [facility] Phone Number INTERFACE SYSTEM Refer to clinic/hospital department [facility] CLIA# [id number] [address] [place] [address] * THYROGLOBULIN (09/12/2008 11:53 AM GUARD SUPERVISOR) Pathologist [facility] THYROGLOBULIN AB <20 <20 IU/mL [facility] THYROGLOBULIN 10.5 2.0 - 35.0 ng/mL [facility] Comment: This test was performed using the Siemens (DPC) chemiluminescent method. Values obtained from different assay methods cannot be used inter- changeably. Thyroglobulin levels, regardless of value, should not be interpreted as absolute evidence of the presence or absence of disease. Lab test performed by: [facility] [address] [place] [address] MACEY GIVENS MD Blood specimen (specimen) 09/12/2008 11:53 AM GUARD SUPERVISOR 09/12/2008 6:46 PM GUARD SUPERVISOR us History Conversion CHEMISTRY ORDERABLES Final Re sult Performing Organization Address [facility] de Phone Number INTERFACE SYSTEM Refer to clinic/hospital department [facility] CLIA# [id number] [address] [place] [address] * (ABNORMAL) SEDIMENTATION RATE (09/12/2008 11:53 AM GUARD SUPERVISOR) Pathologist [facility] [place] ESR (SEDIMENTATION RATE) 63(H) 0 - 20 mm/hr [facility] Blood specimen (specimen) 09/12/2008 11:53 AM GUARD SUPERVISOR 09/12/2008 4:44 PM GUARD SUPERVISOR us History Conversion HEMATOLOGY ORDERABLES Final R esult Performing Organization Address City/[facility]/ZIP Co de Phone Number INTERFACE SYSTEM Refer to clinic/hospital department [facility] CLIA# [id number] [address] [place] [address] * (ABNORMAL) PARVOVIRUS B19 AB IGG/IGM (09/12/2008 11:53 AM GUARD SUPERVISOR) PARVOVIRUS B19 IGM ABS 0.4 <0.9 Index [facility] Comment: Reference range: IgG and IgM [...] in these patients. Lab test performed by: [facility] [address] [place] [address] MACEY GIVENS MD PARVOVIRUS B19 IGG ABS 6.2(H) <0.9 Index [facility] Blood specimen (specimen) 09/12/2008 11:53 AM GUARD SUPERVISOR 09/12/2008 4:44 PM GUARD SUPERVISOR us History Conversion CHEMISTRY ORDERABLES Final Re sult Performing Organization Address [facility]/ZIP Co de Phone Number INTERFACE SYSTEM Refer to clinic/hospital department [facility] CLIA# [id number] [address] [place] [address] * (ABNORMAL) LACTATE DEHYDROGENASE (09/12/2008 11:53 AM GUARD SUPERVISOR) LD (LACTATE DEHYDROGENASE) 227(H) 135 - 214 U/L [facility] Blood specimen (specimen) 09/12/2008 11:53 AM GUARD SUPERVISOR 09/12/2008 4:44 PM GUARD SUPERVISOR us History Conversion CHEMISTRY ORDERABLES Final Re sult Performing Organization Address [facility] Phone Number INTERFACE SYSTEM Refer to clinic/hospital department [facility] CLIA# [id number] [address] [place] [address] * HEPATITIS C ANTIBODY (09/12/2008 11:53 AM GUARD SUPERVISOR) Pathologist [facility] [place] HEPATITIS C AB NON-REACTI VE NON-REACT PILO [facility] SIGNAL TO CUT OFF 0.30 <1.00 [facility] Comment: Lab test performed by: [facility] [place] [address] [place] [address] AGUS PRIETO MD Blood specimen (specimen) 09/12/2008 11:53 AM GUARD SUPERVISOR 09/12/2008 6:46 PM GUARD SUPERVISOR us History Conversion CHEMISTRY ORDERABLES Final Re sult Performing Organization Address [facility] Phone Number INTERFACE SYSTEM Refer to clinic/hospital department [facility] CLIA# [id number] [address] [place] [address] * HEPATITIS B SURFACE ANTIGEN (09/12/2008 11:53 AM GUARD SUPERVISOR) Pathologist [facility] [place] HEPATITIS B SURFACE AG NON-REACTI VE NON-REACT PILO [facility] Comment: Lab test performed by: [facility] [place] [address] AGUS PRIETO MD Blood specimen (specimen) 09/12/2008 11:53 AM GUARD SUPERVISOR 09/12/2008 6:46 PM GUARD SUPERVISOR us History Conversion CHEMISTRY ORDERABLES Final Re sult Performing Organization Address [facility] de Phone Number INTERFACE SYSTEM Refer to clinic/hospital department [facility] CLIA# [id number] [address] [place] [address] * (ABNORMAL) C-REACTIVE PROTEIN (09/12/2008 11:53 AM GUARD SUPERVISOR) Pathologist [facility] [place] CRP 3.0(H) 0.0 - 0.8 mg/dL [facility] Blood specimen (specimen) 09/12/2008 11:53 AM GUARD SUPERVISOR 09/12/2008 4:44 PM GUARD SUPERVISOR us History Conversion CHEMISTRY ORDERABLES Final Re sult Performing Organization Address [facility] Phone Number INTERFACE SYSTEM Refer to clinic/hospital department [facility] CLIA# [id number] [address] [place] [address] * (ABNORMAL) COMPREHENSIVE METABOLIC PANEL (09/12/2008 11:53 AM GUARD SUPERVISOR) [facility] POTASSIUM 3.6 3.5 - 4.9 mmol/L [facility] TOTAL PROTEIN 8.1 6.3 - 8.6 g/dL [facility] GLUCOSE 119(H) 65 - 99 mg/dL [facility] AST 65(H) 12 - 32 U/L [facility] BUN 8 6 - 20 mg/dL [facility] CALCIUM 9.0 8.6 - 10.2 mg/dL [facility] ALBUMIN 3.8 3.4 - 4.8 g/dL [facility] CHLORIDE 101 96 - 108 mmol/L [facility] CREATININE 0.54 0.51 - 0.95 mg/dL [facility] ALT 81(H) 0 - 31 U/L [facility] SODIUM 133(L) 135 - 145 mmol/L [facility] ALKALINE PHOSPHATASE 64 35 - 104 U/L [facility] CO2 23 22 - 30 mmol/L [facility] BILIRUBIN TOTAL 0.3 0.2 - 1.0 mg/dL [facility] GFR, >60 >=60 mL/min/1. 7 sq meter [facility] GFR >60 >=60 mL/min/1. 7 sq meter [facility] Comment: Modification of Diet in Renal Disease (MDRD) study formula. Estimated GFR rate interpretative information for both Americans and non- Americans is available on the [facility] Intranet at: [email or web address] Select: Lab Policies and Procedures Select: Reference Ranges - GFR Blood specimen (specimen) 09/12/2008 11:53 AM GUARD SUPERVISOR 09/12/2008 4:44 PM GUARD SUPERVISOR us History Conversion CHEMISTRY ORDERABLES Edited Performing Organization Address [facility] de Phone Number INTERFACE SYSTEM Refer to clinic/hospital department [facility] CLIA# [id number] [address] [place] [address] * ALDOLASE (09/12/2008 11:53 AM GUARD SUPERVISOR) ALDOLASE 6.1 < OR = 8.1 U/L [facility] Comment: Lab test performed by: [facility] [place] [address] [address] [facility] [place] [address] AGUS PRIETO MD Blood specimen (specimen) 09/12/2008 11:53 AM GUARD SUPERVISOR 09/12/2008 4:44 PM GUARD SUPERVISOR us History Conversion CHEMISTRY ORDERABLES Final Re sult Performing Organization Address [facility] de Phone Number INTERFACE SYSTEM Refer to clinic/hospital department [facility] CLIA# [id number] [address] [place] [address] documented in this encounter Visit Diagnoses Diagnosis Pain in joint, site unspecified Other and unspecified noninfectious gastroenteritis and colitis(558.9) Other and unspecified noninfectious gastroenteritis and colitis documented in this encounter Care Teams Nurse Advisor Relationship Specialty Start Date End Date Mariposa Cabrales PA PCP - General Physician Dust Puller 06/27/20 documented as of this encounter
--- OUTSIDE RECORDS SUMMARY | 2025-06-30 00:35 | XMS_ITS | Encounter Summary ---
Author Organization [facility] Address [address] [place] [address] Care Team Providers Care Popcorn Vendor Name Role Phone Mariposa Cabrales Primary Care Provider Encounter Details Date Type Department Care Team (Late st Contact Info) Description 12/19/2005 Outpatient Historical [facility] Ramandeep Bess MD [address] [place] [address] RECTAL & ANAL HEMORRHAGE (Primary Dx) Social History Tobacco Use Types Packs/Day Years Used Date Smoking Tobacco: Never Assessed Comments Unknown Sex and Gender Information Value Date Recorded Sex Assigned at Not on file Legal Sex Female 5:26 AM AIRCRAFT MAINTENANCE DIRECTOR Gender Identity Not on file Sexual Orientation Not on file documented as of this encounter Plan of Treatment Not on file documented as of this encounter Visit Diagnoses Diagnosis Hemorrhage of rectum and anus- Primary documented in this encounter Care Teams Popcorn Vendor Relationship Specialty Start Date End Date Mariposa Cabrales PA PCP - General Physician Yard Clerk 06/27/20 documented as of this encounter
--- OUTSIDE RECORDS SUMMARY | 2025-06-30 00:35 | XMS_ITS | Encounter Summary ---
Author Organization [facility] Address [address] [place] [address] Care Team Providers Care Milling Operator Name Role Phone Mariposa Cabrales Primary Care Provider [phone] Encounter Details Date Type Department Care Team (Late st Contact Info) Description 08/30/2004 Outpatient Historical [facility] Internal Medicine - [facility] [address] [address] [facility] [address] [place] [address] Maddie Moise MD NO ADDRESS ON FILE Social History Tobacco Use Types Packs/Day Years Used Date Smoking Tobacco: Never Assessed Comments Unknown Sex and Gender Information Value Date Recorded Sex Assigned at Not on file Legal Sex Female 5:26 AM PARTITION ASSEMBLER Gender Identity Not on file Sexual Orientation Not on file documented as of this encounter Plan of Treatment Not on file documented as of this encounter Visit Diagnoses Not on filedocumented in this encounter Care Teams Milling Operator Relationship Specialty Start Date End Date Mariposa Cabrales PA PCP - General Physician Community Organization Worker 06/27/20 documented as of this encounter
--- OUTSIDE RECORDS SUMMARY | 2025-06-30 00:35 | XMS_ITS | Encounter Summary ---
Author Organization [facility] Address [address] [place] [address] Care Team Providers Care Airborne [employer] Name Role Phone Mariposa Cabrales Primary Care Provider [phone] Encounter Details Date Type Department Care Team (Late st Contact Info) Description 05/18/[address] [facility] Internal Medicine - [facility] [address] [address] [facility] [address] [place] [address] Maddie Moise MD NO ADDRESS ON FILE Social History Tobacco Use Types Packs/Day Years Used Date Smoking Tobacco: Never Assessed Comments Unknown Sex and Gender Information Value Date Recorded Sex Assigned at Not on file Legal Sex Female 5:26 AM ASSURANCE OFFICER Gender Identity Not on file Sexual Orientation Not on file documented as of this encounter Plan of Treatment Not on file documented as of this encounter Visit Diagnoses Not on filedocumented in this encounter Care Teams [employer] Relationship Specialty Start Date End Date Mariposa Cabrales PA PCP - General Physician Intake Counselor 06/27/20 documented as of this encounter
--- OUTSIDE RECORDS SUMMARY | 2025-06-30 00:35 | XMS_ITS | Encounter Summary ---
Author Organization [facility] Address [address] [place] [address] Care Team Providers Care Sewing Machine Attachment Tester Name Role Phone Mariposa Cabrales Primary Care Provider [phone] Encounter Details Date Type Department Care Team (Latest Contact Info) Description 09/02/2004 Inpatient Historical [facility] PAT[facility] IN A BED Suze Waldrop MD NO ADDRESS ON FILE Vicky Langston MD [address] [place] [address] INFECTIOUS MONONUCLEOSIS (Primary Dx) Social History Tobacco Use Types Packs/Day Years Used Date Smoking Tobacco: Never Assessed Comments Unknown Sex and Gender Information Value Date Recorded Sex Assigned at Not on file Legal Sex Female 5:26 AM FOOT DOCTOR Gender Identity Not on file Sexual Orientation Not on file documented as of this encounter Plan of Treatment Not on file documented as of this encounter Visit Diagnoses Diagnosis Infectious mononucleosis- Primary documented in this encounter Care Teams Sewing Machine Attachment Tester Relationship Specialty Start Date End Date Mariposa Cabrales PA PCP - General Physician Art Sales Consultant 06/27/20 documented as of this encounter
--- OUTSIDE RECORDS SUMMARY | 2025-06-30 00:35 | XMS_ITS | Encounter Summary ---
Author Organization [facility] Address [address] [place] [address] Phone Care Team Providers Care Dental Laboratory Manager Name Role Phone Yogi Fuentes MD Primary Care Provider [phone] Prudencio Feliciano DO Primary Care Provider [phone] Encounter Details Date Type Department Care Team (Late st Contact Info) Description 10/25/2016 Orders Only [facility] Scanning, Provider Social History Tobacco Use Types Packs/Day Years Used Date Smoking Tobacco: Never Assessed Comments Unknown Sex and Gender Information Value Date Recorded Sex Assigned at Not on file Legal Sex Female 5:27 PM SET UP / OPERATOR Gender Identity Not on file Sexual [...] on filedocumented in this encounter Care Teams Dental Laboratory Manager Relationship Specialty Start Date End Date Yogi Fuentes MD PCP - General Internal Medicine 07/18/20 02/28/25 Prudencio Feliciano DO [facility] [place] [address] PCP - General Internal Medicine 03/01/25 documented as of this encounter
--- OUTSIDE RECORDS SUMMARY | 2025-06-30 00:35 | XMS_ITS | Encounter Summary ---
Author Organization [facility] Address [address] [place] [address] Care Team Providers Care Production Supervisor Name Role Phone Mariposa Cabrales Primary Care Provider [phone] Encounter Details Date Type Department Care Team [...] on file Legal Sex Female 5:26 AM PHOTOFINISHING LABORATORY WORKER Gender Identity Not on file Sexual Orientation Not on file documented as of this encounter Plan of Treatment Not on file documented as of this encounter Visit Diagnoses Diagnosis Screening for lipoid disorders Dyspepsia and other specified disorders of function of stomach Ulcerative colitis, unspecified Other abnormal blood chemistry documented in this encounter Care Teams Production Supervisor Relationship Specialty Start Date End Date Mariposa Cabrales PA PCP - General Physician Professor Of Forest Planning 06/27/20 documented as of this encounter
--- OUTSIDE RECORDS SUMMARY | 2025-06-30 00:35 | XMS_ITS | Encounter Summary ---
Author Organization [facility] Address [address] [place] [address] Phone Care Team Providers Care Master Police Detective Name Role Phone Yogi Fuentes MD Primary Care Provider [phone] Prudencio Feliciano DO Primary Care Provider [phone] Encounter Details Date Type Department Care Team (Late st Contact Info) Description 12/19/2018 Orders Only [facility] Scanning, Provider Social History Tobacco Use Types Packs/Day Years Used Date Smoking Tobacco: Never Assessed Comments Unknown Sex and Gender Information Value Date Recorded Sex Assigned at Not on file Legal Sex Female 5:27 PM RADIATION / CHEMISTRY TECHNICIAN Gender Identity Not on file Sexual Orientation [...] on filedocumented in this encounter Care Teams Master Police Detective Relationship Specialty Start Date End Date Yogi Fuentes MD PCP - General Internal Medicine 07/18/20 02/28/25 Prudencio Feliciano DO [facility] [place] [address] PCP - General Internal Medicine 03/01/25 documented as of this encounter
--- OUTSIDE RECORDS SUMMARY | 2025-06-30 00:35 | XMS_ITS | Encounter Summary ---
Author Organization [facility] Address [address] [place] [address] Care Team Providers Care Chemical Plant Manager Name Role Phone Mariposa Cabrales Primary Care Provider [phone] Encounter Details Date Type Department Care Team (Late st Contact Info) Description 03/29/2004 Outpatient Historical [facility] Internal Medicine - [facility] [address] [address] [facility] [address] [place] [address] Maddie Moise MD NO ADDRESS ON FILE Social History Tobacco Use Types Packs/Day Years Used Date Smoking Tobacco: Never Assessed Comments Unknown Sex and Gender Information Value Date Recorded Sex Assigned at Not on file Legal Sex Female 5:26 AM SECURITY TEST ENGINEER Gender Identity Not on file Sexual Orientation Not on file documented as of this encounter Plan of Treatment Not on file documented as of this encounter Visit Diagnoses Not on filedocumented in this encounter Care Teams Chemical Plant Manager Relationship Specialty Start Date End Date Mariposa Cabrales PA PCP - General Physician Web Feeder 06/27/20 documented as of this encounter
--- OUTSIDE RECORDS SUMMARY | 2025-06-30 00:35 | XMS_ITS | Clinical Summary ---
[facility] Organization [facility] Osmar wilder [place] Address [address] [place] [address] Phone Care Team Providers Care Pull Over Machine Operator Name Role Phone Mariposa Cabrales Primary Care Provider [phone] Allergies Active Allergy Reactions Criticality Noted Date [...] on file Legal Sex Female 5:26 AM GLYCERIN OPERATOR Gender Identity Not on file Sexual Orientation Not on file Occupation Industry Job Start Date Job End Date Not on file Not on file Not on file Not on file Last Filed Vital Signs Vital Sign Reading Time Taken Comments Blood Pressure 107/69 10/19/2020 4:00 PM GLYCERIN OPERATOR Pulse 89 10/19/2020 4:00 PM GLYCERIN OPERATOR Temperature 36.6 C (97.9 F) 10/19/2020 4:00 PM GLYCERIN OPERATOR Respiratory Rate 14 12/11/2017 4:29 PM GLYCERIN OPERATOR Oxygen Saturation 98% 10/19/2020 4:00 PM GLYCERIN OPERATOR Inhaled Oxygen Concentration - - Weight 86.5 kg (190 lb 11.2 oz) 10/19/2020 4:00 PM GLYCERIN OPERATOR Height 165.1 cm (5' 5) 10/19/2020 4:00 PM GLYCERIN OPERATOR Body Mass Index 31.73 10/19/2020 4:00 PM GLYCERIN OPERATOR Plan of Treatment Health Maintenance Due Date Last Done Comments HPV VACCINES (1 - 3-dose SCD M series) 2013 PAP SMEAR 12/29/2021 12/29/2018, 02/0 07/2018, 11/22/2016, Additional history exists CERVICAL CANCER SCREENING 12/29/2023 HPV/Cotest (21-29) 12/29/2023 12/29/2018, 0 12/12/2017, 11/22/2016, Additional history exists HPV/Cotest (30-65) 12/29/2023 12/29/2018, 0 12/12/2017, 11/22/2016, Additional history exists DTAP/TDAP/TD VACCINES (4 - T d or Tdap) 07/28/2024 07/28/2014, 04/01/2011, 11/03/2001 INFLUENZA VACCINE (#1) 2025 , 08/04/2014, 08/03/2013 HEPATITIS B VACCINES Completed 06/03/1997, 01/01/1997, 07/12/1996 Medical Devices Implanted Type Area Ditch Tender Device Identifier Shelf Expiration Date Model / Serial / Lot Mirena Procedures Procedure Name Priority Date/Time Associated Diagnosis Comments CERV/VAG CYTO SCREEN PAP RLFX HPV Routine 12/29/2018 5:21 PM GLYCERIN OPERATOR Encounter for routine gynecological examination with Papanicolaou smear of cervix from Last 3 Months or Most Recently Relevant to Health Maintenance Results * CERV/VAG CYTO SCREEN PAP RLFX HPV (12/29/2018 5:21 PM GLYCERIN OPERATOR) CLINICAL INFORMATION Information not provided 01/05/2019 4:17 PM GLYCERIN OPERATOR [facility] LAST MENSTRUAL PERIOD Information not provided 01/05/2019 4:17 PM GLYCERIN OPERATOR [facility] PREV PAP: Information not provided 01/05/2019 4:17 PM GLYCERIN OPERATOR [facility] PREV BX: Information not provided 01/05/2019 4:17 PM GLYCERIN OPERATOR [facility] SOURCE Endocervix 01/05/2019 4:17 PM GLYCERIN OPERATOR [facility] ADEQUACY: SEE COMMENT 01/05/2019 4:17 PM GLYCERIN OPERATOR [facility] Comment: Satisfactory for evaluation. Endocervical/transformation zone component present. PAP INTERP Negative for intraepithelial lesion or malignancy. 01/05/2019 4:17 PM GLYCERIN OPERATOR [facility] COMMENT This Pap test has been evaluated with computer assisted technology. 01/05/2019 4:17 PM GLYCERIN OPERATOR [facility] PATENT LAWYER: SEE COMMENT 2018 4:17 PM GLYCERIN OPERATOR [facility] Comment: LVA, CT(ASCP) CT screening location: [place] [address] [place] [address] EXPLANATORY NOTE SEE COMMENT 019 4:17 PM GLYCERIN OPERATOR [facility] Comment: EXPLANATORY NOTE: The Pap [...] Unknown Collection / Unknown 12/29/2018 5:21 PM GLYCERIN OPERATOR 12/30/2018 3:19 PM GLYCERIN OPERATOR Narrative [facility] - 01/05/2019 4:17 PM GLYCERIN OPERATOR Performing Organization Information: Site ID: SL Name: [facility] Address: [address] [place] [address] Director: Dwaine Simmons Prudencio Castro DO PATHOLOGY/CYTOLOGY ORDERABLES F inal Result [facility] [phone] from Last 3 Months or Most Recently Relevant to Health Maintenance Advance Directives For more information, please contact: [phone] * Full Code (Latest Code Status on [...] 4:49 PM 05/18/2014 8:19 PM Care Teams Pull Over Machine Operator Relationship Specialty Start Date End Date Mariposa Cabrales PA PCP - General Physician Sheep Rancher 06/27/20
--- OUTSIDE RECORDS SUMMARY | 2025-06-30 00:35 | XMS_ITS | Encounter Summary ---
Author Organization [facility] Address [address] [place] [address] Care Team Providers Care Data Warehouse Architect Name Role Phone Mariposa Cabrales Primary Care Provider [phone] Encounter Details Date Type Department Care Team (Late st Contact Info) Description 04/13/2007 Outpatient Historical [facility] - [facility] [address] [address] [facility] [address] [place] [address] Maddie Moise MD NO ADDRESS ON FILE Social History Tobacco Use Types Packs/Day Years Used Date Smoking Tobacco: Never Assessed Comments Unknown Sex and Gender Information Value Date Recorded Sex Assigned at Not on file Legal Sex Female 5:26 AM ROLLER BEARING INSPECTOR Gender Identity Not on file Sexual [...] on filedocumented in this encounter Care Teams Data Warehouse Architect Relationship Specialty Start Date End Date Mariposa Cabrales PA PCP - General Physician Oxygen Furnace Operator 06/27/20 documented as of this encounter
--- OUTSIDE RECORDS SUMMARY | 2025-06-30 00:35 | XMS_ITS | Encounter Summary ---
Author Organization [facility] Address [address] [place] [address] Care Team Providers Care Fruit Worker Name Role Phone Mariposa Cabrales Primary Care Provider [phone] Encounter Details Date Type Department Care Team (Late st Contact Info) Description 12/12/2004 Outpatient Historical [facility] Internal Medicine - [facility] [address] [address] [facility] [address] [place] [address] Maddie Moise MD NO ADDRESS ON FILE Social History Tobacco Use Types Packs/Day Years Used Date Smoking Tobacco: Never Assessed Comments Unknown Sex and Gender Information Value Date Recorded Sex Assigned at Not on file Legal Sex Female 5:26 AM MOTION GRAPHICS DESIGNER Gender Identity Not on file Sexual Orientation Not on file documented as of this encounter Plan of Treatment Not on file documented as of this encounter Visit Diagnoses Not on filedocumented in this encounter Care Teams Fruit Worker Relationship Specialty Start Date End Date Mariposa Cabrales PA PCP - General Physician Copy Operator 06/27/20 documented as of this encounter
--- OUTSIDE RECORDS SUMMARY | 2025-06-30 00:35 | XMS_ITS | Encounter Summary ---
Author Organization [facility] Address [address] [place] [address] Care Team Providers Care Magnetic Grinder Operator Name Role Phone Mariposa Cabrales Primary Care Provider [phone] Encounter Details Date Type Department Care Team (Late st Contact Info) Description 06/28/2008 Outpatient Historical [facility] Maddie Moise MD NO ADDRESS ON FILE Unspecified Ul[facility]ative Colitis ([facility] Social History Tobacco Use Types Packs/Day Years Used Date Smoking Tobacco: Never Alcohol Use Standard Drinks/Week Comments Not Asked 0 (1 standard drink = 0.6 oz pur e alcohol) Comments No Sex and Gender Information Value Date Recorded Sex Assigned at Not on file Legal Sex Female 5:26 AM COMPLEX CASE MANAGER Gender Identity Not on file Sexual Orientation Not on file documented as of this encounter Plan of Treatment Not on file documented as of this encounter Visit Diagnoses Diagnosis Ulcerative colitis, unspecified documented in this encounter Care Teams Magnetic Grinder Operator Relationship Specialty Start Date End Date Mariposa Cabrales PA PCP - General Physician Manager Electronic 06/27/20 documented as of this encounter
--- OUTSIDE RECORDS SUMMARY | 2025-06-30 00:35 | XMS_ITS | Encounter Summary ---
Author Organization [facility] Address [address] [place] [address] Care Team Providers Care Director Emergency Department Name Role Phone Mariposa Cabrales Primary Care Provider [phone] Encounter Details Date Type Department Care Team (Late st Contact Info) Description 04/22/2006 Outpatient [facility] Internal Medicine - [facility] [address] [address] [facility] [address] [place] [address] Jennifer Mattson MD Social History Tobacco Use Types Packs/Day Years Used Date Smoking Tobacco: Never Assessed Comments Unknown Sex and Gender Information Value Date Recorded Sex Assigned at Not on file Legal Sex Female 5:26 AM POOLROOM/POOLHALL MANAGER Gender Identity Not on file Sexual [...] filedocumented in this encounter Care Teams Director Emergency Department Relationship Specialty Start Date End Date Mariposa Cabrales PA PCP - General Physician Metalsmith 06/27/20 documented as of this encounter
--- OUTSIDE RECORDS SUMMARY | 2025-06-30 00:35 | XMS_ITS | Clinical Summary ---
Author Organization [facility] Address [address] [place] [address] Care Team Providers Care Manager Concrete Name Role Phone Unavailable Primary Care Provider [...] of 3 - 19+ 3-dose series) 2005 HPV Vaccines (1 - 3-dose SCD M series) 2013 Cervical Cancer Screening Pa p with HPV Testing (Age 30 to 64) Every 5 Years 2016 Cervical Cancer Screening with HPV 2016 COVID-19 Vaccine (2023-2 5 season) 2024 Meningococcal B Vaccine Aged Out No l onger eligible based on patient's age to complete this topic Meningococcal Vaccine Aged Out No ann-marie jude eligible based on patient's age to complete this topic Pneumococcal Vaccine: Pediat rics (0 to 5 Years) and At-Risk Patients (6 to 49 Years) Aged Out No longer eligible b ased on patient's age to complete this topic RSV Immunizations Under 20 Months Aged Out No longer eligible based on patient's age to complete this topic
--- OUTSIDE RECORDS SUMMARY | 2025-06-30 00:35 | XMS_ITS | Encounter Summary ---
Author Organization [facility] Address [address] [place] [address] Care Team Providers Care Senior Java Ui Developer Name Role Phone Mariposa Cabrales Primary Care Provider [phone] Encounter Details Date Type Department Care Team (Late st Contact Info) Description 09/03/2004 Outpatient Historical [facility] [address] [id number] Suze Waldrop MD NO ADDRESS ON FILE Social History Tobacco Use Types Packs/Day Years Used Date Smoking Tobacco: Never Assessed Comments Unknown Sex and Gender Information Value Date Recorded Sex Assigned at Not on file Legal Sex Female 5:26 AM JUNIOR SYSTEMS ANALYST Gender Identity Not on file Sexual Orientation Not on file documented as of this encounter Plan of Treatment Not on file documented as of this encounter Visit Diagnoses Not on filedocumented in this encounter Care Teams Senior Java Ui Developer Relationship Specialty Start Date End Date Mariposa Cabrales PA PCP - General Physician Instructor Of Education 06/27/20 documented as of this encounter
--- OUTSIDE RECORDS SUMMARY | 2025-06-30 00:35 | XMS_ITS | Encounter Summary ---
Author Organization [facility] Address [address] [place] [address] Care Team Providers Care Home Care Manager Rn Name Role Phone Mariposa Cabrales Primary Care Provider [phone] Encounter Details Date Type Department Care Team (Late st Contact Info) Description 11/17/2007 Outpatient Historical [facility] Internal Medicine - [facility] [address] [address] [facility] [address] [place] [address] Alise Bolton, ANP [address] [place] [address] Social History Tobacco Use Types Packs/Day Years Used Date Smoking Tobacco: Never Assessed Comments Unknown Sex and Gender Information Value Date Recorded Sex Assigned at Not on file Legal Sex Female 5:26 AM GIS GEOGRAPHER Gender Identity Not on file Sexual Orientation Not on file documented as of this encounter Last Filed Vital Signs Vital Sign Reading Time Taken Comments Blood Pressure 110/84 11/17/2007 11:30 AM GIS GEOGRAPHER Pulse 74 11/17/2007 11:30 AM GIS GEOGRAPHER Temperature 35.9 C (96.6 F) 11/17/2007 11:30 AM GIS GEOGRAPHER Respiratory Rate - - Oxygen Saturation - - Inhaled Oxygen Concentration - - Weight 59.4 kg (131 lb) 11/17/2007 11:30 AM GIS GEOGRAPHER Height - - Body Mass Index - - documented in this encounter Plan of Treatment Not on file documented as of this encounter Visit Diagnoses Not on filedocumented in this encounter Care Teams Home Care Manager Rn Relationship Specialty Start Date End Date Mariposa Cabrales PA PCP - General Physician Refinery Operator Coking 06/27/20 documented as of this encounter
--- OUTSIDE RECORDS SUMMARY | 2025-06-30 00:35 | XMS_ITS | Encounter Summary ---
Author Organization [facility] Address [address] [place] [address] Care Team Providers Care Assembler Engine Name Role Phone Mariposa Cabrales Primary Care Provider [phone] Encounter Details Date Type Department Care Team (Late st Contact Info) Description 08/29/2004 Outpatient Historical [facility] Internal Medicine - [facility] [address] [address] [facility] [address] [place] [address] Maddie Moise MD NO ADDRESS ON FILE Social History Tobacco Use Types Packs/Day Years Used Date Smoking Tobacco: Never Assessed Comments Unknown Sex and Gender Information Value Date Recorded Sex Assigned at Not on file Legal Sex Female 5:26 AM INSPECTOR MATERIAL DISPOSITION Gender Identity Not on file Sexual Orientation Not on file documented as of this encounter Plan of Treatment Not on file documented as of this encounter Visit Diagnoses Not on filedocumented in this encounter Care Teams Assembler Engine Relationship Specialty Start Date End Date Mariposa Cabrales PA PCP - General Physician Rental Agent 06/27/20 documented as of this encounter
--- OUTSIDE RECORDS SUMMARY | 2025-06-30 00:35 | XMS_ITS | Encounter Summary ---
Author Organization [employer] [facility] Address [address] [place] [address] Care Team Providers Care Clinical Academic Allergist Name Role Phone Mariposa Cabrales Primary Care Provider [phone] Encounter Details Date Type Department Care Team (Latest Contact Info) Description 02/09/2008 Outpatient Historical [facility] Ramandeep Bess MD [address] [place] [address] [place] Ulcerative (Chronic) Colitis (CMS/HCC) Social History Tobacco Use Types Packs/Day Years Used Date Smoking Tobacco: Never Assessed Comments Unknown Sex and Gender Information Value Date Recorded Sex Assigned at Not on file Legal Sex Female 5:26 AM DATABASES SOFTWARE CONSULTANT Gender Identity Not on file Sexual [...] CDT) GLUCOSE 101(H) 65 - 99 mg/dL [facility] SODIUM 138 135 - 145 mmol/L [facility] CALCIUM 8.8 8.4 - 10.2 mg/dL [facility] CO2 24 22 - 30 mmol/L [facility] CREATININE 0.70 0.51 - 0.95 mg/dL [facility] POTASSIUM 4.0 3.5 - 4.9 mmol/L [facility] BUN 9 6 - 20 mg/dL [facility] CHLORIDE 104 96 - 108 mmol/L [facility] GFR, >60 >=60 mL/min/1. 7 sq meter [facility] GFR >60 >=60 mL/min/1. 7 sq meter [facility] Comment: Estimated GFR rate interpretative information for both Americans and non- Americans is available on the [facility] Intranet at: [email or web address] Select: Lab Policies and Procedures Select: Reference Ranges - GFR Blood specimen (specimen) 02/09/2008 8:32 AM CDT 02/09/2008 1:32 PM CDT Ramandeep Bess MD CHEMISTRY ORDERABLES Edited [facility] [address] [place] [address] * (ABNORMAL) CBC WITH DIFFERENTIAL (02/09/2008 8:32 AM CDT) HEMOGLOBIN 13.2 11.8 - 14.8 g/dL [facility] RDW 13.1 11.5 - 14.5 % [facility] WBC 3.5(L) 4.0 - 9.8 K/uL [facility] MCH 29.0 27.2 - 32.6 pg [facility] MPV 11.7 9.3 - 12.4 fL [facility] HEMATOCRIT 40.1 35.5 - 44.0 % [facility] RDW-STDEV 41.7 37.1 - 48.7 fL [facility] RBC 4.55 3.90 - 4.90 M/uL [facility] MCHC 32.9 31.5 - 35.5 % [facility] MCV 88.1 82.0 - 99.0 fL [facility] PLATELETS 246 140 - 350 K/uL [facility] EOSINOPHILS 5 0 - 7 % [facility] EOSINOPHIL ABSOLUTE 0.19 0.00 - 0.70 K/uL [facility] LYMPHOCYTES 27 16 - 45 % [facility] LYMPHOCYTE ABSOLUTE 0.97 0.70 - 4.50 K/uL [facility] BASOPHILS 1 0 - 2 % [facility] BASOPHILS ABSOLUTE 0.02 0.00 - 0.20 K/uL [facility] MONOCYTES 6 3 - 13 % [facility] MONOCYTE ABSOLUTE 0.22 0.10 - 1.30 K/uL [facility] NEUTROPHILS 60 45 - 70 % [facility] NEUTROPHIL ABSOLUTE 2.14 1.90 - 7.00 K/uL [facility] Blood specimen (specimen) 02/09/2008 8:32 AM CDT 02/09/2008 1:32 PM CDT us Ramandeep Bess MD HEMATOLOGY ORDERABLES Edited INTERFACE SYSTEM Refer to clinic/hospital department [facility] [address] [place] [place] [address] documented in this encounter Visit Diagnoses Diagnosis [place] ulcerative (chronic) colitis(556.6) (CMS/HCC) [place] ulcerative (chronic) colitis documented in this encounter Care Teams Clinical Academic Allergist Relationship Specialty Start Date End Date Mariposa Cabrales PA PCP - General Physician Registration Clerk 06/27/20 documented as of this encounter
--- OUTSIDE RECORDS SUMMARY | 2025-06-30 00:35 | XMS_ITS | Encounter Summary ---
Author Organization [facility] Address [address] [place] [address] Care Team Providers Care Transportation Driver Name Role Phone Mariposa Cabrales Primary Care Provider [phone] Encounter Details Date Type Department Care Team (Late st Contact Info) Description 09/10/2004 Outpatient Historical [facility] Internal Medicine - [facility] [address] [address] [facility] [address] [place] [address] Maddie Moise MD NO ADDRESS ON FILE Social History Tobacco Use Types Packs/Day Years Used Date Smoking Tobacco: Never Assessed Comments Unknown Sex and Gender Information Value Date Recorded Sex Assigned at Not on file Legal Sex Female 5:26 AM SODIUM METHYLATE OPERATOR Gender Identity Not on file Sexual Orientation Not on file documented as of this encounter Plan of Treatment Not on file documented as of this encounter Visit Diagnoses Not on filedocumented in this encounter Care Teams Transportation Driver Relationship Specialty Start Date End Date Mariposa Cabrales PA PCP - General Physician Scrap Baller 06/27/20 documented as of this encounter
--- OUTSIDE RECORDS SUMMARY | 2025-06-30 00:35 | XMS_ITS | Clinical Summary ---
Author Organization [facility] Address [address] [place] [place] [address] Care Team Providers Care Horticultural Specialty Grower Field Name Role Phone Kenan Gallardo MD Primary Care Provider [phone] Source Comments [facility],non-owned Affiliates and Associated Physician Practices is amultiple site organization consisting of ambulatory clinics and hospital sitesin [place], [place], [place]. This disclosure is being madepursuant to the Care Everywhere program and may not contain all information available regarding this patient. Last updated 18.[facility] Allergies Active Allergy Reactions Criticality Noted Date [...] on file Legal Sex Female 5:25 AM TECHNICAL SUPPORT PROFESSIONAL Gender Identity Not on file Sexual [...] 3 - 19+ 3-dose series) 2005 HPV VACCINE (1 - 3-dose SCDM series) 2013 COVID-19 VACCINE (1 - season) 2024 DEPRESSION SCREENING 11/03/2024 INFLUENZA VACCINE (#1) 2025 9, 11/03/2015, 11/03/2014, Additional history exists ZOSTER VACCINE [...] HEPATITIS SCREEN ACUTE Routine 09/07/2013 1:45 PM TECHNICAL SUPPORT PROFESSIONAL from Last 3 Months or Most Recently Relevant to Health Maintenance Results * HEPATITIS SCREEN ACUTE (09/07/2013 1:45 PM TECHNICAL SUPPORT PROFESSIONAL) Hepatitis A Virus Antibody IgM NON-REACTI VE NON-REACT [facility]) Hepatitis B Virus Surface Antigen NON-REACTI VE NON-REACT [facility]) Hepatitis B Core Virus Antibody IgM NON-REACTI VE NON-REACT [facility]) Hepatitis C Antibody NON-REACTI VE NON-REACT [facility]) Signal/Cutoff 0.03 <1.00 [facility] Comment: Test Performed at: [facility] [address] [place] [id number] AGUS CHAMBERS DO,MPH 09/07/2013 1:45 PM TECHNICAL SUPPORT PROFESSIONAL 09/07/2013 1:46 PM TECHNICAL SUPPORT PROFESSIONAL Laila Ramirez MD LAB - CHEMISTRY OR DERABLES Final Result [facility] [id number] from Last 3 Months or Most Recently Relevant to Health Maintenance Insurance [facility] Care Teams Horticultural Specialty Grower Field Relationship Specialty Start Date End Date Kenan Gallardo MD [address] [place] [address] [facility] - General 12/10/19
--- OUTSIDE RECORDS SUMMARY | 2025-06-30 00:35 | XMS_ITS | Encounter Summary ---
Author Organization [facility] Address [address] [place] [address] Care Team Providers Care Summer School Coordinator Name Role Phone Mariposa Cabrales Primary Care Provider [phone] Encounter Details Date Type Department Care Team (Late st Contact Info) Description 11/11/2005 Outpatient Historical [facility] Internal Medicine - [facility] [address] [address] [facility] [address] [place] [address] Maddie Moise MD NO ADDRESS ON FILE Social History Tobacco Use Types Packs/Day Years Used Date Smoking Tobacco: Never Assessed Comments Unknown Sex and Gender Information Value Date Recorded Sex Assigned at Not on file Legal Sex Female 5:26 AM INTERNET MARKETING COORDINATOR Gender Identity Not on file Sexual Orientation Not on file documented as of this encounter Last Filed Vital Signs Vital Sign Reading Time Taken Comments Blood Pressure 120/60 11/11/2005 10:30 AM INTERNET MARKETING COORDINATOR Pulse 64 11/11/2005 10:30 AM INTERNET MARKETING COORDINATOR Temperature 37 C (98.6 F) 11/11/2005 10:30 AM INTERNET MARKETING COORDINATOR Respiratory Rate - - Oxygen Saturation - - Inhaled Oxygen Concentration - - Weight 57.6 kg (127 lb) 11/11/2005 10:30 AM INTERNET MARKETING COORDINATOR Height - - Body Mass Index - - documented in this encounter Plan of Treatment Not on file documented as of this encounter Visit Diagnoses Not on filedocumented in this encounter Care Teams Summer School Coordinator Relationship Specialty Start Date End Date Mariposa Cabrales PA PCP - General Physician Assembler Small Products 06/27/20 documented as of this encounter
--- OUTSIDE RECORDS SUMMARY | 2025-06-30 00:35 | XMS_ITS | Encounter Summary ---
Author Organization [facility] Address [address] [place] [address] Care Team Providers Care Oil Rig Roughneck Name Role Phone Mariposa Cabrales Primary Care Provider [phone] Encounter Details Date Type Department Care Team (Late st Contact Info) Description 11/17/2007 Orders Only [facility] Internal [facility] - [facility] [address] [address] [facility] [address] [place] [address] Maddie Moise MD NO ADDRESS ON FILE Social History Tobacco Use Types Packs/Day Years Used Date Smoking Tobacco: Never Assessed Comments Unknown Sex and Gender Information Value Date Recorded Sex Assigned at Not on file Legal Sex Female 5:26 AM TRACK GRINDER OPERATOR Gender Identity Not on file Sexual Orientation Not on file documented as of this encounter Plan of Treatment Not on file documented as of this encounter Visit Diagnoses Not on filedocumented in this encounter Care Teams Oil Rig Roughneck Relationship Specialty Start Date End Date Mariposa Cabrales PA PCP - General Physician Assembler Engine 06/27/20 documented as of this encounter
--- OUTSIDE RECORDS SUMMARY | 2025-06-30 00:35 | XMS_ITS | Encounter Summary ---
Author Organization [facility] Address [address] [place] [address] Phone Care Team Providers Care Residential Substance Abuse Counselor Name Role Phone Yogi Fuentes MD Primary Care Provider [phone] Prudencio Feliciano DO Primary Care Provider [phone] Encounter Details Date Type Department Care Team (Late st Contact Info) Description 03/10/2020 Orders Only [facility] Scanning, Provider Social History Tobacco Use Types Packs/Day Years Used Date Smoking Tobacco: Never Assessed Comments Unknown Sex and Gender Information Value Date Recorded Sex Assigned at Not on file Legal Sex Female 5:27 PM AGENCY OPERATOR Gender Identity Not on file Sexual [...] on filedocumented in this encounter Care Teams Residential Substance Abuse Counselor Relationship Specialty Start Date End Date Yogi Fuentes MD PCP - General Internal Medicine 07/18/20 02/28/25 Prudencio Feliciano DO [facility] [facility] [place] [address] PCP - General Internal Medicine 03/01/25 documented as of this encounter
--- OUTSIDE RECORDS SUMMARY | 2025-06-30 00:35 | XMS_ITS | Encounter Summary ---
Author Organization [facility] Address [address] [place] [address] Care Team Providers Care Manager Statistical Name Role Phone Mariposa Cabrales Primary Care Provider [phone] Encounter Details Date Type Department Care Team [...] on file Legal Sex Female 5:26 AM PROMOTIONS DIRECTOR Gender Identity Not on file Sexual Orientation Not on file documented as of this encounter Plan of Treatment Not on file documented as of this encounter Visit Diagnoses Diagnosis Other and unspecified ovarian cyst- Primary documented in this encounter Care Teams Manager Statistical Relationship Specialty Start Date End Date Mariposa Cabrales PA PCP - General Physician Access Clerk 06/27/20 documented as of this encounter
--- OUTSIDE RECORDS SUMMARY | 2025-06-30 00:35 | XMS_ITS | Encounter Summary ---
Author Organization [facility] Address [address] [place] [address] Care Team Providers Care Manager Bank Name Role Phone Mariposa Cabrales Primary Care Provider Encounter Details Date Type Department Care Team (Late st Contact Info) Description 12/23/2007 Outpatient Historical [facility] Ramandeep Bess MD [address] [facility] [address] [place] [address] Social History Tobacco Use Types Packs/Day Years Used Date Smoking Tobacco: Never Assessed Comments Unknown Sex and Gender Information Value Date Recorded Sex Assigned at Not on file Legal Sex Female 5:26 AM BRACELET AND BROOCH MAKER Gender Identity Not on file Sexual Orientation Not on file documented as of this encounter Plan of Treatment Not on file documented as of this encounter Visit Diagnoses Not on filedocumented in this encounter Care Teams Manager Bank Relationship Specialty Start Date End Date Mariposa Cabrales PA PCP - General Physician Merchandise Marker 06/27/20 documented as of this encounter
--- OUTSIDE RECORDS SUMMARY | 2025-06-30 00:35 | XMS_ITS | Encounter Summary ---
Author Organization [facility] Address [address] [place] [address] Care Team Providers Care Footwear Machinery Instructor Name Role Phone Mariposa Cabrales Primary Care Provider [phone] Encounter Details Date Type Department Care Team (Late st Contact Info) Description 11/17/2007 Outpatient Historical [facility] Internal Medicine - [facility] [address] [address] [facility] [address] [place] [address] Maddie Moise MD NO ADDRESS ON FILE Hemorrhage of Rectum and Anus Social History Tobacco Use Types Packs/Day Years Used Date Smoking Tobacco: Never Assessed Comments Unknown Sex and Gender Information Value Date Recorded Sex Assigned at Not on file Legal Sex Female 5:26 AM MOLDED GOODS EMBOSSING PRESS OPERATOR Gender Identity Not on file Sexual Orientation Not on file documented as of this encounter Plan of Treatment Not on file documented as of this encounter Procedures Procedure Name Priority Date/Time Associated Diagnosis Comments CBC WITH DIFFERENTIAL Routine 11/17/2007 12:25 PM MOLDED GOODS EMBOSSING PRESS OPERATOR CBC WITH DIFFERENTIAL Routine 11/17/2007 12:25 PM MOLDED GOODS EMBOSSING PRESS OPERATOR C-REACTIVE PROTEIN Routine 11/17/2007 12 :25 PM MOLDED GOODS EMBOSSING PRESS OPERATOR BASIC METABOLIC PANEL Routine 11/17/2007 12:25 PM MOLDED GOODS EMBOSSING PRESS OPERATOR documented in this encounter Results * CBC WITH DIFFERENTIAL (11/17/2007 12:25 PM MOLDED GOODS EMBOSSING PRESS OPERATOR) NEUTROPHILS 59 45 - 70 % INTERFAC [...] K/uL INTERFACE SYSTEM 11/17/2007 12:2 5 PM MOLDED GOODS EMBOSSING PRESS OPERATOR us Maddie Moise MD HEMATOLOGY ORDERABLES Edite d Performing Organization Address [facility] de Phone Number INTERFACE SYSTEM Refer to clinic/hospital department * CBC WITH DIFFERENTIAL (11/17/2007 12:25 PM MOLDED GOODS EMBOSSING PRESS OPERATOR) WBC 4.5 4.0 - 9.8 K/uL INTERFACE [...] fL INTERFACE SYSTEM 11/17/2007 12:2 5 PM MOLDED GOODS EMBOSSING PRESS OPERATOR us Maddie Moise MD HEMATOLOGY ORDERABLES Edite d Performing Organization Address [facility] Phone Number INTERFACE SYSTEM Refer to clinic/hospital department * C-REACTIVE PROTEIN (11/17/2007 12:25 PM MOLDED GOODS EMBOSSING PRESS OPERATOR) CRP 0.2 0.0 - 0.8 mg/dL INTERFACE SYSTEM 11/17/2007 12:2 5 PM MOLDED GOODS EMBOSSING PRESS OPERATOR Maddie Moise MD CHEMISTRY ORDERABLES Edited Performing Organization Address [facility] Co de Phone Number INTERFACE SYSTEM Refer to clinic/hospital department * BASIC METABOLIC PANEL (11/17/2007 12:25 PM MOLDED GOODS EMBOSSING PRESS OPERATOR) GLUCOSE 75 65 - 99 mg/dL INTERFACE [...] on the [facility] Intranet at: [email or web address] Select: Lab Policies and Procedures Select: Reference Ranges - GFR 11/17/2007 12:2 5 PM MOLDED GOODS EMBOSSING PRESS OPERATOR Maddie Moise MD CHEMISTRY ORDERABLES Edited Performing Organization Address [facility] Phone Number INTERFACE SYSTEM Refer to clinic/hospital department documented in this encounter Visit Diagnoses Diagnosis Hemorrhage of rectum and anus documented in this encounter Care Teams Footwear Machinery Instructor Relationship Specialty Start Date End Date Mariposa Cabrales PA PCP - General Physician Plugging Machine Operator 06/27/20 documented as of this encounter
--- OUTSIDE RECORDS SUMMARY | 2025-06-30 00:35 | XMS_ITS | Encounter Summary ---
Author Organization [facility] Address [address] [place] [address] Care Team Providers Care Acetylene Gas Compressor Name Role Phone Mariposa Cabrales Primary Care Provider [phone] Encounter Details Date Type Department Care Team (Late st Contact Info) Description 01/13/2006 Outpatient [facility] Internal Medicine - [facility] [address] [address] [facility] [address] [place] [address] Maddie Moise MD NO ADDRESS ON FILE Social History Tobacco Use Types Packs/Day Years Used Date Smoking Tobacco: Never Assessed Comments Unknown Sex and Gender Information Value Date Recorded Sex Assigned at Not on file Legal Sex Female 5:26 AM ROUNDSMAN Gender Identity Not on file Sexual Orientation Not on file documented as of this encounter Last Filed Vital Signs Vital Sign Reading Time Taken Comments Blood Pressure 110/64 01/13/2006 10:10 AM ROUNDSMAN Pulse 76 01/13/2006 10:10 AM ROUNDSMAN Temperature 36.6 C (97.8 F) 01/13/2006 10:10 AM ROUNDSMAN Respiratory Rate - - Oxygen Saturation - - Inhaled Oxygen Concentration - - Weight 57.6 kg (127 lb) 01/13/2006 10:10 AM ROUNDSMAN Height - - Body Mass Index - - documented in this encounter Plan of Treatment Not on file documented as of this encounter Visit Diagnoses Not on filedocumented in this encounter Care Teams Acetylene Gas Compressor Relationship Specialty Start Date End Date Mariposa Cabrales PA PCP - General Physician Bag Turner 06/27/20 documented as of this encounter
--- OUTSIDE RECORDS SUMMARY | 2025-06-30 00:35 | XMS_ITS | Encounter Summary ---
Author Organization [facility] Address [address] [place] [address] Care Team Providers Care Jeeper Operator Name Role Phone Mariposa Cabrales Primary Care Provider [phone] Encounter Details Date Type Department Care Team (Late st Contact Info) Description 09/02/2004 Outpatient Historical [facility] [address] [id number] Vicky Langston MD [address] [facility] [address] [facility] [place] [address] Social History Tobacco Use Types Packs/Day Years Used Date Smoking Tobacco: Never Assessed Comments Unknown Sex and Gender Information Value Date Recorded Sex Assigned at Not on file Legal Sex Female 5:26 AM LINUX NETWORK ADMINISTRATOR Gender Identity Not on file Sexual Orientation Not on file documented as of this encounter Plan of Treatment Not on file documented as of this encounter Visit Diagnoses Not on filedocumented in this encounter Care Teams Jeeper Operator Relationship Specialty Start Date End Date Mariposa Cabrales PA PCP - General Physician Finisher Brush 06/27/20 documented as of this encounter
--- OUTSIDE RECORDS SUMMARY | 2025-06-30 00:35 | XMS_ITS | Encounter Summary ---
Author Organization [facility] Address [address] [place] [address] Care Team Providers Care Submarine Cable Equipment Technician Name Role Phone Mariposa Cabrales Primary Care Provider [phone] Encounter Details Date Type Department Care Team (Late st Contact Info) Description 10/30/2006 Outpatient [facility] Internal Medicine - [facility] [address] [address] [facility] [address] [place] [address] Maddie Moise MD NO ADDRESS ON FILE Social History Tobacco Use Types Packs/Day Years Used Date Smoking Tobacco: Never Assessed Comments Unknown Sex and Gender Information Value Date Recorded Sex Assigned at Not on file Legal Sex Female 5:26 AM WOOL BATTING WORKER Gender Identity Not on file Sexual Orientation Not on file documented as of this encounter Last Filed Vital Signs Vital Sign Reading Time Taken Comments Blood Pressure 114/62 10/30/2006 2:10 PM WOOL BATTING WORKER Pulse 80 10/30/2006 2:10 PM WOOL BATTING WORKER Temperature 36.3 C (97.3 F) 10/30/2006 2:10 PM WOOL BATTING WORKER Respiratory Rate - - Oxygen Saturation - - Inhaled Oxygen Concentration - - Weight 56.7 kg (125 lb) 10/30/2006 2:10 PM WOOL BATTING WORKER Height - - Body Mass Index - - documented in this encounter Plan of Treatment Not on file documented as of this encounter Visit Diagnoses Not on filedocumented in this encounter Care Teams Submarine Cable Equipment Technician Relationship Specialty Start Date End Date Mariposa Cabrales PA PCP - General Physician Loftsman/Woman 06/27/20 documented as of this encounter
--- OUTSIDE RECORDS SUMMARY | 2025-06-30 00:35 | XMS_ITS | Encounter Summary ---
Author Organization [facility] Address [address] [place] [address] Care Team Providers Care Lapel Padder Blindstitch Name Role Phone Mariposa Cabrales Primary Care Provider [phone] Encounter Details Date Type Department Care Team (Late st Contact Info) Description 04/28/[address] [facility] Internal Medicine - [facility] [address] [address] [facility] [address] [place] [address] Maddie Moise MD NO ADDRESS ON FILE Social History Tobacco Use Types Packs/Day Years Used Date Smoking Tobacco: Never Assessed Comments Unknown Sex and Gender Information Value Date Recorded Sex Assigned at Not on file Legal Sex Female 5:26 AM SHOP BLACKSMITH Gender Identity Not on file Sexual Orientation [...] on filedocumented in this encounter Care Teams Lapel Padder Blindstitch Relationship Specialty Start Date End Date Mariposa Cabrales PA PCP - General Physician Log Inspector 06/27/20 documented as of this encounter
--- OUTSIDE RECORDS SUMMARY | 2025-06-30 00:35 | XMS_ITS | Patient Health Record ---
Author Organization [facility] Address [address] [place] [address] Care Team Providers Care Movement Education Specialist Name Role Phone Yogi Fuentes MD [...] Problem Status W/U Status Risk Notes Problem [id number] Other specified abnormal immunological findings in serum (R76.8) Active confirmed Problem [id number] Diarrhea (R19.7) Active confirmed Presuming this is a flare of her UC ,she will stay on budesonide 9mg daily. I am trying to avoid prednisone but will have to start this if she does not improve soon. I have ordered a stool CDiiff and lactoferrin today. Problem [id number] Ulcerative chronic pancolitis without complications (K51.00) Active confirmed Patient here for 3rd infusion and having joint pain. Patient on 10 mg Prednisone. Problem [id number] Ulcerative pancolitis (K51.00) Active confirmed She was [...] get drug and antibody levels drawn. Problem [id number] Malabsorption (K90.9) Active confirmed Problem [id number] Myalgia (M79.10) Active confirmed Plan Of Treatment [...] Date [facility] [employer] [address] [place] [phone] [id number] Elizabeth Tanner Self - patient is the insured [place] [id number] Elizabeth Tanner Self - patient is the [...] UC Exacerbation 2019 Ulcerative colitis flare 12/2014 [place] 2004
--- OUTSIDE RECORDS SUMMARY | 2025-06-30 00:35 | XMS_ITS | Encounter Summary ---
Author Organization [facility] Address [address] [place] [address] Care Team Providers Care Burglar Alarm Mechanic Name Role Phone Mariposa Cabrales Primary Care Provider [phone] Encounter Details Date Type Department Care Team (Late st Contact Info) Description 04/13/2007 Outpatient Historical [facility] Internal Medicine - [facility] [address] [address] [facility] [address] [place] [address] Maddie Moise MD NO ADDRESS ON FILE Hematuria (Primary Dx) Social History Tobacco Use Types Packs/Day Years Used Date Smoking Tobacco: Never Assessed Comments Unknown Sex and Gender Information Value Date Recorded Sex Assigned at Not on file Legal Sex Female 5:26 AM CANDLE CUTTER Gender Identity Not on file Sexual Orientation Not on file documented as of this encounter Plan of Treatment Not on file documented as of this encounter Visit Diagnoses Diagnosis Hematuria- Primary documented in this encounter Care Teams Burglar Alarm Mechanic Relationship Specialty Start Date End Date Mariposa Cabrales PA PCP - General Physician [place] Manager 06/27/20 documented as of this encounter
--- OUTSIDE RECORDS SUMMARY | 2025-06-30 00:35 | XMS_ITS | Encounter Summary ---
Author Organization [facility] Address [address] [place] [address] Care Team Providers Care Polymer Chemist Name Role Phone Mairposa Cabrales Primary Care Provider [phone] Encounter Details Date Type Department Care Team (Late st Contact Info) Description 05/21/2005 Outpatient Historical [facility] Internal Medicine - [facility] [address] [address] [place] [facility] [address] [place] [address] Maddie Moise MD NO ADDRESS ON FILE Social History Tobacco Use Types Packs/Day Years Used Date Smoking Tobacco: Never Assessed Comments Unknown Sex and Gender Information Value Date Recorded Sex Assigned at Not on file Legal Sex Female 5:26 AM DIP UNIT OPERATOR Gender Identity Not on file Sexual [...] on filedocumented in this encounter Care Teams Polymer Chemist Relationship Specialty Start Date End Date Mariposa Cabrales PA PCP - General Physician Gravity Prospecting Observer 06/27/20 documented as of this encounter
--- OUTSIDE RECORDS SUMMARY | 2025-06-30 00:35 | XMS_ITS | Encounter Summary ---
Author Organization [facility] Address [address] [place] [address] Care Team Providers Care Deputy Sheriff Lieutenant Name Role Phone Mariposa Cabrales Primary Care Provider [phone] Encounter Details Date Type Department Care Team (Late st Contact Info) Description 11/23/2004 Outpatient Historical [facility] Internal Medicine - [facility] [address] [address] [facility] [address] [place] [address] Maddie Moise MD NO ADDRESS ON FILE Social History Tobacco Use Types Packs/Day Years Used Date Smoking Tobacco: Never Assessed Comments Unknown Sex and Gender Information Value Date Recorded Sex Assigned at Not on file Legal Sex Female 5:26 AM ELECTRIC METER READER Gender Identity Not on file Sexual Orientation Not on file documented as of this encounter Plan of Treatment Not on file documented as of this encounter Visit Diagnoses Not on filedocumented in this encounter Care Teams Deputy Sheriff Lieutenant Relationship Specialty Start Date End Date Mariposa Cabrales PA PCP - General Physician Cost Consultant 06/27/20 documented as of this encounter
--- OUTSIDE RECORDS SUMMARY | 2025-06-30 00:35 | XMS_ITS | Encounter Summary ---
Author Organization [facility] Address [address] [place] [address] Care Team Providers Care Certified Nuclear Medicine Technologist Name Role Phone Mariposa Cabrales Primary Care Provider [phone] Encounter Details Date Type Department Care Team (Latest Contact Info) Description 03/10/2008 Outpatient Historical [facility] Ramandeep Bess MD [address] [place] [address] [facility] Ulcerative (Chronic) Colitis (CMS/HCC) Social History Tobacco Use Types Packs/Day Years Used Date Smoking Tobacco: Never Assessed Comments Unknown Sex and Gender Information Value Date Recorded Sex Assigned at Not on file Legal Sex Female 5:26 AM ELECTRICAL CONTACTS ADJUSTER Gender Identity Not on file Sexual Orientation Not on file documented as of this encounter Plan of Treatment Not on file documented as of this encounter Procedures Procedure Name Priority Date/Time Associated Diagnosis Comments CBC WITH DIFFERENTIAL Routine 03/10/2008 12:40 PM CDT documented in this encounter Results * CBC WITH DIFFERENTIAL (03/10/2008 12:40 PM CDT) RDW-STDEV 41.0 37.1 - 48.[address] [facility] RBC 4.53 3.90 - 4.90 M/uL [facility] MCHC 33.4 31.5 - 35.5 % [facility] MCV 87.2 82.0 - 99.[address] [facility] PLATELETS 234 140 - 350 K/uL [facility] HEMOGLOBIN 13.2 11.8 - 14.8 g/dL [facility] RDW 12.8 11.5 - 14.5 % [facility] WBC 4.0 4.0 - 9.8 K/uL [facility] MCH 29.1 27.2 - 32.[address] [facility] MPV 11.3 9.3 - 12.[address] [facility] HEMATOCRIT 39.5 35.5 - 44.0 % [facility] MONOCYTES 6 3 - 13 % [facility] MONOCYTE ABSOLUTE 0.24 0.10 - 1.30 K/uL [facility] NEUTROPHILS 59 45 - 70 % [facility] NEUTROPHIL ABSOLUTE 2.39 1.90 - 7.00 K/uL [facility] EOSINOPHILS 2 0 - 7 % [facility] EOSINOPHIL ABSOLUTE 0.08 0.00 - 0.70 K/uL [facility] LYMPHOCYTES 33 16 - 45 % [facility] LYMPHOCYTE ABSOLUTE 1.31 0.70 - 4.50 K/uL [facility] BASOPHILS 0 0 - 2 % [facility] BASOPHILS ABSOLUTE 0.01 0.00 - 0.20 K/uL [facility] Blood specimen (specimen) 03/10/2008 12:40 PM CDT 03/10/2008 4:44 PM CDT us Ramandeep Bess MD HEMATOLOGY ORDERABLES Edited INTERFACE SYSTEM Refer to clinic/hospital department [facility] [address] [place] [address] documented in this encounter Visit Diagnoses Diagnosis [facility] ulcerative (chronic) colitis(556.6) (CMS/[facility]) [facility] ulcerative (chronic) colitis documented in this encounter Care Teams Certified Nuclear Medicine Technologist Relationship Specialty Start Date End Date Mariposa Cabrales PA PCP - General Physician Raise Drill Operator 06/27/20 documented as of this encounter
--- OUTSIDE RECORDS SUMMARY | 2025-06-30 00:35 | XMS_ITS | Encounter Summary ---
Author Organization [facility] Address [address] [place] [address] Care Team Providers Care Boiler Welder Name Role Phone Mariposa Cabrales Primary Care Provider [phone] Encounter Details Date Type Department Care Team (Late st Contact Info) Description 04/28/2007 Outpatient Historical [facility] Internal Medicine - 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 Phone Number INTERFACE SYSTEM Refer to clinic/hospital [...] Edite d Performing Organization Address [facility] Phone Number INTERFACE SYSTEM Refer to clinic/hospital department * C-REACTIVE PROTEIN (04/28/2007 12:02 PM CDT) CRP 0.2 0.0 - 0.8 mg/dL INTERFACE SYSTEM 04/28/2007 12:0 2 PM CDT us Maddie Moise MD CHEMISTRY ORDERABLES Edited INTERFACE SYSTEM Refer to clinic/hospital department documented in this encounter Visit Diagnoses Diagnosis Abdominal pain, right lower quadrant- Primary documented in this encounter Care Teams Boiler Welder Relationship Specialty Start Date End Date Mariposa Cabrales PA PCP - General Physician Fleet Administrator 06/27/20 documented as of this encounter
--- OUTSIDE RECORDS SUMMARY | 2025-06-30 00:36 | XMS_ITS | Patient Health Record ---
Author Organization [facility] Address [address] [facility] [address] [place] [address] Care Team Providers Care [employer] Manufacturing Tech Name Role Phone Prudencio Feliciano DO Primary Care Provider Nestor Hedrick Unavailable [phone] Tiffanie Oden Unavailable [phone] Allergies Allergen (clinical drug ingredient) Drug/Non Drug Allergy documented on EMR Reaction Allergy Type Onset Date Status infliximab remecaide (uncoded) Unknown Allergy Active azithromycin Azithromycin Unknown Drug Allergy A ctive codeine Codeine Unknown Drug Allergy Active mesalamine Mesalamine Unknown Drug Allergy Activ e Results Component Value Reference Range Notes UDT Reviewed date:06/16/2025 04:47:07 PM Interpretation: Performing Lab: Notes/Report: THC P 0 - 50 ng/ml Cocaine N 0 - 300 ng/ml Amphetamine P 0 - 1000 ng/ml Buprenorphine (BUP) N 0 - 10 ng/ml Secobarbital (Bar) N 0 - 300 ng/ml Oxazepam (BZO) N 0 - 300 ng/ml 9-xnxfvxyhcw-5,8-atelspby-7,3-diphenylpyrrolidine (HUBERT P) N 0 - 300 ng/ml Methamphetamine (MET) N 0 - 1000 ng/ml Methylenedioxymethamphetamine (MDMA) N 0 - 500 ng/ml Morphine (MOP 300/[id number]) N 0 - 300 ng/ml Methadone (MTD) N 0 - 300 ng/ml Phencyclidine (PCP) N 0 - 25 ng/ml Nortriptyline (TCA) N 0 - 1000 ng/ml Oxycodone N 0 - 300 ng/ml UDT Reviewed date:05/19/2025 05:47:59 PM Interpretation: Performing Lab: Notes/Report: THC P 0 - 50 ng/ml Cocaine N 0 - 300 ng/ml Amphetamine P 0 - 1000 ng/ml Buprenorphine (BUP) N 0 - 10 ng/ml Secobarbital (Bar) N 0 - 300 ng/ml Oxazepam (BZO) P 0 - 300 ng/ml 8-ebfuwirdpw-1,9-qxccnqvc-9,3-diphenylpyrrolidine (HUBERT P) N 0 - 300 ng/ml Methamphetamine (MET) N 0 - 1000 ng/ml Methylenedioxymethamphetamine (MDMA) N 0 - 500 ng/ml Morphine (MOP 300/[id number]) N 0 - 300 ng/ml Methadone (MTD) N 0 - 300 ng/ml Phencyclidine (PCP) N 0 - 25 ng/ml Nortriptyline (TCA) N 0 - 1000 ng/ml Oxycodone N 0 - 300 ng/ml x N 0 - 300 ng/ml Reason For Referral No Information Medications Medication SIG (Take, Route, Frequency, Duration) Notes Start Date End Date Status Multivitamin Active Lisdexamfetamine Dimesylate 50 MG Capsule 1 capsule in the morning Orally Once a day; Duration: 30 days 06/16/2025 Active Stelara 90 MG/ML Solution Prefilled Syringe Subcutaneous; Duration: 28 Days Active Omeprazole 40 MG Capsule Delayed Release TAKE 1 CAPSULE DAILY Oral; Duration: 90 Days Active Ondansetron [address] 1 TABLET ON THE TONGUE AND ALLOW TO DISSOLVE EVERY 8 HOURS NEEDED FOR NAUSEA OR VOMITING Oral; Duration: 10 Days R110,NAUSEA Active Levoxyl 75 MCG Tablet Oral; Duration: 90 Days Active Nurtec 75 MG Tablet Disintegrating 1 tablet on the tongue and allow to dissolve Orally 04/06/2025 Active Topiramate 25 MG Tablet Oral; Duration: 90 Days Active Lisdexamfetamine Dimesylate 30 MG Capsule 1 capsule in the morning Orally Once a day; Duration: 30 days 05/04/2025 Not-Taking FLUoxetine HCl 20 MG Capsule 20 MG ORALLY DAILY TO BE TAKEN WITH 40MG DAILY Oral Active Social History Tobacco Use: Social History Observation Description Date Details (start date - stop date) Never Smoker NA - NA Sex Assigned At : Social History Observation Description Sex Assigned At Female Social History Miscellaneous: Social Info Question Answer Notes Safety issues: Are there any firearms in the house? Ye s Social History Social Info Question Answer Notes Household: Marital Status: Number of Adults in household: 2 Number of Children in Household: 2 Level of Education: Professional Schools/Masters /PhD Drug/Alcohol: Social Info Question Answer Notes AUDIT-C (Standard) Did you have a drink containing alcohol in the past year? Yes How often did you have a drink containing alcohol in the past year? 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 Adm its, gummies to sleep Do you drink alcohol? Yes, Socia lly Problems Problem Type SNOMED Code ICD Code Onset Dates Problem Status W/U Status Risk Notes Problem Generalized anxiety disorder (F41.1) Active confirmed Problem Attention deficit hyperactivity disorder, predominantly inattentive type (disorder) (34501835) Attention and concentration deficit (R41.840) Active confirmed Vital Signs Heart Rate 80 /min 06/16/2025 Height-cm 165.1 cm 06/16/2025 Blood pressure diastolic 70 mm Hg 06/16/2025 Weight-kg 84.37 kg 06/16/2025 Height 65 in 06/16/2025 Blood pressure systolic 115 mm Hg 06/16/2025 Weight 186 lbs 06/16/2025 BMI 30.95 kg/m2 06/16/2025 Encounters Encounter Location Date Provider Diagnosis [facility] [address] [address] 04/06/2025 Nestor Denis Encounter for screen ing for cardiovascular disorders Z13.6 ; Generalized anxiety disorder F41.1 ; Binge eating disorder, moderate F50.811 and Attention and concentration deficit R41.840 [facility] [address] [facility] [address] [place] [address] 05/19/2025 Nestor Hernandeza Generalized anxiety disorder F41.1 ; Attention and concentration deficit R41.840 and Binge eating disorder, moderate F50.811 [facility] [address] [facility] [address] [place] [address] 06/16/2025 Nestor Hernandeza Generalized anxiety disorder F41.1 ; Attention and concentration deficit R41.840 and Binge eating disorder, moderate F50.811 [facility] [address] [place] [address] 05/04/2025 Nestor Denis [facility] [address] [place] [address] 04/06/2025 Tiffanie Heardtex [facility] [address] [place] [address] 04/06/2025 Nestor Denis Assessments Encounter Date Diagnosis (ICD Code) Assessment Notes Treatment Notes Treatment Clinical Notes Section Notes 04/06/2025 Encounter for screening for cardiovascular disorders (ICD-10 - Z13.6) 05/19/2025 Generalized anxiety disorder (ICD-10 - F41.1) 05/19/2025 Attention and concentration deficit (ICD-10 - R41.840) 06/16/2025 Generalized anxiety disorder (ICD-10 - F41.1) 06/16/2025 Attention and concentration deficit (ICD-10 - R41.840) 05/19/2025 Binge eating disorder, moderate (ICD-10 - F50.811) 04/06/2025 Generalized anxiety disorder (ICD-10 - F41.1) 04/06/2025 Binge eating disorder, moderate (ICD-10 - F50.811) Electronic Prior Authorization was requested for Lisdexamfetamine Dimesylate 30 MG Capsule. Provider can order medication once approval received. 06/16/2025 Binge eating disorder, moderate (ICD-10 - F50.811) 04/06/2025 Attention and concentration deficit (ICD-10 - R41.840) 04/06/2025 Other Learning About Depression Screening material was printed Elizabeth Tanner, adult female with history of anxiety and depression since adolescence, presents with worsening forgetfulness, disorganization , sleep disturbances, and binge eating. Attention Deficit Hyperactivity Disorder (ADHD) Assessment: Patient reports symptoms consistent with ADHD, including forgetfulness, disorganization , difficulty focusing, and feeling overwhelmed. She describes zoning out during conversations, needing information repeated, and constant mental exhaustion. Patient functions better in chaotic environments and feels the need to be constantly moving. No formal diagnosis or family history of ADHD, but family history significant for anxiety, depression, and substance abuse. Current symptoms are impacting daily functioning and quality of life. Plan: - Initiate Vyvanse 30 mg PO daily in the morning for ADHD symptoms and binge eating disorder - Schedule ADHD computerized testing (45-60 minutes) - Instruct patient not to take Vyvanse on the day of testing - Follow up in one month to assess response and consider dose adjustment Binge Eating Disorder Assessment: Patient reports daily binge eating behaviors and significant weight gain. Previously lost 30 pounds on Ozempic but discontinued use. Binge eating appears to be related to emotional factors and may be exacerbated by current life stressors. Plan: - Initiate Vyvanse 30 mg PO daily (as noted above) for dual treatment of ADHD and binge eating disorder - Educate patient on expected effects of Vyvanse on appetite and eating behaviors Anxiety Disorder Assessment: Long-standing history of anxiety since adolescence, currently managed with fluoxetine 60 mg daily for approximately 10 years. Patient reports current anxiety symptoms including heart palpitations, restlessness, and inability to sit still. Uses marijuana gummies and alcohol to manage symptoms. No current panic attacks, obsessions, or compulsions reported. Plan: - Continue fluoxetine 60 mg PO daily - Monitor anxiety symptoms with initiation of Vyvanse - Consider reassessment of anxiety management if symptoms persist or worsen Insomnia Assessment: Patient reports difficulty falling asleep due to racing thoughts, but maintains sleep once asleep. Current sleep disturbances may be related to increased life stressors and anxiety symptoms. Plan: - Monitor sleep patterns with initiation of Vyvanse - Educate patient on proper sleep hygiene techniques Substance Use Assessment: Patient reports using marijuana gummies approximately 3 times per week at bedtime and alcohol socially to manage anxiety symptoms. Expresses concern about potential for addiction to benzodiazepines . Plan: - Educate patient on risks associated with substance use for symptom management - Monitor substance use patterns during treatment for ADHD and anxiety the note is transcribed using speech recognition software. It is a reflection of a visit with the patient. It might have some inaccuracy, including medication names and transcribing errors, though efforts have been made to correct them. 05/19/2025 Other Elizabeth Tanner, a patient with ADHD and anxiety, reports significant improvement in focus, energy, and mood on current medication regimen but experiences decreased effectiveness in the afternoon. Attention Deficit Hyperactivity Disorder (ADHD) Assessment: Patient reports marked improvement in ADHD symptoms with current Vyvanse treatment. She describes increased focus, energy, and productivity, particularly in the morning. However, she notes a decline in medication effectiveness in the afternoon, around 2-3 PM, with difficulty maintaining focus. The patient expresses interest in potentially increasing the dosage. No significant side effects reported, aside from initial jitteriness that has since subsided. Appetite has decreased, but no weight changes noted. Plan: - Increase Vyvanse to 50 mg PO daily from current 30 mg dose - Continue fluoxetine 20 mg and 40 mg daily - Follow-up appointment scheduled in one month to assess response to therapy - Informed patient that maximum Vyvanse dose is 70 mg if further adjustments are needed Anxiety Assessment: Patient reports feeling way more relaxed with current treatment regimen. Previously experienced overwhelming anxiety that contributed to excessive sleepiness and frustration. Current medication appears to be effectively managing anxiety symptoms. Plan: - Continue current anxiety management with fluoxetine (doses as noted above) - Monitor for any changes in anxiety symptoms with Vyvanse dose increase 06/16/2025 Michael Tanner, a female patient with a history of ADHD and anxiety, presents for medication management and reports improvement in symptoms with current regimen. Attention Deficit Hyperactivity Disorder (ADHD) Assessment: Patient reports improvement in ADHD symptoms with current Vyvanse dose of 50 mg. She notes enhanced work performance, improved focus, and better organization at home. Initial side effects of jitteriness resolved after a few days. Sleep has not been affected, though the patient reports a history of poor sleep. Weight has remained stable despite improved eating habits. Plan: - Continue Vyvanse 50 mg - Refill Vyvanse 50 mg - Option to increase to 70 mg in the future if needed - Follow up in 3 months - Patient to request refill through patient gavino at least a few days before needed Anxiety Assessment: Patient reports occasional anxiety, primarily at night, manifesting as racing thoughts and difficulty falling asleep. However, she describes this as normal stuff and not constant or severe. Current management with fluoxetine appears to be effective in controlling anxiety symptoms. Plan: - Continue fluoxetine 60 mg daily (20 mg + 40 mg) Binge Eating Assessment: Patient reports significant improvement in binge eating behaviors, particularly at home. She notes better portion control and reduced frequency of binge episodes. However, she still experiences occasional binge eating at social gatherings where food is abundant. Plan: - Continue current medication regimen, which appears to be helping with binge eating symptoms the note is transcribed using speech recognition software. It is a reflection of a visit with the patient. It might have some inaccuracy, including medication names and transcribing errors, though efforts have been made to correct them. Plan Of Treatment Pending Test Test Name Order Date UDT 04/06/2025 Future Test Test Name Order Date ADHD Testing 04/06/2025 Next Appt Details Provider Name:Nestor gilliam, 09/22/2025 11:45:00 AM, [address] [facility] [address], [facility] [address], [place], [address], Insurance Providers Payer Name Payer Address Payer Phone Subscriber Number Group Number Insured Name Patient Relationship to Insured Coverage Start Date Coverage End Date Umr [address] [address] [place] [address] [phone] [id number] Elizabeth Tanner Self - patient is the insured Medical (General) History Medical History History ICD Code Past Psychiatric History: Anxiety Disord er abdominal aortic aneurysm: No atrial fibrillation: No chronic fatigue syndrome: No essential tremor: No hyperlipidemia: No hypertension: No Parkinson's disease: No restless leg syndrome: No stroke: No subdural hematoma: No type 1 diabetes mellitus: No type 2 diabetes mellitus: No vitamin B12 deficiency: No vitamin D deficiency: Yes Surgical History Surgery Date(Month/Year) D&C 2013 Lap Jina 2014 Brian ia Repair 2017 Colonoscopies/EGD bi-annually since 2006.
--- NOTE | 2025-06-30 06:48 | WPDANESEPPF ---
Anes - Initial Pre Proc Eval Procedure: Operation Date: 06/30/25 07:30 Proposed Procedures p Hysteroscopy Dilation and Curettage with Reina Endometrial Ablation, - Sravan King MD s Laparoscopic Bilateral Salpingectomy - Sravan King MD Date/Time: 06/30/25 06:48 Surgeon: Sravan King MD Pre Op Diagnosis: desires sterilization, excessive heavy bleeding Patient Data Age: 39 Gender: F Height: 1.65 m Weight: 84.8 kg Allergies Allergy/AdvReac Type Severity Reaction Status Date / Time erythromycin base Allergy Intermediate rash Verified 06/24/25 11:31 infliximab Allergy Unknown Joint Pain Verified 06/24/25 11:31 mesalamine Allergy Unknown Joint Pain Verified 06/24/25 11:31 codeine Allergy Nausea and Verified 06/24/25 11:31 Vomiting Home Medications ?Medication ?Instructions ?Recorded ?Confirmed ?Type tizanidine 4 mg tablet 4 mg PO PRN PRN Sleep 11/27/19 06/24/25 History melatonin 10 mg tablet 10 mg PO HS PRN Sleep 06/25/20 06/24/25 History ondansetron 4 mg disintegrating 10 mg PO Q6H PRN nausea and 06/25/20 06/24/25 History tablet vomiting aspirin 81 mg tablet,delayed 81 mg PO DAILY 11/19/24 06/24/25 History release omeprazole 40 mg capsule,delayed 40 mg PO DAILY 11/19/24 06/24/25 History release ustekinumab 90 mg/mL subcutaneous 90 mg subcut ONCE 11/19/24 06/24/25 History syringe (Stelara) rimegepant 75 mg disintegrating 75 mg PO .QOD migraine headache 12/21/24 06/24/25 Rx tablet (Nurtec ODT) #45 tabs fluoxetine 20 mg capsule 20 mg PO DAILY #90 caps 01/21/25 06/24/25 Rx fluoxetine 40 mg capsule 40 mg PO DAILY #90 caps 01/21/25 06/24/25 Rx levothyroxine 75 mcg tablet 75 mcg PO DAILY 06/24/25 06/24/25 History (Euthyrox) lisdexamfetamine 50 mg capsule 50 mg PO .am 06/24/25 06/24/25 History topiramate 25 mg tablet 50 mg PO HS 06/24/25 06/24/25 History Patient hx anesthesia problems: none Family hx anesthesia problems: none Results Review: All pre-operative results and documents have been reviewed as part of the pre-operative evaluation. 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 Vitamin D deficiency Shingles Anxiety Ulcerative colitis She has been on several different biologics without success, and is being referred to a GI specialist at [facility]. Surgical History Surgical History History of colonoscopy History of ventral hernia repair History of dilation and curettage History of cholecystectomy Family History Family History Mother Family history of thyroid disease Grandparent Family history of lung cancer Family history of renal cell carcinoma Other Cerebrovascular accident Diabetes mellitus Family history of allergic disorder Family history of kidney disease Hypertension Social History Social History Social History: Elizabeth lives in [place] with her and 2 children. 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 No illicit drug use. She designates her Brigitte as her surrogate decision maker and she wishes to be a full code. Smoking status: Never smoker Second hand tobacco smoke exposure: No Alcohol intake: current Drinks per week: 2 Substance use: never Living arrangements: with family Occupation/Education: occupation Gender identity (if verbalized by the patient): Female Spiritual care concerns: No Anes - Eval Final PreProcedure Day of Procedure 06/30/25 06:48 Patient weight: obese Heart: regular rate and rhythm Lungs: clear to auscultation Airway: Mallampati scale class II Neurological: alert and oriented Last oral intake: >/= 8 hours ASA classification: II Emergent: no Anesthetic plan: proceed Anesthesia type and monitoring: general ETT and standard monitoring Results Review: All pre-operative results and documents have been reviewed as part of the pre-operative evaluation. Informed Consent: The patient's anesthetic plan and its attendant risks and benefits were discussed with the patient/family/POA. Questions were solicited and answers provided to the satisfaction of the patient/family/POA.
[2025-06-30] MEDS: ACETAMINOPHEN 500 MG TABLET 1000 MG PO (06:50)
[2025-06-30] MEDS: LACTATED RINGERS 1,000 ML 30 ML IV CONT ×2 (06:50→08:51)
[2025-06-30 06:53] LABS: Hematocrit 40.6 % (37.0-47.0); Hemoglobin 13.2 g/dL (12.0-15.0)
[2025-06-30] MEDS: KETOROLAC 15 MG/ML VIAL (*BKC) IV PUSH (06:55)
[2025-06-30 07:13] LABS: BEDSIDEPREGUCG Negative (Negative)
--- NOTE | 2025-06-30 07:34 | WPDHPUPDATE1 ---
History and Physical Update Update Date/Time: 06/30/25 07:34 History and Physical has been reviewed, including an updated exam of the patient. There are NO changes in the patient's condition. Risks, benefits, and alternatives have been discussed and questions answered. Patient agrees to proceed with procedure.
--- NOTE | 2025-06-30 08:01 | S_PTH ---
PATIENT: Elizabeth Tanner LOC: [facility] U#:[id number] AGE/SX: 39/F ROOM: RE06/30/[address]: Sravan King MD : 1985 BED: DIS: 06/30/2025 SPEC #: [id number] RECD: 06/30/25 10:24 STATUS: GEOVANY REQ #: [id number] YENNI: 06/30/25 08:[address]: Sravan Rodrigues DEPT: [facility] RECD BY: Libia Parr ENTERED: 06/30/25 10:24 SP TYPE: Surgical OTHR DR: Prudencio Feliciano DO Tissues: A - Fallopian Tube Bilateral B - Endometrial Curettings Procedures: Gross and Microscopic Level 2 Hematoxylin and Eosin Stain Gross and Microscopic Level 4
--- NOTE | 2025-06-30 08:29 | P.OP_ITS ---
Procedure Note - Detailed Date of Procedure 06/30/25 Pre-op Diagnosis desires sterilization, excessive heavy bleeding Post-op Diagnosis Same Procedure Performed Laparoscopic bilateral salpingectomy with hysteroscopy dilatation curettage Reina ablation and removal of IUD Surgeon Sravan King MD Anesthesia General Indications This is a 39-year-old female who desires permanent sterilization with excessive Findings Normal-appearing ovaries tubes uterus. Description of Procedure The patient was prepped and draped normal sterile fashion placed in dorsal lithotomy position. Under excellent general trach anesthesia weighted speculum placed in posterior fornix vagina. Anterior lip of cervix grasped with single- tooth tenaculum. The IUD was removed in total without difficulty. Cyst Marvin's cannula inserted the cervix attached single-tooth be used later for cannulation. The bladder was emptied of clear urine the weighted speculum was removed. Attention was turned to the laparoscopic bilateral salpingectomy. An infraumbilical incision made the Veress needle passed in the abdomen. Abdomen filled with CO2 gas [id number]. The 5mm trocar advanced under direct visualization assuring no injury. Patient placed in Trendelenburg and a suprapubic incision made. The 5mm trocar advanced under direct visualization assuring no injury. L left lower quadrant incision made the 5mm trocar advanced under direct visualization assuring injury. Photo documentation was undertaken. The left fallopian tube was sharply dissected away from the ovarian complex using the LigaSure until at the uterine origin this was clamped across and removed through the left lower quadrant incision. In similar fashion the right fallopian tube was grasped and serially clamping burning and cutting with the LigaSure this was brought to the origin left fallopian tube which was clamped at its origin cut and removed through left lower quadrant incision. Hemostasis was assured. The gas removed from the abdomen the trocars removed the incisions closed with 4 Monocryl and glue. Attention was turned to the hysteroscopic portion the uterus sounded to7.5cm. Serial dilatation fragmented dilators performed followed by passage of the 5mm visualizing hysteroscope using normal saline as visualizing medium. Thick irregular endometrium was seen and this was scraped over the entire 360?. The LigaSure instrument was then placed burned for 120seconds the LigaSure instruments removed and the hysteroscopy reinserted and excellent burn noted the instruments withdrawn. The patient went to recovery in satisfactory condition. All sponge, needle, instrument counts were correct. There were no immediate complications Estimated Blood Loss 25 Drains No Packing No Pathology Yes Complications No immediate complications Condition Stable Disposition PACU
[2025-06-30] MEDS: fentaNYL CITRATE INJ (*CRX) 100 MCG/2 ML VIAL 25 MCG IV PUSH ×4 (08:49→09:26)
[2025-06-30] MEDS: oxyCODONE HCL (*CRX) 5 MG TAB IR PO (09:47)
== END 2025-06-30 10:38 | disposition home or self-care (01) ==
PROVIDERS: PCP Internal Medicine; Visit Provider Obstetrics & Gynecology
PROC: 0U5B8ZZ Destruction of Endometrium, Via Natural or Artificial Opening Endoscopic (ICD-10-PCS; CPT 58563; principal; 2025-06-30 07:30)
PROC: (CPT 49320; 2025-06-30 07:30)
DX: Z30.2 Encounter for sterilization (principal); N93.9 Abnormal uterine and vaginal bleeding, unspecified; E66.9 Obesity, unspecified; Z68.30 Body mass index [BMI] 30.0-30.9, adult
CPT/HCPCS: 58661; 58563; 58301; 36415; 85014; 85018; 88302; 88305; A9270; J1100; J1885; J2003; J2250; J2405; J2704; J3010; J7030; J7120

== ENCOUNTER 2025-09-22 12:45 | Outpatient (CLI) | payer OTHER, SELFPAY ==
[2025-09-22 13:55] LABS: Hematocrit 41.8 % (37.0-47.0); Hemoglobin 13.9 g/dL (12.0-15.0); Immature Granulocyte Percent A 0.2 % (0-0.5); Lymphocytes Absolute Auto 1.76 K/mm3 (0.9-3.2); Mean Corpuscular HGB Conc 33.3 g/dl (32-36); Mean Corpuscular Hemoglobin 30.2 pg (26-34); Mean Corpuscular Volume 90.7 fl (80-100); Nucleated Red Blood Cells Absolute Auto 0.000 K/mm3 (0.0-0.012); Nucleated Red Blood Cells Perc 0.0 % (0.0-0.2); Platelet Count Result 268 k/mm3 (150-375); Red Blood Count 4.61 M/mm3 (4.2-5.4); White Blood Count 4.8 K/mm3 (4.5-10.0)
[2025-09-22 14:43] LABS: Alanine Aminotransferase 27 U/L (6-35); Albumin Level 4.9 g/dL (3.5-5.1); Alkaline Phosphatase 72 U/L (38-126); Anion Gap 12 mmol/L (4-12); Aspartate Amino Transferase 36 U/L (14-36); Bilirubin,Total 0.5 mg/dL (0.2-1.3); Blood Urea Nitrogen 13 mg/dL (7-17); Calcium 9.1 mg/dL (8.4-10.2); Carbon Dioxide 22 mmol/L (22-30); Chloride 104 mmol/L (98-107); Cholesterol 228 mg/dL (0-200); Estimated Glomerular Filt Rate > 60; Glucose 81 mg/dL (65-110); HDL Direct 55 mg/dL; Magnesium 2.2 mg/dL (1.6-2.3); Sodium 138 mmol/L (137-145); Total Protein 8.6 g/dL (6.3-8.2); Triglycerides 142 mg/dL (<150)
[2025-09-22 14:53] LABS: Potassium 3.5 mmol/L (3.4-5.0)
[2025-09-22 15:19] LABS: Thyroid Stimulating Hormone 2.220 uIU/mL (0.465-4.680)
[2025-09-22 16:47] LABS: Vitamin B12 532.0 pg/mL (239-931)
[2025-09-22 17:57] LABS: Free T4 Free Thyroxine 1.04 ng/dL (0.78-2.19)
== END 2025-09-22 12:46 | disposition home or self-care (01) ==
LOC: ANHLAB 12:47
PROVIDERS: PCP Internal Medicine; Visit Provider Family Medicine
DX: Z13.220 Encounter for screening for lipoid disorders (principal); E87.6 Hypokalemia; R53.83 Other fatigue; D73.5 Infarction of spleen; E55.9 Vitamin D deficiency, unspecified
CPT/HCPCS: 36415; 80053; 80061; 82306; 82607; 83735; 84439; 84443; 85025